=== PATIENT | male | born 1945 | race Caucasian/White ===

== ENCOUNTER → 2016-11-12 | Outpatient (CLI) | payer MEDICARE, OTHER | LOC: OD 15:16 | PROVIDERS: ATTEND Internal Medicine | DX: M54.14 Radiculopathy, thoracic region (principal); M54.9 Dorsalgia, unspecified | CPT/HCPCS: 72070 ==

== ENCOUNTER 2016-11-13 08:17 | Emergency (ER) | payer MEDICARE, OTHER ==
[2016-11-13] MEDS ORDERED: MORPHINE SULFATE 10 MG/ML INJ IV ONE (09:09)
[2016-11-13] MEDS ORDERED: IPRATROPIUM/ALBUTEROL 0.5-2.5 MG/3 ML AMPUL NEB ONE (09:09)
[2016-11-13] MEDS ORDERED: ONDANSETRON HCL INJ/PF 4 MG/2 ML SDV IV ONE (09:09)
--- NOTE | 2016-11-13 09:17 | ER Document Report ---
ED General - General Time seen by provider: 09:00 Mode of Arrival: Wheelchair Information source: Patient, Relative - spouse and family members TRAVEL OUTSIDE OF THE [place] IN LAST 30 DAYS: No - HPI Onset: Other - see HPI note Associated symptoms: Productive cough, Leg swelling, Rhinnorhea, Weakness <FAWAD ESPINOZA - Last Filed: 11/13/16 09:22> <PAU GRAHAM - Last Filed: 11/13/16 11:41> - General Chief Complaint: Weakness Stated Complaint: WEAKNESS Notes: Patient is a 71-year-old male presenting to the emergency department with complaints of weakness. Patient has history of multiple myeloma and has oral and IV chemotherapy 2 times per week; patient has had this care for the past 6 years. Patient has had some episodes of weakness. Saturday morning and today the patient has not been able to get up well and on his own. Patient also has had a productive cough and some congestion over the past 3-4 days; patient has been coughing up yellow/green sputum. Patient fell on and is complaining of some upper back pain. Patient had a T-spinal x-ray yesterday with [facility]; patient states he does not have the result yet from his x-ray. Patient did not receive a flu vaccination this season. Patient denies any fevers but is febrile upon arrival with a temperature of 101.6 F. Patient also has some chronic edema to the lower extremities bilaterally; patient's spouse states the edema is worse than normal. Patient also has a history of osteoarthritis and degenerative disc disease. Patient's PCP is Dr. Garcia. Patient's son expressed concern to triage desk that the patient may be taking too many of his pain medications. (FAWAD ESPINOZA) - Related Data Allergies/Adverse Reactions: lorazepam [From Ativan] Allergy (Mild, Verified 05/31/15 10:52) Hallucinations promethazine HCl [From Phenergan] Allergy (Mild, Verified 05/31/15 10:52) Hallucinations Past Medical History - General Information source: Patient, Relative - spouse and family members - Social History Smoking Status: Former Smoker - quit in '88 Lives with: Spouse/Significant other Family History: None - Past Medical History Cardiac Medical History: Reports: Hx Atrial Fibrillation, Hx Hypertension Endocrine Medical History: Reports: Hx Diabetes Mellitus Type 2 Malignancy Medical History: Reports Other - multiple myeloma Musculoskeltal Medical History: Reports Hx Arthritis - back Past Surgical History: Reports: Hx Vascular Surgery - Port placement, Other - Cataracts bilaterally - Immunizations Immunizations up to date: Yes Hx Diphtheria, Pertussis, Tetanus Vaccination: No Hx Pneumococcal Vaccination: 06/16/14 <FAWAD ESPINOZA - Last Filed: 11/13/16 09:22> Review of Systems - Review of Systems Constitutional: See HPI, Weakness EENT: See HPI, Nose congestion Cardiovascular: No symptoms reported Respiratory: See HPI, Cough Gastrointestinal: No symptoms reported Genitourinary: No symptoms reported Male Genitourinary: No symptoms reported Musculoskeletal: See HPI, Back pain Skin: No symptoms reported Hematologic/Lymphatic: No symptoms reported Neurological/Psychological: See HPI, Weakness -: Yes All other systems reviewed and negative <FAWAD ESPINOZA - Last Filed: 11/13/16 09:22> Physical Exam - Vital signs Interpretation: Febrile - General General appearance: Appears well, Alert In distress: Mild - HEENT Head: Normocephalic, Atraumatic Eyes: Normal Pupils: PERRL Mouth/Lips: Normal Mucous membranes: Moist Pharynx: Normal - Respiratory Respiratory status: No respiratory distress Chest status: Nontender, Other - port in left chest Breath sounds: Rhonchi, Wheezing Chest palpation: Normal - Cardiovascular Rhythm: Regular Heart sounds: Normal auscultation Murmur: No - Abdominal Inspection: Obese Distension: No distension Bowel sounds: Normal Tenderness: Nontender Organomegaly: No organomegaly - Back Back: Normal, Tender - tenderness over the medial scapula region bilaterally - Extremities General upper extremity: Normal inspection, Normal ROM, Normal strength General lower extremity: Edema - chronic edema with some skin thickening, Normal ROM, Normal strength - Neurological Neuro grossly intact: Yes Cognition: Normal Orientation: AAOx4 [place] Coma Scale Eye Opening: Spontaneous [place] Coma Scale Verbal: Oriented [place] Coma Scale Motor: Obeys Commands [place] Coma Scale Total: 15 Speech: Normal - Psychological Associated symptoms: Normal affect, Normal mood - Skin Skin Temperature: Warm Skin Moisture: Dry <FAWAD ESPINOZA - Last Filed: 11/13/16 09:22> <PAU GRAHAM - Last Filed: 11/13/16 11:41> - Vital signs Vitals: Temp Pulse Resp BP Pulse Ox 101.6 F H 80 18 133/59 H 92 11/13/16 08:25 11/13/16 08:25 11/13/16 08:25 11/13/16 08:25 11/13/16 08:25 (FAWAD ESPINOZA) (PAU GRAHAM) Course - Laboratory Result Diagrams: 11/13/16 08:50 11/13/16 08:50 <FAWAD ESPINOZA - Last Filed: 11/13/16 09:22> - Laboratory Result Diagrams: 11/13/16 08:50 11/13/16 08:50 - Diagnostic Test Radiology reviewed: Image reviewed, Reports reviewed - Chest x-ray does not show any acute process - EKG Interpretation by Me EKG shows normal: Sinus rhythm, [place], Intervals, QRS Complexes. abnormal: ST-T Waves - Minimal ST depression anterior leads Rate: Normal - 76 Rhythm: NSR Washta/QRS: IVCD When compared to previous EKG there are: Changes noted - There is new T-wave inversion in leads V1, V2, V3, V4, and V5 <PAU GRAHAM - Last Filed: 11/13/16 11:41> - Vital Signs Vital signs: Temp Pulse Resp BP Pulse Ox 98.3 F 66 18 117/44 L 96 11/13/16 11:16 11/13/16 11:16 11/13/16 08:25 11/13/16 11:16 11/13/16 11:16 (FAWAD ESPINOZA) (PAU GRAHAM) - Laboratory Laboratory results interpreted by fl: 11/13/16 11/13/16 11/13/16 08:50 08:50 08:50 RBC 3.88 L Hgb 11.2 L Hct 34.3 L RDW 21.5 H Plt Count 124 L Lymphocytes % 11.9 L Monocytes % 19.3 H PT 26.2 H Sodium 134.7 L BUN 21 H Creatinine 1.48 H Est GFR ( Amer) 57 L Est GFR (Non-Af Amer) 47 L Glucose 118 H Calcium 8.3 L AST 16 L Total Protein 6.2 L (PAU GRAHAM) Discharge <FAWAD ESPINOZA - Last Filed: 11/13/16 09:22> <PAU GRAHAM - Last Filed: 02/28/17 11:41> - Discharge Clinical Impression: Influenza B, Weakness Fever Qualifiers: Fever type: unspecified Qualified Code(s): R50.9 - Fever, unspecified Condition: Stable Disposition: HOME, SELF-CARE Additional Instructions: Influenza What are conditions that should receive medical attention? The development of difficulty breathing. Lip color changes to blue or purple. Persistent vomiting and unable to keep liquids down with signs of dehydration such as: dizziness when standing, unable to urinate, or if child/ is crying no tears are noticed. Is less responsive than normal or becomes confused. How do I decrease the spread of flu in my home? Taking care of the sick patient at home: Keep the sick person in a room separate from the common areas of the house. Keep the "sickroom" door closed. If the person with the flu needs to leave the home, they should cover their nose/mouth when coughing or sneezing and wear a disposable (surgical) mask if available. These masks may be available at your local pharmacy, medical supply and hardware store. If the sick person is in common areas of the house, have them wear a surgical mask. If possible, have the sick person use a separate bathroom that should be cleaned daily with a household disinfectant. If you are the caregiver: Avoid being face to face with the sick adult person as much as possible. Try to stay at least 6 feet away and wear a disposable surgical mask when possible. When holding small children who are sick, place their chin on your shoulder so that they will not cough in your face. Wash your hands after you touch the sick person or handle their tissues and laundry. Wear a mask if you leave home, as you may be infected from taking care of someone and not know it yet. Watch yourself and others in the home for flu symptoms and contact your doctor if symptoms occur. NOTE: Antiviral medication used to reduce the symptoms of the flu works only if taken within 48 hours, and best within 24 hours of symptom onset. Household Cleaning, laundry and waste disposal: Tissues and other disposable items used by the sick person should be thrown away in the trash. Wash your hands after touching these used items. No special waste disposal is required. Keep surfaces (especially bedside tables, bathroom surfaces, and toys for children) clean by wiping them down with a safe household disinfectant according to the directions on the product label. Per CDC advice, most people will not receive testing to confirm flu. Also based on the person's health history and onset of symptoms, not all patients will receive prescriptions for antiviral medications. If you have questions related to this, please ask your healthcare provider. For more information, you can call the Centers for Disease Control and Prevention (CDC) Hotline at 6-531-QRT-INFO This line is available in Occitan and Ukrainian, 24 hours a day, 7 days a week. Or www.[employer] or www.cdc.gov Flu-Like Illness Home Instructions: The influenza virus infection can cause a wide rage of symptoms, including: Fever, cough, sore throat, body aches, headaches, chills, fatigue, with some patients reporting diarrhea and vomiting Like seasonal influenza A, H1N1 ("swine flu")in humans can vary in severity from mild to severe Severe illness with pneumonia, respiratory failure and even is possible Certain groups might be more likely to develop a severe illness from H1N1 infection. Sometimes bacterial infections may occur at the same time as or after infection with influenza viruses and lead to pneumonias, ear infections, or sinus infections. How Flu Spreads The main way that influenza viruses spread is through respiratory droplets of coughs and sneezes. This can happen when someone with the infection coughs or sneezes and the particles fly through the air and land on other people and surfaces. If the person covers their mouth and nose with their hand but does not wash their hands immediately, then these germs are passed onto the next object that they touch. People with Influenza A or suspected H1N1 (swine flu) who are cared for at home should: Check with their doctor about any special care that they might need if they are or have a health condition such as diabetes, heart disease, asthma or emphysema. Also, limit caregiver to one (if possible). women or those with chronic health conditions should not take care of the flu patient unless necessary. Check with their doctor about whether or not medications are needed that may lessen the symptoms of the flu. Stay at home until 24 hours fever free without the use of fever reducing medication. Get plenty of rest and avoid other healthy people in your home. Drink plenty of clear liquids to keep from getting dehydrated. Take medications like Tylenol (Acetaminophen), Advil/Motrin/Nuprin ( Ibuprofen) or Aleve (Naproxen) for fevers and aches. All children under the age of 18 years of age should not take aspirin or products containing aspirin (e.g. Pepto Bismol), as this can cause a rare serious illness called Will Syndrome. Over the counter medications for flu and colds may help, but it is very important to follow the package directions. Remember that the medicine may help the symptoms, but it will not help prevent others from getting sick if they are around you. Cover coughs and sneezes using your bent arm. Clean hands with soap and water or an alcohol-based hand rub often, especially after using tissues to cough or sneeze. Encourage hand washing frequently for all people living in the home! The sick person should not have visitors other than caregivers. Encourage concerned loved ones to call instead of visit. Avoid close contact with others-do not go to work or school while sick. //////////////////////////////////////////////////////////////////////////////// //////////////////////////////////////////////////////////////////////////////// ////////////////////////////////////////////////////// Take Tylenol every 4 hours for fever. Drink plenty of fluids. Get plenty of rest. Follow-up with your doctor if not improving. RETURN TO THE EMERGENCY ROOM IF ANY NEW OR WORSENING SYMPTOMS. Scribe Attestation: 11/13/16 11:41 I personally performed the services described in the documentation, reviewed and edited the documentation which was dictated to the scribe in my presence, and it accurately records my words and actions. (PAU GRAHAM) Scribe Documentation - Scribe Written by Scribe:: Fawad Espinoza 11/13/16 9:38 acting as scribe for :: Ronald <FAWAD ESPINOZA - Last Filed: 11/13/16 09:22>
[2016-11-13 09:25] LABS: ALANINE AMINOTRANSFERASE 26 U/L (21-72); ALBUMIN 3.7 g/dL (3.5-5.0); ALKALINE PHOSPHATASE 52 U/L (38-126); ANION GAP 12 (5-19); ASPARTATE AMINO TRANSFERASE 16 U/L (17-59); BILIRUBIN,TOTAL 1.3 mg/dL (0.2-1.3); BLOOD UREA NITROGEN 21 mg/dL (7-20); CALCIUM 8.3 mg/dL (8.4-10.2); CARBON DIOXIDE 23 mmol/L (22-30); CHLORIDE 100 mmol/L (98-107); CREATINE KINASE 57 U/L (55-170); CREATININE RESULT 1.48 mg/dL (0.52-1.25); GLUCOSE 118 mg/dL (75-110); POTASSIUM 4.2 mmol/L (3.6-5.0); SODIUM 134.7 mmol/L (137-145); TOTAL PROTEIN 6.2 g/dL (6.3-8.2)
[2016-11-13 09:28] LABS: ABSOLUTE LYMPHOCYTES (AUTO) 0.6 10^3/uL (0.5-4.7); ABSOLUTE NEUT (AUTO) 3.4 10^3/uL (1.7-8.2); BASOPHILS % (AUTO) 0.5 % (0-2); EOSINOPHILS % (AUTO) 0.6 % (0-6); HEMATOCRIT 34.3 % (37.9-51.0); HEMOGLOBIN 11.2 g/dL (13.5-17.0); HGB HCT DIFFERENCE -0.7; LYMPHOCYTES % (AUTO) 11.9 % (13-45); MEAN CORPUSCULAR HEMOGLOBIN 28.8 pg (27.0-33.4); MEAN CORPUSCULAR HGB CONC 32.6 g/dL (32.0-36.0); MEAN CORPUSCULAR VOLUME 89 fl (80-97); MONOCYTES % (AUTO) 19.3 % (3-13); RED BLOOD COUNT 3.88 10^6/uL (4.35-5.55); RED CELL DISTRIBUTION WIDTH 21.5 % (11.5-14.0); SEGMENTED NEUTROPHILS % (AUTO) 67.7 % (42-78)
[2016-11-13 09:37] LABS: CREATINE KINASE MB 0.73 ng/mL (<4.55); PROTHROMBIN TIME 26.2 SEC (11.4-15.4); TROPONIN I 0.012 ng/mL
[2016-11-13] MEDS ORDERED: ACETAMINOPHEN 325 MG TABLET PO ONE (09:51)
[2016-11-13 11:26] VITALS: BP 117/44
--- NOTE | 2016-11-13 18:13 | EKG REPORT ---
SEVERITY:- ABNORMAL ECG - SINUS RHYTHM NONSPECIFIC INTRAVENTRICULAR CONDUCTION DELAY MINIMAL ST DEPRESSION, ANTERIOR LEADS : Confirmed by: Bartolome Matamoros MD 13-Nov-2016 18:13:25
== END 2016-11-13 19:03 | disposition home or self-care (01) ==
LOC: ER 08:17
DX: J11.1 Influenza due to unidentified influenza virus with other respiratory manifestations (principal); R53.1 Weakness; C90.00 Multiple myeloma not having achieved remission; R50.9 Fever, unspecified; I48.91 Unspecified atrial fibrillation; I10 Essential (primary) hypertension; E11.9 Type 2 diabetes mellitus without complications; Z87.891 Personal history of nicotine dependence
CPT/HCPCS: 93005; 94640; 99285; 96374; 96375; 36415; 87040; 87070; 87205; 82553; 82550; 85025; 85610; 87077; 80053; 84484; 87186; 83605; 87804; 71020; 93010; A9270 ×2; J2270; J2405; J7620

== ENCOUNTER 2017-02-04 18:22 | Emergency (ER) | payer MEDICARE, OTHER ==
[2017-02-04] MEDS ORDERED: GLUCAGON,HUMAN RECOMB 1 MG INJ SUBCUT PRN (19:07)
[2017-02-04] MEDS ORDERED: NITROGLYCERIN 0.4 MG/TAB 25 TAB/BOTTLE SL ONE (19:07)
--- NOTE | 2017-02-04 19:48 | ER Document Report ---
ED Foreign Body - General Chief Complaint: Meat stuck in throat Stated Complaint: STEAK STUCK IN THROAT Time Seen by Provider: 02/04/17 19:06 Mode of Arrival: Ambulatory Information source: Patient TRAVEL OUTSIDE OF THE [place] IN LAST 30 DAYS: No - HPI Patient complains to provider of: Piece of steak stuck in throat Location of foreign body: Throat Onset: This afternoon Onset/Duration: Sudden Quality of pain: Achy Severity: Mild Pain Level: 1 Associated symptoms: Other - Unable to swallow Similar symptoms previously: Yes Recently seen / treated by doctor: No Notes: Patient is a 72-year-old male who presents to the emergency room complaining of a piece of [employer] steak stuck in his throat since lunchtime today, he is unable to swallow his secretions, he denies any difficulty breathing, he complains of mild pain at the site where he feels the steak is stuck, he reports a history of similar symptoms in the past, however he is usually able to swallow the meat with some persistence at home, today he was unable to - Related Data Allergies/Adverse Reactions: lorazepam [From Ativan] Allergy (Mild, Verified 05/31/15 10:52) Hallucinations promethazine HCl [From Phenergan] Allergy (Mild, Verified 05/31/15 10:52) Hallucinations Past Medical History - General Information source: Patient - Social History Smoking Status: Unknown if Ever Smoked Family History: None - Past Medical History Cardiac Medical History: Reports: Hx Atrial Fibrillation, Hx Hypertension Denies: Hx Coronary Artery Disease, Hx Heart Attack Pulmonary Medical History: Denies: Hx Asthma, Hx Bronchitis, Hx COPD, Hx Pneumonia, Hx Tuberculosis Neurological Medical History: Denies: Hx Cerebrovascular Accident, Hx Seizures Endocrine Medical History: Reports: Hx Diabetes Mellitus Type 2 Renal/ Medical History: Denies: Hx Peritoneal Dialysis Musculoskeltal Medical History: Reports Hx Arthritis - back Psychiatric Medical History: Denies: Hx Depression Past Surgical History: Reports: Hx Vascular Surgery - Port placement, Other - Cataracts bilaterally - Immunizations Immunizations up to date: Yes Hx Diphtheria, Pertussis, Tetanus Vaccination: No Hx Pneumococcal Vaccination: 06/16/14 Review of Systems - Review of Systems Constitutional: No symptoms reported EENT: See HPI Cardiovascular: No symptoms reported Respiratory: No symptoms reported Gastrointestinal: No symptoms reported Genitourinary: No symptoms reported Male Genitourinary: No symptoms reported Musculoskeletal: No symptoms reported Skin: No symptoms reported Hematologic/Lymphatic: No symptoms reported Neurological/Psychological: No symptoms reported -: Yes All other systems reviewed and negative Physical Exam - Vital signs Vitals: Temp Pulse Resp BP Pulse Ox 98.5 F 56 L 18 147/40 H 92 02/04/17 18:57 02/04/17 18:57 02/04/17 18:57 02/04/17 18:57 02/04/17 18:57 Interpretation: Normal - General General appearance: Appears well, Alert - HEENT Head: Normocephalic, Atraumatic Eyes: Normal Pupils: PERRL - Respiratory Respiratory status: No respiratory distress Chest status: Nontender Breath sounds: Normal Chest palpation: Normal - Cardiovascular Rhythm: Regular Heart sounds: Normal auscultation Murmur: No - Abdominal Inspection: Normal Distension: No distension Bowel sounds: Normal Tenderness: Nontender Organomegaly: No organomegaly - Back Back: Normal, Nontender - Extremities General upper extremity: Normal inspection, Nontender, Normal color, Normal ROM , Normal temperature General lower extremity: Normal inspection, Nontender, Normal color, Normal ROM , Normal temperature, Normal weight bearing. No: Gaviota's sign - Neurological Neuro grossly intact: Yes Cognition: Normal Orientation: AAOx4 [place] Coma Scale Eye Opening: Spontaneous Rhonda Coma Scale Verbal: Oriented [place] Coma Scale Motor: Obeys Commands [place] Coma Scale Total: 15 Speech: Normal Motor strength normal: LUE, RUE, LLE, RLE Sensory: Normal - Psychological Associated symptoms: Normal affect, Normal mood - Skin Skin Temperature: Warm Skin Moisture: Dry Skin Color: Normal Course - Re-evaluation Re-evalutation: 02/04/17 19:48 Tempted to assist in dislodging the state from patient's throat by providing him with sublingual nitro, subcutaneous glucagon and warm soda, however he was still unable to swallow in the warm soda came right back up, therefore the surgeon was contacted who will see and evaluate patient for likely endoscopy to remove the piece of some patient's esophagus 02/04/17 23:23 A call was placed to [facility], spoke with transfer center and requested callback from gastroenterology 02/04/17 23:44 Patient was discussed with gastroenterology at [facility], Dr. Kramer accepted patient for transfer on ED to ED basis Discussed with Dr. Albright, the physician who was made aware of patient transfer and also in agreement with this plan 02/05/17 01:09 Patient has been sleeping comfortably, he remains mildly sedated from Versed that was given while surgeon was attempting to remove his knee impaction, he is arousable, has no complaints of the present time, vital signs are stable, he is stable for transport to tertiary care center for higher level of care - Vital Signs Vital signs: Temp Pulse Resp BP Pulse Ox 98.5 F 58 L 15 130/54 H 99 02/04/17 18:57 02/04/17 22:25 02/04/17 23:45 02/04/17 23:45 02/04/17 23:45 - Consults Dr Mathis Time consulted: 19:45 Reason for consultation: 02/04/17 20:01 esophageal meat impaction Consulted provider: will come to ER Discharge - Discharge Clinical Impression: Esophageal obstruction due to food impaction Condition: Stable Disposition: [facility]
[2017-02-04] MEDS ORDERED: ONDANSETRON HCL INJ/PF 4 MG/2 ML SDV ONE (20:40)
[2017-02-04] MEDS ORDERED: NALOXONE HCL INJ/PF 0.4 MG/1 ML SDV ONE (20:40)
[2017-02-04] MEDS ORDERED: FLUMAZENIL INJ 0.5 MG/5 ML VIAL IV ONE (20:41)
[2017-02-04] MEDS ORDERED: EPINEPHRINE INJ 1 MG/10 ML DISP.SYRIN ONE (20:41)
[2017-02-04] MEDS ORDERED: GLUCAGON,HUMAN RECOMB 1 MG INJ ONE (20:41)
[2017-02-04] MEDS ORDERED: FENTANYL CITRATE INJ/PF 100 MCG/2 ML AMPUL ONE (20:41)
[2017-02-04] MEDS ORDERED: MIDAZOLAM 2 MG/2 ML INJ ONE (20:41)
[2017-02-04] MEDS: MIDAZOLAM 2 MG/2 ML INJ ONE ×4 (20:57→21:34)
--- NOTE | 2017-02-05 01:33 | OPERATIVE REPORT E ---
Operative Report NAME: NINI ZHENG : 1945 AGE: 72Y DATE OF SURGERY: 02/04/2017 ROOM: PREOPERATIVE DIAGNOSIS: 1. Esophageal meat impaction. 2. Coumadin anticoagulation. 3. Multiple myeloma. POSTOPERATIVE DIAGNOSIS: 1. Esophageal meat impaction. 2. Coumadin anticoagulation. 3. Multiple myeloma. 4. Probable distal esophageal stricture. PROCEDURE PERFORMED: 1. Multiple flexible upper endoscopy with incomplete clearance of meat impaction of the esophagus. SURGEON: RICHY CAAL M.D. ANESTHESIA: Conscious sedation. COMPLICATIONS: None. ESTIMATED BLOOD LOSS: None. DRAINS: None. TISSUE REMOVED OR ALTERED: Fragments of meat bolus. PROCEDURE IN DETAIL: After obtaining informed consent from the patient and the patient's , monitoring devices were attached to the patient in preparation for upper endoscopy. Surgical plan and surgical timeout were conducted. A mouthpiece was inserted. Hypopharynx anesthetized and appropriate level of sedation achieved. We then performed upper endoscopy with multiple extractions and reinsertions of the esophagoscope. The findings were significant for a large elongated portion of meat, starting at the upper esophageal sphincter and extending down to the mid-esophagus. Using a combination of irrigation suction and aung retraction, meat fragments were picked apart, flushed out, aspirated, and removed form the upper and mid-esophagus. We proceeded for approximately 1 hour in this fashion. Patient received approximately 7 mg of Versed and 100 mcg of Fentanyl. Unfortunately, the patient did not tolerate the endoscopy well in that he coughed and gatored throughout a lot of the procedure. Unfortunately, the patient developed a distal esophageal imp;action which could not be cleared through the above means. 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 PLAN: We are going to let the patient recover in the emergency room, and reassess after some period of time. The role of enzymatic debridement was discussed with the emergency department but was felt not to be a viable option. Patient may clear the remaining bolus spontaneously or may require repeat endoscopy. We will communicate the status of the current situation to the patient's . DICTATING PHYSICIAN: RICHY CAAL M.D. [id number] PHY#: [id number] ID: [id number] JOB#: [id number] ACCT: [id number] cc:RICHY CAAL M.D. >
[2017-02-05 01:38] VITALS: BP 117/60
== END 2017-02-05 01:15 | disposition short-term general hospital (02) ==
LOC: ER 18:22
DX: T18.128A Food in esophagus causing other injury, initial encounter (principal); X58.XXXA Exposure to other specified factors, initial encounter; I10 Essential (primary) hypertension; E11.9 Type 2 diabetes mellitus without complications; Z88.8 Allergy status to other drugs, medicaments and biological substances
CPT/HCPCS: 99284; 96372; 43215; J2250; J3010; J1610; 43247; J0171; J2310; J2405; J3490

== ENCOUNTER → 2017-04-29 | Outpatient (CLI) | payer MEDICARE, OTHER ==
[2017-04-29 09:58] LABS: ABSOLUTE BASOPHILS # (AUTO) 0.1 10^3/uL (0.0-0.2); ABSOLUTE EOSINOPHILS # (AUTO) 0.2 10^3/uL (0.0-0.6); ABSOLUTE LYMPHOCYTES (AUTO) 0.6 10^3/uL (0.5-4.7); ABSOLUTE MONOCYTES (AUTO) 0.4 10^3/uL (0.1-1.4); ABSOLUTE NEUT (AUTO) 2.4 10^3/uL (1.7-8.2); BASOPHILS % (AUTO) 1.6 % (0-2); EOSINOPHILS % (AUTO) 5.5 % (0-6); HEMATOCRIT 33.3 % (37.9-51.0); HEMOGLOBIN 10.8 g/dL (13.5-17.0); HGB HCT DIFFERENCE -0.9; LYMPHOCYTES % (AUTO) 16.7 % (13-45); MEAN CORPUSCULAR HEMOGLOBIN 29.4 pg (27.0-33.4); MEAN CORPUSCULAR HGB CONC 32.4 g/dL (32.0-36.0); MEAN CORPUSCULAR VOLUME 91 fl (80-97); MONOCYTES % (AUTO) 10.9 % (3-13); RED BLOOD COUNT 3.67 10^6/uL (4.35-5.55); RED CELL DISTRIBUTION WIDTH 23.2 % (11.5-14.0); SEGMENTED NEUTROPHILS % (AUTO) 65.3 % (42-78); WHITE BLOOD COUNT 3.7 10^3/uL (4.0-10.5)
[2017-04-29 10:22] LABS: ALANINE AMINOTRANSFERASE 17 U/L (21-72); ALBUMIN 3.8 g/dL (3.5-5.0); ALKALINE PHOSPHATASE 51 U/L (38-126); ANION GAP 11 (5-19); ASPARTATE AMINO TRANSFERASE 10 U/L (17-59); BILIRUBIN,DIRECT 0.4 mg/dL (0.0-0.4); BILIRUBIN,TOTAL 0.9 mg/dL (0.2-1.3); BLOOD UREA NITROGEN 21 mg/dL (7-20); CALCIUM 8.9 mg/dL (8.4-10.2); CARBON DIOXIDE 26 mmol/L (22-30); CHLORIDE 102 mmol/L (98-107); CHOLESTEROL 159.16 mg/dL (0-200); CREATININE RESULT 1.23 mg/dL (0.52-1.25); Direct HDL 43 mg/dL (>40); GLUCOSE 94 mg/dL (75-110); POTASSIUM 4.4 mmol/L (3.6-5.0); TOTAL PROTEIN 6.9 g/dL (6.3-8.2); TRIGLYCERIDES 150 mg/dL (<150)
[2017-04-29 10:33] LABS: DIRECT LDL 101 mg/dL (<100)
[2017-04-30 10:38] LABS: CREATININE URINE 10.8 mg/dL (Not Estab.)
[2017-04-30 11:23] LABS: MICROALBUMIN URINE <3.0 ug/mL (Not Estab.)
== END ==
LOC: OD 08:14
PROVIDERS: ATTEND Family Medicine Geriatric Medicine
DX: Z79.899 Other long term (current) drug therapy (principal); E11.9 Type 2 diabetes mellitus without complications; I10 Essential (primary) hypertension; I48.91 Unspecified atrial fibrillation
CPT/HCPCS: 36415; 80053; 80061; 82043; 82570; 83036; 84443; 85025

== ENCOUNTER 2017-05-22 07:05 | Outpatient (CLI) | payer MEDICARE, OTHER ==
[~2017-05-22 07:05] MED LIST: ACETAMINOPHEN 325 MG TABLET PO PRN; DARATUMUMAB IV PRN; DEXTROSE 5% IV PRN; DIPHENHYDRAMINE HCL 50 MG in NORMAL SALINE 50 ML IV PRN; METHYLPREDNISOLONE SOD SUCC IV PRN; NORMAL SALINE 250 ML IV PRN; NORMAL SALINE IV PRN; WATER IV PRN
[2017-05-22 07:55] LABS: HEMATOCRIT 30.2 % (37.9-51.0); HEMOGLOBIN 9.7 g/dL (13.5-17.0); HGB HCT DIFFERENCE -1.1; MEAN CORPUSCULAR HEMOGLOBIN 29.1 pg (27.0-33.4); MEAN CORPUSCULAR HGB CONC 32.1 g/dL (32.0-36.0); MEAN CORPUSCULAR VOLUME 91 fl (80-97); RED BLOOD COUNT 3.34 10^6/uL (4.35-5.55); RED CELL DISTRIBUTION WIDTH 22.4 % (11.5-14.0); WHITE BLOOD COUNT 8.7 10^3/uL (4.0-10.5)
[2017-05-22 08:15] LABS: ANISOCYTOSIS 3+; BAND NEUTROPHILS % (MANUAL) 4 % (3-5); BASOPHILS % (MANUAL) 0 % (0-2); EOSINOPHILS % (MANUAL) 0 % (0-6); LYMPHOCYTES % (MANUAL) 4 % (13-45); PLATELET CLUMPS PRESENT; TOTAL CELLS COUNTED 100; TOXIC GRANULATION 1+
[2017-05-22 08:18] LABS: OVALOCYTES SLIGHT; POIKILOCYTOSIS SLIGHT; POLYCHROMASIA SLIGHT; TEAR DROP CELLS SLIGHT
[2017-05-22] MEDS ORDERED: DEXAMETHASONE SOD PHOS INJ 10 MG/1 ML VIAL IV PRN (09:02)
[2017-05-22] MEDS ORDERED: DIPHENHYDRAMINE HCL 50 MG/ML VIAL IV PRN (09:03)
[2017-05-22 17:08] VITALS: BP 127/61
== END 2017-05-22 17:33 | disposition home or self-care (01) ==
LOC: II 07:05 → ICU 07:18 → II 17:33
PROVIDERS: ATTEND Internal Medicine
PROC: 3E0430M Introduction of Antineoplastic, Monoclonal Antibody, into Central Vein, Percutaneous Approach (ICD-10-PCS; principal; 2017-05-22)
PROC: 3E0433Z Introduction of Anti-inflammatory into Central Vein, Percutaneous Approach (ICD-10-PCS; 2017-05-22)
PROC: 3E043GC Introduction of Other Therapeutic Substance into Central Vein, Percutaneous Approach (ICD-10-PCS; 2017-05-22)
DX: Z51.11 Encounter for antineoplastic chemotherapy (principal); C90.02 Multiple myeloma in relapse
CPT/HCPCS: 96413; 96415; 96367; 86900; 86901; 36415; 86850; 85025; A9270; J1200; J2930; J7030; J7050; J9145; 96375

== ENCOUNTER → 2017-06-03 | Outpatient (CLI) | payer MEDICARE, OTHER | LOC: OD 11:07 | PROVIDERS: ATTEND Family Medicine Geriatric Medicine | DX: Z79.899 Other long term (current) drug therapy (principal); R89.9 Unspecified abnormal finding in specimens from other organs, systems and tissues | CPT/HCPCS: 36415; 84443 ==

== ENCOUNTER 2017-07-25 10:26 | Outpatient (CLI) | payer MEDICARE, OTHER ==
[2017-07-25] MEDS ORDERED: NORMAL SALINE 500 ML IV PRN (10:45)
[2017-07-25 11:37] VITALS: BP 109/65
== END 2017-07-25 12:30 | disposition home or self-care (01) ==
LOC: II 10:26 → 5TH 10:32 → II 12:30
PROVIDERS: ATTEND Internal Medicine
PROC: 3E0437Z Introduction of Electrolytic and Water Balance Substance into Central Vein, Percutaneous Approach (ICD-10-PCS; principal; 2017-07-25)
DX: E86.0 Dehydration (principal); C90.02 Multiple myeloma in relapse
CPT/HCPCS: 96360; 96375

== ENCOUNTER → 2017-08-06 | Outpatient (CLI) | payer MEDICARE, OTHER | LOC: OD 11:08 | PROVIDERS: ATTEND Family Medicine Geriatric Medicine | DX: E05.90 Thyrotoxicosis, unspecified without thyrotoxic crisis or storm (principal) | CPT/HCPCS: 36415; 84443 ==

== ENCOUNTER → 2017-08-12 | Outpatient (CLI) | payer MEDICARE, OTHER ==
--- NOTE | 2017-08-12 13:27 | RADIOLOGY REPORT (SQ) ---
EXAM DESCRIPTION: SHOULDER LEFT 2 OR MORE VIEWS COMPLETED DATE/TIME: 08/12/2017 12:55 pm REASON FOR STUDY: PAIN IN LEFT SHOULDER M25.512 PAIN IN LEFT SHOULDER COMPARISON: None. NUMBER OF VIEWS: Three views. TECHNIQUE: Internal rotation, external rotation, and Y view images acquired of the left shoulder. LIMITATIONS: None. FINDINGS: MINERALIZATION: Normal. BONES: No fracture dislocation. There is what appears to be a type 3 acromion with an anterior down turn seen on the Y view. JOINTS: No dislocation. VISUALIZED LUNGS AND RIBS: No pneumothorax. No rib fracture. SOFT TISSUES: No radiopaque foreign body. OTHER: No other significant finding. IMPRESSION: Type 3 acromion. No acute abnormality shoulder. TECHNICAL DOCUMENTATION: JOB ID: [id number] [employer]- All Rights Reserved
== END ==
LOC: OD 12:07
PROVIDERS: ATTEND Family Medicine Geriatric Medicine
DX: M25.512 Pain in left shoulder (principal)

== ENCOUNTER → 2017-08-20 | Outpatient (CLI) | payer MEDICARE, OTHER ==
[2017-08-20 09:18] LABS: ABSOLUTE BASOPHILS # (AUTO) 0.1 10^3/uL (0.0-0.2); ABSOLUTE EOSINOPHILS # (AUTO) 0.3 10^3/uL (0.0-0.6); ABSOLUTE LYMPHOCYTES (AUTO) 1.4 10^3/uL (0.5-4.7); ABSOLUTE MONOCYTES (AUTO) 0.6 10^3/uL (0.1-1.4); EOSINOPHILS % (AUTO) 4.6 % (0-6); HEMATOCRIT 36.1 % (37.9-51.0); HEMOGLOBIN 11.8 g/dL (13.5-17.0); HGB HCT DIFFERENCE -0.7; LYMPHOCYTES % (AUTO) 18.6 % (13-45); MEAN CORPUSCULAR HEMOGLOBIN 27.8 pg (27.0-33.4); MEAN CORPUSCULAR HGB CONC 32.5 g/dL (32.0-36.0); MEAN CORPUSCULAR VOLUME 86 fl (80-97); MONOCYTES % (AUTO) 8.1 % (3-13); RED BLOOD COUNT 4.22 10^6/uL (4.35-5.55); SEGMENTED NEUTROPHILS % (AUTO) 67.7 % (42-78); WHITE BLOOD COUNT 7.4 10^3/uL (4.0-10.5)
[2017-08-20 09:33] LABS: ALANINE AMINOTRANSFERASE 28 U/L (21-72); ALBUMIN 4.2 g/dL (3.5-5.0); ALKALINE PHOSPHATASE 52 U/L (38-126); ANION GAP 8 (5-19); ASPARTATE AMINO TRANSFERASE 15 U/L (17-59); BILIRUBIN,DIRECT 0.4 mg/dL (0.0-0.4); BILIRUBIN,TOTAL 0.7 mg/dL (0.2-1.3); BLOOD UREA NITROGEN 21 mg/dL (7-20); CALCIUM 9.2 mg/dL (8.4-10.2); CARBON DIOXIDE 32 mmol/L (22-30); CHLORIDE 98 mmol/L (98-107); CHOLESTEROL 176.63 mg/dL (0-200); Direct HDL 40 mg/dL (>40); GLUCOSE 90 mg/dL (75-110); POTASSIUM 4.7 mmol/L (3.6-5.0); TOTAL PROTEIN 7.3 g/dL (6.3-8.2); TRIGLYCERIDES 186 mg/dL (<150)
[2017-08-20 09:44] LABS: DIRECT LDL 109 mg/dL (<100)
[2017-08-20 09:47] LABS: VLDL CHOLESTEROL 37.2 mg/dL (10-31)
[2017-08-21 09:40] LABS: CREATININE URINE 57.4 mg/dL (Not Estab.); MICROALBUMIN URINE <3.0 ug/mL (Not Estab.)
== END ==
LOC: OD 08:14
PROVIDERS: ATTEND Family Medicine Geriatric Medicine
DX: E11.40 Type 2 diabetes mellitus with diabetic neuropathy, unspecified (principal); I10 Essential (primary) hypertension; E78.5 Hyperlipidemia, unspecified; Z79.899 Other long term (current) drug therapy
CPT/HCPCS: 36415; 80053; 80061; 82043; 82570; 83036; 85025

== ENCOUNTER → 2017-09-24 | Outpatient (CLI) | payer MEDICARE, OTHER ==
[2017-09-24 14:13] LABS: INTERNATIONAL RATION (INR) 2.61; PROTHROMBIN TIME 29.2 SEC (11.4-15.4)
== END ==
LOC: OD 13:00
PROVIDERS: ATTEND Family Medicine Geriatric Medicine
DX: I48.91 Unspecified atrial fibrillation (principal); I26.99 Other pulmonary embolism without acute cor pulmonale
CPT/HCPCS: 36415; 85610

== ENCOUNTER → 2017-10-01 | Outpatient (CLI) | payer MEDICARE, OTHER ==
[2017-10-01 10:50] LABS: ALANINE AMINOTRANSFERASE 20 U/L (21-72); ASPARTATE AMINO TRANSFERASE 13 U/L (17-59); CHOLESTEROL 118.61 mg/dL (0-200); TRIGLYCERIDES 131 mg/dL (<150)
[2017-10-01 11:03] LABS: DIRECT LDL 60 mg/dL (<100)
== END ==
LOC: OD 09:35
PROVIDERS: ATTEND Family Medicine Geriatric Medicine
DX: N18.3 Chronic kidney disease, stage 3 (moderate) (principal); Z79.899 Other long term (current) drug therapy
CPT/HCPCS: 36415; 80061; 82306; 84450; 84460

== ENCOUNTER → 2017-10-07 | Outpatient (CLI) | payer MEDICARE ==
--- NOTE | 2017-10-07 22:21 | RADIOLOGY REPORT (SQ) ---
EXAM DESCRIPTION: MRI LT UPPER JOINT WITHOUT COMPLETED DATE/TIME: 10/07/2017 11:36 am REASON FOR STUDY: COMPLETE ROTATOR CUFF TEAR OR RUPTURE OF LEFT SHOULDER M25.512 PAIN IN LEFT SHOU[place] COMPARISON: 08/12/2017 radiographs. TECHNIQUE: Left shoulder images acquired and stored on PACS. Multiplanar imaging to include fat sens itive sequences such as T1, water sensitive sequences such as FST2/STIR, cartilage sensitive sequence s such as FSPD/gradient-echo sequences. LIMITATIONS: None. FINDINGS: BONE MARROW AND CORTEX: Destructive lesion with abnormal soft tissue in the distal clavicl e abutting the AC joint. Grossly 3 x 4 x 3 cm AP by transverse by craniocaudal. Mild signal in the infra glenoid scapula and along the proximal humeral shaft may represent additional lesions. JOINT OR BURSAL EFFUSION: No significant joint or bursal fluid. No suggestion of loose bodies. GLENO-HUMERAL ARTICULATION: Normal articulation. No subluxation. No cystic change. No osteophytes or cartilage loss. ACROMION AND AC JOINT: Acromion intact. No AC joint widening ROTATOR CUFF AND INTERVAL: Tear along anterior supraspinatus insertion relatively focally. This invo lves the bursal surface and a portion of the cuff, without clear full-thickness gap or retraction. LABRUM AND BICEPS LABRAL COMPLEX: Fraying in the biceps anchor. Biceps tendon looks relatively nor mal. REMAINDER OF LABRUM AND IGHL : Limited assessment, grossly intact. PERIARTICULAR AND ADJACENT SOFT TISSUES: As above. No axillary adenopathy. No other regional soft t issue mass. OTHER: No other significant finding. IMPRESSION: 1. Destructive mass with expansile soft tissue in the distal clavicle. Patient reported ly has known "Bone cancer" . 2. No full thickness cuff tear. Mild partial tear along anterior supr aspinatus insertion. TECHNICAL DOCUMENTATION: JOB ID: [id number] [email or web address] All Rights Reserved
== END ==
LOC: RAD 10:34
PROVIDERS: ATTEND Orthopaedic Surgery
DX: M75.122 Complete rotator cuff tear or rupture of left shoulder, not specified as traumatic (principal)

== ENCOUNTER → 2017-10-08 | Outpatient (CLI) | payer MEDICARE | LOC: OD 09:59 | PROVIDERS: ATTEND Family Medicine Geriatric Medicine | DX: R94.6 Abnormal results of thyroid function studies (principal); Z79.899 Other long term (current) drug therapy | CPT/HCPCS: 36415; 84443 ==

== ENCOUNTER → 2017-11-12 | Outpatient (CLI) | payer MEDICARE, OTHER | LOC: OD 10:00 | PROVIDERS: ATTEND Family Medicine Geriatric Medicine | DX: E03.9 Hypothyroidism, unspecified (principal); Z79.899 Other long term (current) drug therapy | CPT/HCPCS: 36415; 84443 ==

== ENCOUNTER → 2017-12-09 | Outpatient (CLI) | payer MEDICARE, OTHER ==
[2017-12-09 09:52] LABS: PROTHROMBIN TIME 29.1 SEC (11.4-15.4)
== END ==
LOC: OD 09:03
PROVIDERS: ATTEND Family Medicine Geriatric Medicine
DX: Z79.01 Long term (current) use of anticoagulants (principal); I26.99 Other pulmonary embolism without acute cor pulmonale
CPT/HCPCS: 36415; 85610

== ENCOUNTER → 2017-12-26 | Outpatient (CLI) | payer MEDICARE, OTHER ==
[2017-12-26 10:22] LABS: INTERNATIONAL RATION (INR) 1.86; PROTHROMBIN TIME 22.3 SEC (11.4-15.4)
== END ==
LOC: OD 09:36
PROVIDERS: ATTEND Family Medicine Geriatric Medicine
DX: I48.91 Unspecified atrial fibrillation (principal); I26.99 Other pulmonary embolism without acute cor pulmonale; E03.9 Hypothyroidism, unspecified
CPT/HCPCS: 36415; 84443; 85610

== ENCOUNTER → 2018-01-02 | Outpatient (CLI) | payer MEDICARE, OTHER ==
[2018-01-02 11:39] LABS: INTERNATIONAL RATION (INR) 1.88; PROTHROMBIN TIME 22.5 SEC (11.4-15.4)
== END ==
LOC: OD 10:48
PROVIDERS: ATTEND Family Medicine Geriatric Medicine
DX: I48.91 Unspecified atrial fibrillation (principal); I26.99 Other pulmonary embolism without acute cor pulmonale; Z79.01 Long term (current) use of anticoagulants
CPT/HCPCS: 36415; 85610

== ENCOUNTER 2018-04-30 12:43 | Emergency (ER) | payer MEDICARE, OTHER ==
--- NOTE | 2018-04-30 13:11 | EKG REPORT ---
SEVERITY:- ABNORMAL ECG - SINUS RHYTHM MULTIPLE ATRIAL PREMATURE COMPLEXES NONSPECIFIC INTRAVENTRICULAR CONDUCTION DELAY CONSIDER OLD TRUE POST [place]. : Confirmed by: Bartolome Matamoros MD 30-Apr-2018 13:11:20
--- NOTE | 2018-04-30 13:28 | RADIOLOGY REPORT (SQ) ---
EXAM DESCRIPTION: CHEST SINGLE VIEW COMPLETED DATE/TIME: 04/30/2018 1:10 pm REASON FOR STUDY: bed 20 sepsis protocol COMPARISON: 11/13/2016 EXAM PARAMETERS: NUMBER OF VIEWS: One view. TECHNIQUE: Single frontal radiographic view of the chest acquired. RADIATION DOSE: NA LIMITATIONS: None. FINDINGS: LUNGS AND PLEURA: No opacities, masses or pneumothorax. No pleural effusion. MEDIASTINUM AND HILAR STRUCTURES: No masses. Contour normal. HEART AND VASCULAR STRUCTURES: Heart normal in size. Normal vasculature. BONES: No acute findings. HARDWARE: [id number] remains unchanged in position. OTHER: No other significant finding. IMPRESSION: NO ACUTE RADIOGRAPHIC FINDING IN THE CHEST. TECHNICAL DOCUMENTATION: JOB ID: [id number] [employer]- All Rights Reserved Reading location - IP/workstation name: [email or web address]
[2018-04-30 14:18] LABS: VENOUS BLOOD BASE EXCESS 1.9 mmol/L; VENOUS BLOOD HCO3 27.2 mmol/L (20-32); VENOUS BLOOD PH 7.39 (7.30-7.42)
[2018-04-30 14:23] LABS: ABSOLUTE EOSINOPHILS # (AUTO) 0.1 10^3/uL (0.0-0.6); ABSOLUTE LYMPHOCYTES (AUTO) 0.5 10^3/uL (0.5-4.7); ABSOLUTE MONOCYTES (AUTO) 0.6 10^3/uL (0.1-1.4); ABSOLUTE NEUT (AUTO) 4.5 10^3/uL (1.7-8.2); BASOPHILS % (AUTO) 0.2 % (0-2); EOSINOPHILS % (AUTO) 1.9 % (0-6); HEMATOCRIT 27.4 % (37.9-51.0); HEMOGLOBIN 8.9 g/dL (13.5-17.0); LYMPHOCYTES % (AUTO) 9.2 % (13-45); MEAN CORPUSCULAR HEMOGLOBIN 27.9 pg (27.0-33.4); MEAN CORPUSCULAR HGB CONC 32.5 g/dL (32.0-36.0); MEAN CORPUSCULAR VOLUME 86 fl (80-97); MONOCYTES % (AUTO) 10.2 % (3-13); PLATELET COUNT 152 10^3/uL (150-450); RED BLOOD COUNT 3.19 10^6/uL (4.35-5.55); RED CELL DISTRIBUTION WIDTH 25.7 % (11.5-14.0); SEGMENTED NEUTROPHILS % (AUTO) 78.5 % (42-78); TOTAL CELLS COUNTED % (AUTO) 100 %; WHITE BLOOD COUNT 5.7 10^3/uL (4.0-10.5)
[2018-04-30 14:24] LABS: INTERNATIONAL RATION (INR) 2.46; PROTHROMBIN TIME 27.8 SEC (11.4-15.4)
[2018-04-30 14:34] LABS: ALANINE AMINOTRANSFERASE 20 U/L (21-72); ALBUMIN 3.3 g/dL (3.5-5.0); ALKALINE PHOSPHATASE 51 U/L (38-126); ANION GAP 10 (5-19); ASPARTATE AMINO TRANSFERASE 12 U/L (17-59); BILIRUBIN,DIRECT 0.3 mg/dL (0.0-0.4); BILIRUBIN,TOTAL 0.7 mg/dL (0.2-1.3); BLOOD UREA NITROGEN 25 mg/dL (7-20); CALCIUM 8.2 mg/dL (8.4-10.2); CARBON DIOXIDE 27 mmol/L (22-30); CHLORIDE 100 mmol/L (98-107); GLUCOSE 125 mg/dL (75-110); POTASSIUM 4.1 mmol/L (3.6-5.0); TOTAL PROTEIN 6.6 g/dL (6.3-8.2)
[2018-04-30 14:47] LABS: ANISOCYTOSIS 3+; HYPOCHROMASIA 1+; POLYCHROMASIA 1+
[2018-04-30 14:48] LABS: OVALOCYTES 2+; PLATELET COMMENT ADEQUATE; POIKILOCYTOSIS 2+
[2018-04-30] MEDS ORDERED: NORMAL SALINE 1000 ML 1,000 ML IV ONE (15:02)
[2018-04-30 15:33] LABS: APPEARANCE,URINE CLEAR; BILIRUBIN,URINE NEGATIVE (NEGATIVE); COLOR,URINE YELLOW; GLUCOSE, URINE NEGATIVE (NEGATIVE); KETONES,URINE NEGATIVE (NEGATIVE); LEUKOCYTE ESTERASE,URINE NEGATIVE (NEGATIVE); NITRITE,URINE NEGATIVE (NEGATIVE); PROTEIN,URINE NEGATIVE (NEGATIVE); URINE SPECIFIC GRAVITY 1.014
--- NOTE | 2018-04-30 15:52 | RADIOLOGY REPORT (SQ) ---
EXAM DESCRIPTION: CT HEAD WITHOUT COMPLETED DATE/TIME: 04/30/2018 3:43 pm REASON FOR STUDY: Episode of confusion, weakness, Hx mult myeloma COMPARISON: CT brain 02/02/2011, 05/18/2015, 11/26/2015 TECHNIQUE: Axial images acquired through the brain without intravenous contrast. Images reviewed wi th bone, brain and subdural windows. Additional sagittal and coronal reconstructions were generated. Images stored on PACS. All CT scanners at this facility use dose modulation, iterative reconstruction, and/or weight based d osing when appropriate to reduce radiation dose to as low as reasonably achievable (ALARA). [facility]: Dose Right [facility]: CareDose [facility]: Dose Right [facility]: Teradose 4D [facility]: Testif RADIATION DOSE: CT Rad equipment meets quality standard of care and radiation dose reduction techniq ues were employed. CTDIvol: 53.2 mGy. DLP: 1097 mGy-cm. mGy. LIMITATIONS: None. FINDINGS: VENTRICLES: Normal size and contour. CEREBRUM: No masses. No hemorrhage. No midline shift. No evidence for acute infarction. Few scatte red areas of low density in the white matter most likely chronic small vessel ischemic changes. CEREBELLUM: No masses. No hemorrhage. No alteration of density. No evidence for acute infarction. EXTRAAXIAL SPACES: No fluid collections. No masses. ORBITS AND GLOBE: No intra- or extraconal masses. Normal contour of globe without masses. CALVARIUM: No fracture. PARANASAL SINUSES: No fluid or mucosal thickening. SOFT TISSUES: No mass or hematoma. OTHER: No other significant finding. IMPRESSION: NORMAL BRAIN CT WITHOUT CONTRAST. EVIDENCE OF ACUTE STROKE: NO. COMMENT: Quality ID # 436: Final reports with documentation of one or more dose reduction techniques (e.g., Automated exposure control, adjustment of the mA and/or kV according to patient size, use of iterative reconstruction technique) TECHNICAL DOCUMENTATION: JOB ID: [id number] [employer]- All Rights Reserved Reading location - IP/workstation name: [email or web address]
--- NOTE | 2018-04-30 17:20 | ER Document Report ---
ED General - General Chief Complaint: General Weakness Stated Complaint: NAUSEA Time Seen by Provider: 04/30/18 13:04 Notes: Patient with a history of multiple myeloma undergoing chemotherapy every at local oncologist office. Also gets dexamethasone IV weekl. Fever since Saturday. Also feeling very weak and tired and no energy.. 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 As he was walking back towards the house, he became very slow and then stopped and says that he did not respond, acted disoriented, and and just stood there kind of in a days. He was not able to continue walking into the house. She tried pushing him in a wheelchair but was unsuccessful and EMS was called who brought him here. Patient complains particularly of his left knee and left hip hurting. Has had a "nasty" cough for the past 3-4 days. Coughing up brown material. Has been running a low-grade fever. Does sound like he is having a productive cough. Has not seen any blood in the sputum. PMH: A. fib on warfarin. CHF, hypercholesterolemia. TRAVEL OUTSIDE OF THE [place] IN LAST 30 DAYS: No - Related Data Allergies/Adverse Reactions: lorazepam [From Ativan] Allergy (Mild, Verified 05/31/15 10:52) Hallucinations promethazine HCl [From Phenergan] Allergy (Mild, Verified 05/31/15 10:52) Hallucinations Past Medical History - Social History Smoking Status: Former Smoker Family History: None Patient has suicidal ideation: No Patient has homicidal ideation: No - Past Medical History Cardiac Medical History: Reports: Hx Atrial Fibrillation, Hx Congestive Heart Failure, Hx Hypertension Denies: Hx Coronary Artery Disease, Hx Heart Attack Pulmonary Medical History: Denies: Hx Asthma, Hx Bronchitis, Hx COPD, Hx Pneumonia, Hx Tuberculosis Neurological Medical History: Denies: Hx Cerebrovascular Accident, Hx Seizures Endocrine Medical History: Reports: Hx Diabetes Mellitus Type 2 Renal/ Medical History: Denies: Hx Peritoneal Dialysis Musculoskeletal Medical History: Reports Hx Arthritis - back Psychiatric Medical History: Denies: Hx Depression Past Surgical History: Reports: Hx Vascular Surgery - Port placement, Other - Cataracts bilaterally - Immunizations Immunizations up to date: Yes Hx Diphtheria, Pertussis, Tetanus Vaccination: No Hx Pneumococcal Vaccination: 06/16/14 Review of Systems - Review of Systems Notes: REVIEW OF SYSTEMS: CONSTITUTIONAL : Fever last night. EENT: Denies eye, ear, nose or mouth or throat pain or other symptoms. CARDIOVASCULAR: Denies chest pain. RESPIRATORY: See HPI h. GASTROINTESTINAL: Denies abdominal pain or nausea, vomiting, or diarrhea. GENITOURINARY: Denies difficulty or painful urinating, urinary frequency, blood in urine. MUSCULOSKELETAL: Denies back or neck pain. Denies joint pain or swelling. SKIN: Denies rash or skin lesions. NEUROLOGICAL: See HPI. Denies LOC, but episode of altered mental status. Denies headache. Denies sensory loss or motor deficits. ALL OTHER SYSTEMS REVIEWED AND NEGATIVE. Physical Exam - Vital signs Vitals: BP Pulse Ox 141/60 H 97 04/30/18 12:56 04/30/18 12:56 Interpretation: Normal - Notes Notes: PHYSICAL EXAMINATION: GENERAL: Well-appearing, in no acute distress. HEAD: Atraumatic, normocephalic. EYES: Pupils equal round and reactive to light, extraocular movements intact. ENT: oropharynx clear without exudates. Moist mucous membranes. NECK: Normal range of motion, supple. LUNGS: Breath sounds clear and equal bilaterally. HEART: Regular rate and rhythm without murmurs. Occasional ectopic beats present. ABDOMEN: Soft, nontender. No guarding or rebound. No masses. BACK: No tenderness throughout entire back. EXTREMITIES: Normal, somewhat limited range of motion without pain. NEUROLOGICAL: Normal speech, normal gait around inside his examining room here in the ED. Normal sensory, motor, and reflex exams. Awake, alert, and oriented x3. PSYCH: Normal mood, normal affect. SKIN: Warm, dry, no rashes. Course - Re-evaluation Re-evalutation: 04/30/18 18:55 Discussed the case with patient's oncologist, Dr. Banda, on 2 different occasions while the patient was here in the emergency department. We feel he can be discharged home now seems to be back to his normal state. We have cultured blood and urine. Labs look acceptable. Patient has had 500 mL of saline IV. Able to ambulate around in his exam room here. We will send him home with a Z-Micah for upper respiratory infection. - Vital Signs Vital signs: Temp Pulse Resp BP Pulse Ox 98.6 F 15 119/50 L 96 04/30/18 13:12 04/30/18 17:00 04/30/18 14:01 04/30/18 17:00 - Laboratory Result Diagrams: 04/30/18 13:40 04/30/18 13:40 Laboratory results interpreted by me: 04/30/18 04/30/18 04/30/18 13:24 13:40 13:40 RBC 3.19 L Hgb 8.9 L Hct 27.4 L RDW 25.7 H Seg Neutrophils % 78.5 H Lymphocytes % 9.2 L PT 27.8 H BUN Creatinine Est GFR (Non-Af Amer) Glucose POC Glucose 143 H Lactic Acid Calcium AST ALT Albumin Urine Blood Urine Urobilinogen 04/30/18 04/30/18 04/30/18 13:40 13:40 15:10 RBC Hgb Hct RDW Seg Neutrophils % Lymphocytes % PT BUN 25 H Creatinine 1.37 H Est GFR (Non-Af Amer) 51 L Glucose 125 H POC Glucose Lactic Acid 0.6 L Calcium 8.2 L AST 12 L ALT 20 L Albumin 3.3 L Urine Blood SMALL H Urine Urobilinogen 2.0 H - Diagnostic Test Radiology results interpreted by me: 04/30/18 18:56 Chest x-ray is normal. - EKG Interpretation by Nv EKG shows normal: Sinus rhythm Rate: Normal Rhythm: APC's Reform/QRS: LAHB/LAFB Discharge - Discharge Clinical Impression: Weakness, Multiple myeloma, Bronchitis, Fever Condition: Stable Disposition: HOME, SELF-CARE Additional Instructions: Weakness We did not find a definite cause for your weakness. This may require further medical tests. Weakness can be caused by infection, physical exhaustion , rapid weight loss, dehydration, or medicine side effects. Diseases of the muscles, heart, nerves, and blood vessels can make you weak. Sometimes the problem is simply depression or lack of exercise. You should get plenty of rest. Unless the doctor tells you otherwise, it's usually best to add short periods of regular mild exercise. Eat a nutritious diet with multiple small, low-sugar meals. If symptoms continue, additional medical evaluation will be necessary. Be sure to follow up as instructed. If you become very dizzy, nauseated, or feel like you're going to faint, lie down right away. Wait until the symptoms have passed before you get up again. Stand up slowly. Call the doctor or return if you develop chest pain, abdominal pain, severe headache, irregular heartbeat or very fast pulse, confusion, vision problems, fever, muscular pain, or any other new symptom. Fever Fever is the body's reaction to infection. Fever can also occur with illnesses that create fever-producing substances in the body. By itself, fever is not harmful. It helps the body fight invading germs. We are more concerned with: (1) What's causing the fever? (2) How can we keep you more comfortable until the fever goes away? Early in an illness, symptoms are often so vague that a diagnosis can't be made. If the doctor hasn't identified a clear cause for your fever, you will probably develop new symptoms within the next two days. Contact the doctor if you develop severe worsening headache, rash, chest pain, cough with yellow or green sputum, difficulty breathing, abdominal pain, or other new symptoms. There is no reason to treat a fever if you're comfortable. If the fever is causing aches, headache, and fatigue, you can treat it with ibuprofen (Advil , Nuprin, etc) or acetaminophen (Tylenol). Follow the directions on the bottle. Get plenty of liquids (three quarts per day). Rest. Physical work or sports will raise the temperature higher and make you feel much worse. Dress lightly. If you're chilling, this means the temperature is trying to go higher. Take ibuprofen or acetaminophen. When you feel sweaty and "feverish" the temperature is coming down. If the fever doesn't go away within two days or if you become more ill, call the doctor or return at once for re-examination. Bronchitis You have acute bronchitis. This disease is an infection or inflammation of the air passageways in your lungs. Symptoms usually include cough, low grade fever, shortness of breath, and wheezing. The cough usually persists for a couple of weeks. Most cases of bronchitis get better without antibiotics. We prescribe antibiotics when we believe bacteria are damaging your airways, or if there's high risk the bronchitis will worsen into pneumonia. Increase your fluid intake. A cool mist humidifier may make your lungs more comfortable. An expectorant (cough medicine that loosens phlegm) can help. If you smoke, STOP!!! Recovery from bronchitis can be somewhat slow, but you should see improvement within a day or two. Repeated episodes of bronchitis may result in lung damage -- for example, chronic bronchitis, recurrent pneumonias, or emphysema. Call the doctor if you develop increasing fever, shortness of breath, chest pain, bloody sputum, or otherwise worsen. If you have not improved at all after several days, contact the physician. Azithromycin Azithromycin (Zithromax) is a broad spectrum antibiotic in the same class as erythromycin. It can treat a variety of bacterial infections, but is most frequently used for respiratory infections. Azithromycin is extremely long-lasting. It accumulates in body tissues and continues to kill bacteria for many days. In order to improve absorption, Azithromycin should be taken at least one hour before or two hours after a meal. It does not have the same strong tendency to upset the stomach as erythromycin and is usually very well tolerated. Patients who have had a rash or other true allergic reactions to erythromycin should not take this medication. Call if you develop gastrointestinal distress, severe diarrhea, rash, hives, itching, or shortness of breath. FOLLOW-UP CARE: If you have been referred to a physician for follow-up care, call the physician s office for an appointment as you were instructed or within the next two days. If you experience worsening or a significant change in your symptoms, notify the physician immediately or return to the Emergency Department at any time for re-evaluation. Follow-up with Dr. Banda. Return if you have new or worsening symptoms. Prescriptions: Azithromycin [Zithromax 250 mg Tablet] 250 mg PO ASDIR PRN #6 tablet PRN Reason: Referrals: FANNIE GAN MD [Primary Care Provider] - Follow up as needed
[2018-04-30 17:27] VITALS: BP 119/50
== END 2018-04-30 17:50 | disposition home or self-care (01) ==
LOC: ER 12:43
DX: C90.00 Multiple myeloma not having achieved remission (principal); J40 Bronchitis, not specified as acute or chronic; R53.1 Weakness; R50.9 Fever, unspecified; M25.562 Pain in left knee; M25.552 Pain in left hip; R05 Cough; Z79.899 Other long term (current) drug therapy; I48.91 Unspecified atrial fibrillation; Z79.01 Long term (current) use of anticoagulants; I50.9 Heart failure, unspecified; E78.00 Pure hypercholesterolemia, unspecified; Z87.891 Personal history of nicotine dependence; I10 Essential (primary) hypertension; E11.9 Type 2 diabetes mellitus without complications
CPT/HCPCS: 93005; 36591; 99285; 96360; 96361; 36415; 87040; 87086; 82962; 85025; 85610; 87077; 80053; 81001; 87186; 82803; 83605; 71045; 70450; 93010; J7030

== ENCOUNTER 2018-05-01 00:06 | Inpatient (IN) | payer MEDICARE, OTHER ==
[2018-05-01] MEDS ORDERED: FENTANYL CITRATE INJ/PF 100 MCG/2 ML AMPUL IV ONE ×3 (00:24→01:56)
[2018-05-01 00:53] LABS: ABSOLUTE EOSINOPHILS # (AUTO) 0.1 10^3/uL (0.0-0.6); ABSOLUTE LYMPHOCYTES (AUTO) 0.4 10^3/uL (0.5-4.7); ABSOLUTE MONOCYTES (AUTO) 0.6 10^3/uL (0.1-1.4); ABSOLUTE NEUT (AUTO) 4.9 10^3/uL (1.7-8.2); BASOPHILS % (AUTO) 0.2 % (0-2); EOSINOPHILS % (AUTO) 0.9 % (0-6); HEMATOCRIT 29.5 % (37.9-51.0); HEMOGLOBIN 9.6 g/dL (13.5-17.0); LYMPHOCYTES % (AUTO) 7.5 % (13-45); MEAN CORPUSCULAR HGB CONC 32.5 g/dL (32.0-36.0); MEAN CORPUSCULAR VOLUME 86 fl (80-97); PLATELET COUNT 163 10^3/uL (150-450); RED BLOOD COUNT 3.42 10^6/uL (4.35-5.55); RED CELL DISTRIBUTION WIDTH 25.8 % (11.5-14.0); SEGMENTED NEUTROPHILS % (AUTO) 81.4 % (42-78); TOTAL CELLS COUNTED % (AUTO) 100 %
[2018-05-01 01:03] LABS: ANION GAP 11 (5-19); BLOOD UREA NITROGEN 22 mg/dL (7-20); CALCIUM 8.1 mg/dL (8.4-10.2); CARBON DIOXIDE 25 mmol/L (22-30); CHLORIDE 101 mmol/L (98-107); GLUCOSE 121 mg/dL (75-110); POTASSIUM 4.2 mmol/L (3.6-5.0); SODIUM 137.3 mmol/L (137-145)
[2018-05-01 01:11] LABS: POLYCHROMASIA 1+
[2018-05-01 01:12] LABS: ANISOCYTOSIS 4+; HYPOCHROMASIA 1+; OVALOCYTES 2+; PLATELET COMMENT ADEQUATE; POIKILOCYTOSIS 3+; SCHISTOCYTES SLIGHT; TEAR DROP CELLS 1+
--- NOTE | 2018-05-01 01:26 | RADIOLOGY REPORT (SQ) ---
EXAM DESCRIPTION: CT HEAD WITHOUT IV CONTRAST COMPLETED DATE/TME: 05/01/2018 00:24 CLINICAL HISTORY: 73 years, Male, trauma COMPARISON: 04/30/2018 TECHNIQUE: Axial CT images of the brain were obtained without contrast. [facility] 2236 Images stored on PACS. All CT scanners at this facility use dose modulation, iterative reconstruction, and/or weight based dosing when appropriate to reduce radiation dose to as low as reasonably achievable (ALARA). [facility]: Dose Right [facility]: CareDose [facility]: Dose Right [facility]: Teradose 4D [facility]: [employer] LIMITATIONS: None. FINDINGS: There is no acute infarct, hemorrhage, mass, edema, hydrocephalus, or extra-axial fluid collection. The paranasal sinuses and mastoid air cells are clear. There is no acute fracture. IMPRESSION: No acute intracranial abnormality TECHNICAL DOCUMENTATION: Quality ID # 436: Final reports with documentation of one or more dose reduction techniques (e.g., Automated exposure control, adjustment of the mA and/or kV according to patient size, use of iterative reconstruction technique) 2010 [employer]- All Rights Reserved
--- NOTE | 2018-05-01 01:27 | ER Document Report ---
ED General - General Chief Complaint: Fall Injury Stated Complaint: LEFT SIDE PAIN Time Seen by Provider: 05/01/18 00:23 Notes: Patient is a 73-year-old male who presents with complaints of left hip pain and some left knee pain. He fell onto his left hip. He does not fully remember the fall. He is on Coumadin. He is actually seen here within the last 12 hours and was worked up because he was more fatigued than usual. Workup at that time was negative. INR was 2.4 at that time. Patient denies a headache. No neck pain. No back pain. He says only place he has pain in his left hip. He denies thinking of knee dislocation. Family said when he walked and he was laying on his left side and his knee did not appear dislocated. He denies any weakness or numbness to his foot. TRAVEL OUTSIDE OF THE [place] IN LAST 30 DAYS: No - Related Data Allergies/Adverse Reactions: lorazepam [From Ativan] Allergy (Mild, Verified 05/31/15 10:52) Hallucinations promethazine HCl [From Phenergan] Allergy (Mild, Verified 05/31/15 10:52) Hallucinations Past Medical History - Social History Smoking Status: Never Smoker Frequency of alcohol use: None Drug Abuse: None Family History: None Patient has suicidal ideation: No Patient has homicidal ideation: No - Past Medical History Cardiac Medical History: Reports: Hx Atrial Fibrillation, Hx Congestive Heart Failure, Hx Hypertension Denies: Hx Coronary Artery Disease, Hx Heart Attack Pulmonary Medical History: Denies: Hx Asthma, Hx Bronchitis, Hx COPD, Hx Pneumonia, Hx Tuberculosis Neurological Medical History: Denies: Hx Cerebrovascular Accident, Hx Seizures Endocrine Medical History: Reports: Hx Diabetes Mellitus Type 2 Renal/ Medical History: Denies: Hx Peritoneal Dialysis Musculoskeletal Medical History: Reports Hx Arthritis - back Psychiatric Medical History: Denies: Hx Depression Past Surgical History: Reports: Hx Vascular Surgery - Port placement, Other - Cataracts bilaterally - Immunizations Immunizations up to date: Yes Hx Diphtheria, Pertussis, Tetanus Vaccination: No Hx Pneumococcal Vaccination: 06/16/14 Review of Systems - Review of Systems Notes: My Normal Review Basic REVIEW OF SYSTEMS: CONSTITUTIONAL : Denies fever, chills, or sweats. Denies recent illness. EENT: Denies eye, ear, throat, or mouth pain or symptoms. Denies nasal or sinus congestion. CARDIOVASCULAR: Denies chest pain. RESPIRATORY: Denies cough, cold, or chest congestion. Denies shortness of breath, difficulty breathing, or wheezing. GASTROINTESTINAL: Denies abdominal pain. Denies nausea, vomiting, or diarrhea. Denies constipation. Last BM: GENITOURINARY: Denies difficulty urinating, painful urination, burning, frequency, or blood in urine. MUSCULOSKELETAL: Hip and knee pain. SKIN: Denies rash or skin lesions. HEMATOLOGIC : On Coumadin NEUROLOGICAL: Denies sensory or motor loss. ALL OTHER SYSTEMS REVIEWED AND NEGATIVE. Physical Exam - Notes Notes: General Appearance: Well nourished, alert, cooperative, no acute distress, moderate obvious discomfort. Vitals: reviewed, See vital signs table. Head: no swelling or tenderness to the head Eyes: PERRL, EOMI, Conjuctiva clear Mouth: No decreasd moisture Neck: Supple, no neck tenderness, No step-offs or deformities. Back: No step-offs or deformities. No tenderness to palpation of thoracic or lumbar spine. No bruising or swelling to back. Lungs: No wheezing, No rales, No rhonci, No accessory muscle use, good air exchange bilaterally. Heart: Normal rate, Regular rythm, No murmur, no rub Abdomen: Normal BS, soft, No rigidity, No abdominal tenderness, No guarding, no rebound, no abdominal masses, no organomegaly Extremities: strength 5/5 in all extremities, good pulses in all extremities, some mild pain to palpation of the left knee. No ligamentous laxity to the knee. Distal pulses are intact and left foot. Good capillary refill. Patient does have pain with any palpation or movement of the left hip., no edema. Other 3 extremities are completely nontender. 3+ bilateral lower extremity edema which family says is chronic. Skin: warm, dry, appropriate color, no rash Neuro: speech clear, oriented x 3, normal affect, responds appropriately to questions. Cranial nerves II through XII are intact. Good strength in all extremities. No focal neurologic deficits on exam. Course - Re-evaluation Re-evalutation: 05/01/18 02:07 Patient for she does have a left broken hip. I did speak with the family and they are aware. He still having some pain and therefore given more fentanyl. He did request I speak with Dr. Mercado, patient's oncologist to make him aware. I did speak with Dr. Mercado and he is now aware that he will see the patient in the morning in the hospital. I am waiting to hear back from the hospitalistist about admission. 05/01/18 02:14 Spoke with the hospitalist, Dr. Vines, who agrees to evaluate the patient for admission. Discussing this with the family the mentions that he has been having a lot of knee pain for a long time. This appears to be chronic. He does not have any ligamentous laxity or significant swelling. I do not suspect any dislocation. He has good distal pulses in his foot. - Laboratory Result Diagrams: 05/01/18 00:38 05/01/18 00:38 Laboratory results interpreted by me: 05/01/18 05/01/18 00:38 00:38 RBC 3.42 L Hgb 9.6 L Hct 29.5 L RDW 25.8 H Seg Neutrophils % 81.4 H Lymphocytes % 7.5 L Absolute Lymphocytes 0.4 L BUN 22 H Est GFR (Non-Af Amer) 58 L Glucose 121 H Calcium 8.1 L - EKG Interpretation by Me Additional EKG results interpreted by me: 05/01/18 01:57 EKG is reviewed and interpreted by me. EKG shows sinus rhythm with rate of [address] segment elevation or depression. No ischemic T-wave inversions. [place] interval is within normal range. QRS duration is prolonged. QT interval is borderline. Old EKG for comparison is from April 30, 2018. Discharge - Discharge Clinical Impression: Hip fracture Qualifiers: Encounter type: initial encounter Fracture type: closed Laterality: left Qualified Code(s): S72.002A - Fracture of unspecified part of neck of left femur , initial encounter for closed fracture Condition: Stable Disposition: ADMITTED INPATIENT Admitting Provider: Hospitalist Unit Admitted: IMCU Referrals: FANNIE GAN MD [Primary Care Provider] - Follow up as needed
--- NOTE | 2018-05-01 01:57 | RADIOLOGY REPORT (SQ) ---
EXAM DESCRIPTION: XR HIP 2 OR MORE VIEWS COMPLETED DATE/TME: 05/01/2018 00:24 CLINICAL HISTORY: 73 years, Male, trauma COMPARISON: None. NUMBER OF VIEWS: 3 LIMITATIONS: None. FINDINGS: Comminuted intertrochanteric fracture of the left proximal femur with 0.9 cm medial displacement/impaction. IMPRESSION: Fracture of the left proximal femur.
--- NOTE | 2018-05-01 01:58 | RADIOLOGY REPORT (SQ) ---
EXAM DESCRIPTION: XR CHEST 1 VIEW COMPLETED DATE/TME: 05/01/2018 00:00 CLINICAL HISTORY: 73 years Male, FALL COMPARISON: One day prior. NUMBER OF VIEWS/TECHNIQUE: 1/AP FINDINGS: Moderate interstitial markings with upper predominance, mildly enlarged cardiac silhouette, left jugular double lumen catheter tips at the SVC. No pneumothorax. Stable bony thorax. IMPRESSION: Worsening includes moderate interstitial markings/edema.
--- NOTE | 2018-05-01 02:10 | RADIOLOGY REPORT (SQ) ---
EXAM DESCRIPTION: XR KNEE 3 VIEWS COMPLETED DATE/TME: 05/01/2018 00:24 CLINICAL HISTORY: 73 years, Male, trauma COMPARISON: None. NUMBER OF VIEWS: 3 TECHNIQUE/limitation: Frontal and two partial oblique views. No lateral view. FINDINGS: Limited views without demonstrated acute bone defect. Small joint effusion. IMPRESSION: Incomplete exam.
[2018-05-01] MEDS ORDERED: ENALAPRILAT DIHYDRATE INJ/PF 1.25 MG/1 ML SDV IV PRN (02:17)
[2018-05-01] MEDS ORDERED: MAG HYDROX/AL HYDROX/SIMETH SUSP 30 ML UDCUP PO PRN (02:17)
[2018-05-01] MEDS ORDERED: METOPROLOL TARTRATE PF/INJ 5 MG/5 ML SDV IV PRN (02:17)
[2018-05-01 02:54] LABS: CREATINE KINASE MB 0.27 ng/mL (<4.55); NT PRO BNP 226 pg/mL (5-900)
[2018-05-01 02:56] LABS: TROPONIN I < 0.012 ng/mL
[2018-05-01] MEDS: HEPARIN SOD (PORCINE) 5,000 UNIT/ML 1 ML SYRINGE SUBCUT SCH ×2 (06:01→14:06)
[2018-05-01] MEDS: KETOROLAC TROMETHAMINE INJ/PF 30 MG/1 ML SDV IV PRN ×2 (06:05→15:27)
--- NOTE | 2018-05-01 06:51 | PDOC H&P ---
History of Present Illness Admission Date/PCP: 05/01/18 02:21 FANNIE GAN MD Patient complains of: Left hip pain History of Present Illness: NINI ZHENG is a 73 year old male with a comp gated past medical history of multiple myeloma on chemotherapy 3 times a week, morbid obesity, obstructive sleep apnea with noncompliance, opiate dependent chronic pain, pulmonary embolism on Coumadin, atrial fibrillation and congestive heart failure. Patient presents with left hip pain after a fall. Complicated by recurrent falls and opiate dependence. Seen in the emergency room for excessive fatigue 12 hours prior but discharged home without significant findings. Patient's heard a thud finding her on the floor with pain to the left side. In the emergency room is found to have a left-sided hip fracture, chronic anemia , uncontrolled pain and referred to the hospitalist for admission. Past Medical History Cardiac Medical History: Reports: Atrial Fibrillation, Congestive Heart Failure , Hypertension Denies: Coronary Artery Disease, Myocardial Infarction Pulmonary Medical History: Reports: Sleep Apnea Denies: Asthma, Bronchitis, Chronic Obstructive Pulmonary Disease (COPD), Pneumonia, Tuberculosis Neurological Medical History: Denies: Seizures Endocrine Medical History: Reports: Diabetes Mellitus Type 2 Malignancy Medical History: Reports: Bone Cancer Musculoskeltal Medical History: Reports: Arthritis - back Psychiatric Medical History: Denies: Depression Hematology: Reports: Anemia Past Surgical History Past Surgical History: Reports: Vascular Surgery - Port placement, Other - Cataracts bilaterally Social History Information Source: Patient, Relative Lives with: Spouse/Significant other Smoking Status: Never Smoker Frequency of Alcohol Use: None Hx Recreational Drug Use: No Drugs: None Hx Prescription Drug Abuse: No - Advance Directive Resuscitation Status: Full Code Family History Family History: Hypertension Parental Family History Reviewed: Yes Children Family History Reviewed: Yes Sibling(s) Family History Reviewed.: Yes Medication/Allergy Home Medications: Dexamethasone 40 mg PO Q7D 05/18/15 Insulin Aspart [Novolog Flexpen] 0 unit SUBCUT .SLD SCALE 05/18/15 Insulin Glargine,Hum.rec.anlog [Lantus Solostar] 70 unit SQ QHS 05/18/15 Oxycodone HCl 15 mg PO Q4H PRN 05/18/15 Warfarin Sodium [Coumadin] 10 mg PO DAILY 05/18/15 Acetaminophen [Tylenol Extra Strength] 1,000 mg PO Q4 PRN 11/26/15 Bismuth Subsalicylate [Pepto-Bismol] 15 ml PO BID PRN 11/26/15 Diltiazem HCl [Cartia Xt] 180 mg PO QAM 11/26/15 Oxycodone HCl [Oxycontin Sr 40 mg Tablet] 40 mg PO Q12 11/26/15 Acetaminophen [Tylenol 325 mg Tablet] 650 mg PO Q4HP PRN #0 tablet 11/28/15 Citalopram Hydrobromide [Celexa 20 mg Tablet] 10 mg PO DAILY #0 tablet 11/28/15 Insulin Glargine,Hum.rec.anlog [Lantus Insulin 100 Unit/mL] 70 unit SUBCUT QHS # 0 insuln.pen 11/28/15 Ondansetron [Zofran Odt 4 mg Tablet] 4 mg PO Q6HP PRN #0 tab.rapdis 11/28/15 Warfarin Sodium [Coumadin 5 mg Tablet] 10 mg PO QHS #0 tablet 11/28/15 Albuterol Sulfate [Proair Respiclick] 2 puff IN Q4HP PRN 05/22/17 Calcium Carbonate [Calcium] 600 mg PO DAILY 05/22/17 Furosemide 20 mg PO NOON 05/22/17 Furosemide [Lasix] 40 mg PO QAM 05/22/17 Glycopyrrolate/Formoterol Fum [Bevespi Aerosphere Inhaler] 2 puff IN BID L. Acidophilus/Bifid. Animalis [Probiotic 5 Billion Cell Cap] 1 each PO DAILY Montelukast Sodium [Singulair 10 mg Tablet] 10 mg PO DAILY 05/22/17 Pomalidomide [Pomalyst] 2 mg PO QAM 05/22/17 Sildenafil Citrate [Sildenafil] 20 mg PO TID 05/22/17 Azithromycin [Zithromax 250 mg Tablet] 250 mg PO ASDIR PRN #6 tablet 04/30/18 Allergies/Adverse Reactions: lorazepam [From Ativan] Allergy (Mild, Verified 05/31/15 10:52) Hallucinations promethazine HCl [From Phenergan] Allergy (Mild, Verified 05/31/15 10:52) Hallucinations Review of Systems ROS unobtainable: Due to mental status - Sedated secondary to pain Physical Exam Vital Signs: Temp Pulse Resp BP Pulse Ox 99.8 F 91 13 127/56 H 97 05/01/18 00:27 05/01/18 00:27 05/01/18 06:02 05/01/18 06:02 05/01/18 06:02 Intake & Output 04/29/18 04/30/18 05/01/18 11:59 11:59 11:59 Output Total 550 Balance -550 Weight 123.6 kg General appearance: PRESENT: no acute distress - Sedated secondary to pain. ABSENT: cooperative, disheveled, hard of hearing Head exam: PRESENT: atraumatic, normocephalic Eye exam: PRESENT: conjunctiva pink, EOMI, PERRLA. ABSENT: scleral icterus Ear exam: PRESENT: normal external ear exam Mouth exam: PRESENT: moist, tongue midline Neck exam: ABSENT: carotid bruit, JVD, lymphadenopathy, thyromegaly Respiratory exam: PRESENT: clear to auscultation romelia. ABSENT: rales, rhonchi, wheezes Cardiovascular exam: PRESENT: RRR. ABSENT: diastolic murmur, rubs, systolic murmur Pulses: PRESENT: normal dorsalis pedis pul Vascular exam: PRESENT: normal capillary refill GI/Abdominal exam: PRESENT: normal bowel sounds, soft. ABSENT: distended, guarding, mass, organolmegaly, rebound, tenderness Rectal exam: PRESENT: deferred Extremities exam: PRESENT: other - Left hip pain to flexion Neurological exam: PRESENT: alert, altered - Sedated secondary to pain, CN II- XII grossly intact Psychiatric exam: PRESENT: appropriate affect, normal mood. ABSENT: homicidal ideation, suicidal ideation Skin exam: PRESENT: dry, intact, warm. ABSENT: cyanosis, rash Results Impressions: Chest X-Ray 05/01/18 00:00 IMPRESSION: Worsening includes moderate interstitial markings/edema. Head CT 05/01/18 00:24 IMPRESSION: No acute intracranial abnormality TECHNICAL DOCUMENTATION: Quality ID # 436: Final reports with documentation of one or more dose reduction techniques (e.g., Automated exposure control, adjustment of the mA and/or kV according to patient size, use of iterative reconstruction technique) 2010 [employer]- All Rights Reserved Hip X-Ray 05/01/18 00:24 IMPRESSION: Fracture of the left proximal femur. Knee X-Ray 05/01/18 00:24 IMPRESSION: Incomplete exam. Assessment & Plan - Diagnosis (1) Hip fracture Qualifiers: Encounter type: initial encounter Fracture type: closed Laterality: left Qualified Code(s): S72.002A - Fracture of unspecified part of neck of left femur, initial encounter for closed fracture Is this a current diagnosis for this admission?: Yes Plan: Complicated by multiple comorbidities and multiple myeloma raising the possibility of pathologic fracture. Patient is very high risk for acute cardiopulmonary complication with general anesthesia. Cardiology and orthopedic consult ordered (2) Sleep apnea Is this a current diagnosis for this admission?: Yes Plan: Complicated by opiate dependence, acute pain ABG and BiPAP (3) Atrial fibrillation Is this a current diagnosis for this admission?: Yes Plan: Discontinue Coumadin, heparin and Lopressor (4) Chronic anticoagulation Is this a current diagnosis for this admission?: Yes Plan: Secondary to A. fib and remote PE with hypercoagulable state and multiple myeloma. Coumadin held heparin initiated (5) Altered mental status Qualifiers: Altered mental status type: unspecified Qualified Code(s): R41.82 - Altered mental status, unspecified (6) Multiple myeloma Is this a current diagnosis for this admission?: Yes Plan: Oncology consult.
[2018-05-01 07:19] LABS: ARTERIAL BLOOD BASE EXCESS 1.2 mmol/L; ARTERIAL BLOOD H2CO3 1.17 mmol/L (1.05-1.35); ARTERIAL BLOOD HCO3 25.4 mmol/L (20-26); ARTERIAL BLOOD O2 SATURATION 97.6 % (94-98); ARTERIAL BLOOD PCO2 38.8 mmHg (35-45); ARTERIAL BLOOD PH 7.43 (7.35-7.45); ARTERIAL BLOOD PO2 97.9 mmHg (80-100); ARTERIAL BLOOD TOTAL CO2 26.6 mmol/L (23-27)
[2018-05-01 07:20] LABS: ARTERIAL BLOOD FIO2 28%
--- NOTE | 2018-05-01 07:22 | EKG REPORT ---
SEVERITY:- ABNORMAL ECG - SINUS RHYTHM ATRIAL PREMATURE COMPLEX PROBABLE LEFT ATRIAL ABNORMALITY IVCD, CONSIDER ATYPICAL RBBB : Confirmed by: Bartolome Matamoros MD 01-May-2018 07:21:54
[2018-05-01] MEDS: DILTIAZEM HCL 180 MG CAPSULE.CR PO SCH (07:43)
--- NOTE | 2018-05-01 09:05 | PDOC CONSULTATION ---
Consultation Consult Date: 05/01/18 Attending physician:: VARSHA VÁSQUEZ Consult reason:: Hip fracture in the setting of multiple myeloma History of Present Illness Admission Date/PCP: 05/01/18 02:21 FANNIE GAN MD Patient complains of: Status post fall and hip fracture History of Present Illness: NINI ZHENG is a 73 year old male with known history of multiple myeloma, nearly an 8 year history now, was diagnosed and treated with induction treatment with RVD, there after had autologous transplant. Unfortunately a few months after transplant he began progressing and has been on several further lines of therapy most recently on Velcade/Cytoxan/dexamethasone. He received his last cycle of that last week and was doing generally well, his myeloma levels were improving and he had obtained a good partial response. Unfortunately, however his left knee and left hip was starting to increase in pain. We were going to refer him to orthopedics as an outpatient for consideration of steroid injections. Yesterday morning his called and noted that he was disoriented and weak, ultimately he was found to be dehydrated and was hydrated in the ED yesterday, and then discharged home in good condition. There were both sleeping and he had gotten up to go to the restroom, slipped, fell to the left side and unfortunately sustained a left femoral neck fracture. He is now admitted for this reason. Past Medical History Cardiac Medical History: Reports: Atrial Fibrillation, Congestive Heart Failure , Hypertension Denies: Coronary Artery Disease, Myocardial Infarction Pulmonary Medical History: Reports: Sleep Apnea Denies: Asthma, Bronchitis, Chronic Obstructive Pulmonary Disease (COPD), Pneumonia, Tuberculosis Neurological Medical History: Denies: Seizures Endocrine Medical History: Reports: Diabetes Mellitus Type 2 Malignancy Medical History: Reports: Bone Cancer - Multiple myeloma Musculoskeltal Medical History: Reports: Arthritis - back Psychiatric Medical History: Denies: Depression Hematology: Reports: Anemia Past Surgical History Past Surgical History: Reports: Vascular Surgery - Port placement, Other - Cataracts bilaterally Social History Information Source: Patient Lives with: Spouse/Significant other Smoking Status: Never Smoker Frequency of Alcohol Use: None Hx Recreational Drug Use: No Drugs: None Hx Prescription Drug Abuse: No - Advance Directive Resuscitation Status: Full Code Family History Family History: Hypertension Parental Family History Reviewed: Yes Children Family History Reviewed: Yes Sibling(s) Family History Reviewed.: Yes Medication/Allergy Allergies/Adverse Reactions: lorazepam [From Ativan] Allergy (Mild, Verified 05/31/15 10:52) Hallucinations promethazine HCl [From Phenergan] Allergy (Mild, Verified 05/31/15 10:52) Hallucinations Review of Systems Constitutional: ABSENT: chills, fever(s), headache(s), weight gain, weight loss Eyes: ABSENT: visual disturbances Ears: ABSENT: hearing changes Cardiovascular: ABSENT: chest pain, dyspnea on exertion, edema, orthropnea, palpitations Respiratory: ABSENT: cough, hemoptysis Gastrointestinal: ABSENT: abdominal pain, constipation, diarrhea, hematemesis, hematochezia, nausea, vomiting Genitourinary: ABSENT: dysuria, hematuria Musculoskeletal: PRESENT: joint swelling, other - Severe left hip and left knee pain Integumentary: ABSENT: rash, wounds Neurological: PRESENT: frequent falls, lack of coordination Psychiatric: ABSENT: anxiety, depression, homidical ideation, suicidal ideation Endocrine: ABSENT: cold intolerance, heat intolerance, polydipsia, polyuria Hematologic/Lymphatic: ABSENT: easy bleeding, easy bruising Physical Exam Vital Signs: Temp Pulse Resp BP Pulse Ox 97.6 F 77 13 118/57 L 98 05/01/18 07:36 05/01/18 07:36 05/01/18 07:36 05/01/18 07:36 05/01/18 08:44 Intake & Output 04/30/18 05/01/18 05/02/18 06:59 06:59 06:59 Output Total 550 575 Balance -550 -575 Weight 123.6 kg General appearance: PRESENT: no acute distress, well-developed, well-nourished Head exam: PRESENT: atraumatic, normocephalic Eye exam: PRESENT: conjunctiva pink, EOMI, PERRLA. ABSENT: scleral icterus Ear exam: PRESENT: normal external ear exam Mouth exam: PRESENT: moist, tongue midline Neck exam: ABSENT: carotid bruit, JVD, lymphadenopathy, thyromegaly Respiratory exam: PRESENT: clear to auscultation romelia. ABSENT: rales, rhonchi, wheezes Cardiovascular exam: PRESENT: RRR. ABSENT: diastolic murmur, rubs, systolic murmur Pulses: PRESENT: normal dorsalis pedis pul Vascular exam: PRESENT: normal capillary refill GI/Abdominal exam: PRESENT: normal bowel sounds, soft. ABSENT: distended, guarding, mass, organolmegaly, rebound, tenderness Rectal exam: PRESENT: deferred Extremities exam: PRESENT: other - Left hip immobilized Neurological exam: PRESENT: alert, awake, oriented to person, oriented to place , oriented to time, oriented to situation, CN II-XII grossly intact. ABSENT: motor sensory deficit Psychiatric exam: PRESENT: appropriate affect, normal mood. ABSENT: homicidal ideation, suicidal ideation Skin exam: PRESENT: dry, intact, warm. ABSENT: cyanosis, rash Results Laboratory Results: 05/01/18 07:00 Carbonic Acid 1.17 HCO3/H2CO3 Ratio 21:1 ABG pH 7.43 ABG pCO2 38.8 ABG pO2 97.9 ABG HCO3 25.4 ABG O2 Saturation 97.6 ABG Base Excess 1.2 FiO2 28% Impressions: Chest X-Ray 05/01/18 00:00 IMPRESSION: Worsening includes moderate interstitial markings/edema. Head CT 05/01/18 00:24 IMPRESSION: No acute intracranial abnormality TECHNICAL DOCUMENTATION: Quality ID # 436: Final reports with documentation of one or more dose reduction techniques (e.g., Automated exposure control, adjustment of the mA and/or kV according to patient size, use of iterative reconstruction technique) 2010 [employer]- All Rights Reserved Hip X-Ray 05/01/18 00:24 IMPRESSION: Fracture of the left proximal femur. Knee X-Ray 05/01/18 00:24 IMPRESSION: Incomplete exam. Status: Image reviewed by me Assessment & Plan - Diagnosis (1) Hip fracture Qualifiers: Encounter type: initial encounter Fracture type: closed Laterality: left Qualified Code(s): S72.002A - Fracture of unspecified part of neck of left femur, initial encounter for closed fracture Is this a current diagnosis for this admission?: Yes Plan: Left hip fracture, I believe he would be a good candidate for total hip replacement as needed. I will discuss his case with Dr. 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 - Time Time Spent: Greater than 70 Minutes - Inpatient Certification Based on my medical assessment, after consideration of the patient's comorbidities, presenting symptoms, or acuity I expect that the services needed warrant INPATIENT care.: Yes I certify that my determination is in accordance with my understanding of Medicare's requirements for reasonable and necessary INPATIENT services [42 CFR 412.3e].: Yes Medical Necessity: Need for Pain Control, Need for Surgery
[2018-05-01] MEDS: OXYCODONE HCL SR 40 MG TABLET PO SCH ×2 (09:12→22:52)
[2018-05-01] MEDS: DOCUSATE SODIUM 100 MG CAPSULE PO SCH (09:14)
[2018-05-01] MEDS: POTASSIUM CHLORIDE 10 MEQ CAPSULE.ER PO SCH ×2 (09:14→22:53)
[2018-05-01 09:15] LABS: ABSOLUTE LYMPHOCYTES (AUTO) 0.5 10^3/uL (0.5-4.7); ABSOLUTE MONOCYTES (AUTO) 0.6 10^3/uL (0.1-1.4); ABSOLUTE NEUT (AUTO) 3.2 10^3/uL (1.7-8.2); BASOPHILS % (AUTO) 0.3 % (0-2); HEMATOCRIT 26.4 % (37.9-51.0); HEMOGLOBIN 8.6 g/dL (13.5-17.0); LYMPHOCYTES % (AUTO) 11.5 % (13-45); MEAN CORPUSCULAR HEMOGLOBIN 27.8 pg (27.0-33.4); MEAN CORPUSCULAR HGB CONC 32.6 g/dL (32.0-36.0); MEAN CORPUSCULAR VOLUME 85 fl (80-97); MONOCYTES % (AUTO) 14.1 % (3-13); PLATELET COUNT 134 10^3/uL (150-450); RED CELL DISTRIBUTION WIDTH 25.4 % (11.5-14.0); SEGMENTED NEUTROPHILS % (AUTO) 73.1 % (42-78); TOTAL CELLS COUNTED % (AUTO) 100 %; WHITE BLOOD COUNT 4.3 10^3/uL (4.0-10.5)
[2018-05-01] MEDS: FUROSEMIDE INJ/PF 40 MG/4 ML SDV IV SCH (09:15)
[2018-05-01 09:19] LABS: INTERNATIONAL RATION (INR) 2.25; PROTHROMBIN TIME 25.9 SEC (11.4-15.4)
[2018-05-01] MEDS: HEPARIN SODIUM,PORCINE/D5W 25,000 UNIT/250 ML RTUINJ IV PRN (09:19)
[2018-05-01 09:20] LABS: PARTIAL THROMBOPLASTIN TIME 51.7 SEC (23.5-35.8)
[2018-05-01 09:45] LABS: CREATINE KINASE MB 1.5 ng/mL (<4.55); TROPONIN I 0.017 ng/mL
[2018-05-01 09:59] LABS: TOXIC GRANULATION SLIGHT
[2018-05-01 10:00] LABS: ANISOCYTOSIS 3+; HYPOCHROMASIA SLIGHT; OVALOCYTES 1+; POIKILOCYTOSIS 1+; POLYCHROMASIA SLIGHT; TEAR DROP CELLS SLIGHT
[2018-05-01 10:01] LABS: PLATELET COMMENT DECREASED
[2018-05-01] MEDS: FENTANYL CITRATE INJ/PF 100 MCG/2 ML AMPUL IV PRN ×3 (10:55→18:35)
[2018-05-01] MEDS ORDERED: VANCOMYCIN HCL 0 MG in DEXTROSE 5%-WATER 250 ML IV NR (12:45)
[2018-05-01] MEDS: VANCOMYCIN HCL 1,500 MG in DEXTROSE 5%-WATER 250 ML IV SCH (14:51)
[2018-05-01 16:46] LABS: CREATINE KINASE MB 1.57 ng/mL (<4.55)
[2018-05-01 16:47] LABS: TROPONIN I < 0.012 ng/mL
[2018-05-01 19:00] LABS: INTERNATIONAL RATION (INR) 2.36
[2018-05-01 19:22] LABS: PARTIAL THROMBOPLASTIN TIME 175.5 SEC (23.5-35.8)
[2018-05-01] MEDS ORDERED: GLUCAGON,HUMAN RECOMB 1 MG INJ IM PRN (20:10)
[2018-05-01] MEDS ORDERED: DEXTROSE 40% GEL 15 GM TUBE PO PRN (20:10)
[2018-05-01] MEDS ORDERED: DEXTROSE 40% GEL 15 GM TUBE X 2 PO PRN (20:10)
[2018-05-01] MEDS ORDERED: DEXTROSE 50%-WATER SYRINGE 12.5 GM/25 ML DOSE IV PRN (20:10)
[2018-05-01] MEDS ORDERED: DEXTROSE 50%-WATER SYRINGE 25 GM/50 ML DOSE IV PRN (20:10)
[2018-05-01] MEDS ORDERED: INSULIN GLARGINE,HUM.REC.ANLOG 300 UNIT/3 ML INSULN.PEN SUBCUT SCH ×2 (22:00)
[2018-05-01] MEDS: INSULIN GLARGINE,HUM.REC.ANLOG 1,000 UNIT/10 ML UNIT SUBCUT SCH (22:53)
[2018-05-02] MEDS: ACETAMINOPHEN 325 MG TABLET PO PRN (01:02)
[2018-05-02] MEDS ORDERED: FUROSEMIDE INJ/PF 20 MG/2 ML SDV IV ONE (03:45)
[2018-05-02] MEDS: VANCOMYCIN HCL 1,500 MG in DEXTROSE 5%-WATER 250 ML IV SCH ×2 (03:48→15:16)
[2018-05-02 08:34] LABS: INTERNATIONAL RATION (INR) 2.21; PROTHROMBIN TIME 25.6 SEC (11.4-15.4)
[2018-05-02 08:41] LABS: PARTIAL THROMBOPLASTIN TIME 43.3 SEC (23.5-35.8)
[2018-05-02] MEDS: POTASSIUM CHLORIDE 10 MEQ CAPSULE.ER PO SCH ×2 (09:24→22:33)
[2018-05-02] MEDS: FUROSEMIDE INJ/PF 40 MG/4 ML SDV IV SCH (09:24)
[2018-05-02] MEDS: DOCUSATE SODIUM 100 MG CAPSULE PO SCH ×2 (09:24→09:43)
[2018-05-02] MEDS: DILTIAZEM HCL 180 MG CAPSULE.CR PO SCH (09:24)
[2018-05-02] MEDS: OXYCODONE HCL SR 40 MG TABLET PO SCH ×2 (09:24→22:34)
[2018-05-02] MEDS ORDERED: PHYTONADIONE 5 MG TABLET PO ONE (10:00)
[2018-05-02 10:33] LABS: ABSOLUTE EOSINOPHILS # (AUTO) 0.2 10^3/uL (0.0-0.6); ABSOLUTE LYMPHOCYTES (AUTO) 0.5 10^3/uL (0.5-4.7); ABSOLUTE MONOCYTES (AUTO) 0.6 10^3/uL (0.1-1.4); ABSOLUTE NEUT (AUTO) 3.2 10^3/uL (1.7-8.2); BASOPHILS % (AUTO) 0.2 % (0-2); EOSINOPHILS % (AUTO) 3.4 % (0-6); HEMATOCRIT 30.3 % (37.9-51.0); HEMOGLOBIN 10.1 g/dL (13.5-17.0); LYMPHOCYTES % (AUTO) 11.5 % (13-45); MEAN CORPUSCULAR HEMOGLOBIN 28.4 pg (27.0-33.4); MEAN CORPUSCULAR HGB CONC 33.4 g/dL (32.0-36.0); MEAN CORPUSCULAR VOLUME 85 fl (80-97); MONOCYTES % (AUTO) 13.3 % (3-13); PLATELET COUNT 146 10^3/uL (150-450); RED BLOOD COUNT 3.56 10^6/uL (4.35-5.55); RED CELL DISTRIBUTION WIDTH 22.5 % (11.5-14.0); SEGMENTED NEUTROPHILS % (AUTO) 71.6 % (42-78); TOTAL CELLS COUNTED % (AUTO) 100 %; WHITE BLOOD COUNT 4.5 10^3/uL (4.0-10.5)
[2018-05-02] MEDS: FENTANYL CITRATE INJ/PF 100 MCG/2 ML AMPUL IV PRN ×2 (10:35→16:29)
[2018-05-02 10:47] LABS: ANION GAP 9 (5-19); BLOOD UREA NITROGEN 18 mg/dL (7-20); CALCIUM 7.4 mg/dL (8.4-10.2); CARBON DIOXIDE 27 mmol/L (22-30); CHLORIDE 102 mmol/L (98-107); GLUCOSE 103 mg/dL (75-110); POTASSIUM 3.9 mmol/L (3.6-5.0); SODIUM 137.8 mmol/L (137-145)
[2018-05-02 11:25] LABS: APPEARANCE,URINE CLEAR; BILIRUBIN,URINE NEGATIVE (NEGATIVE); COLOR,URINE YELLOW; GLUCOSE, URINE NEGATIVE (NEGATIVE); KETONES,URINE NEGATIVE (NEGATIVE); LEUKOCYTE ESTERASE,URINE NEGATIVE (NEGATIVE); NITRITE,URINE NEGATIVE (NEGATIVE); PROTEIN,URINE NEGATIVE (NEGATIVE); URINE SPECIFIC GRAVITY 1.018
[2018-05-02] MEDS ORDERED: MORPHINE SULFATE 10 MG/ML INJ IV ONE (12:11)
[2018-05-02] MEDS ORDERED: HYDROMORPHONE HCL INJ/PF 2 MG/ML AMPULE IV ONE (15:00)
--- NOTE | 2018-05-02 15:11 | PDOC PROGRESS REPORT ---
Subjective Progress Note for:: 05/02/18 Subjective:: Patient's hip pain has been well controlled last night but he has been complaining of more pain this morning. He has been getting fentanyl, oxycodone and a one time dose morphine for pain with only partial relief. Reason For Visit: FRACTURE OF HIP/HEART FAILURE EXACERBATION Physical Exam Vital Signs: Temp Pulse Resp BP Pulse Ox 98.9 F 81 14 126/46 H 97 05/02/18 11:48 05/02/18 14:00 05/02/18 11:48 05/02/18 11:48 05/02/18 11:48 Intake & Output 05/01/18 05/02/18 05/03/18 06:59 06:59 06:59 Intake Total 1237 473 Output Total 550 1575 Balance -550 -338 473 Weight 272 lb 7.861 oz 274 lb 14.663 oz General appearance: PRESENT: mild distress Head exam: PRESENT: atraumatic, normocephalic Eye exam: PRESENT: conjunctiva pink, EOMI, PERRLA. ABSENT: scleral icterus Ear exam: PRESENT: normal external ear exam Mouth exam: PRESENT: moist, tongue midline Neck exam: ABSENT: carotid bruit, JVD, lymphadenopathy, thyromegaly Respiratory exam: PRESENT: clear to auscultation romelia. ABSENT: rales, rhonchi, wheezes Cardiovascular exam: PRESENT: irregular rhythm. ABSENT: rubs Pulses: PRESENT: normal dorsalis pedis pul GI/Abdominal exam: PRESENT: normal bowel sounds, soft. ABSENT: distended, guarding, mass, organolmegaly, rebound, tenderness Extremities exam: PRESENT: tenderness - Tenderness on the left hip area, slight swelling of the left hip and left thigh area Neurological exam: PRESENT: alert, awake, oriented to person, oriented to place , oriented to time, oriented to situation, CN II-XII grossly intact. ABSENT: motor sensory deficit Results Laboratory Results: 05/02/18 09:51 05/02/18 09:51 05/01/18 05/02/18 05/02/18 22:06 09:51 09:51 WBC 4.5 RBC 3.56 L Hgb 10.1 L Hct 30.3 L MCV 85 MCH 28.4 MCHC 33.4 RDW 22.5 H Plt Count 146 L Seg Neutrophils % 71.6 Lymphocytes % 11.5 L Monocytes % 13.3 H Eosinophils % 3.4 Basophils % 0.2 Absolute Neutrophils 3.2 Absolute Lymphocytes 0.5 Absolute Monocytes 0.6 Absolute Eosinophils 0.2 Absolute Basophils 0.0 Sodium 137.8 Potassium 3.9 Chloride 102 Carbon Dioxide 27 Anion Gap 9 BUN 18 Creatinine 1.01 Est GFR ( Amer) > 60 Est GFR (Non-Af Amer) > 60 Glucose 103 Calcium 7.4 L Urine Color Urine Appearance Urine pH Ur Specific Weston Urine Protein Urine Glucose (UA) Urine Ketones Urine Blood Urine Nitrite Ur Leukocyte Esterase Urine WBC (Auto) Urine RBC (Auto) Blood Type O POSITIVE Antibody Screen NEGATIVE 05/02/18 09:51 WBC RBC Hgb Hct MCV MCH MCHC RDW Plt Count Seg Neutrophils % Lymphocytes % Monocytes % Eosinophils % Basophils % Absolute Neutrophils Absolute Lymphocytes Absolute Monocytes Absolute Eosinophils Absolute Basophils Sodium Potassium Chloride Carbon Dioxide Anion Gap BUN Creatinine Est GFR ( Amer) Est GFR (Non-Af Amer) Glucose Calcium Urine Color YELLOW Urine Appearance CLEAR Urine pH 6.0 Ur Specific Weston 1.018 Urine Protein NEGATIVE Urine Glucose (UA) NEGATIVE Urine Ketones NEGATIVE Urine Blood SMALL H Urine Nitrite NEGATIVE Ur Leukocyte Esterase NEGATIVE Urine WBC (Auto) 1 Urine RBC (Auto) 4 Blood Type Antibody Screen 05/01/18 05/01/18 05/01/18 08:55 08:55 16:10 Creatine Kinase 285 H 237 H CK-MB (CK-2) 1.50 Troponin I 0.017 05/01/18 16:10 Creatine Kinase CK-MB (CK-2) 1.57 Troponin I < 0.012 Impressions: Chest X-Ray 05/01/18 00:00 IMPRESSION: Worsening includes moderate interstitial markings/edema. Head CT 05/01/18 00:24 IMPRESSION: No acute intracranial abnormality TECHNICAL DOCUMENTATION: Quality ID # 436: Final reports with documentation of one or more dose reduction techniques (e.g., Automated exposure control, adjustment of the mA and/or kV according to patient size, use of iterative reconstruction technique) 2010 [employer]- All Rights Reserved Hip X-Ray 05/01/18 00:24 IMPRESSION: Fracture of the left proximal femur. Knee X-Ray 05/01/18 00:24 IMPRESSION: Incomplete exam. Assessment & Plan - Diagnosis (1) Hip fracture Qualifiers: Encounter type: initial encounter Fracture type: closed Laterality: left Qualified Code(s): S72.002A - Fracture of unspecified part of neck of left femur, initial encounter for closed fracture Is this a current diagnosis for this admission?: Yes Plan: Orthopedics is following. Patient was given vitamin K this morning. Waiting for acceptable INR prior to surgery. Patient has been having persistent left thigh pain despite being on fentanyl and oxycodone. He did have a slight drop in hemoglobin last night. Heparin drip has been held. Will proceed with a CT of the left lower extremity to rule out an enlarging hematoma. (2) Atrial fibrillation Qualifiers: Atrial fibrillation type: paroxysmal Qualified Code(s): I48.0 - Paroxysmal atrial fibrillation Is this a current diagnosis for this admission?: Yes Plan: Rate controlled. Continue oral Cardizem. Coumadin not being resumed on this admission. Heparin drip was held because of a slight decrease in hemoglobin. Patient did receive 3 units of packed RBC last night also for anticipation of surgery. This caused the risks and benefits of continuing or holding anticoagulation in the patient's context of having A. fib, history of PE, fracture and anticipated surgery. Patient and family is agreeable with holding any form of anticoagulation at the moment. (3) Multiple myeloma Qualifiers: Multiple myeloma remission status: not in remission Qualified Code(s): C90.00 - Multiple myeloma not having achieved remission Is this a current diagnosis for this admission?: Yes Plan: Oncology following. Noted recommendations. (4) Gram-positive bacteremia Is this a current diagnosis for this admission?: Yes Plan: Blood cultures grew gram-positive cocci 1/2 bottles. Unsure if this is a true bacteremia or contamination. Continue vancomycin for now until final culture results are out. (5) Chronic diastolic (congestive) heart failure Is this a current diagnosis for this admission?: Yes Plan: Stable. On lasix. (6) History of pulmonary embolism Is this a current diagnosis for this admission?: Yes Plan: Anti-coagulation on hold due to reasons mentioned above. - Time Time Spent with patient: 25-34 minutes
--- NOTE | 2018-05-02 15:26 | RADIOLOGY REPORT (SQ) ---
EXAM DESCRIPTION: CT LT LOWER EXTREMITY WITHOUT COMPLETED DATE/TIME: 05/02/2018 2:55 pm REASON FOR STUDY: hip fx w/ persistent increasing pain, r/o hematoma COMPARISON: Left hip films 05/01/2018 TECHNIQUE: CT scan of the left hip performed without intravenous or oral contrast. Images reviewed with soft tissue and bone windows. Reconstructed coronal and sagittal MPR images reviewed. All imag es stored on PACS. All CT scanners at this facility use dose modulation, iterative reconstruction, and/or weight based d osing when appropriate to reduce radiation dose to as low as reasonably achievable (ALARA). [facility]: Dose Right [facility]: CareDose [facility]: Dose Right [facility]: Teradose 4D [facility]: Eniram RADIATION DOSE: CT Rad equipment meets quality standard of care and radiation dose reduction techniq ues were employed. CTDIvol: 28.3 mGy. DLP: 1022 mGy-cm. mGy. LIMITATIONS: None. FINDINGS: Bones are osteopenic. A comminuted intertrochanteric left proximal femoral fracture is present with varus angulation. Ther e are multiple lytic lesions in the left proximal femur worrisome for underlying myeloma or metastati c disease, best shown on coronal reconstruction series 301, images 36-47. Remainder of the visualized left hemipelvis demonstrates several other less than 1 cm diameter permea tive lytic lesions worrisome for myeloma or lytic metastatic disease. No significant obturator or deep pelvic hematoma. There is a small hematoma over the lateral left buttock, 4 x 2 cm in size IMPRESSION: Pathologic left proximal femoral intertrochanteric fracture with varus angulation Multiple subcentimeter lytic lesions visualized in the left hemipelvis TECHNICAL DOCUMENTATION: JOB ID: [id number] Quality ID # 436: Final reports with documentation of one or more dose reduction techniques (e.g., Au tomated exposure control, adjustment of the mA and/or kV according to patient size, use of iterative reconstruction technique) 2010 [employer]- All Rights Reserved Reading location - IP/workstation name: [email or web address]
--- NOTE | 2018-05-02 16:17 | PDOC PROGRESS REPORT ---
Subjective Progress Note for:: 05/02/18 Subjective:: Having some cont pain on movement. Orthopedic surgery has seen pt but INR was inc to 2.1 so I gave pt VIT K this am, they would like INR<1.5 to proceed w/ surgery. Reason For Visit: FRACTURE OF HIP/HEART FAILURE EXACERBATION Physical Exam Vital Signs: Temp Pulse Resp BP Pulse Ox 98.9 F 81 14 126/46 H 97 05/02/18 11:48 05/02/18 14:00 05/02/18 11:48 05/02/18 11:48 05/02/18 11:48 Intake & Output 05/01/18 05/02/18 05/03/18 06:59 06:59 06:59 Intake Total 1237 473 Output Total 550 1575 Balance -550 -338 473 Weight 123.6 kg 124.7 kg General appearance: PRESENT: no acute distress, well-developed, well-nourished Head exam: PRESENT: atraumatic, normocephalic Eye exam: PRESENT: conjunctiva pink, EOMI, PERRLA. ABSENT: scleral icterus Ear exam: PRESENT: normal external ear exam Mouth exam: PRESENT: moist, tongue midline Neck exam: ABSENT: carotid bruit, JVD, lymphadenopathy, thyromegaly Respiratory exam: PRESENT: clear to auscultation romelia. ABSENT: rales, rhonchi, wheezes Cardiovascular exam: PRESENT: RRR. ABSENT: diastolic murmur, rubs, systolic murmur Pulses: PRESENT: normal dorsalis pedis pul Vascular exam: PRESENT: normal capillary refill GI/Abdominal exam: PRESENT: normal bowel sounds, soft. ABSENT: distended, guarding, mass, organolmegaly, rebound, tenderness Rectal exam: PRESENT: deferred Extremities exam: PRESENT: full ROM. ABSENT: calf tenderness, clubbing, pedal edema Neurological exam: PRESENT: alert, awake, oriented to person, oriented to place , oriented to time, oriented to situation, CN II-XII grossly intact. ABSENT: motor sensory deficit Psychiatric exam: PRESENT: appropriate affect, normal mood. ABSENT: homicidal ideation, suicidal ideation Skin exam: PRESENT: dry, intact, warm. ABSENT: cyanosis, rash Results Laboratory Results: 05/02/18 09:51 05/02/18 09:51 05/01/18 05/02/18 05/02/18 22:06 09:51 09:51 WBC 4.5 RBC 3.56 L Hgb 10.1 L Hct 30.3 L MCV 85 MCH 28.4 MCHC 33.4 RDW 22.5 H Plt Count 146 L Seg Neutrophils % 71.6 Lymphocytes % 11.5 L Monocytes % 13.3 H Eosinophils % 3.4 Basophils % 0.2 Absolute Neutrophils 3.2 Absolute Lymphocytes 0.5 Absolute Monocytes 0.6 Absolute Eosinophils 0.2 Absolute Basophils 0.0 Sodium 137.8 Potassium 3.9 Chloride 102 Carbon Dioxide 27 Anion Gap 9 BUN 18 Creatinine 1.01 Est GFR ( Amer) > 60 Est GFR (Non-Af Amer) > 60 Glucose 103 Calcium 7.4 L Urine Color Urine Appearance Urine pH Ur Specific [place] Urine Protein Urine Glucose (UA) Urine Ketones Urine Blood Urine Nitrite Ur Leukocyte Esterase Urine WBC (Auto) Urine RBC (Auto) Blood Type O POSITIVE Antibody Screen NEGATIVE 05/02/18 09:51 WBC RBC Hgb Hct MCV MCH MCHC RDW Plt Count Seg Neutrophils % Lymphocytes % Monocytes % Eosinophils % Basophils % Absolute Neutrophils Absolute Lymphocytes Absolute Monocytes Absolute Eosinophils Absolute Basophils Sodium Potassium Chloride Carbon Dioxide Anion Gap BUN Creatinine Est GFR ( Amer) Est GFR (Non-Af Amer) Glucose Calcium Urine Color YELLOW Urine Appearance CLEAR Urine pH 6.0 Ur Specific [place] 1.018 Urine Protein NEGATIVE Urine Glucose (UA) NEGATIVE Urine Ketones NEGATIVE Urine Blood SMALL H Urine Nitrite NEGATIVE Ur Leukocyte Esterase NEGATIVE Urine WBC (Auto) 1 Urine RBC (Auto) 4 Blood Type Antibody Screen 05/01/18 05/01/18 05/01/18 08:55 08:55 16:10 Creatine Kinase 285 H 237 H CK-MB (CK-2) 1.50 Troponin I 0.017 05/01/18 16:10 Creatine Kinase CK-MB (CK-2) 1.57 Troponin I < 0.012 Impressions: Chest X-Ray 05/01/18 00:00 IMPRESSION: Worsening includes moderate interstitial markings/edema. Head CT 05/01/18 00:24 IMPRESSION: No acute intracranial abnormality TECHNICAL DOCUMENTATION: Quality ID # 436: Final reports with documentation of one or more dose reduction techniques (e.g., Automated exposure control, adjustment of the mA and/or kV according to patient size, use of iterative reconstruction technique) 2010 [employer]- All Rights Reserved Hip X-Ray 05/01/18 00:24 IMPRESSION: Fracture of the left proximal femur. Knee X-Ray 05/01/18 00:24 IMPRESSION: Incomplete exam. Lower Extremity CT 05/02/18 00:00 IMPRESSION: Pathologic left proximal femoral intertrochanteric fracture with varus angulation Multiple subcentimeter lytic lesions visualized in the left hemipelvis Assessment & Plan - Diagnosis (1) Hip fracture Qualifiers: Encounter type: subsequent encounter Fracture type: closed Laterality: left Qualified Code(s): S72.002A - Fracture of unspecified part of neck of left femur, initial encounter for closed fracture Is this a current diagnosis for this admission?: Yes Plan: Hopeful surgery soon once INR corrects. (2) Multiple myeloma Qualifiers: Multiple myeloma remission status: not in remission Qualified Code(s): C90.00 - Multiple myeloma not having achieved remission Is this a current diagnosis for this admission?: Yes Plan: Plan for continued therapy as outpt, will follow - Time Time Spent with patient: 35 or more minutes - Inpatient Certification Based on my medical assessment, after consideration of the patient's comorbidities, presenting symptoms, or acuity I expect that the services needed warrant INPATIENT care.: Yes I certify that my determination is in accordance with my understanding of Medicare's requirements for reasonable and necessary INPATIENT services [42 CFR 412.3e].: Yes Medical Necessity: Need for Pain Control, Need for Surgery
[2018-05-02] MEDS ORDERED: DEXTROSE 40% GEL 15 GM TUBE PO PRN (16:46)
[2018-05-02] MEDS ORDERED: GLUCAGON,HUMAN RECOMB 1 MG INJ SUBCUT PRN (16:46)
[2018-05-02] MEDS ORDERED: DEXTROSE 50%-WATER 25 GM/50 ML DISP.SYRIN IV PRN ×2 (16:46)
--- NOTE | 2018-05-02 17:06 | PDOC CONSULTATION ---
Consultation Consult Date: 05/01/18 Consult reason:: Pathological left intertrochanteric hip fracture History of Present Illness Admission Date/PCP: 05/01/18 02:21 FANNIE GAN MD History of Present Illness: NINI ZHENG is a 73 year old male with history of multiple myeloma, patient of . Patient also has A. fib and hypertension and sleep apnea and congestive heart failure. Patient currently on Coumadin for history of DVT. Patient suffered a mechanical fall and fell onto his left hip. When he was brought to the ER and x-rayed and evaluated the patient was noted to have a displaced left intertrochanteric hip fracture with some lesions consistent with his multiple myeloma. Patient has significant groin pain 5 out of 5 with attempted range of motion. Patient also has tenderness palpation over the hip and short and externally rotated left lower extremity. Denies any previous fracture. Denies any previous surgery on the left hip. Denies any numbness or tingling or paresthesias. Past Medical History Cardiac Medical History: Reports: Atrial Fibrillation, Congestive Heart Failure , Hypertension Denies: Coronary Artery Disease, Myocardial Infarction Pulmonary Medical History: Reports: Sleep Apnea Denies: Asthma, Bronchitis, Chronic Obstructive Pulmonary Disease (COPD), Pneumonia, Tuberculosis Neurological Medical History: Denies: Seizures Endocrine Medical History: Reports: Diabetes Mellitus Type 2 Malignancy Medical History: Reports: Bone Cancer - Multiple myeloma Musculoskeltal Medical History: Reports: Arthritis - back Psychiatric Medical History: Denies: Depression Hematology: Reports: Anemia Past Surgical History Past Surgical History: Reports: Vascular Surgery - Port placement, Other - Cataracts bilaterally Social History Lives with: Spouse/Significant other Smoking Status: Never Smoker Frequency of Alcohol Use: None Hx Recreational Drug Use: No Drugs: None Hx Prescription Drug Abuse: No - Advance Directive Resuscitation Status: Full Code Family History Family History: Hypertension Parental Family History Reviewed: No Children Family History Reviewed: No Sibling(s) Family History Reviewed.: No Medication/Allergy Home Medications: Albuterol Sulfate [Proair Respiclick] 2 puff IH Q6HP PRN 05/01/18 Calcium Carbonate [Calcium] 600 mg PO DAILY 05/01/18 Citalopram Hydrobromide [Celexa 10 mg Tablet] 10 mg PO DAILY 05/01/18 Diltiazem HCl [Cardizem Cd 180 mg Capsule] 180 mg PO QAM 05/01/18 Fluticasone Propionate [Flonase Nasal [place] 50 Mcg/[place] 16 gm] 1 spray NASL DAILYP PRN 05/01/18 Furosemide [Lasix 40 mg Tablet] 40 mg PO BID@0800,1200 05/01/18 Insulin Glargine,Hum.rec.anlog [Lantus Solostar] 40 units SQ QPM 05/01/18 L.acidoph,Paracasei, B.lactis [Probiotic] 1 cap PO DAILY 05/01/18 Levothyroxine Sodium [Synthroid] 25 mcg PO Q6AM 05/01/18 Meclizine HCl [Antivert 25 mg Tablet] 25 mg PO DAILYP PRN 05/01/18 Omeprazole 20 mg PO DAILY 05/01/18 Ondansetron HCl [Zofran 8 mg Tablet] 8 mg PO Q4HP PRN 05/01/18 Oxycodone HCl 15 mg PO Q4HP PRN 05/01/18 Oxycodone HCl [Oxycontin] 40 mg PO Q12 05/01/18 Rosuvastatin Calcium [Crestor 10 mg Tablet] 10 mg PO QPM 05/01/18 Sildenafil Citrate [Sildenafil] 20 mg PO TID 05/01/18 Valacyclovir HCl [Valtrex 500 mg Tablet] 500 mg PO DAILY 05/01/18 Warfarin Sodium [Coumadin] 5 mg PO TUTH 05/01/18 Warfarin Sodium [Coumadin] 10 mg PO SUMOWEFRSA 05/01/18 Allergies/Adverse Reactions: lorazepam [From Ativan] Allergy (Mild, Verified 05/31/15 10:52) Hallucinations promethazine HCl [From Phenergan] Allergy (Mild, Verified 05/31/15 10:52) Hallucinations Review of Systems Constitutional: ABSENT: fever(s), headache(s), weight loss Eyes: ABSENT: visual disturbances Ears: ABSENT: hearing changes Nose, Mouth, and Throat: ABSENT: sore throat Cardiovascular: PRESENT: as per HPI Respiratory: ABSENT: cough, hemoptysis Gastrointestinal: ABSENT: nausea, vomiting Genitourinary: ABSENT: difficulty urinating, hematuria Musculoskeletal: PRESENT: as per HPI Integumentary: ABSENT: erythema, lesions, rash Neurological: PRESENT: as per HPI Psychiatric: ABSENT: hallucinations, homidical ideation, suicidal ideation Endocrine: ABSENT: cold intolerance, heat intolerance Hematologic/Lymphatic: ABSENT: lymphadenopathy Allergic/Immunologic: ABSENT: seasonal rhinorrhea Physical Exam Vital Signs: Temp Pulse Resp BP Pulse Ox 36.6 C 80 22 H 138/54 H 99 05/01/18 18:27 05/01/18 18:27 05/01/18 18:27 05/01/18 18:27 05/01/18 18:27 Intake & Output 04/30/18 05/01/18 05/02/18 06:59 06:59 06:59 Intake Total 250 Output Total 550 1275 Balance -550 -1025 Weight 123.6 kg General appearance: PRESENT: no acute distress Eye exam: PRESENT: EOMI, other - Symmetric round pupils Ear exam: PRESENT: normal external ear exam. ABSENT: bleeding Mouth exam: PRESENT: neck supple Neck exam: ABSENT: tenderness, thyromegaly Respiratory exam: PRESENT: symmetrical, unlabored Pulses: PRESENT: normal dorsalis pedis pul Vascular exam: PRESENT: normal capillary refill Neurological exam: PRESENT: alert, awake, oriented to person, oriented to place , oriented to time, oriented to situation Psychiatric exam: PRESENT: appropriate affect, normal mood Skin exam: PRESENT: intact. ABSENT: abrasion, erythema, rash Adult Front & Back Image: 1 - Short and externally rotated left lower extremity with a good sensation to light touch. Mild pitting edema distal extremity. Good capillary refill with intact EHL/FHL and tibialis anterior. Pain with any attempted range of motion of the left lower extremity Results Laboratory Results: 05/01/18 08:55 05/01/18 05/01/18 07:00 08:55 WBC 4.3 RBC 3.10 L Hgb 8.6 L Hct 26.4 L MCV 85 MCH 27.8 MCHC 32.6 RDW 25.4 H Plt Count 134 L Seg Neutrophils % 73.1 Lymphocytes % 11.5 L Monocytes % 14.1 H Eosinophils % 1.0 Basophils % 0.3 Absolute Neutrophils 3.2 Absolute Lymphocytes 0.5 Absolute Monocytes 0.6 Absolute Eosinophils 0.0 Absolute Basophils 0.0 Carbonic Acid 1.17 HCO3/H2CO3 Ratio 21:1 ABG pH 7.43 ABG pCO2 38.8 ABG pO2 97.9 ABG HCO3 25.4 ABG O2 Saturation 97.6 ABG Base Excess 1.2 FiO2 28% 05/01/18 05/01/18 05/01/18 08:55 08:55 16:10 Creatine Kinase 285 H 237 H CK-MB (CK-2) 1.50 Troponin I 0.017 05/01/18 16:10 Creatine Kinase CK-MB (CK-2) 1.57 Troponin I < 0.012 Impressions: Chest X-Ray 05/01/18 00:00 IMPRESSION: Worsening includes moderate interstitial markings/edema. Head CT 05/01/18 00:24 IMPRESSION: No acute intracranial abnormality TECHNICAL DOCUMENTATION: Quality ID # [id number]: Final reports with documentation of one or more dose reduction techniques (e.g., Automated exposure control, adjustment of the mA and/or kV according to patient size, use of iterative reconstruction technique) 2010 [employer]- All Rights Reserved Hip X-Ray 05/01/18 00:24 IMPRESSION: Fracture of the left proximal femur. Knee X-Ray 05/01/18 00:24 IMPRESSION: Incomplete exam. Status: Image reviewed by me Assessment & Plan - Diagnosis (1) Hip fracture Qualifiers: Encounter type: subsequent encounter Fracture type: closed Laterality: left Qualified Code(s): S72.002A - Fracture of unspecified part of neck of left femur, initial encounter for closed fracture Is this a current diagnosis for this admission?: Yes Plan: 73-year-old gentleman with 8 year history of multiple myeloma with left basicervical/intertrochanteric hip fracture presumed pathologic in nature. Patient currently is on Coumadin with an INR of 2.2 for previous history of DVT and A. fib. This must be at least 1.5 before proceeding with any surgery. I discussed the nature of his fracture and the requirement of proceeding with ORIF of his left hip fracture. Family was present and they all seemed to understand. Patient has significant comorbidities and therefore will require optimization prior to surgery as well. Patient has been cleared by 's point of view. We will monitor his INR make sure is trending down cephalo-medullary nailing of his left femur. Pain control per his primary team. Continue bedrest for now.
--- NOTE | 2018-05-02 17:08 | PDOC PROGRESS REPORT ---
Subjective Progress Note for:: 05/02/18 Subjective:: Patient had significant pain today. They have adjusted his pain medication pain is better controlled this evening. His INR was 2.2 today and the left genogram proceeded to give 10 mg of vitamin K. Reason For Visit: FRACTURE OF HIP/HEART FAILURE EXACERBATION Physical Exam Vital Signs: Temp Pulse Resp BP Pulse Ox 37.4 C 92 16 119/56 L 91 L 05/02/18 15:56 05/02/18 15:56 05/02/18 15:56 05/02/18 15:56 05/02/18 15:56 Intake & Output 05/01/18 05/02/18 05/03/18 06:59 06:59 06:59 Intake Total 1237 473 Output Total 550 1575 Balance -550 -338 473 Weight 123.6 kg 124.7 kg Adult Front & Back Image: 1 - Left lower extremity short and externally rotated with tenderness to palpation. He is neurovascular intact distally. Results Laboratory Results: 05/02/18 09:51 05/02/18 09:51 05/01/18 05/02/18 05/02/18 22:06 09:51 09:51 WBC 4.5 RBC 3.56 L Hgb 10.1 L Hct 30.3 L MCV 85 MCH 28.4 MCHC 33.4 RDW 22.5 H Plt Count 146 L Seg Neutrophils % 71.6 Lymphocytes % 11.5 L Monocytes % 13.3 H Eosinophils % 3.4 Basophils % 0.2 Absolute Neutrophils 3.2 Absolute Lymphocytes 0.5 Absolute Monocytes 0.6 Absolute Eosinophils 0.2 Absolute Basophils 0.0 Sodium 137.8 Potassium 3.9 Chloride 102 Carbon Dioxide 27 Anion Gap 9 BUN 18 Creatinine 1.01 Est GFR ( Amer) > 60 Est GFR (Non-Af Amer) > 60 Glucose 103 Calcium 7.4 L Urine Color Urine Appearance Urine pH Ur Specific [place] Urine Protein Urine Glucose (UA) Urine Ketones Urine Blood Urine Nitrite Ur Leukocyte Esterase Urine WBC (Auto) Urine RBC (Auto) Blood Type O POSITIVE Antibody Screen NEGATIVE 05/02/18 09:51 WBC RBC Hgb Hct MCV MCH MCHC RDW Plt Count Seg Neutrophils % Lymphocytes % Monocytes % Eosinophils % Basophils % Absolute Neutrophils Absolute Lymphocytes Absolute Monocytes Absolute Eosinophils Absolute Basophils Sodium Potassium Chloride Carbon Dioxide Anion Gap BUN Creatinine Est GFR ( Amer) Est GFR (Non-Af Amer) Glucose Calcium Urine Color YELLOW Urine Appearance CLEAR Urine pH 6.0 Ur Specific [place] 1.018 Urine Protein NEGATIVE Urine Glucose (UA) NEGATIVE Urine Ketones NEGATIVE Urine Blood SMALL H Urine Nitrite NEGATIVE Ur Leukocyte Esterase NEGATIVE Urine WBC (Auto) 1 Urine RBC (Auto) 4 Blood Type Antibody Screen 05/01/18 05/01/18 05/01/18 08:55 08:55 16:10 Creatine Kinase 285 H 237 H CK-MB (CK-2) 1.50 Troponin I 0.017 05/01/18 16:10 Creatine Kinase CK-MB (CK-2) 1.57 Troponin I < 0.012 Impressions: Chest X-Ray 05/01/18 00:00 IMPRESSION: Worsening includes moderate interstitial markings/edema. Head CT 05/01/18 00:24 IMPRESSION: No acute intracranial abnormality TECHNICAL DOCUMENTATION: Quality ID # 436: Final reports with documentation of one or more dose reduction techniques (e.g., Automated exposure control, adjustment of the mA and/or kV according to patient size, use of iterative reconstruction technique) 2010 [employer]- All Rights Reserved Hip X-Ray 05/01/18 00:24 IMPRESSION: Fracture of the left proximal femur. Knee X-Ray 05/01/18 00:24 IMPRESSION: Incomplete exam. Lower Extremity CT 05/02/18 00:00 IMPRESSION: Pathologic left proximal femoral intertrochanteric fracture with varus angulation Multiple subcentimeter lytic lesions visualized in the left hemipelvis Status: Image reviewed by me Assessment & Plan - Diagnosis (1) Hip fracture Qualifiers: Encounter type: subsequent encounter Fracture type: closed Laterality: left Qualified Code(s): S72.002A - Fracture of unspecified part of neck of left femur, initial encounter for closed fracture Is this a current diagnosis for this admission?: Yes Plan: 73-year-old gentleman with left basicervical/intertrochanteric hip fracture. History of multiple myeloma. Patient has agreed to proceed with cephalo- medullary nailing of his left hip fracture. We will continue to monitor the INR is scheduled for 5 PM and 5 AM. We will see if the vitamin K has taken effect that quickly and hopefully we can proceed with surgery. The meantime continue pain control and bedrest.
[2018-05-02] MEDS ORDERED: OXYCODONE HCL IR 5 MG TABLET PO PRN (17:38)
[2018-05-02] MEDS ORDERED: HYDROMORPHONE HCL INJ/PF 2 MG/ML AMPULE IV PRN (17:47)
[2018-05-02 17:53] LABS: INTERNATIONAL RATION (INR) 1.72
[2018-05-02] MEDS ORDERED: POLYETHYLENE GLYCOL 3350 POWDER 17 GM/1 PACKET PO PRN (18:53)
[2018-05-02] MEDS: GABAPENTIN 300 MG CAPSULE PO SCH (22:34)
[2018-05-03] MEDS: INSULIN GLARGINE,HUM.REC.ANLOG 1,000 UNIT/10 ML UNIT SUBCUT SCH (00:01)
[2018-05-03] MEDS: VANCOMYCIN HCL 1,500 MG in DEXTROSE 5%-WATER 250 ML IV SCH ×2 (03:15→15:59)
[2018-05-03 06:09] LABS: ABSOLUTE EOSINOPHILS # (AUTO) 0.1 10^3/uL (0.0-0.6); ABSOLUTE LYMPHOCYTES (AUTO) 0.7 10^3/uL (0.5-4.7); ABSOLUTE MONOCYTES (AUTO) 0.7 10^3/uL (0.1-1.4); ABSOLUTE NEUT (AUTO) 3.1 10^3/uL (1.7-8.2); BASOPHILS % (AUTO) 0.4 % (0-2); EOSINOPHILS % (AUTO) 2.7 % (0-6); HEMATOCRIT 28.7 % (37.9-51.0); HEMOGLOBIN 9.6 g/dL (13.5-17.0); LYMPHOCYTES % (AUTO) 14.5 % (13-45); MEAN CORPUSCULAR HEMOGLOBIN 28.5 pg (27.0-33.4); MEAN CORPUSCULAR HGB CONC 33.5 g/dL (32.0-36.0); MEAN CORPUSCULAR VOLUME 85 fl (80-97); MONOCYTES % (AUTO) 15.6 % (3-13); PLATELET COUNT 153 10^3/uL (150-450); RED BLOOD COUNT 3.37 10^6/uL (4.35-5.55); RED CELL DISTRIBUTION WIDTH 22.3 % (11.5-14.0); SEGMENTED NEUTROPHILS % (AUTO) 66.8 % (42-78); TOTAL CELLS COUNTED % (AUTO) 100 %; WHITE BLOOD COUNT 4.6 10^3/uL (4.0-10.5)
[2018-05-03 06:16] LABS: INTERNATIONAL RATION (INR) 1.34; PROTHROMBIN TIME 17.3 SEC (11.4-15.4)
[2018-05-03 06:17] LABS: PARTIAL THROMBOPLASTIN TIME 45.4 SEC (23.5-35.8)
[2018-05-03 06:31] LABS: ANION GAP 10 (5-19); BLOOD UREA NITROGEN 15 mg/dL (7-20); CALCIUM 7.7 mg/dL (8.4-10.2); CARBON DIOXIDE 25 mmol/L (22-30); CHLORIDE 101 mmol/L (98-107); GLUCOSE 99 mg/dL (75-110); POTASSIUM 4.1 mmol/L (3.6-5.0); SODIUM 135.8 mmol/L (137-145)
[2018-05-03] MEDS: OXYCODONE HCL SR 40 MG TABLET PO SCH ×3 (06:41→22:11)
--- NOTE | 2018-05-03 08:28 | RADIOLOGY REPORT (SQ) ---
EXAM DESCRIPTION: CHEST SINGLE VIEW COMPLETED DATE/TIME: 05/03/2018 7:57 am REASON FOR STUDY: preop r/o chf COMPARISON: Multiples, 05/01/2018 EXAM PARAMETERS: NUMBER OF VIEWS: One view. TECHNIQUE: Single frontal radiographic view of the chest acquired. RADIATION DOSE: NA LIMITATIONS: None. FINDINGS: LUNGS AND PLEURA: Resolution of the prominent interstitial markings. No opacities, masses or pneumothorax. No pleural effusion. MEDIASTINUM AND HILAR STRUCTURES: No masses. Contour normal. HEART AND VASCULAR STRUCTURES: Heart normal in mildly enlarged but stable in size. Normal vasculatur e. BONES: No acute findings. HARDWARE: Unchanged positioning of the left-sided central venous catheter. OTHER: No other significant finding. IMPRESSION: Resolution of the pulmonary vascular congestion. TECHNICAL DOCUMENTATION: JOB ID: [id number]- All Rights Reserved Reading location - IP/workstation name: [email or web address]
--- NOTE | 2018-05-03 08:37 | PDOC PROGRESS REPORT ---
Subjective Progress Note for:: 05/03/18 Subjective:: No acute events overnight, planned for surgery today, INR appropriate Reason For Visit: FRACTURE OF HIP/HEART FAILURE EXACERBATION Physical Exam Vital Signs: Temp Pulse Resp BP Pulse Ox 99.2 F 81 14 121/49 L 95 05/03/18 07:31 05/03/18 07:31 05/03/18 07:31 05/03/18 07:31 05/03/18 07:31 Intake & Output 05/02/18 05/03/18 05/04/18 06:59 06:59 06:59 Intake Total 1237 1565 Output Total 1575 Balance -338 1565 Weight 124.7 kg 122.9 kg General appearance: PRESENT: no acute distress, well-developed, well-nourished Head exam: PRESENT: atraumatic, normocephalic Eye exam: PRESENT: conjunctiva pink, EOMI, PERRLA. ABSENT: scleral icterus Ear exam: PRESENT: normal external ear exam Mouth exam: PRESENT: moist, tongue midline Neck exam: ABSENT: carotid bruit, JVD, lymphadenopathy, thyromegaly Respiratory exam: PRESENT: clear to auscultation romelia. ABSENT: rales, rhonchi, wheezes Cardiovascular exam: PRESENT: RRR. ABSENT: diastolic murmur, rubs, systolic murmur Pulses: PRESENT: normal dorsalis pedis pul Vascular exam: PRESENT: normal capillary refill GI/Abdominal exam: PRESENT: normal bowel sounds, soft. ABSENT: distended, guarding, mass, organolmegaly, rebound, tenderness Rectal exam: PRESENT: deferred Extremities exam: PRESENT: full ROM. ABSENT: calf tenderness, clubbing, pedal edema Neurological exam: PRESENT: alert, awake, oriented to person, oriented to place , oriented to time, oriented to situation, CN II-XII grossly intact. ABSENT: motor sensory deficit Psychiatric exam: PRESENT: appropriate affect, normal mood. ABSENT: homicidal ideation, suicidal ideation Skin exam: PRESENT: dry, intact, warm. ABSENT: cyanosis, rash Results Laboratory Results: 05/03/18 05:30 05/03/18 05:30 05/02/18 05/02/18 05/02/18 09:51 09:51 09:51 WBC 4.5 RBC 3.56 L Hgb 10.1 L Hct 30.3 L MCV 85 MCH 28.4 MCHC 33.4 RDW 22.5 H Plt Count 146 L Seg Neutrophils % 71.6 Lymphocytes % 11.5 L Monocytes % 13.3 H Eosinophils % 3.4 Basophils % 0.2 Absolute Neutrophils 3.2 Absolute Lymphocytes 0.5 Absolute Monocytes 0.6 Absolute Eosinophils 0.2 Absolute Basophils 0.0 Sodium 137.8 Potassium 3.9 Chloride 102 Carbon Dioxide 27 Anion Gap 9 BUN 18 Creatinine 1.01 Est GFR ( Amer) > 60 Est GFR (Non-Af Amer) > 60 Glucose 103 Calcium 7.4 L Urine Color YELLOW Urine Appearance CLEAR Urine pH 6.0 Ur Specific [place] 1.018 Urine Protein NEGATIVE Urine Glucose (UA) NEGATIVE Urine Ketones NEGATIVE Urine Blood SMALL H Urine Nitrite NEGATIVE Ur Leukocyte Esterase NEGATIVE Urine WBC (Auto) 1 Urine RBC (Auto) 4 05/03/18 05/03/18 05:30 05:30 WBC 4.6 RBC 3.37 L Hgb 9.6 L Hct 28.7 L MCV 85 MCH 28.5 MCHC 33.5 RDW 22.3 H Plt Count 153 Seg Neutrophils % 66.8 Lymphocytes % 14.5 Monocytes % 15.6 H Eosinophils % 2.7 Basophils % 0.4 Absolute Neutrophils 3.1 Absolute Lymphocytes 0.7 Absolute Monocytes 0.7 Absolute Eosinophils 0.1 Absolute Basophils 0.0 Sodium 135.8 L Potassium 4.1 Chloride 101 Carbon Dioxide 25 Anion Gap 10 BUN 15 Creatinine 0.94 Est GFR ( Amer) > 60 Est GFR (Non-Af Amer) > 60 Glucose 99 Calcium 7.7 L Urine Color Urine Appearance Urine pH Ur Specific [place] Urine Protein Urine Glucose (UA) Urine Ketones Urine Blood Urine Nitrite Ur Leukocyte Esterase Urine WBC (Auto) Urine RBC (Auto) 05/01/18 05/01/18 05/01/18 08:55 08:55 16:10 Creatine Kinase 285 H 237 H CK-MB (CK-2) 1.50 Troponin I 0.017 05/01/18 16:10 Creatine Kinase CK-MB (CK-2) 1.57 Troponin I < 0.012 Impressions: Head CT 05/01/18 00:24 IMPRESSION: No acute intracranial abnormality TECHNICAL DOCUMENTATION: Quality ID # 436: Final reports with documentation of one or more dose reduction techniques (e.g., Automated exposure control, adjustment of the mA and/or kV according to patient size, use of iterative reconstruction technique) 2010 [employer]- All Rights Reserved Hip X-Ray 05/01/18 00:24 IMPRESSION: Fracture of the left proximal femur. Knee X-Ray 05/01/18 00:24 IMPRESSION: Incomplete exam. Lower Extremity CT 05/02/18 00:00 IMPRESSION: Pathologic left proximal femoral intertrochanteric fracture with varus angulation Multiple subcentimeter lytic lesions visualized in the left hemipelvis Chest X-Ray 05/03/18 06:00 IMPRESSION: Resolution of the pulmonary vascular congestion. Assessment & Plan - Diagnosis (1) Hip fracture Qualifiers: Encounter type: subsequent encounter Fracture type: closed Laterality: left Qualified Code(s): S72.002A - Fracture of unspecified part of neck of left femur, initial encounter for closed fracture Is this a current diagnosis for this admission?: Yes Plan: Planned for surgery today (2) Multiple myeloma Qualifiers: Multiple myeloma remission status: not in remission Qualified Code(s): C90.00 - Multiple myeloma not having achieved remission Is this a current diagnosis for this admission?: Yes Plan: good partial response thus far, planned for further rx once healed from surgery - Time Time Spent with patient: 15-24 minutes - Inpatient Certification Based on my medical assessment, after consideration of the patient's comorbidities, presenting symptoms, or acuity I expect that the services needed warrant INPATIENT care.: Yes I certify that my determination is in accordance with my understanding of Medicare's requirements for reasonable and necessary INPATIENT services [42 CFR 412.3e].: Yes Medical Necessity: Need for Pain Control, Need for Surgery
[2018-05-03] MEDS: HYDROMORPHONE HCL INJ/PF 2 MG/ML AMPULE IV PRN ×2 (09:54→13:00)
[2018-05-03] MEDS: DILTIAZEM HCL 180 MG CAPSULE.CR PO SCH (11:03)
[2018-05-03] MEDS: POTASSIUM CHLORIDE 10 MEQ CAPSULE.ER PO SCH ×2 (11:03→22:10)
[2018-05-03] MEDS: FUROSEMIDE INJ/PF 40 MG/4 ML SDV IV SCH (11:03)
[2018-05-03] MEDS: GABAPENTIN 300 MG CAPSULE PO SCH ×2 (11:03→22:11)
[2018-05-03] MEDS: DOCUSATE SODIUM 100 MG CAPSULE PO SCH (11:04)
--- NOTE | 2018-05-03 12:56 | XCELERA REPORT ---
[address] [address] Transthoracic Echocardiogram Report Name: NINI ZHENG Age: 73 yrs Gender: Male : 1945 Patient Status: Inpatient Patient Location: [address] [place] [address] Study Date: 05/03/2018 10:35 AM Procedure: A two-dimensional transthoracic echocardiogram with color flow Doppler was performed. Study Quality: Technically suboptimal. The study was technically difficult with many images being suboptimal in quality. Images were not obtained from all of the standard acoustic windows due to the limited scope of the study. Poor doppler interogation. Reason For Study: need clearance for surgery, hx CHF History: Pulmonary Hypertension / Preoperative Cardiac Risk Assessmen. Ordering Physician: RAMOS ROUSSEAU Performed By: Aracelis Fletcher Interpretation Summary Poor doppler interogation. The left ventricle is grossly normal size. There is normal left ventricular wall thickness. No True apical 2 chamber views obtained.Hence cannot comment on the apical anterior , the basal anterior, the basal inferior and apical inferior viramontes.The mid anterior , the mid inferior and the rest of the LV viramontes contract normally. .Normal LVEF at 65% in the limited views. Doppler measurements suggest impaired left ventricular relaxation, which is associated with grade I/IV or mild diastolic dysfunction The left ventricular wall motion is normal. Flattened septum is consistent with RV pressure overload The right ventricle is not well visualized secondary to technical limitations Right atrium not well visualized secondary to technical limitations The left atrial size is normal. There is no evidence of mitral valve prolapse. There is no mitral valve stenosis. There is mild aortic stenosis There is a peak gradient of 16.3 mm of Hg. No hemodynamically significant valvular aortic stenosis. No aortic regurgitation is present. There is no tricuspid stenosis. Perhaps mild TR .? More than Mild.Not well inerogated by color doppler.RVSP is 67 mm of Hg , with RA mean of 10. There is servere pulmonary hypertension by echo The pulmonic valve is not well visualized. The aortic root is not well visualized but is probably normal size. There is no pericardial effusion. MMode/2D Measurements & Calculations RVDd: 4.0 cm LVIDd: 6.6 cm FS: 35.6 % Ao root diam: 3.5 cm IVSd: 0.97 cm LVIDs: 4.3 cm EDV(Teich): 225.4 ml Ao root area: 9.6 cm2 LVPWd: 1.0 cm ESV(Teich): 81.4 ml EF(Teich): 63.9 % Doppler Measurements & Calculations MV E max juan antonio: MV dec slope: Ao V2 max: LV V1 max P.3 cm/sec 202.1 cm/sec 4.3 mmHg MV A max juan antonio: 386.1 cm/sec2 Ao max PG: LV V1 max: 108.4 cm/sec MV dec time: 0.26 sec16.3 mmHg 104.1 cm/sec MV E/A: 0.92 PA V2 max: TR max juan antonio: 120.3 cm/sec 378.7 cm/sec PA max P.8 mmHg TR max P.4 mmHg Left Ventricle The left ventricle is grossly normal size. There is normal left ventricular wall thickness. No True apical 2 chamber views obtained.Hence cannot comment on the apical anterior , the basal anterior, the basal inferior and apical inferior viramontes.The mid anterior , the mid inferior and the rest of the LV viramontes contract normally. .Normal LVEF at 65% in the limited views. Doppler measurements suggest impaired left ventricular relaxation, which is associated with grade I/IV or mild diastolic dysfunction. The left ventricular wall motion is normal. Flattened septum is consistent with RV pressure overload. There is no thrombus. Right Ventricle The right ventricle is not well visualized secondary to technical limitations. Atria Right atrium not well visualized secondary to technical limitations. The left atrial size is normal. Mitral Valve There is no evidence of mitral valve prolapse. There is no vegetation seen on the mitral valve. There is no mitral valve stenosis. There is no mitral regurgitation noted. Aortic Valve There is no aortic valvular vegetation. There is mild aortic stenosis. There is a peak gradient of 16.3 mm of Hg. No hemodynamically significant valvular aortic stenosis. No aortic regurgitation is present. Tricuspid Valve There is no tricuspid stenosis. Perhaps mild TR .? More than Mild.Not well inerogated by color doppler.RVSP is 67 mm of Hg , with RA mean of 10. There is servere pulmonary hypertension by echo. Pulmonic Valve The pulmonic valve is not well visualized. Great Vessels The aortic root is not well visualized but is probably normal size. Effusions There is no pericardial effusion. : RAMOS ROUSSEAU > Rhiannon Enciso
--- NOTE | 2018-05-03 13:19 | PDOC PROGRESS REPORT ---
Subjective Progress Note for:: 05/03/18 Subjective:: No acute event overnight. Pain is fairly controlled after readjustment of pain regimen. Awaiting for cardio eval prior to surgery. Reason For Visit: FRACTURE OF HIP/HEART FAILURE EXACERBATION Physical Exam Vital Signs: Temp Pulse Resp BP Pulse Ox 98.2 F 91 12 134/69 H 95 05/03/18 11:46 05/03/18 11:46 05/03/18 11:46 05/03/18 11:46 05/03/18 11:46 Intake & Output 05/02/18 05/03/18 05/04/18 06:59 06:59 06:59 Intake Total 1237 1565 Output Total 1575 Balance -338 1565 Weight 274 lb 14.663 oz 270 lb 15.17 oz General appearance: PRESENT: no acute distress, well-developed, well-nourished Eye exam: PRESENT: conjunctiva pink, EOMI, PERRLA. ABSENT: scleral icterus Mouth exam: PRESENT: moist, tongue midline Neck exam: ABSENT: carotid bruit, JVD, lymphadenopathy, thyromegaly Respiratory exam: PRESENT: clear to auscultation romelia. ABSENT: rales, rhonchi, wheezes Cardiovascular exam: PRESENT: RRR. ABSENT: diastolic murmur, rubs, systolic murmur GI/Abdominal exam: PRESENT: normal bowel sounds, soft. ABSENT: distended, guarding, mass, organolmegaly, rebound, tenderness Rectal exam: PRESENT: deferred Extremities exam: PRESENT: other - minimal tenderness on the left hip area, minimal swelling of the left hip and left thigh area Neurological exam: PRESENT: alert, awake, oriented to person, oriented to place , oriented to time, oriented to situation, CN II-XII grossly intact. ABSENT: motor sensory deficit Results Laboratory Results: 05/03/18 05:30 05/03/18 05:30 05/03/18 05/03/18 05:30 05:30 WBC 4.6 RBC 3.37 L Hgb 9.6 L Hct 28.7 L MCV 85 MCH 28.5 MCHC 33.5 RDW 22.3 H Plt Count 153 Seg Neutrophils % 66.8 Lymphocytes % 14.5 Monocytes % 15.6 H Eosinophils % 2.7 Basophils % 0.4 Absolute Neutrophils 3.1 Absolute Lymphocytes 0.7 Absolute Monocytes 0.7 Absolute Eosinophils 0.1 Absolute Basophils 0.0 Sodium 135.8 L Potassium 4.1 Chloride 101 Carbon Dioxide 25 Anion Gap 10 BUN 15 Creatinine 0.94 Est GFR ( Amer) > 60 Est GFR (Non-Af Amer) > 60 Glucose 99 Calcium 7.7 L 05/01/18 05/01/18 05/01/18 08:55 08:55 16:10 Creatine Kinase 285 H 237 H CK-MB (CK-2) 1.50 Troponin I 0.017 05/01/18 16:10 Creatine Kinase CK-MB (CK-2) 1.57 Troponin I < 0.012 Impressions: Head CT 05/01/18 00:24 IMPRESSION: No acute intracranial abnormality TECHNICAL DOCUMENTATION: Quality ID # 436: Final reports with documentation of one or more dose reduction techniques (e.g., Automated exposure control, adjustment of the mA and/or kV according to patient size, use of iterative reconstruction technique) 2010 [employer]- All Rights Reserved Hip X-Ray 05/01/18 00:24 IMPRESSION: Fracture of the left proximal femur. Knee X-Ray 05/01/18 00:24 IMPRESSION: Incomplete exam. Lower Extremity CT 05/02/18 00:00 IMPRESSION: Pathologic left proximal femoral intertrochanteric fracture with varus angulation Multiple subcentimeter lytic lesions visualized in the left hemipelvis Chest X-Ray 05/03/18 06:00 IMPRESSION: Resolution of the pulmonary vascular congestion. Assessment & Plan - Diagnosis (1) Hip fracture Qualifiers: Encounter type: subsequent encounter Fracture type: closed Laterality: left Is this a current diagnosis for this admission?: Yes Plan: Orthopedics following. Scheduled for surgery pending completion of cardio eval. Samara is now fairly controlled with readjustment of his pain meds. Pain management team following. (2) Atrial fibrillation Qualifiers: Atrial fibrillation type: paroxysmal Qualified Code(s): I48.0 - Paroxysmal atrial fibrillation Is this a current diagnosis for this admission?: Yes Plan: Rate controlled. Continue oral Cardizem. Coumadin not being resumed on this admission. Heparin drip was held because of a slight decrease in hemoglobin. Patient did receive 3 units of packed RBC also for anticipation of surgery. Discussed the risks and benefits of continuing or holding anticoagulation in the patient's context of having A. fib, history of PE, fracture and anticipated surgery. Patient and family is agreeable with holding any form of anticoagulation at the moment. (3) Multiple myeloma Qualifiers: Multiple myeloma remission status: not in remission Qualified Code(s): C90.00 - Multiple myeloma not having achieved remission Is this a current diagnosis for this admission?: Yes Plan: Oncology following. Noted recommendations. Further plan will be pursued as outpatient. (4) Gram-positive bacteremia Is this a current diagnosis for this admission?: Yes Plan: Blood cultures grew gram-positive cocci 2/2 bottles. Continue vancomycin for now until final culture results are out. Repeat blood cultures today. Note that patient does have a mediport. (5) Chronic diastolic (congestive) heart failure Is this a current diagnosis for this admission?: Yes Plan: Stable. Chest x-ray shows significant improvement of pulmonary congestion. Creatinine stable. Continue lasix. (6) History of pulmonary embolism Is this a current diagnosis for this admission?: Yes Plan: Coumadin on hold. - Time Time Spent with patient: 25-34 minutes
--- NOTE | 2018-05-03 13:29 | Progress Note ---
Provider Note Provider Note: INTERIM CARDIOLOGY NOTE for Mr. Randall Earl. Date of note: 05/03/2018, by Dr. Rhiannon Enciso. Patient interviewed and examined. Formal consult to follow. Impression 1 Accidental fall and fractured left hip for surgery. 2. Severe pulmonary hypertension. 3 Paroxysmal atrial fibrillation. 4. Diabetes mellitus 5. hypertension. 6.. Multiple myeloma 7. History of DVT. 8. History of pulmonary embolism. 9. History of sleep apnea 10. Preoperative cardiac risk assessment. Echo shows hemodynamically nonsignificant aortic stenosis. In the limited views LV wall motion ejection fraction are normal. There is severe pulmonary hypertension with a right ventricle systolic pressure of 67 mmHg. This has been discussed with the patient and with the anesthesiologist. THE patient will be at moderate cardiac risk [not prohibitively high cardiac risk], for this orthopedic surgery would recommend starting anticoagulation as soon as possible postoperatively. Would continue monitoring monitoring the patient on telemetry, and postoperatively get serial EKGs and cardiac enzymes. Watch patient for decompensation of right heart failure due to pulmonary hypertension, and recurrence of atrial fibrillation. Will follow with you. Discussed with the patient and the family. Discussed with the hospitalist, and with the anesthesiologist.
[2018-05-03] MEDS ORDERED: DEXTROSE 5%-NORMAL SALINE 1,000 ML IV PRN (13:52)
[2018-05-03 16:09] LABS: INTERNATIONAL RATION (INR) 1.22; PROTHROMBIN TIME 16.1 SEC (11.4-15.4)
[2018-05-03 16:10] LABS: PARTIAL THROMBOPLASTIN TIME 39.9 SEC (23.5-35.8)
[2018-05-03 16:24] LABS: VANCOMYCIN,TROUGH 14.5 ug/mL (5.0-20.0)
--- NOTE | 2018-05-03 17:36 | PDOC PROGRESS REPORT ---
Subjective Progress Note for:: 05/03/18 Subjective:: Patient resting in bed complaining of left hip pain. Reason For Visit: FRACTURE OF HIP/HEART FAILURE EXACERBATION Physical Exam Vital Signs: Temp Pulse Resp BP Pulse Ox 37.2 C 90 16 106/49 L 90 L 05/03/18 15:22 05/03/18 15:22 05/03/18 15:22 05/03/18 15:22 05/03/18 15:22 Intake & Output 05/02/18 05/03/18 05/04/18 06:59 06:59 06:59 Intake Total 1237 1565 0 Output Total 1575 Balance -338 1565 0 Weight 124.7 kg 122.9 kg Adult Front & Back Image: 1 - Left tender palpation. Short and externally rotated. Neurovascular intact distally. Results Laboratory Results: 05/03/18 05:30 05/03/18 05:30 05/03/18 05/03/18 05:30 05:30 WBC 4.6 RBC 3.37 L Hgb 9.6 L Hct 28.7 L MCV 85 MCH 28.5 MCHC 33.5 RDW 22.3 H Plt Count 153 Seg Neutrophils % 66.8 Lymphocytes % 14.5 Monocytes % 15.6 H Eosinophils % 2.7 Basophils % 0.4 Absolute Neutrophils 3.1 Absolute Lymphocytes 0.7 Absolute Monocytes 0.7 Absolute Eosinophils 0.1 Absolute Basophils 0.0 Sodium 135.8 L Potassium 4.1 Chloride 101 Carbon Dioxide 25 Anion Gap 10 BUN 15 Creatinine 0.94 Est GFR ( Amer) > 60 Est GFR (Non-Af Amer) > 60 Glucose 99 Calcium 7.7 L 05/01/18 05/01/18 05/01/18 08:55 08:55 16:10 Creatine Kinase 285 H 237 H CK-MB (CK-2) 1.50 Troponin I 0.017 05/01/18 16:10 Creatine Kinase CK-MB (CK-2) 1.57 Troponin I < 0.012 Impressions: Head CT 05/01/18 00:24 IMPRESSION: No acute intracranial abnormality TECHNICAL DOCUMENTATION: Quality ID # 436: Final reports with documentation of one or more dose reduction techniques (e.g., Automated exposure control, adjustment of the mA and/or kV according to patient size, use of iterative reconstruction technique) 2010 [employer]- All Rights Reserved Hip X-Ray 05/01/18 00:24 IMPRESSION: Fracture of the left proximal femur. Knee X-Ray 05/01/18 00:24 IMPRESSION: Incomplete exam. Lower Extremity CT 05/02/18 00:00 IMPRESSION: Pathologic left proximal femoral intertrochanteric fracture with varus angulation Multiple subcentimeter lytic lesions visualized in the left hemipelvis Chest X-Ray 05/03/18 06:00 IMPRESSION: Resolution of the pulmonary vascular congestion. Status: Image reviewed by me Assessment & Plan - Diagnosis (1) Hip fracture Qualifiers: Encounter type: subsequent encounter Fracture type: closed Laterality: left Is this a current diagnosis for this admission?: Yes - Plan Summary Plan Summary: 78-year-old gentleman with left hip fracture. History of multiple myeloma. INR is 1.3 but his PTT still elevated. Discussed with anesthesia and she would like to proceed with a spinal anesthetic for his procedure to minimize cardiac risk therefore we will proceed with surgery tomorrow pending improved coag times. Meantime continue bed rest and pain control. N.p.o. after midnight.
[2018-05-03] MEDS: ACETAMINOPHEN 325 MG TABLET PO PRN (23:48)
[2018-05-04] MEDS: INSULIN GLARGINE,HUM.REC.ANLOG 1,000 UNIT/10 ML UNIT SUBCUT SCH ×2 (00:47→22:55)
[2018-05-04] MEDS: OXYCODONE HCL IR 5 MG TABLET PO PRN (01:38)
[2018-05-04] MEDS: VANCOMYCIN HCL 1,500 MG in DEXTROSE 5%-WATER 250 ML IV SCH ×2 (03:06→14:54)
[2018-05-04] MEDS: OXYCODONE HCL SR 40 MG TABLET PO SCH ×2 (06:00→22:34)
[2018-05-04 07:28] LABS: PROTHROMBIN TIME 15.8 SEC (11.4-15.4)
[2018-05-04 07:29] LABS: PARTIAL THROMBOPLASTIN TIME 41.9 SEC (23.5-35.8)
[2018-05-04] MEDS ORDERED: FENTANYL CITRATE INJ/PF 100 MCG/2 ML AMPUL ONE (08:14)
[2018-05-04] MEDS ORDERED: HYDROMORPHONE HCL INJ/PF 2 MG/ML AMPULE ONE (08:15)
[2018-05-04] MEDS ORDERED: MIDAZOLAM 2 MG/2 ML INJ ONE (08:15)
[2018-05-04] MEDS ORDERED: PROPOFOL INJ 200 MG/20 ML VIAL IV ONE (08:15)
[2018-05-04] MEDS ORDERED: LIDOCAINE 2% INJ-PF (20 MG/ML) 10 ML AMPUL ONE (08:20)
[2018-05-04] MEDS ORDERED: EPHEDRINE SULFATE INJ 50 MG/1 ML AMPULE ONE (08:24)
[2018-05-04] MEDS ORDERED: ONDANSETRON HCL INJ/PF 4 MG/2 ML SDV IV PRN (08:58)
[2018-05-04] MEDS ORDERED: MAG HYDROX/AL HYDROX/SIMETH SUSP 30 ML UDCUP PO PRN (08:58)
[2018-05-04] MEDS ORDERED: RINGERS SOLUTION,LACTATED 1,000 ML IV PRN (08:58)
[2018-05-04] MEDS ORDERED: MILRINONE LACTATE/D5W 20 MG/100 ML RTUINJ IV PRN (09:02)
[2018-05-04] MEDS ORDERED: (PENDING PHARMACY ID) (Albuterol Sulfate [Proair Respiclick] 2 PUFF) IH PRN (09:03)
[2018-05-04] MEDS ORDERED: (PENDING PHARMACY ID) (Warfarin Sodium [Coumadin] 10 MG) PO SCH (09:15)
[2018-05-04] MEDS ORDERED: SUCCINYLCHOLINE CHLORIDE INJ 200 MG/10 ML VIAL ONE (09:34)
[2018-05-04] MEDS ORDERED: PHENYLEPHRINE HCL INJ/PF 10 MG/1 ML SDV ONE (09:34)
[2018-05-04] MEDS ORDERED: CEFAZOLIN INJ 1 GM VIAL ONE (09:56)
[2018-05-04] MEDS ORDERED: (PENDING PHARMACY ID) (Citalopram Hydrobromide [Celexa 10 Mg Tablet] 10 MG) PO SCH (10:00)
[2018-05-04] MEDS ORDERED: (PENDING PHARMACY ID) (Calcium Carbonate [Calcium] 600 MG) PO SCH (10:00)
[2018-05-04] MEDS ORDERED: (PENDING PHARMACY ID) (L.Acidoph,Paracasei, B.Lactis [Probiotic] 1 CAP) PO SCH (10:00)
[2018-05-04] MEDS ORDERED: FUROSEMIDE INJ/PF 40 MG/4 ML SDV ONE (10:01)
--- NOTE | 2018-05-04 11:37 | Operative Report ---
Operative Report DATE OF SURGERY: 05/04/18 PREOPERATIVE DIAGNOSIS: Left intertrochanteric hip fracture POSTOPERATIVE DIAGNOSIS: Same OPERATION: Cephalo-medullary nailing of left hip fracture SURGEON: RAMOS ROUSSEAU ANESTHESIA: GA TISSUE REMOVED OR ALTERED: None COMPLICATIONS: None ESTIMATED BLOOD LOSS: 150 mL INTRAOPERATIVE FINDINGS: As above PROCEDURE: Patient was seen and evaluated in the preoperative holding area. The left lower extremity was initialized and marked. Patient received 2 g Ancef IV for bacterial prophylaxis. Patient was taken back to the operative room where transferred operative table. Patient was placed under spinal anesthesia. Once adequate anesthetized he was carefully placed onto the hip positioner the nonoperative lower extremity and bilateral upper extremities were carefully padded and the peroneal nerve was padded and on the nonoperative extremity. The operative extremity was placed in a traction along with adduction and internal rotation. A surgical team debriefing was performed ensuring all instrumentation was available, the surgical procedure was discussed with possible concerns reviewed. A timeout was done identifying correct patient, procedure and extremity everyone in attendance agree with this and verbalized no concerns. Reduction maneuver with the use of the hip traction table were done and C-arm fluoroscopy was used to confirm optimal reduction of the intertrochanteric fracture. Once this was confirmed the lower extremity was prepped with chlor prep and draped in a sterile fashion. At this point a small skin incision was made proximal to the greater trochanter. The guidewire was placed onto the tip of the trochanter advanced down to the level of the lesser trochanter. AP and lateral fluoroscopy was used to confirm appropriate placement of the guidewire. The skin incision was then extended and the underlying fascia opened up carefully to the tip of the greater trochanter. The entry reamer was then used and advanced to the level of the lesser trochanter. We proceeded to place a long guidewire all way down to the knee and proceeded to measure. And measured about 440 mm in length so we decided to go with 420mm length 125 gamma nail was opened up and placed onto the aiming arm and advanced down the shaft of the femur. AP and lateral fluoroscopy was then used to confirm appropriate placement of the nail. Then turned my attention to the compression screw fixation in the femoral head. The trochars were advanced to the skin, a skin incision was made, careful dissection down to the fascia to the lateral femoral cortex was then partaken. The guidewire was then used and placed in the center center position with the tip apex distance less than 25 mm. Once this position was obtained the size of the compression screw was measured. AP and lateral fluoroscopy used to confirm appropriate placement of our guide wire. The step reamer was used to drill up through the femoral neck and head. I then carefully advanced the compression screw into position. AP and lateral fluoroscopy was done to confirm appropriate placement of the compression screw this was then locked into position proximally. The compression screw was then disengaged from its mounting device and the guidewire was removed. Lastly proceeded with locking of the nail distally. We then used the C-arm to get perfect circles distally in the lateral position marking the anticipated distal locking screw and a skin incision was made. Careful dissection done with a hemostat to the lateral cortex of the femur. I then drilled the near and far cortices. Measured the appropriate sized distal locking screw and secured it into position. At this point AP/lateral and oblique views of the proximal and distal aspect of the nail were taken confirming appropriate placement of the compression screw, distal locking screw and intramedullary nail. Once this was confirmed I proceeded with copious irrigation of the proximal and distal wounds. The deep tissues were closed with 0 Vicryl suture, and 2-0 Vicryl was used to close subcutaneous tissues. Lm was used to close the skin. A dressing was placed. Sponge counts, instrument counts and needle counts were correct. Patient was then transferred from the operating room table to the operating room stretcher. The was no intraoperative complications patient tolerated procedure well was stable to PACU. Implants used: Sean 11 x 420 mm 125 Short Gamma Nail with a 110 mm compression screw A 5.0 mm x 60 mm length distal locking screw was applied
[2018-05-04] MEDS: HYDROMORPHONE HCL INJ/PF 2 MG/ML AMPULE IV PRN ×2 (12:25→18:12)
[2018-05-04] MEDS: KETOROLAC TROMETHAMINE INJ/PF 30 MG/1 ML SDV IV PRN (13:14)
[2018-05-04 14:10] LABS: ABSOLUTE EOSINOPHILS # (AUTO) 0.1 10^3/uL (0.0-0.6); ABSOLUTE LYMPHOCYTES (AUTO) 0.4 10^3/uL (0.5-4.7); ABSOLUTE MONOCYTES (AUTO) 0.7 10^3/uL (0.1-1.4); ABSOLUTE NEUT (AUTO) 6.9 10^3/uL (1.7-8.2); BASOPHILS % (AUTO) 0.3 % (0-2); EOSINOPHILS % (AUTO) 0.7 % (0-6); HEMATOCRIT 32.1 % (37.9-51.0); HEMOGLOBIN 10.6 g/dL (13.5-17.0); LYMPHOCYTES % (AUTO) 5.3 % (13-45); MEAN CORPUSCULAR HEMOGLOBIN 28.2 pg (27.0-33.4); MEAN CORPUSCULAR HGB CONC 33.1 g/dL (32.0-36.0); MEAN CORPUSCULAR VOLUME 85 fl (80-97); MONOCYTES % (AUTO) 8.4 % (3-13); PLATELET COUNT 169 10^3/uL (150-450); RED BLOOD COUNT 3.76 10^6/uL (4.35-5.55); RED CELL DISTRIBUTION WIDTH 21.5 % (11.5-14.0); SEGMENTED NEUTROPHILS % (AUTO) 85.3 % (42-78); TOTAL CELLS COUNTED % (AUTO) 100 %; WHITE BLOOD COUNT 8.1 10^3/uL (4.0-10.5)
--- NOTE | 2018-05-04 14:16 | PDOC PROGRESS REPORT ---
Subjective Progress Note for:: 05/04/18 Subjective:: No acute event overnight. Pain is fairly controlled. Patient does have opioid dependence. Patient underwent intramedullary nailing for his hip fracture this morning. Patient was successfully extubated after the procedure. Patient was positioned by surgeon from the OR to ICU for closer monitoring. Patient denies any shortness of breath or chest pain. Patient denies any shortness of breath or chest pain. Reason For Visit: STATUS POST MEDULLARY NAILING OF LEFT HIP FRACTURE Physical Exam Vital Signs: Temp Pulse Resp BP Pulse Ox 100.1 F 93 14 132/65 H 87 L 05/04/18 13:20 05/04/18 13:31 05/04/18 13:31 05/04/18 13:31 05/04/18 13:31 Intake & Output 05/03/18 05/04/18 05/05/18 06:59 06:59 06:59 Intake Total 7003 150 4802 Output Total 0 620 Balance 8141 431 8901 Weight 270 lb 15.17 oz 272 lb 11.389 oz General appearance: PRESENT: no acute distress, well-developed, well-nourished Head exam: PRESENT: atraumatic, normocephalic Eye exam: PRESENT: conjunctiva pink, EOMI, PERRLA. ABSENT: scleral icterus Neck exam: ABSENT: carotid bruit, JVD, lymphadenopathy, thyromegaly Respiratory exam: PRESENT: clear to auscultation romelia. ABSENT: rales, rhonchi, wheezes Cardiovascular exam: PRESENT: RRR. ABSENT: diastolic murmur, rubs, systolic murmur Rectal exam: PRESENT: deferred Extremities exam: PRESENT: other - Minimal tenderness on site of surgery Neurological exam: PRESENT: alert, awake, oriented to person, oriented to place , oriented to time, oriented to situation, CN II-XII grossly intact. ABSENT: motor sensory deficit Results Laboratory Results: 05/03/18 05:30 05/01/18 22:06 Blood Type O POSITIVE Antibody Screen NEGATIVE 05/01/18 05/01/18 05/01/18 08:55 08:55 16:10 Creatine Kinase 285 H 237 H CK-MB (CK-2) 1.50 Troponin I 0.017 05/01/18 16:10 Creatine Kinase CK-MB (CK-2) 1.57 Troponin I < 0.012 Impressions: Head CT 05/01/18 00:24 IMPRESSION: No acute intracranial abnormality TECHNICAL DOCUMENTATION: Quality ID # 436: Final reports with documentation of one or more dose reduction techniques (e.g., Automated exposure control, adjustment of the mA and/or kV according to patient size, use of iterative reconstruction technique) 2010 [employer]- All Rights Reserved Hip X-Ray 05/01/18 00:24 IMPRESSION: Fracture of the left proximal femur. Knee X-Ray 05/01/18 00:24 IMPRESSION: Incomplete exam. Lower Extremity CT 05/02/18 00:00 IMPRESSION: Pathologic left proximal femoral intertrochanteric fracture with varus angulation Multiple subcentimeter lytic lesions visualized in the left hemipelvis Chest X-Ray 05/03/18 06:00 IMPRESSION: Resolution of the pulmonary vascular congestion. Assessment & Plan - Diagnosis (1) Hip fracture Qualifiers: Encounter type: subsequent encounter Fracture type: closed Laterality: left Is this a current diagnosis for this admission?: Yes Plan: Status post intramedullary nailing of the left hip. Orthopedics following. Pain is fairly controlled. On questioning, patient does complain of pain although he appears comfortable. Continue current pain regimen. He does have opiate dependence as he has been on chronic opiates. Pain specialist following. (2) Atrial fibrillation Qualifiers: Atrial fibrillation type: paroxysmal Qualified Code(s): I48.0 - Paroxysmal atrial fibrillation Is this a current diagnosis for this admission?: Yes Plan: Rate controlled. Continue oral Cardizem. Orthopedics has resumed Coumadin for tonight. Discussed with Dr. Gomes, heparin drip will be resumed tomorrow morning. (3) Multiple myeloma Qualifiers: Multiple myeloma remission status: not in remission Qualified Code(s): C90.00 - Multiple myeloma not having achieved remission Is this a current diagnosis for this admission?: Yes Plan: Oncology following. Noted recommendations. Further plan will be pursued as outpatient. (4) Gram-positive bacteremia Is this a current diagnosis for this admission?: Yes Plan: Blood cultures grew gram-positive cocci 2/2 bottles. Continue vancomycin for now until final culture results are out. Repeat blood cultures pending. Note that patient does have a mediport. (5) Chronic diastolic (congestive) heart failure Is this a current diagnosis for this admission?: Yes Plan: Stable. Chest x-ray shows significant improvement of pulmonary congestion. Creatinine stable. Continue lasix. (6) History of pulmonary embolism Is this a current diagnosis for this admission?: Yes Plan: Coumadin will be resumed tonight. - Time Time Spent with patient: 25-34 minutes
[2018-05-04] MEDS: FUROSEMIDE INJ/PF 40 MG/4 ML SDV IV SCH (14:52)
[2018-05-04] MEDS: CITALOPRAM HYDROBROMIDE 20 MG TABLET PO SCH (14:55)
[2018-05-04] MEDS: LACTOBACILLUS ACIDOPHILUS 250 MG TAB PO SCH (14:55)
[2018-05-04] MEDS: GABAPENTIN 300 MG CAPSULE PO SCH ×2 (14:55→22:34)
[2018-05-04] MEDS: DILTIAZEM HCL 180 MG CAPSULE.CR PO SCH (14:55)
[2018-05-04] MEDS: POTASSIUM CHLORIDE 10 MEQ CAPSULE.ER PO SCH ×2 (14:57→22:34)
[2018-05-04] MEDS: DOCUSATE SODIUM 100 MG CAPSULE PO SCH (14:58)
[2018-05-04] MEDS ORDERED: LANSOPRAZOLE 15 MG TAB.RAP.DR PO SCH (15:00)
[2018-05-04] MEDS ORDERED: LEVOTHYROXINE SODIUM 0.025 MG TABLET PO SCH (15:00)
[2018-05-04] MEDS ORDERED: FLUTICASONE NASAL SPRAY 50 MCG/SPRY 120 SPRAY/16 GM NASL PRN (15:00)
[2018-05-04] MEDS ORDERED: MECLIZINE HCL 25 MG TABLET PO PRN (15:00)
[2018-05-04] MEDS: CEFAZOLIN 2 GM/D5W RTU 2 GM/50 ML RTUPB IV SCH ×2 (15:02→21:15)
[2018-05-04] MEDS: CALCIUM CARBONATE 500 MG TABLET PO SCH (15:02)
[2018-05-04] MEDS: VALACYCLOVIR HCL 500 MG TABLET PO SCH (15:03)
--- NOTE | 2018-05-04 16:14 | RADIOLOGY REPORT (SQ) ---
EXAM DESCRIPTION: HIP IN OPERATING RM; NO CHG FLUORO COMPLETED DATE/TIME: 05/04/2018 3:11 pm REASON FOR STUDY: HIP IN OR COMPARISON: 05/02/2018 FLUOROSCOPY TIME: 2.4 minutes 6 images saved to PACS. TECHNIQUE: Intra-operative images acquired during surgical procedure to evaluate progress. NUMBER OF IMAGES: 6 LIMITATIONS: None. FINDINGS: Internal fixation of intertrochanteric fracture with IM binh and traversing PN. Distal loc gem screw. IMPRESSION: IMAGE(S) OBTAINED DURING PROCEDURE. COMMENT: Quality ID [id number]: Final reports for procedures using fluoroscopy that document radiation exp osure indices, or exposure time and number of fluorographic images (if radiation exposure indices are not available) Please consult full operative report of the attending physician for description of the procedure. TECHNICAL DOCUMENTATION: JOB ID: [id number] 1982 [employer]- All Rights Reserved Reading location - IP/workstation name: [email or web address]
--- NOTE | 2018-05-04 16:14 | RADIOLOGY REPORT (SQ) ---
EXAM DESCRIPTION: HIP IN OPERATING RM; NO CHG FLUORO COMPLETED DATE/TIME: 05/04/2018 3:11 pm REASON FOR STUDY: HIP IN OR COMPARISON: 05/02/2018 FLUOROSCOPY TIME: 2.4 minutes 6 images saved to PACS. TECHNIQUE: Intra-operative images acquired during surgical procedure to evaluate progress. NUMBER OF IMAGES: 6 LIMITATIONS: None. FINDINGS: Internal fixation of intertrochanteric fracture with IM binh and traversing PN. Distal loc gem screw. IMPRESSION: IMAGE(S) OBTAINED DURING PROCEDURE. COMMENT: Quality ID [id number]: Final reports for procedures using fluoroscopy that document radiation exp osure indices, or exposure time and number of fluorographic images (if radiation exposure indices are not available) Please consult full operative report of the attending physician for description of the procedure. TECHNICAL DOCUMENTATION: JOB ID: [id number] [employer]- All Rights Reserved Reading location - IP/workstation name: [email or web address]
[2018-05-04] MEDS ORDERED: INSULIN GLARGINE,HUM.REC.ANLOG 300 UNIT/3 ML INSULN.PEN SUBCUT SCH (18:00)
[2018-05-04] MEDS: SENNOSIDES/DOCUSATE 8.6-50 MG 1 EACH TABLET PO SCH (18:13)
[2018-05-04 20:43] LABS: HEMATOCRIT 33.6 % (37.9-51.0); MEAN CORPUSCULAR HEMOGLOBIN 27.9 pg (27.0-33.4); MEAN CORPUSCULAR HGB CONC 32.9 g/dL (32.0-36.0); MEAN CORPUSCULAR VOLUME 85 fl (80-97); PLATELET COUNT 156 10^3/uL (150-450); RED BLOOD COUNT 3.96 10^6/uL (4.35-5.55); RED CELL DISTRIBUTION WIDTH 21.1 % (11.5-14.0)
[2018-05-04] MEDS: ACETAMINOPHEN 325 MG TABLET PO PRN (21:15)
[2018-05-04] MEDS ORDERED: WARFARIN SODIUM 5 MG TABLET PO SCH (22:00)
[2018-05-04] MEDS ORDERED: KETOROLAC TROMETHAMINE INJ/PF 30 MG/1 ML SDV IV ONE (22:15)
[2018-05-04] MEDS: INSULIN LISPRO 100 UNIT/ML 3 ML VIAL SUBCUT PRN (22:31)
[2018-05-04] MEDS: SILDENAFIL CITRATE 20 MG TABLET PO SCH (22:34)
[2018-05-04] MEDS: ATORVASTATIN CALCIUM 20 MG TABLET PO SCH (22:34)
[2018-05-05] MEDS: CEFAZOLIN 2 GM/D5W RTU 2 GM/50 ML RTUPB IV SCH ×4 (02:04→22:04)
[2018-05-05] MEDS ORDERED: VANCOMYCIN HCL INJ 1000 MG VIAL IV PRN ×2 (02:09→02:30)
[2018-05-05] MEDS: VANCOMYCIN HCL 1,500 MG in DEXTROSE 5%-WATER 250 ML IV SCH (02:52)
[2018-05-05] MEDS ORDERED: NORMAL SALINE 1000 ML 1,000 ML IV ONE (03:00)
--- NOTE | 2018-05-05 05:41 | PROGRESS NOTE E ---
Progress Note NAME: NINI ZHENG : 1945 AGE: 73Y DATE: 05/04/2018 ROOM: [facility] SUBJECTIVE: The patient had successful surgery of his hip. He has postoperative pain and he just got medication for that. He denies chest pain and discomfort. There is no shortness of breath. There is no PND, orthopnea, or leg edema. There is no recurrence of atrial fibrillation. There is *------* or atrial arrhythmias seen on monitor. There is no leg edema. There are no TIA or CVA symptoms. OBJECTIVE: GENERAL: The patient is moderately obese, in no acute distress. VITAL SIGNS: His temperature is 98.7 degrees Fahrenheit. His pulse is 93 beats per minute. Blood pressure is 132/63. Respirations are 16 per minute. O2 sats are 93% on 2 L nasal cannula. HEAD: Atraumatic, normocephalic. EYES: Pupils are equal, round, regular, reactive to light and accommodation. Extraocular movements are normal. There is no conjunctival pallor. There is no scleral icterus. EARS, NOSE, AND THROAT: Negative. NECK: Supple. There is no JVD. Carotids are equal. There is no bruit. There is no lymphadenopathy. There is no goiter. Trachea is central. There is no JVD. LUNGS: Clear to auscultation and percussion, without any rales, rhonchi, or wheezing. There is no chest wall tenderness. HEART: S1, S2 are heard. There is no S3 gallop. There is no S4 gallop. There is a systolic murmur in the left sternal border in the apex. There is no rub. ABDOMEN: Soft, nontender, obese. There is no hepatosplenomegaly. Bowel sounds are well heard. EXTREMITIES: Femorals are diminished. Leg pulses are diminished. There is no pedal edema. There is no DVT or cellulitis. There is no cyanosis or clubbing. CENTRAL NERVOUS SYSTEM: The patient is conscious, awake, alert, oriented x3, with no focal deficits. LABORATORY DATA: The patient's white count is 9000. Hemoglobin is 11. Hematocrit is 33.6. Platelet count is 156,000. The patient's glucose is 182. IMPRESSION: 1. ACCIDENTAL FALL AND FRACTURE OF THE LEFT HIP STATUS POST SURGERY. Stable. 2. SEVERE PULMONARY HYPERTENSION, ASYMPTOMATIC. 3. PAROXYSMAL ATRIAL FIBRILLATION. No recurrence. 4. HYPERTENSION. Blood pressure well controlled. 5. DIABETES MELLITUS TYPE 2, INSULIN REQUIRING. Blood sugars are slightly elevated. 6. MULTIPLE MYELOMA. Oncologist following the patient this admission. 7. HISTORY OF DVT. No recurrence. 8. HISTORY OF PULMONARY EMBOLISM. No recurrence. 9. HISTORY OF SLEEP APNEA. The patient on CPAP. Will continue this. RECOMMENDATIONS: Recommend restart the patient's heparin and Coumadin as soon as possible and safe from surgical point of view. Continue his other medications, including Revatio. NOTE: His medications have been reviewed. Discussed with the patient and the patient's family. NOTE: Forty minutes spent with the patient, more than 50% of the time spent in direct patient care. Medical decision making is of moderate complexity in view of the multiple medical problems that the patient has had. Will follow with you. The patient has no history of coronary artery disease. *------* the patient's chest pain or anginal symptoms typical or atypical or any kind of chest pain, then would recommend getting serial EKGs and enzymes, or if the patient goes into atrial fibrillation or if the patient has any shortness of breath which is new and increased compared to his baseline. Discussed with the other caregiving providers on the case. Thanking you. DICTATING PHYSICIAN: MARYLOU JOHNSON M.D. [id number] EUGENIO#: [id number] ID: [id number] JOB#: [id number] ACCT: [id number] cc: >
[2018-05-05] MEDS: SILDENAFIL CITRATE 20 MG TABLET PO SCH ×3 (05:49→22:04)
[2018-05-05] MEDS: LEVOTHYROXINE SODIUM 0.025 MG TABLET PO SCH (05:49)
[2018-05-05] MEDS: LANSOPRAZOLE 15 MG TAB.RAP.DR PO SCH (05:49)
[2018-05-05] MEDS: OXYCODONE HCL IR 5 MG TABLET PO PRN ×3 (05:53→17:32)
[2018-05-05 06:08] LABS: HEMATOCRIT 29.1 % (37.9-51.0); HEMOGLOBIN 9.6 g/dL (13.5-17.0); MEAN CORPUSCULAR HEMOGLOBIN 28.3 pg (27.0-33.4); MEAN CORPUSCULAR HGB CONC 33.1 g/dL (32.0-36.0); MEAN CORPUSCULAR VOLUME 86 fl (80-97); PLATELET COUNT 139 10^3/uL (150-450); RED CELL DISTRIBUTION WIDTH 21.1 % (11.5-14.0); WHITE BLOOD COUNT 6.1 10^3/uL (4.0-10.5)
[2018-05-05 06:14] LABS: INTERNATIONAL RATION (INR) 1.36; PROTHROMBIN TIME 17.5 SEC (11.4-15.4)
[2018-05-05 06:15] LABS: PARTIAL THROMBOPLASTIN TIME 35.6 SEC (23.5-35.8)
[2018-05-05 06:30] LABS: APPEARANCE,URINE CLOUDY; BILIRUBIN,URINE NEGATIVE (NEGATIVE); COLOR,URINE DARK YELLOW; GLUCOSE, URINE NEGATIVE (NEGATIVE); KETONES,URINE NEGATIVE (NEGATIVE); LEUKOCYTE ESTERASE,URINE NEGATIVE (NEGATIVE); NITRITE,URINE NEGATIVE (NEGATIVE); PROTEIN,URINE 30 mg/dL (NEGATIVE)
[2018-05-05 06:33] LABS: ANION GAP 11 (5-19); BLOOD UREA NITROGEN 25 mg/dL (7-20); CARBON DIOXIDE 25 mmol/L (22-30); CHLORIDE 102 mmol/L (98-107); GLUCOSE 131 mg/dL (75-110); POTASSIUM 4.5 mmol/L (3.6-5.0); SODIUM 138.3 mmol/L (137-145)
[2018-05-05 06:48] LABS: CALCIUM 7.2 mg/dL (8.4-10.2)
[2018-05-05] MEDS ORDERED: DILTIAZEM HCL 180 MG CAPSULE.CR PO SCH (08:00)
--- NOTE | 2018-05-05 08:34 | PDOC PROGRESS REPORT ---
Subjective Progress Note for:: 05/05/18 Subjective:: No acute events noted overnight Reason For Visit: STATUS POST MEDULLARY NAILING OF LEFT HIP FRACTURE Physical Exam Vital Signs: Temp Pulse Resp BP Pulse Ox 98.6 F 85 13 106/52 L 95 05/05/18 05:48 05/05/18 05:48 05/05/18 05:48 05/05/18 05:48 05/05/18 05:48 Intake & Output 05/04/18 05/05/18 05/06/18 06:59 06:59 06:59 Intake Total 500 5233 Output Total 0 1615 Balance 500 3618 Weight 123.7 kg 118.6 kg General appearance: PRESENT: no acute distress, well-developed, well-nourished Head exam: PRESENT: atraumatic, normocephalic Eye exam: PRESENT: conjunctiva pink, EOMI, PERRLA. ABSENT: scleral icterus Ear exam: PRESENT: normal external ear exam Mouth exam: PRESENT: moist, tongue midline Neck exam: ABSENT: carotid bruit, JVD, lymphadenopathy, thyromegaly Respiratory exam: PRESENT: clear to auscultation romelia. ABSENT: rales, rhonchi, wheezes Cardiovascular exam: PRESENT: RRR. ABSENT: diastolic murmur, rubs, systolic murmur Pulses: PRESENT: normal dorsalis pedis pul Vascular exam: PRESENT: normal capillary refill GI/Abdominal exam: PRESENT: normal bowel sounds, soft. ABSENT: distended, guarding, mass, organolmegaly, rebound, tenderness Rectal exam: PRESENT: deferred Extremities exam: PRESENT: full ROM. ABSENT: calf tenderness, clubbing, pedal edema Neurological exam: PRESENT: alert, awake, oriented to person, oriented to place , oriented to time, oriented to situation, CN II-XII grossly intact. ABSENT: motor sensory deficit Psychiatric exam: PRESENT: appropriate affect, normal mood. ABSENT: homicidal ideation, suicidal ideation Skin exam: PRESENT: dry, intact, warm. ABSENT: cyanosis, rash Results Laboratory Results: 05/05/18 06:00 05/05/18 06:00 05/01/18 05/04/18 05/04/18 22:06 13:55 20:33 WBC 8.1 7.0 RBC 3.76 L 3.96 L Hgb 10.6 L 11.0 L Hct 32.1 L 33.6 L MCV 85 85 MCH 28.2 27.9 MCHC 33.1 32.9 RDW 21.5 H 21.1 H Plt Count 169 156 Seg Neutrophils % 85.3 H Lymphocytes % 5.3 L Monocytes % 8.4 Eosinophils % 0.7 Basophils % 0.3 Absolute Neutrophils 6.9 Absolute Lymphocytes 0.4 L Absolute Monocytes 0.7 Absolute Eosinophils 0.1 Absolute Basophils 0.0 Sodium Potassium Chloride Carbon Dioxide Anion Gap BUN Creatinine Est GFR ( Amer) Est GFR (Non-Af Amer) Glucose Calcium Magnesium Urine Color Urine Appearance Urine pH Ur Specific [place] Urine Protein Urine Glucose (UA) Urine Ketones Urine Blood Urine Nitrite Ur Leukocyte Esterase Urine WBC (Auto) Urine RBC (Auto) Blood Type O POSITIVE Antibody Screen NEGATIVE 05/05/18 05/05/18 05/05/18 05:55 06:00 06:00 WBC 6.1 RBC 3.40 L Hgb 9.6 L Hct 29.1 L MCV 86 MCH 28.3 MCHC 33.1 RDW 21.1 H Plt Count 139 L Seg Neutrophils % Lymphocytes % Monocytes % Eosinophils % Basophils % Absolute Neutrophils Absolute Lymphocytes Absolute Monocytes Absolute Eosinophils Absolute Basophils Sodium 138.3 Potassium 4.5 Chloride 102 Carbon Dioxide 25 Anion Gap 11 BUN 25 H Creatinine 1.15 Est GFR ( Amer) > 60 Est GFR (Non-Af Amer) > 60 Glucose 131 H Calcium 7.2 L Magnesium 2.3 Urine Color DARK YELLOW Urine Appearance CLOUDY Urine pH 5.0 Ur Specific [place] 1.030 Urine Protein 30 H Urine Glucose (UA) NEGATIVE Urine Ketones NEGATIVE Urine Blood MODERATE H Urine Nitrite NEGATIVE Ur Leukocyte Esterase NEGATIVE Urine WBC (Auto) 10 Urine RBC (Auto) 63 Blood Type Antibody Screen 05/01/18 14:40 Blood Blood Culture - Final Staphylococcus Epidermidis 05/01/18 05/01/18 05/01/18 08:55 08:55 16:10 Creatine Kinase 285 H 237 H CK-MB (CK-2) 1.50 Troponin I 0.017 05/01/18 16:10 Creatine Kinase CK-MB (CK-2) 1.57 Troponin I < 0.012 Impressions: Head CT 05/01/18 00:24 IMPRESSION: No acute intracranial abnormality TECHNICAL DOCUMENTATION: Quality ID # [id number]: Final reports with documentation of one or more dose reduction techniques (e.g., Automated exposure control, adjustment of the mA and/or kV according to patient size, use of iterative reconstruction technique) 2010 [employer]- All Rights Reserved Knee X-Ray 05/01/18 00:24 IMPRESSION: Incomplete exam. Lower Extremity CT 05/02/18 00:00 IMPRESSION: Pathologic left proximal femoral intertrochanteric fracture with varus angulation Multiple subcentimeter lytic lesions visualized in the left hemipelvis Chest X-Ray 05/03/18 06:00 IMPRESSION: Resolution of the pulmonary vascular congestion. Fluoroscopy 05/04/18 08:15 IMPRESSION: IMAGE(S) OBTAINED DURING PROCEDURE. Hip X-Ray 05/04/18 08:15 IMPRESSION: IMAGE(S) OBTAINED DURING PROCEDURE. Assessment & Plan - Diagnosis (1) Hip fracture Qualifiers: Encounter type: subsequent encounter Fracture type: closed Laterality: left Is this a current diagnosis for this admission?: Yes Plan: S/p repair, pain seems controlled will cont and help w/ management, today had long discussion w/ pt and family spent >35 m in discussion. (2) Multiple myeloma Qualifiers: Multiple myeloma remission status: not in remission Qualified Code(s): C90.00 - Multiple myeloma not having achieved remission Is this a current diagnosis for this admission?: Yes Plan: Further rx planned as outpt - Time Time Spent with patient: 35 or more minutes - Inpatient Certification Based on my medical assessment, after consideration of the patient's comorbidities, presenting symptoms, or acuity I expect that the services needed warrant INPATIENT care.: Yes I certify that my determination is in accordance with my understanding of Medicare's requirements for reasonable and necessary INPATIENT services [42 CFR 412.3e].: Yes Medical Necessity: Need For Continuous Telemetry Monitoring, Need for Pain Control, Risk of Complication if Not Cared For in Hospital
[2018-05-05] MEDS: KETOROLAC TROMETHAMINE INJ/PF 30 MG/1 ML SDV IV PRN ×2 (08:48→13:36)
[2018-05-05] MEDS: ACETAMINOPHEN 325 MG TABLET PO PRN ×2 (08:48→13:39)
[2018-05-05] MEDS: DILTIAZEM HCL 180 MG CAPSULE.CR PO SCH (08:50)
[2018-05-05] MEDS ORDERED: ALBUTEROL SULFATE HFA (90 MCG/PUFF) 200 PUFF/8.5 GM MDI IH PRN (08:53)
[2018-05-05] MEDS: OXYCODONE HCL SR 40 MG TABLET PO SCH ×2 (09:00→22:03)
[2018-05-05] MEDS: GABAPENTIN 300 MG CAPSULE PO SCH ×2 (09:00→22:04)
[2018-05-05] MEDS: SENNOSIDES/DOCUSATE 8.6-50 MG 1 EACH TABLET PO SCH ×2 (09:00→17:32)
[2018-05-05] MEDS: PRENATAL VITAMIN W DHA CAPSULE PO SCH (09:00)
[2018-05-05] MEDS: CITALOPRAM HYDROBROMIDE 20 MG TABLET PO SCH (09:01)
[2018-05-05] MEDS: POTASSIUM CHLORIDE 10 MEQ CAPSULE.ER PO SCH ×2 (09:01→22:02)
[2018-05-05] MEDS: LACTOBACILLUS ACIDOPHILUS 250 MG TAB PO SCH (09:01)
[2018-05-05] MEDS: DOCUSATE SODIUM 100 MG CAPSULE PO SCH (09:01)
[2018-05-05] MEDS: FUROSEMIDE INJ/PF 40 MG/4 ML SDV IV SCH (09:01)
[2018-05-05] MEDS: CALCIUM CARBONATE 500 MG TABLET PO SCH (09:02)
[2018-05-05] MEDS: VALACYCLOVIR HCL 500 MG TABLET PO SCH (09:02)
[2018-05-05] MEDS ORDERED: LIDOCAINE 1% INJ-PF (10 MG/ML) 30 ML SDV ONE (09:59)
--- NOTE | 2018-05-05 11:04 | PDOC CONSULTATION ---
Consultation Consult Date: 05/05/18 Attending physician:: ANETTE NAILS Consult reason:: Port removal History of Present Illness Admission Date/PCP: 05/01/18 02:21 FANNIE GAN MD History of Present Illness: NINI ZHENG is a 73 year old male The long history of multiple myeloma who presents to the emergency department with syncopal episode, fall, and fractured hip. Patient is admitted last week to the hospital service, and successfully underwent of fractured hip by Dr. Gomes. According to patient prior to admission he was having fevers up to 101 5 of unknown clear cause. Patient was worked up for sepsis at time of this admission and over a 48 hour period, had a blood culture draws, several through his left subclavian Soxtvn-f-Zmrc catheter, 6 of which have grown Staphylococcus epidermidis. The patient is been on intravenous antibiotics including vancomycin, and is continuing to spike high fevers. No obvious source for infection has been identified. Urine analysis was grossly unremarkable although no urine culture on record; chest x-ray shows vascular congestion. He has no other indwelling central line; he has a right upper extremity peripheral IV access. The duration of the left subclavian port is unknown; the patient had multiple ports on the right side placed and removed due to infection. Past Medical History Cardiac Medical History: Reports: Atrial Fibrillation, Congestive Heart Failure , Hypertension Denies: Coronary Artery Disease, Myocardial Infarction Pulmonary Medical History: Reports: Sleep Apnea Denies: Asthma, Bronchitis, Chronic Obstructive Pulmonary Disease (COPD), Pneumonia, Tuberculosis Neurological Medical History: Denies: Seizures Endocrine Medical History: Reports: Diabetes Mellitus Type 2 Malignancy Medical History: Reports: Bone Cancer - Multiple myeloma Musculoskeltal Medical History: Reports: Arthritis - back Psychiatric Medical History: Denies: Depression Hematology: Reports: Anemia Past Surgical History Past Surgical History: Reports: Vascular Surgery - Port placement, Other - ORIF ;cataracts bilaterally Social History Lives with: Spouse/Significant other Smoking Status: Never Smoker Frequency of Alcohol Use: None Hx Recreational Drug Use: No Drugs: None Hx Prescription Drug Abuse: No - Advance Directive Resuscitation Status: Full Code Family History Family History: Hypertension Parental Family History Reviewed: Yes Children Family History Reviewed: Yes Sibling(s) Family History Reviewed.: Yes Medication/Allergy Home Medications: Albuterol Sulfate [Proair Respiclick] 2 puff IH Q6HP PRN 05/01/18 Calcium Carbonate [Calcium] 600 mg PO DAILY 05/01/18 Citalopram Hydrobromide [Celexa 10 mg Tablet] 10 mg PO DAILY 05/01/18 Diltiazem HCl [Cardizem Cd 180 mg Capsule] 180 mg PO QAM 05/01/18 Fluticasone Propionate [Flonase Nasal [place] 50 Mcg/[place] 16 gm] 1 spray NASL DAILYP PRN 05/01/18 Furosemide [Lasix 40 mg Tablet] 40 mg PO BID@0800,1200 05/01/18 Insulin Glargine,Hum.rec.anlog [Lantus Solostar] 40 units SQ QPM 05/01/18 L.acidoph,Paracasei, B.lactis [Probiotic] 1 cap PO DAILY 05/01/18 Levothyroxine Sodium [Synthroid] 25 mcg PO Q6AM 05/01/18 Meclizine HCl [Antivert 25 mg Tablet] 25 mg PO DAILYP PRN 05/01/18 Omeprazole 20 mg PO DAILY 05/01/18 Ondansetron HCl [Zofran 8 mg Tablet] 8 mg PO Q4HP PRN 05/01/18 Oxycodone HCl 15 mg PO Q4HP PRN 05/01/18 Oxycodone HCl [Oxycontin] 40 mg PO Q12 05/01/18 Rosuvastatin Calcium [Crestor 10 mg Tablet] 10 mg PO QPM 05/01/18 Sildenafil Citrate [Sildenafil] 20 mg PO TID 05/01/18 Valacyclovir HCl [Valtrex 500 mg Tablet] 500 mg PO DAILY 05/01/18 Warfarin Sodium [Coumadin] 5 mg PO TUTH 05/01/18 Warfarin Sodium [Coumadin] 10 mg PO SUMOWEFRSA 05/01/18 Allergies/Adverse Reactions: lorazepam [From Ativan] Allergy (Mild, Verified 05/31/15 10:52) Hallucinations promethazine HCl [From Phenergan] Allergy (Mild, Verified 05/31/15 10:52) Hallucinations Review of Systems Constitutional: PRESENT: as per HPI Eyes: ABSENT: visual disturbances Ears: ABSENT: hearing changes Cardiovascular: ABSENT: chest pain, dyspnea on exertion, edema, orthropnea, palpitations Respiratory: PRESENT: cough Musculoskeletal: ABSENT: joint swelling Physical Exam Vital Signs: Temp Pulse Resp BP Pulse Ox 101.3 F H 85 21 H 105/56 L 93 05/05/18 10:04 05/05/18 05:48 05/05/18 10:04 05/05/18 10:04 05/05/18 10:04 Intake & Output 05/04/18 05/05/18 05/06/18 06:59 06:59 06:59 Intake Total 500 5233 50 Output Total 0 1615 125 Balance 500 3618 -75 Weight 123.7 kg 118.6 kg General appearance: PRESENT: no acute distress Eye exam: PRESENT: EOMI Mouth exam: PRESENT: dry mucosa Neck exam: PRESENT: full ROM Cardiovascular exam: PRESENT: RRR Pulses: PRESENT: normal carotid pulses GI/Abdominal exam: PRESENT: soft Rectal exam: PRESENT: deferred Psychiatric exam: PRESENT: anxious Skin exam: PRESENT: other - Scattered ecchymosis, bruising throughout the torso and upper extremities. Results Laboratory Results: 05/05/18 06:00 05/05/18 06:00 05/01/18 05/04/18 05/04/18 22:06 13:55 20:33 WBC 8.1 7.0 RBC 3.76 L 3.96 L Hgb 10.6 L 11.0 L Hct 32.1 L 33.6 L MCV 85 85 MCH 28.2 27.9 MCHC 33.1 32.9 RDW 21.5 H 21.1 H Plt Count 169 156 Seg Neutrophils % 85.3 H Lymphocytes % 5.3 L Monocytes % 8.4 Eosinophils % 0.7 Basophils % 0.3 Absolute Neutrophils 6.9 Absolute Lymphocytes 0.4 L Absolute Monocytes 0.7 Absolute Eosinophils 0.1 Absolute Basophils 0.0 Sodium Potassium Chloride Carbon Dioxide Anion Gap BUN Creatinine Est GFR ( Amer) Est GFR (Non-Af Amer) Glucose Calcium Magnesium Urine Color Urine Appearance Urine pH Ur Specific [place] Urine Protein Urine Glucose (UA) Urine Ketones Urine Blood Urine Nitrite Ur Leukocyte Esterase Urine WBC (Auto) Urine RBC (Auto) Blood Type O POSITIVE Antibody Screen NEGATIVE 05/05/18 05/05/18 05/05/18 05:55 06:00 06:00 WBC 6.1 RBC 3.40 L Hgb 9.6 L Hct 29.1 L MCV 86 MCH 28.3 MCHC 33.1 RDW 21.1 H Plt Count 139 L Seg Neutrophils % Lymphocytes % Monocytes % Eosinophils % Basophils % Absolute Neutrophils Absolute Lymphocytes Absolute Monocytes Absolute Eosinophils Absolute Basophils Sodium 138.3 Potassium 4.5 Chloride 102 Carbon Dioxide 25 Anion Gap 11 BUN 25 H Creatinine 1.15 Est GFR ( Amer) > 60 Est GFR (Non-Af Amer) > 60 Glucose 131 H Calcium 7.2 L Magnesium 2.3 Urine Color DARK YELLOW Urine Appearance CLOUDY Urine pH 5.0 Ur Specific [place] 1.030 Urine Protein 30 H Urine Glucose (UA) NEGATIVE Urine Ketones NEGATIVE Urine Blood MODERATE H Urine Nitrite NEGATIVE Ur Leukocyte Esterase NEGATIVE Urine WBC (Auto) 10 Urine RBC (Auto) 63 Blood Type Antibody Screen 05/01/18 14:40 Blood Blood Culture - Final Staphylococcus Epidermidis 05/01/18 05/01/18 05/01/18 08:55 08:55 16:10 Creatine Kinase 285 H 237 H CK-MB (CK-2) 1.50 Troponin I 0.017 05/01/18 16:10 Creatine Kinase CK-MB (CK-2) 1.57 Troponin I < 0.012 Impressions: Head CT 05/01/18 00:24 IMPRESSION: No acute intracranial abnormality TECHNICAL DOCUMENTATION: Quality ID # [id number]: Final reports with documentation of one or more dose reduction techniques (e.g., Automated exposure control, adjustment of the mA and/or kV according to patient size, use of iterative reconstruction technique) 2010 [employer]- All Rights Reserved Knee X-Ray 05/01/18 00:24 IMPRESSION: Incomplete exam. Lower Extremity CT 05/02/18 00:00 IMPRESSION: Pathologic left proximal femoral intertrochanteric fracture with varus angulation Multiple subcentimeter lytic lesions visualized in the left hemipelvis Chest X-Ray 05/03/18 06:00 IMPRESSION: Resolution of the pulmonary vascular congestion. Fluoroscopy 05/04/18 08:15 IMPRESSION: IMAGE(S) OBTAINED DURING PROCEDURE. Hip X-Ray 05/04/18 08:15 IMPRESSION: IMAGE(S) OBTAINED DURING PROCEDURE. Assessment & Plan - Diagnosis (1) Sepsis Is this a current diagnosis for this admission?: Yes Plan: Impression: Patient appears to have developed sepsis syndrome prior to admission to [facility] based on his history; he has grown out staph epidermidis in 6 out of 8 blood culture samples from April 30 and May 01, several drawn through the left subclavian Egpyzs-t-[id number]; cultures from May 03 are negative so far however the patient has been on intravenous vancomycin. My clinical impression is that the patient has a septic source responsible for his ongoing bacteremia and fevers, and the left subclavian [id number]-g-[id number] very well be infected I have discussed the above with Dr. Rubin Melvin, and we agreed to proceed with port removal Recommendations: 1. Proceed with port removal under local anesthesia at bedside. 2. Patient may require additional peripheral access in the interim. (2) Atrial fibrillation Qualifiers: Atrial fibrillation type: paroxysmal Qualified Code(s): I48.0 - Paroxysmal atrial fibrillation Is this a current diagnosis for this admission?: Yes (3) Chronic anticoagulation Is this a current diagnosis for this admission?: Yes (4) Hip fracture Qualifiers: Encounter type: subsequent encounter Fracture type: closed Laterality: left Is this a current diagnosis for this admission?: Yes (6) Multiple myeloma Qualifiers: Multiple myeloma remission status: not in remission Qualified Code(s): C90.00 - Multiple myeloma not having achieved remission Is this a current diagnosis for this admission?: Yes - Time Time Spent: 30 to 50 Minutes Smoking Cessation Education: over 10 minutes Medications reviewed and adjusted accordingly: Yes Anticipated discharge: Home - Inpatient Certification Based on my medical assessment, after consideration of the patient's comorbidities, presenting symptoms, or acuity I expect that the services needed warrant INPATIENT care.: Yes I certify that my determination is in accordance with my understanding of Medicare's requirements for reasonable and necessary INPATIENT services [42 CFR 412.3e].: Yes Medical Necessity: Need For IV Fluids, Need for Pain Control, Need for IV Antibiotics, Need for Surgery
--- NOTE | 2018-05-05 11:54 | Operative Report ---
Nonrecallable Operative Report DATE OF SURGERY: 05/05/18 PREOPERATIVE DIAGNOSIS: Sepsis; multiple myeloma; bacteremia POSTOPERATIVE DIAGNOSIS: Same OPERATION: Complete removal of left subclavian dual-chamber Cuzygw-m-Frtn and catheter SURGEON: RICHY CAAL ANESTHESIA: Local TISSUE REMOVED OR ALTERED: Ovuqdl-m-Febq catheter COMPLICATIONS: None ESTIMATED BLOOD LOSS: Scant INTRAOPERATIVE FINDINGS: See below PROCEDURE: Consent provided; Left neck and chest wall prepped and draped with chlorhexidine. Surgical timeout conducted. We anesthetized the previous scar overlying the Fdaezu-v-Yzxv catheter with 1% plain lidocaine. Approximately 3-1/2 cm incision was made exposing the sub- cutaneous port. The pseudocapsule was opened, and the port removed bluntly from its associated pocket. There was no evidence of pus, hematoma or foul smell. With gentle traction, I removed a portion of the catheter but then the catheter would not lease completely. Therefore a counterincision was made at the side of the left IJ insertion after anesthetizing the skin with 1% plain lidocaine. A small 1/2 cm incision was made with a knife, and using hemostat, the underlying catheter was mobilized and then grasped and extracted from the left internal jugular vein uneventfully. The entire port and catheter were then removed intact from the original incision. The specimen was placed in a container sent to pathology for microbiologic analysis. Wounds closed with 3-0 Ethilon running in the sub-clavicular area, and 3-0 Vicryl in the left neck. 4 x 4's and compression dressing applied. Patient tolerated procedure well.
--- NOTE | 2018-05-05 12:46 | CONSULTATION REPORT E ---
Consultation Report NAME: NINI ZHENG : 1945 AGE: 73Y DATE: 610 A TO: DEEPALI JIMENEZ M.D. FROM: MARILIA PHELAN M.D. Requesting Physician CONSULTING PHYSICIAN: Dr. Rivero. REASON FOR CONSULTATION: Patient with history of multiple myeloma and now new femoral neck fracture and uncontrolled pain. HISTORY OF PRESENT ILLNESS: The patient is a 73-year-old male with a past medical history of DVT, atrial fibrillation on Coumadin, chronic pain, multiple myeloma and obstructive sleep apnea. Currently getting chemotherapy 3 times a week who unfortunately sustained a fall on 05/01/2018. He was found to have left-sided hip fracture and was admitted as such. The patient is currently waiting for ORIF of the hip, however, his INR is elevated due to chronic Coumadin use and currently Orthopedics is awaiting INR correction prior to proceeding with surgery. In the meantime, the patient has been having extreme and severe pain. The patient has a history of chronic pain and he is on OxyContin SR 40 mg p.o. b.i.d. and also reports that he takes oxycodone IR up to 15 mg as needed for severe pain. He is currently followed by Dr. Banda for his multiple myeloma and treatment of this. Since he has been in the hospital, he has been given his regular home medications but also has been given oxycodone IR, Fentanyl IV and morphine IV with worsening pain and no improvement in current pain. The patient states that he is in excruciating pain right now. He has never experienced 10 out of 10 pain before but now he can barely even move secondary to this severe pain in his hip and now numbness in his buttocks from being stuck sitting in the same position for an extended period of time. Pain Management has been consulted to determine the best course for pain management for this patient. PAST MEDICAL HISTORY: 1. Atrial fibrillation. 2. Congestive heart failure. 3. Hypertension. 4. Obstructive sleep apnea. 5. Type 2 diabetes. 6. Multiple myeloma. 7. Lumbar disk degeneration. 8. Anemia. PAST SURGICAL HISTORY: 1. History of port placement. 2. Bilateral cataract surgery. SOCIAL HISTORY: He is here with his . States he has never smoked. No use of any illicit substances. He does not drink. CODE STATUS: He is a FULL CODE. FAMILY HISTORY: Remarkable for hypertension. HOME MEDICATIONS: 1. Patient is getting chemotherapy with Dr. Banda including dexamethasone. 2. . 3. Insulin Novolog. 4. Humalog 5. Oxycodone 15 mg p.o. q.4 hours p.r.n. pain. 6. Coumadin 10 mg daily. 7. Tylenol 500 mg p.o. q.4 p.r.n. 8. Pepto-Bismol. 9. Diltiazem. 10. OxyContin 40 mg p.o. b.i.d. 11. Citalopram. 12. Zofran. 13. Calcium supplementation. 14. Lasix. 15. Bevespi inhaler. 16. Singulair. 17. p.r.n. ALLERGIES: 1. LORAZEPAM. 2. PHENERGAN. REVIEW OF SYSTEMS: The patient endorses substantial pain in his left hip, severe pain with movement, mild nausea. Denies any sedation. He has had a recent cough that has been productive and endorses that he has bronchitis. Denies any shortness of breath. PHYSICAL EXAMINATION: GENERAL: The patient is a morbidly obese male who is lying in bed. He is in moderate distress from pain and is sweating at current. He states that he does not want to speak right now because of his pain. HEENT: The patient is hard of hearing. Head normocephalic, atraumatic. EYES: EOMI. CARDIOVASCULAR: Pulses regular. The patient does have marked bilateral lower extremity edema pitting to the nunez. RESPIRATORY: The patient has a productive cough but even unlabored work of breathing. EXTREMITIES: As previously noted, edema. Normal capillary refill. MUSCULOSKELETAL: Exam deferred secondary to pain. NEUROLOGIC: No gross deficits appreciated. DIAGNOSTIC STUDIES: Lower extremity CT performed 05/02/2018 demonstrated pathologic left proximal femur intertrochanteric fracture with varus angulation and multiple subcentimeter lytic lesions and hemipelvis, mild hematoma of the left buttock. IMPRESSION: 1. Pathologic left hip fracture. 2. History of multiple myeloma. 3. Chronic pain syndrome. 4. Acute on chronic due to trauma. PLAN: The patient is an unfortunate 73-year-old male with complicated past medical history now uncontrolled pain secondary to a recent femoral neck fracture following a fall. The patient has been restarted on his home medications including OxyContin 40 mg p.o. b.i.d. IV morphine and IV Fentanyl have been unhelpful. I have recommended in the interim time that we increase the OxyContin to 3 times daily dosing for better continuous coverage of pain in the operative time frame. The patient is also recommended for hydromorphone 2 mg IV q.3 hours p.r.n. pain. I also recommend that postoperatively he be considered for TRUCK BRACER therapy which will be discussed at that time. We will increase oxycodone to 20 mg p.o. q.4 hours p.r.n. moderate pain and hydromorphone 2 mg IV q.3 hours p.r.n. for severe pain. I have also added gabapentin in the interim time period and not intended for use long-term. However, this may provide some additional pain control perioperatively. We will continue to follow along with this patient. Thank you very much for this interesting consultation. DICTATING PHYSICIAN: DEEPALI JIMENEZ M.D. [id number] PHY#: [id number] ID: [id number] JOB#: [id number] ACCT: [id number] cc:DEEPALI JIMENEZ M.D. > MTDD
[2018-05-05] MEDS: HEPARIN SODIUM,PORCINE/D5W 25,000 UNIT/250 ML RTUINJ IV PRN (13:13)
[2018-05-05] MEDS: HYDROMORPHONE HCL INJ/PF 2 MG/ML AMPULE IV PRN (14:38)
--- NOTE | 2018-05-05 17:33 | PDOC PROGRESS REPORT ---
Subjective Progress Note for:: 05/05/18 Subjective:: No acute event overnight. Pain is fairly controlled. Patient does have opioid dependence. Patient underwent intramedullary nailing for his hip fracture om 05/04/18. Patient was successfully extubated after the procedure. Patient has been running fever overnight. He had temperature 101 this morning. Patient denies any shortness of breath or chest pain. No cough or lower urinary tract symptoms. Patient will be downgraded from ICU today. Reason For Visit: STATUS POST MEDULLARY NAILING OF LEFT HIP FRACTURE Physical Exam Vital Signs: Temp Pulse Resp BP Pulse Ox 99.7 F 103 H 13 116/55 L 99 05/05/18 12:35 05/05/18 11:47 05/05/18 12:00 05/05/18 12:35 05/05/18 12:35 Intake & Output 05/04/18 05/05/18 05/06/18 06:59 06:59 06:59 Intake Total 500 5233 596 Output Total 0 1615 500 Balance 500 3618 96 Weight 272 lb 11.389 oz 261 lb 7.492 oz 261 lb 7.492 oz General appearance: PRESENT: no acute distress, well-developed, well-nourished Eye exam: PRESENT: conjunctiva pink, EOMI, PERRLA. ABSENT: scleral icterus Mouth exam: PRESENT: moist, tongue midline Neck exam: ABSENT: carotid bruit, JVD, lymphadenopathy, thyromegaly Respiratory exam: PRESENT: clear to auscultation romelia. ABSENT: rales, rhonchi, wheezes Cardiovascular exam: PRESENT: RRR. ABSENT: diastolic murmur, rubs, systolic murmur Pulses: PRESENT: normal dorsalis pedis pul GI/Abdominal exam: PRESENT: normal bowel sounds, soft. ABSENT: distended, guarding, mass, organolmegaly, rebound, tenderness Rectal exam: PRESENT: deferred Neurological exam: PRESENT: alert, awake, oriented to person, oriented to place , oriented to time, oriented to situation, CN II-XII grossly intact. ABSENT: motor sensory deficit Results Laboratory Results: 05/05/18 06:00 05/05/18 06:00 05/01/18 05/04/18 05/05/18 22:06 20:33 05:55 WBC 7.0 RBC 3.96 L Hgb 11.0 L Hct 33.6 L MCV 85 MCH 27.9 MCHC 32.9 RDW 21.1 H Plt Count 156 Sodium Potassium Chloride Carbon Dioxide Anion Gap BUN Creatinine Est GFR ( Amer) Est GFR (Non-Af Amer) Glucose Calcium Magnesium Urine Color DARK YELLOW Urine Appearance CLOUDY Urine pH 5.0 Ur Specific [place] 1.030 Urine Protein 30 H Urine Glucose (UA) NEGATIVE Urine Ketones NEGATIVE Urine Blood MODERATE H Urine Nitrite NEGATIVE Ur Leukocyte Esterase NEGATIVE Urine WBC (Auto) 10 Urine RBC (Auto) 63 Blood Type O POSITIVE Antibody Screen NEGATIVE 05/05/18 05/05/18 06:00 06:00 WBC 6.1 RBC 3.40 L Hgb 9.6 L Hct 29.1 L MCV 86 MCH 28.3 MCHC 33.1 RDW 21.1 H Plt Count 139 L Sodium 138.3 Potassium 4.5 Chloride 102 Carbon Dioxide 25 Anion Gap 11 BUN 25 H Creatinine 1.15 Est GFR ( Amer) > 60 Est GFR (Non-Af Amer) > 60 Glucose 131 H Calcium 7.2 L Magnesium 2.3 Urine Color Urine Appearance Urine pH Ur Specific [place] Urine Protein Urine Glucose (UA) Urine Ketones Urine Blood Urine Nitrite Ur Leukocyte Esterase Urine WBC (Auto) Urine RBC (Auto) Blood Type Antibody Screen 05/01/18 14:40 Blood Blood Culture - Final Staphylococcus Epidermidis 05/01/18 05/01/18 05/01/18 08:55 08:55 16:10 Creatine Kinase 285 H 237 H CK-MB (CK-2) 1.50 Troponin I 0.017 05/01/18 16:10 Creatine Kinase CK-MB (CK-2) 1.57 Troponin I < 0.012 Impressions: Head CT 05/01/18 00:24 IMPRESSION: No acute intracranial abnormality TECHNICAL DOCUMENTATION: Quality ID # 436: Final reports with documentation of one or more dose reduction techniques (e.g., Automated exposure control, adjustment of the mA and/or kV according to patient size, use of iterative reconstruction technique) 2010 [employer]- All Rights Reserved Knee X-Ray 05/01/18 00:24 IMPRESSION: Incomplete exam. Lower Extremity CT 05/02/18 00:00 IMPRESSION: Pathologic left proximal femoral intertrochanteric fracture with varus angulation Multiple subcentimeter lytic lesions visualized in the left hemipelvis Chest X-Ray 05/03/18 06:00 IMPRESSION: Resolution of the pulmonary vascular congestion. Fluoroscopy 05/04/18 08:15 IMPRESSION: IMAGE(S) OBTAINED DURING PROCEDURE. Hip X-Ray 05/04/18 08:15 IMPRESSION: IMAGE(S) OBTAINED DURING PROCEDURE. Assessment & Plan - Diagnosis (1) Sepsis Is this a current diagnosis for this admission?: Yes Plan: Sepsis suspected to be from an infected Mediport. Patient developed fever overnight. He did have tachycardia early this morning. Initial blood culture grew gram-positive cocci in clusters 2/2 bottles. Continue vancomycin for now. Discussed with oncology and we decided to consult surgery for MediPort replacement. Dr. Mathis did remove the port and recommended resuming heparin drip at midnight. Mediport will be replaced and when patient's sepsis/ bacteremia has cleared up. (2) Hip fracture Qualifiers: Encounter type: subsequent encounter Fracture type: closed Laterality: left Is this a current diagnosis for this admission?: Yes Plan: Status post intramedullary nailing of the left hip. Orthopedics following. Pain is fairly controlled. On questioning, patient does complain of pain although he appears comfortable. He does have opiate dependence as he has been on chronic opiates. Pain specialist following. Decrease Dilaudid to 2 mg every 6 from every 3. (3) Atrial fibrillation Qualifiers: Atrial fibrillation type: paroxysmal Qualified Code(s): I48.0 - Paroxysmal atrial fibrillation Is this a current diagnosis for this admission?: Yes Plan: Rate controlled. Continue oral Cardizem. Resume Coumadin tomorrow evening. (4) Multiple myeloma Qualifiers: Multiple myeloma remission status: not in remission Qualified Code(s): C90.00 - Multiple myeloma not having achieved remission Is this a current diagnosis for this admission?: Yes Plan: Oncology following. Noted recommendations. Further plan will be pursued as outpatient. (5) Gram-positive bacteremia Is this a current diagnosis for this admission?: Yes Plan: Continue vancomycin. Will repeat another set of blood cultures.. (6) Chronic diastolic (congestive) heart failure Is this a current diagnosis for this admission?: Yes Plan: Stable. Chest x-ray shows significant improvement of pulmonary congestion. Creatinine stable. Continue lasix. (7) History of pulmonary embolism Is this a current diagnosis for this admission?: Yes Plan: Hold Coumadin for tonight. Resume Coumadin tomorrow evening. Heparin drip will be resumed tonight 14-16 hours after port removal. (8) Pathologic fracture Is this a current diagnosis for this admission?: Yes Plan: Patient has a pathologic fracture in the setting of multiple myeloma. Status post IM nailing of the left hip. - Time Time Spent with patient: 25-34 minutes
--- NOTE | 2018-05-05 18:11 | PDOC PROGRESS REPORT ---
Subjective Progress Note for:: 05/05/18 Subjective:: Patient is extubated and awake and alert and having a normal conversation with me. He spiked a fever 104 and had his Port-A-Cath removed for concern for sepsis with positive blood cultures. Since removal of Port-A-Cath patient has not spiked any other fevers. Reason For Visit: STATUS POST MEDULLARY NAILING OF LEFT HIP FRACTURE Physical Exam Vital Signs: Temp Pulse Resp BP Pulse Ox 36.9 C 103 H 15 108/61 98 05/05/18 17:00 05/05/18 11:47 05/05/18 17:00 05/05/18 15:00 05/05/18 17:00 Intake & Output 05/04/18 05/05/18 05/06/18 06:59 06:59 06:59 Intake Total 500 5233 596 Output Total 0 1615 875 Balance 500 9749 -638 Weight 123.7 kg 118.6 kg 118.6 kg Adult Front & Back Image: 1 - Incisions are intact with mild bloody drainage. Swelling is expected postoperatively. He is neurovascular intact distally. Negative Homans sign Results Laboratory Results: 05/05/18 06:00 05/05/18 06:00 05/01/18 05/04/18 05/05/18 22:06 20:33 05:55 WBC 7.0 RBC 3.96 L Hgb 11.0 L Hct 33.6 L MCV 85 MCH 27.9 MCHC 32.9 RDW 21.1 H Plt Count 156 Sodium Potassium Chloride Carbon Dioxide Anion Gap BUN Creatinine Est GFR ( Amer) Est GFR (Non-Af Amer) Glucose Calcium Magnesium Urine Color DARK YELLOW Urine Appearance CLOUDY Urine pH 5.0 Ur Specific [place] 1.030 Urine Protein 30 H Urine Glucose (UA) NEGATIVE Urine Ketones NEGATIVE Urine Blood MODERATE H Urine Nitrite NEGATIVE Ur Leukocyte Esterase NEGATIVE Urine WBC (Auto) 10 Urine RBC (Auto) 63 Blood Type O POSITIVE Antibody Screen NEGATIVE 05/05/18 05/05/18 06:00 06:00 WBC 6.1 RBC 3.40 L Hgb 9.6 L Hct 29.1 L MCV 86 MCH 28.3 MCHC 33.1 RDW 21.1 H Plt Count 139 L Sodium 138.3 Potassium 4.5 Chloride 102 Carbon Dioxide 25 Anion Gap 11 BUN 25 H Creatinine 1.15 Est GFR ( Amer) > 60 Est GFR (Non-Af Amer) > 60 Glucose 131 H Calcium 7.2 L Magnesium 2.3 Urine Color Urine Appearance Urine pH Ur Specific [place] Urine Protein Urine Glucose (UA) Urine Ketones Urine Blood Urine Nitrite Ur Leukocyte Esterase Urine WBC (Auto) Urine RBC (Auto) Blood Type Antibody Screen 05/01/18 16:35 Blood Blood Culture - Final Staphylococcus Epidermidis 05/01/18 14:40 Blood Blood Culture - Final Staphylococcus Epidermidis 05/01/18 05/01/18 05/01/18 08:55 08:55 16:10 Creatine Kinase 285 H 237 H CK-MB (CK-2) 1.50 Troponin I 0.017 05/01/18 16:10 Creatine Kinase CK-MB (CK-2) 1.57 Troponin I < 0.012 Impressions: Head CT 05/01/18 00:24 IMPRESSION: No acute intracranial abnormality TECHNICAL DOCUMENTATION: Quality ID # 436: Final reports with documentation of one or more dose reduction techniques (e.g., Automated exposure control, adjustment of the mA and/or kV according to patient size, use of iterative reconstruction technique) 2010 [employer]- All Rights Reserved Knee X-Ray 05/01/18 00:24 IMPRESSION: Incomplete exam. Lower Extremity CT 05/02/18 00:00 IMPRESSION: Pathologic left proximal femoral intertrochanteric fracture with varus angulation Multiple subcentimeter lytic lesions visualized in the left hemipelvis Chest X-Ray 05/03/18 06:00 IMPRESSION: Resolution of the pulmonary vascular congestion. Fluoroscopy 05/04/18 08:15 IMPRESSION: IMAGE(S) OBTAINED DURING PROCEDURE. Hip X-Ray 05/04/18 08:15 IMPRESSION: IMAGE(S) OBTAINED DURING PROCEDURE. Assessment & Plan - Diagnosis (1) Hip fracture Qualifiers: Encounter type: subsequent encounter Fracture type: closed Laterality: left Is this a current diagnosis for this admission?: Yes - Plan Summary Plan Summary: Patient is 73-year-old gentleman POD #1 from nailing of his left hip fracture. Continue physical therapy We will continue to monitor his temperature but since procedure removing his Port-A-Cath placement is been afebrile. Currently continue with IV antibiotics per primary team. Continue pain control Continue DVT prophylaxis Awaiting [facility] facility placement
[2018-05-05 19:27] LABS: INTERNATIONAL RATION (INR) 1.34; PROTHROMBIN TIME 17.3 SEC (11.4-15.4)
[2018-05-05 19:28] LABS: PARTIAL THROMBOPLASTIN TIME 42.6 SEC (23.5-35.8)
[2018-05-05] MEDS: ATORVASTATIN CALCIUM 20 MG TABLET PO SCH (22:03)
[2018-05-05] MEDS: INSULIN GLARGINE,HUM.REC.ANLOG 1,000 UNIT/10 ML UNIT SUBCUT SCH (22:38)
[2018-05-06] MEDS: HYDROMORPHONE HCL INJ/PF 2 MG/ML AMPULE IV PRN (01:25)
[2018-05-06] MEDS: HEPARIN SODIUM,PORCINE/D5W 25,000 UNIT/250 ML RTUINJ IV PRN ×2 (01:28→21:59)
[2018-05-06] MEDS: ACETAMINOPHEN 325 MG TABLET PO PRN ×2 (02:44→18:04)
[2018-05-06] MEDS: CEFAZOLIN 2 GM/D5W RTU 2 GM/50 ML RTUPB IV SCH ×4 (02:45→21:56)
[2018-05-06 04:12] LABS: HEMATOCRIT 26.9 % (37.9-51.0); HEMOGLOBIN 8.9 g/dL (13.5-17.0); MEAN CORPUSCULAR HEMOGLOBIN 28.2 pg (27.0-33.4); MEAN CORPUSCULAR HGB CONC 33.1 g/dL (32.0-36.0); MEAN CORPUSCULAR VOLUME 85 fl (80-97); PLATELET COUNT 149 10^3/uL (150-450); RED BLOOD COUNT 3.16 10^6/uL (4.35-5.55); RED CELL DISTRIBUTION WIDTH 21.8 % (11.5-14.0); WHITE BLOOD COUNT 5.5 10^3/uL (4.0-10.5)
[2018-05-06] MEDS: OXYCODONE HCL IR 5 MG TABLET PO PRN ×3 (04:40→20:15)
[2018-05-06] MEDS: SILDENAFIL CITRATE 20 MG TABLET PO SCH ×3 (05:57→21:57)
[2018-05-06] MEDS: LEVOTHYROXINE SODIUM 0.025 MG TABLET PO SCH (05:57)
[2018-05-06] MEDS: LANSOPRAZOLE 15 MG TAB.RAP.DR PO SCH (05:57)
--- NOTE | 2018-05-06 08:00 | PDOC PROGRESS REPORT ---
Subjective Progress Note for:: 05/06/18 Subjective:: No issues overnight. Patient transferred from ICU to the third floor. Will participate with therapy today. Reason For Visit: STATUS POST MEDULLARY NAILING OF LEFT HIP FRACTURE Physical Exam Vital Signs: Temp Pulse Resp BP Pulse Ox 37.8 C 127 H 17 118/43 L 92 05/06/18 05:04 05/06/18 05:04 05/06/18 05:04 05/06/18 05:04 05/06/18 05:04 Intake & Output 05/05/18 05/06/18 05/07/18 06:59 06:59 06:59 Intake Total 5233 696 Output Total 7985 1525 Balance 3618 -829 Weight 118.6 kg 122.8 kg Adult Front & Back Image: 1 - Proximal dressing is saturated and the other 2 dressings are dry clean and intact. He is neurovascular intact distally. Negative Homans sign. Results Laboratory Results: 05/06/18 03:55 05/05/18 06:00 05/05/18 05/06/18 18:28 03:55 WBC 5.5 RBC 3.16 L Hgb 8.9 L Hct 26.9 L MCV 85 MCH 28.2 MCHC 33.1 RDW 21.8 H Plt Count 149 L Lactic Acid 1.4 05/01/18 16:35 Blood Blood Culture - Final Staphylococcus Epidermidis 05/01/18 14:40 Blood Blood Culture - Final Staphylococcus Epidermidis 05/01/18 05/01/18 05/01/18 08:55 08:55 16:10 Creatine Kinase 285 H 237 H CK-MB (CK-2) 1.50 Troponin I 0.017 05/01/18 16:10 Creatine Kinase CK-MB (CK-2) 1.57 Troponin I < 0.012 Impressions: Head CT 05/01/18 00:24 IMPRESSION: No acute intracranial abnormality TECHNICAL DOCUMENTATION: Quality ID # 436: Final reports with documentation of one or more dose reduction techniques (e.g., Automated exposure control, adjustment of the mA and/or kV according to patient size, use of iterative reconstruction technique) 2010 [employer]- All Rights Reserved Knee X-Ray 05/01/18 00:24 IMPRESSION: Incomplete exam. Lower Extremity CT 05/02/18 00:00 IMPRESSION: Pathologic left proximal femoral intertrochanteric fracture with varus angulation Multiple subcentimeter lytic lesions visualized in the left hemipelvis Chest X-Ray 05/03/18 06:00 IMPRESSION: Resolution of the pulmonary vascular congestion. Fluoroscopy 05/04/18 08:15 IMPRESSION: IMAGE(S) OBTAINED DURING PROCEDURE. Hip X-Ray 05/04/18 08:15 IMPRESSION: IMAGE(S) OBTAINED DURING PROCEDURE. Status: Image reviewed by me Assessment & Plan - Diagnosis (1) Hip fracture Qualifiers: Encounter type: subsequent encounter Fracture type: closed Laterality: left Is this a current diagnosis for this admission?: Yes - Plan Summary Plan Summary: Patient is 73-year-old gentleman POD #2 from nailing of his left pelvic fracture. Dressing will be changed today by nursing staff. Continue physical therapy Continue pain control Continue DVT prophylaxis Awaiting [facility] facility placement
[2018-05-06] MEDS: DILTIAZEM HCL 180 MG CAPSULE.CR PO SCH (08:17)
[2018-05-06] MEDS ORDERED: WARFARIN SODIUM 5 MG PO SCH (09:03)
[2018-05-06 09:36] LABS: INTERNATIONAL RATION (INR) 1.24; PROTHROMBIN TIME 16.2 SEC (11.4-15.4)
[2018-05-06] MEDS: HEPARIN SOD (PORCINE) 1,000 UNIT/ML 10 ML VIAL IV PRN ×2 (10:37→18:06)
[2018-05-06] MEDS: LACTOBACILLUS ACIDOPHILUS 250 MG TAB PO SCH (10:54)
[2018-05-06] MEDS: DOCUSATE SODIUM 100 MG CAPSULE PO SCH (10:55)
[2018-05-06] MEDS: CITALOPRAM HYDROBROMIDE 20 MG TABLET PO SCH (10:55)
[2018-05-06] MEDS: POTASSIUM CHLORIDE 10 MEQ CAPSULE.ER PO SCH ×2 (10:56→21:57)
[2018-05-06] MEDS: GABAPENTIN 300 MG CAPSULE PO SCH ×2 (10:57→21:57)
[2018-05-06] MEDS: FUROSEMIDE INJ/PF 40 MG/4 ML SDV IV SCH (10:57)
[2018-05-06] MEDS: CALCIUM CARBONATE 500 MG TABLET PO SCH (10:57)
[2018-05-06] MEDS: OXYCODONE HCL SR 40 MG TABLET PO SCH ×2 (10:58→21:57)
[2018-05-06] MEDS: PRENATAL VITAMIN W DHA CAPSULE PO SCH (10:59)
[2018-05-06] MEDS: SENNOSIDES/DOCUSATE 8.6-50 MG 1 EACH TABLET PO SCH ×2 (11:00→18:04)
[2018-05-06] MEDS: VALACYCLOVIR HCL 500 MG TABLET PO SCH (11:00)
--- NOTE | 2018-05-06 11:01 | PDOC PROGRESS REPORT ---
Subjective Progress Note for:: 05/06/18 Subjective:: No complaints. Reason For Visit: STATUS POST MEDULLARY NAILING OF LEFT HIP FRACTURE Physical Exam Vital Signs: Temp Pulse Resp BP Pulse Ox 99.0 F 96 17 130/47 H 91 L 05/06/18 07:51 05/06/18 08:00 05/06/18 07:51 05/06/18 07:51 05/06/18 07:51 Intake & Output 05/05/18 05/06/18 05/07/18 06:59 06:59 06:59 Intake Total 5274 696 87 Output Total 1612 1521 Balance 5408 -509 87 Weight 118.6 kg 122.8 kg Respiratory exam: PRESENT: other - Port-A-Cath removal site appears clean with no bleeding. sutures in place. No erythema. Results Laboratory Results: 05/06/18 03:55 05/05/18 06:00 05/05/18 05/06/18 18:28 03:55 WBC 5.5 RBC 3.16 L Hgb 8.9 L Hct 26.9 L MCV 85 MCH 28.2 MCHC 33.1 RDW 21.8 H Plt Count 149 L Lactic Acid 1.4 05/01/18 16:35 Blood Blood Culture - Final Staphylococcus Epidermidis 05/01/18 14:40 Blood Blood Culture - Final Staphylococcus Epidermidis 05/01/18 05/01/18 05/01/18 08:55 08:55 16:10 Creatine Kinase 285 H 237 H CK-MB (CK-2) 1.50 Troponin I 0.017 05/01/18 16:10 Creatine Kinase CK-MB (CK-2) 1.57 Troponin I < 0.012 Impressions: Head CT 05/01/18 00:24 IMPRESSION: No acute intracranial abnormality TECHNICAL DOCUMENTATION: Quality ID # 436: Final reports with documentation of one or more dose reduction techniques (e.g., Automated exposure control, adjustment of the mA and/or kV according to patient size, use of iterative reconstruction technique) 2010 [employer]- All Rights Reserved Knee X-Ray 05/01/18 00:24 IMPRESSION: Incomplete exam. Lower Extremity CT 05/02/18 00:00 IMPRESSION: Pathologic left proximal femoral intertrochanteric fracture with varus angulation Multiple subcentimeter lytic lesions visualized in the left hemipelvis Chest X-Ray 05/03/18 06:00 IMPRESSION: Resolution of the pulmonary vascular congestion. Fluoroscopy 05/04/18 08:15 IMPRESSION: IMAGE(S) OBTAINED DURING PROCEDURE. Hip X-Ray 05/04/18 08:15 IMPRESSION: IMAGE(S) OBTAINED DURING PROCEDURE. Assessment & Plan - Diagnosis (1) Infection due to Port-A-Cath Is this a current diagnosis for this admission?: Yes Plan: Status post removal. Site looks good. Please have patient follow-up at [facility] when he is discharged for suture removal and to schedule him for another Port-A-Cath placement. If he requires IV access beyond peripheral IV access during this hospitalization, recommend PICC line by radiology.
--- NOTE | 2018-05-06 17:48 | PDOC PROGRESS REPORT ---
Subjective Progress Note for:: 05/06/18 Subjective:: Feeling better today, yesterday his port was removed, he did walk yesterday also Reason For Visit: STATUS POST MEDULLARY NAILING OF LEFT HIP FRACTURE Physical Exam Vital Signs: Temp Pulse Resp BP Pulse Ox 100.7 F H 101 H 17 113/57 L 97 05/06/18 16:03 05/06/18 16:03 05/06/18 16:03 05/06/18 16:03 05/06/18 16:03 Intake & Output 05/05/18 05/06/18 05/07/18 06:59 06:59 06:59 Intake Total 5233 696 620 Output Total 1612 5675 1400 Balance 9547 -829 -763 Weight 118.6 kg 122.8 kg General appearance: PRESENT: no acute distress, well-developed, well-nourished Head exam: PRESENT: atraumatic, normocephalic Eye exam: PRESENT: conjunctiva pink, EOMI, PERRLA. ABSENT: scleral icterus Ear exam: PRESENT: normal external ear exam Mouth exam: PRESENT: moist, tongue midline Neck exam: ABSENT: carotid bruit, JVD, lymphadenopathy, thyromegaly Respiratory exam: PRESENT: clear to auscultation romelia. ABSENT: rales, rhonchi, wheezes Cardiovascular exam: PRESENT: RRR. ABSENT: diastolic murmur, rubs, systolic murmur Pulses: PRESENT: normal dorsalis pedis pul Vascular exam: PRESENT: normal capillary refill GI/Abdominal exam: PRESENT: normal bowel sounds, soft. ABSENT: distended, guarding, mass, organolmegaly, rebound, tenderness Rectal exam: PRESENT: deferred Extremities exam: PRESENT: full ROM. ABSENT: calf tenderness, clubbing, pedal edema Neurological exam: PRESENT: alert, awake, oriented to person, oriented to place , oriented to time, oriented to situation, CN II-XII grossly intact. ABSENT: motor sensory deficit Psychiatric exam: PRESENT: appropriate affect, normal mood. ABSENT: homicidal ideation, suicidal ideation Skin exam: PRESENT: dry, intact, warm. ABSENT: cyanosis, rash Results Laboratory Results: 05/06/18 03:55 05/05/18 06:00 05/05/18 05/06/18 18:28 03:55 WBC 5.5 RBC 3.16 L Hgb 8.9 L Hct 26.9 L MCV 85 MCH 28.2 MCHC 33.1 RDW 21.8 H Plt Count 149 L Lactic Acid 1.4 05/01/18 16:35 Blood Blood Culture - Final Staphylococcus Epidermidis 05/01/18 14:40 Blood Blood Culture - Final Staphylococcus Epidermidis 05/01/18 05/01/18 05/01/18 08:55 08:55 16:10 Creatine Kinase 285 H 237 H CK-MB (CK-2) 1.50 Troponin I 0.017 05/01/18 16:10 Creatine Kinase CK-MB (CK-2) 1.57 Troponin I < 0.012 Impressions: Head CT 05/01/18 00:24 IMPRESSION: No acute intracranial abnormality TECHNICAL DOCUMENTATION: Quality ID # 436: Final reports with documentation of one or more dose reduction techniques (e.g., Automated exposure control, adjustment of the mA and/or kV according to patient size, use of iterative reconstruction technique) 2010 [employer]- All Rights Reserved Knee X-Ray 05/01/18 00:24 IMPRESSION: Incomplete exam. Lower Extremity CT 05/02/18 00:00 IMPRESSION: Pathologic left proximal femoral intertrochanteric fracture with varus angulation Multiple subcentimeter lytic lesions visualized in the left hemipelvis Chest X-Ray 05/03/18 06:00 IMPRESSION: Resolution of the pulmonary vascular congestion. Fluoroscopy 05/04/18 08:15 IMPRESSION: IMAGE(S) OBTAINED DURING PROCEDURE. Hip X-Ray 05/04/18 08:15 IMPRESSION: IMAGE(S) OBTAINED DURING PROCEDURE. Assessment & Plan - Diagnosis (1) Hip fracture Qualifiers: Encounter type: subsequent encounter Fracture type: closed Laterality: left Is this a current diagnosis for this admission?: Yes Plan: Cont w/ PT, pt seems to be doing well (2) Multiple myeloma Qualifiers: Multiple myeloma remission status: not in remission Qualified Code(s): C90.00 - Multiple myeloma not having achieved remission Is this a current diagnosis for this admission?: Yes Plan: Pt doing better today, will resume rx as outpt once pt healed from surgery
--- NOTE | 2018-05-06 20:01 | PDOC PROGRESS REPORT ---
Subjective Progress Note for:: 05/06/18 Subjective:: No acute event overnight patient is still complaining of left lower extremity pain otherwise patient. His p.o. tolerant, He is receiving pain management physical therapy and wound care. Reason For Visit: STATUS POST MEDULLARY NAILING OF LEFT HIP FRACTURE Physical Exam Vital Signs: Temp Pulse Resp BP Pulse Ox 100.7 F H 101 H 17 113/57 L 97 05/06/18 16:03 05/06/18 16:03 05/06/18 16:03 05/06/18 16:03 05/06/18 16:03 Intake & Output 05/05/18 05/06/18 05/07/18 06:59 06:59 06:59 Intake Total 5233 696 1001 Output Total 1616 1525 2400 Balance 2898 829 -1399 Weight 118.6 kg 122.8 kg General appearance: PRESENT: no acute distress, well-developed, well-nourished Head exam: PRESENT: atraumatic, normocephalic Eye exam: PRESENT: conjunctiva pink, EOMI, PERRLA. ABSENT: scleral icterus Ear exam: PRESENT: normal external ear exam Mouth exam: PRESENT: moist, tongue midline Neck exam: ABSENT: carotid bruit, JVD, lymphadenopathy, thyromegaly Respiratory exam: PRESENT: clear to auscultation romelia. ABSENT: rales, rhonchi, wheezes Cardiovascular exam: PRESENT: RRR. ABSENT: diastolic murmur, rubs, systolic murmur Pulses: PRESENT: normal dorsalis pedis pul Vascular exam: PRESENT: normal capillary refill GI/Abdominal exam: PRESENT: normal bowel sounds, soft. ABSENT: distended, guarding, mass, organolmegaly, rebound, tenderness Rectal exam: PRESENT: deferred Extremities exam: PRESENT: full ROM, tenderness - mild TTP over the right hip joint. Wound is clean and no sign of active infection.. ABSENT: calf tenderness , clubbing, pedal edema Neurological exam: PRESENT: alert, awake, oriented to person, oriented to place , oriented to time, oriented to situation, CN II-XII grossly intact. ABSENT: motor sensory deficit Psychiatric exam: PRESENT: appropriate affect, normal mood. ABSENT: homicidal ideation, suicidal ideation Skin exam: PRESENT: dry, intact, warm. ABSENT: cyanosis, rash Results Laboratory Results: 05/06/18 03:55 05/05/18 06:00 05/06/18 03:55 WBC 5.5 RBC 3.16 L Hgb 8.9 L Hct 26.9 L MCV 85 MCH 28.2 MCHC 33.1 RDW 21.8 H Plt Count 149 L 05/01/18 16:35 Blood Blood Culture - Final Staphylococcus Epidermidis 05/01/18 14:40 Blood Blood Culture - Final Staphylococcus Epidermidis 05/01/18 05/01/18 05/01/18 08:55 08:55 16:10 Creatine Kinase 285 H 237 H CK-MB (CK-2) 1.50 Troponin I 0.017 05/01/18 16:10 Creatine Kinase CK-MB (CK-2) 1.57 Troponin I < 0.012 Impressions: Head CT 05/01/18 00:24 IMPRESSION: No acute intracranial abnormality TECHNICAL DOCUMENTATION: Quality ID # 436: Final reports with documentation of one or more dose reduction techniques (e.g., Automated exposure control, adjustment of the mA and/or kV according to patient size, use of iterative reconstruction technique) 2010 [employer]- All Rights Reserved Knee X-Ray 05/01/18 00:24 IMPRESSION: Incomplete exam. Lower Extremity CT 05/02/18 00:00 IMPRESSION: Pathologic left proximal femoral intertrochanteric fracture with varus angulation Multiple subcentimeter lytic lesions visualized in the left hemipelvis Chest X-Ray 05/03/18 06:00 IMPRESSION: Resolution of the pulmonary vascular congestion. Fluoroscopy 05/04/18 08:15 IMPRESSION: IMAGE(S) OBTAINED DURING PROCEDURE. Hip X-Ray 05/04/18 08:15 IMPRESSION: IMAGE(S) OBTAINED DURING PROCEDURE. Assessment & Plan - Diagnosis (1) Atrial fibrillation Qualifiers: Atrial fibrillation type: paroxysmal Qualified Code(s): I48.0 - Paroxysmal atrial fibrillation Is this a current diagnosis for this admission?: Yes Plan: Paroxysmal A. fib patient is rate controlled we will continue oral Cardizem will resume Coumadin tomorrow. (2) Chronic diastolic (congestive) heart failure Is this a current diagnosis for this admission?: Yes Plan: Continue Lasix monitor volume status (3) Gram-positive bacteremia Is this a current diagnosis for this admission?: Yes Plan: Continue vancomycin (4) Hip fracture Qualifiers: Encounter type: subsequent encounter Fracture type: closed Laterality: left Is this a current diagnosis for this admission?: Yes Plan: Status post intramedullary nailing of the left hip orthopedic following will continue pain management and wound care (5) Multiple myeloma Qualifiers: Multiple myeloma remission status: not in remission Qualified Code(s): C90.00 - Multiple myeloma not having achieved remission Is this a current diagnosis for this admission?: Yes Plan: Oncology on board for further recommendations will be followed.
[2018-05-06] MEDS: ATORVASTATIN CALCIUM 20 MG TABLET PO SCH (21:57)
[2018-05-06] MEDS: INSULIN GLARGINE,HUM.REC.ANLOG 1,000 UNIT/10 ML UNIT SUBCUT SCH (21:58)
[2018-05-06] MEDS: INSULIN LISPRO 100 UNIT/ML 3 ML VIAL SUBCUT PRN (21:58)
[2018-05-06] MEDS ORDERED: WARFARIN SODIUM 5 MG TABLET PO SCH (22:00)
[2018-05-07] MEDS: CEFAZOLIN 2 GM/D5W RTU 2 GM/50 ML RTUPB IV SCH ×4 (03:36→21:03)
[2018-05-07 04:13] LABS: APPEARANCE,URINE CLEAR; BILIRUBIN,URINE NEGATIVE (NEGATIVE); COLOR,URINE YELLOW; GLUCOSE, URINE NEGATIVE (NEGATIVE); KETONES,URINE NEGATIVE (NEGATIVE); LEUKOCYTE ESTERASE,URINE TRACE (NEGATIVE); NITRITE,URINE NEGATIVE (NEGATIVE); PROTEIN,URINE NEGATIVE (NEGATIVE); URINE SPECIFIC GRAVITY 1.023
[2018-05-07] MEDS: OXYCODONE HCL IR 5 MG TABLET PO PRN ×2 (04:28→09:56)
[2018-05-07] MEDS: SILDENAFIL CITRATE 20 MG TABLET PO SCH ×3 (05:31→22:05)
[2018-05-07] MEDS: LANSOPRAZOLE 15 MG TAB.RAP.DR PO SCH (05:31)
[2018-05-07] MEDS: LEVOTHYROXINE SODIUM 0.025 MG TABLET PO SCH (05:31)
[2018-05-07] MEDS: HYDROMORPHONE HCL INJ/PF 2 MG/ML AMPULE IV PRN ×2 (05:34→11:36)
[2018-05-07 07:15] LABS: HEMATOCRIT 25.1 % (37.9-51.0); HEMOGLOBIN 8.4 g/dL (13.5-17.0); MEAN CORPUSCULAR HEMOGLOBIN 28.5 pg (27.0-33.4); MEAN CORPUSCULAR HGB CONC 33.4 g/dL (32.0-36.0); MEAN CORPUSCULAR VOLUME 85 fl (80-97); PLATELET COUNT 167 10^3/uL (150-450); RED BLOOD COUNT 2.94 10^6/uL (4.35-5.55); RED CELL DISTRIBUTION WIDTH 21.3 % (11.5-14.0); WHITE BLOOD COUNT 4.6 10^3/uL (4.0-10.5)
[2018-05-07 07:20] LABS: INTERNATIONAL RATION (INR) 1.24; PROTHROMBIN TIME 16.2 SEC (11.4-15.4)
[2018-05-07 07:21] LABS: PARTIAL THROMBOPLASTIN TIME 67.7 SEC (23.5-35.8)
[2018-05-07 07:51] LABS: ANION GAP 9 (5-19); BLOOD UREA NITROGEN 20 mg/dL (7-20); CALCIUM 7.7 mg/dL (8.4-10.2); CARBON DIOXIDE 27 mmol/L (22-30); CHLORIDE 98 mmol/L (98-107); GLUCOSE 109 mg/dL (75-110); POTASSIUM 4.3 mmol/L (3.6-5.0); SODIUM 134.3 mmol/L (137-145)
[2018-05-07] MEDS: DILTIAZEM HCL 180 MG CAPSULE.CR PO SCH (09:07)
[2018-05-07] MEDS: DOCUSATE SODIUM 100 MG CAPSULE PO SCH (09:08)
[2018-05-07] MEDS: SENNOSIDES/DOCUSATE 8.6-50 MG 1 EACH TABLET PO SCH ×2 (09:08→17:33)
[2018-05-07] MEDS: PRENATAL VITAMIN W DHA CAPSULE PO SCH (09:08)
[2018-05-07] MEDS: OXYCODONE HCL SR 40 MG TABLET PO SCH ×2 (09:08→21:49)
[2018-05-07] MEDS: GABAPENTIN 300 MG CAPSULE PO SCH ×2 (09:08→21:50)
[2018-05-07] MEDS: POTASSIUM CHLORIDE 10 MEQ CAPSULE.ER PO SCH ×2 (09:08→21:50)
[2018-05-07] MEDS: CITALOPRAM HYDROBROMIDE 20 MG TABLET PO SCH (09:08)
[2018-05-07] MEDS: LACTOBACILLUS ACIDOPHILUS 250 MG TAB PO SCH (09:08)
[2018-05-07] MEDS: VALACYCLOVIR HCL 500 MG TABLET PO SCH (09:09)
[2018-05-07] MEDS: FUROSEMIDE INJ/PF 40 MG/4 ML SDV IV SCH (09:09)
[2018-05-07] MEDS: CALCIUM CARBONATE 500 MG TABLET PO SCH (09:09)
[2018-05-07] MEDS: HEPARIN SODIUM,PORCINE/D5W 25,000 UNIT/250 ML RTUINJ IV PRN (09:57)
[2018-05-07] MEDS ORDERED: VANCOMYCIN HCL 0 MG in DEXTROSE 5%-WATER 250 ML IV NR (10:00)
[2018-05-07] MEDS: VANCOMYCIN HCL 1,500 MG in DEXTROSE 5%-WATER 250 ML IV SCH ×2 (13:32→21:47)
[2018-05-07] MEDS: ACETAMINOPHEN 325 MG TABLET PO PRN (13:32)
--- NOTE | 2018-05-07 15:43 | PROGRESS NOTE E ---
Progress Note NAME: NINI ZHENG : 1945 AGE: 73Y DATE: 05/05/2018 ROOM: 334 SUBJECTIVE: The patient states his pain is much better controlled. He has his port removed due to suspicion of sepsis and infection. The patient denies any chest pain or discomfort. There is no shortness of breath. There is no PND, orthopnea. His leg edema is only trace. There is no TIA or CVA symptoms. There is no bleeding on heparin. OBJECTIVE: GENERAL: On examination, the patient is moderately obese, in no acute distress. VITAL SIGNS: He is afebrile, with a temperature of 99.7 degrees Fahrenheit, his pulse is 95 beats per minute, blood pressure 116/55, respirations are 18 per minute, O2 sats are 99% on 2 L nasal cannula. HEAD: Atraumatic, normocephalic. EYES: Pupils are equal, round, regular, reactive to light and accommodation. Extraocular movements are normal. There is no conjunctival pallor. There is no scleral icterus. EARS, NOSE, AND THROAT: Negative. NECK: Supple. There is no JVD. Carotids are equal. There is no bruit. There is no lymphadenopathy. There is no goiter. Trachea is central. LUNGS: Clear to auscultation and percussion. HEART: S1, S2 is heard. There is no S3 gallop. There is no S4 gallop. There is a systolic murmur at the left sternal border at the apex. There is no rub. ABDOMEN: Soft, nontender. There is no hepatosplenomegaly. Bowel sounds are well heard. There are no tender areas or masses. EXTREMITIES: Tremors are diminished. There are no femoral bruits. Pulses are diminished. There is trace pedal edema. There is no cellulitis or DVT. There is no calf tenderness. There is no cyanosis or clubbing. CENTRAL NERVOUS SYSTEM: The patient is conscious, awake, alert, oriented x3, with no focal deficit. PSYCHIATRIC: The patient's judgment and insight are intact. His affect is normal. The patient's blood culture was done twice, shows . The patient's white count is 6.1, hemoglobin 9.6, hematocrit is 29.1, platelet count is 139,000. The patient's sodium is 138.3, potassium 4.5, chloride 102, CO2 is 25, the patient's BUN is 25, creatinine is 1.15, GFR is greater than 20. His glucose is 131 and his calcium is 7.2. Magnesium is 2.3. The patient's . INAUDIBLE AT THIS POINT DICTATING PHYSICIAN: MARYLOU JOHNSON M.D. [id number] PHY#: [id number] ID: [id number] JOB#: [id number] ACCT: [id number] cc: >
[2018-05-07] MEDS ORDERED: WARFARIN SODIUM 5 MG TABLET PO ONE (17:00)
--- NOTE | 2018-05-07 18:01 | PDOC PROGRESS REPORT ---
Subjective Progress Note for:: 05/07/18 Subjective:: No issues overnight. Pain is better controlled today. Reason For Visit: STATUS POST MEDULLARY NAILING OF LEFT HIP FRACTURE Physical Exam Vital Signs: Temp Pulse Resp BP Pulse Ox 37.3 C 89 17 110/48 L 94 05/07/18 15:34 05/07/18 15:34 05/07/18 15:34 05/07/18 15:34 05/07/18 15:34 Intake & Output 05/06/18 05/07/18 05/08/18 06:59 06:59 06:59 Intake Total 696 2551 842 Output Total 1520 6260 1800 Balance -992 -232 -882 Weight 122.8 kg 125.1 kg Adult Front & Back Image: 1 - Dressings are dry clean and intact with mild bloody drainage. He is neurovascular intact distally with negative Homans sign and soft compartments Results Laboratory Results: 05/07/18 06:41 05/07/18 06:41 05/07/18 05/07/18 05/07/18 03:50 06:41 06:41 WBC 4.6 RBC 2.94 L Hgb 8.4 L Hct 25.1 L MCV 85 MCH 28.5 MCHC 33.4 RDW 21.3 H Plt Count 167 Sodium 134.3 L Potassium 4.3 Chloride 98 Carbon Dioxide 27 Anion Gap 9 BUN 20 Creatinine 0.94 Est GFR ( Amer) > 60 Est GFR (Non-Af Amer) > 60 Glucose 109 Calcium 7.7 L Urine Color YELLOW Urine Appearance CLEAR Urine pH 5.0 Ur Specific [place] 1.023 Urine Protein NEGATIVE Urine Glucose (UA) NEGATIVE Urine Ketones NEGATIVE Urine Blood SMALL H Urine Nitrite NEGATIVE Ur Leukocyte Esterase TRACE H Urine WBC (Auto) 3 Urine RBC (Auto) 5 05/05/18 12:15 Catheter Tip - Port A Cath Line Catheter Tip Culture - Final Staphylococcus Epidermidis 05/01/18 05/01/18 05/01/18 08:55 08:55 16:10 Creatine Kinase 285 H 237 H CK-MB (CK-2) 1.50 Troponin I 0.017 05/01/18 16:10 Creatine Kinase CK-MB (CK-2) 1.57 Troponin I < 0.012 Impressions: Head CT 05/01/18 00:24 IMPRESSION: No acute intracranial abnormality TECHNICAL DOCUMENTATION: Quality ID # 436: Final reports with documentation of one or more dose reduction techniques (e.g., Automated exposure control, adjustment of the mA and/or kV according to patient size, use of iterative reconstruction technique) 2010 [employer]- All Rights Reserved Knee X-Ray 05/01/18 00:24 IMPRESSION: Incomplete exam. Lower Extremity CT 05/02/18 00:00 IMPRESSION: Pathologic left proximal femoral intertrochanteric fracture with varus angulation Multiple subcentimeter lytic lesions visualized in the left hemipelvis Chest X-Ray 05/03/18 06:00 IMPRESSION: Resolution of the pulmonary vascular congestion. Fluoroscopy 05/04/18 08:15 IMPRESSION: IMAGE(S) OBTAINED DURING PROCEDURE. Hip X-Ray 05/04/18 08:15 IMPRESSION: IMAGE(S) OBTAINED DURING PROCEDURE. Status: Image reviewed by me Assessment & Plan - Diagnosis (1) Hip fracture Qualifiers: Encounter type: subsequent encounter Fracture type: closed Laterality: left Is this a current diagnosis for this admission?: Yes - Plan Summary Plan Summary: Patient is 73-year-old gentleman POD #2 from cephalo-medullary nailing of his left intertrochanteric hip fracture. Continue physical therapy Continue pain control Continue DVT prophylaxis Awaiting penitentiary facility placement
--- NOTE | 2018-05-07 19:46 | PDOC PROGRESS REPORT ---
Subjective Progress Note for:: 05/07/18 Subjective:: No acute overnight. Patient states that her pain is fairly controlled. Patient recently underwent intramedullary nailing of the left hip. Surgery on board patient also has history of multiple myeloma hematology oncology is also on board. Reason For Visit: STATUS POST MEDULLARY NAILING OF LEFT HIP FRACTURE Physical Exam Vital Signs: Temp Pulse Resp BP Pulse Ox 99.1 F 89 17 110/48 L 94 05/07/18 15:34 05/07/18 15:34 05/07/18 15:34 05/07/18 15:34 05/07/18 15:34 Intake & Output 05/06/18 05/07/18 05/08/18 06:59 06:59 06:59 Intake Total 696 2551 1286 Output Total 1525 3250 2300 Balance -829 -699 -1014 Weight 122.8 kg 125.1 kg General appearance: PRESENT: no acute distress, well-developed, well-nourished Head exam: PRESENT: atraumatic, normocephalic Eye exam: PRESENT: conjunctiva pink, EOMI, PERRLA. ABSENT: scleral icterus Ear exam: PRESENT: normal external ear exam Mouth exam: PRESENT: moist, tongue midline Neck exam: ABSENT: carotid bruit, JVD, lymphadenopathy, thyromegaly Respiratory exam: PRESENT: clear to auscultation romelia. ABSENT: rales, rhonchi, wheezes Cardiovascular exam: PRESENT: RRR. ABSENT: diastolic murmur, rubs, systolic murmur Pulses: PRESENT: normal dorsalis pedis pul Vascular exam: PRESENT: normal capillary refill GI/Abdominal exam: PRESENT: normal bowel sounds, soft. ABSENT: distended, guarding, mass, organolmegaly, rebound, tenderness Rectal exam: PRESENT: deferred Extremities exam: PRESENT: full ROM. ABSENT: calf tenderness, clubbing, pedal edema Musculoskeletal exam: PRESENT: full ROM, tenderness - Rt hip. Neurological exam: PRESENT: alert, awake, oriented to person, oriented to place , oriented to time, oriented to situation, CN II-XII grossly intact. ABSENT: motor sensory deficit Psychiatric exam: PRESENT: appropriate affect, normal mood. ABSENT: homicidal ideation, suicidal ideation Skin exam: PRESENT: dry, intact, warm. ABSENT: cyanosis, rash Results Laboratory Results: 05/07/18 06:41 05/07/18 06:41 05/07/18 05/07/18 05/07/18 03:50 06:41 06:41 WBC 4.6 RBC 2.94 L Hgb 8.4 L Hct 25.1 L MCV 85 MCH 28.5 MCHC 33.4 RDW 21.3 H Plt Count 167 Sodium 134.3 L Potassium 4.3 Chloride 98 Carbon Dioxide 27 Anion Gap 9 BUN 20 Creatinine 0.94 Est GFR ( Amer) > 60 Est GFR (Non-Af Amer) > 60 Glucose 109 Calcium 7.7 L Urine Color YELLOW Urine Appearance CLEAR Urine pH 5.0 Ur Specific [place] 1.023 Urine Protein NEGATIVE Urine Glucose (UA) NEGATIVE Urine Ketones NEGATIVE Urine Blood SMALL H Urine Nitrite NEGATIVE Ur Leukocyte Esterase TRACE H Urine WBC (Auto) 3 Urine RBC (Auto) 5 05/05/18 12:15 Catheter Tip - Port A Cath Line Catheter Tip Culture - Final Staphylococcus Epidermidis 05/01/18 05/01/18 05/01/18 08:55 08:55 16:10 Creatine Kinase 285 H 237 H CK-MB (CK-2) 1.50 Troponin I 0.017 05/01/18 16:10 Creatine Kinase CK-MB (CK-2) 1.57 Troponin I < 0.012 Impressions: Head CT 05/01/18 00:24 IMPRESSION: No acute intracranial abnormality TECHNICAL DOCUMENTATION: Quality ID # 436: Final reports with documentation of one or more dose reduction techniques (e.g., Automated exposure control, adjustment of the mA and/or kV according to patient size, use of iterative reconstruction technique) 2010 [employer]- All Rights Reserved Knee X-Ray 05/01/18 00:24 IMPRESSION: Incomplete exam. Lower Extremity CT 05/02/18 00:00 IMPRESSION: Pathologic left proximal femoral intertrochanteric fracture with varus angulation Multiple subcentimeter lytic lesions visualized in the left hemipelvis Chest X-Ray 05/03/18 06:00 IMPRESSION: Resolution of the pulmonary vascular congestion. Fluoroscopy 05/04/18 08:15 IMPRESSION: IMAGE(S) OBTAINED DURING PROCEDURE. Hip X-Ray 05/04/18 08:15 IMPRESSION: IMAGE(S) OBTAINED DURING PROCEDURE. Assessment & Plan - Diagnosis (1) Atrial fibrillation Qualifiers: Atrial fibrillation type: paroxysmal Qualified Code(s): I48.0 - Paroxysmal atrial fibrillation Is this a current diagnosis for this admission?: Yes Plan: Rate control continue oral Cardizem patient switch to Coumadin will get INR tomorrow and adjust dosages with INR goal of 2-2.5 (2) Chronic diastolic (congestive) heart failure Is this a current diagnosis for this admission?: Yes Plan: Monitor volume status, continue Lasix. (3) Gram-positive bacteremia Is this a current diagnosis for this admission?: Yes Plan: Staph epidermidis bacteremia source of infection Port-A-Cath tip Port-A-Cath was removed ID consulted recommendation is pending. Repeat blood cultures are negative we will continue vancomycin (4) Hip fracture Qualifiers: Encounter type: subsequent encounter Fracture type: closed Laterality: left Is this a current diagnosis for this admission?: Yes Plan: . Status post intramedullary nailing of the left hip. Continue PT and pain management. (5) Multiple myeloma Qualifiers: Multiple myeloma remission status: not in remission Qualified Code(s): C90.00 - Multiple myeloma not having achieved remission Is this a current diagnosis for this admission?: Yes Plan: Oncology on board for further recommendations will be followed.
[2018-05-07] MEDS: INSULIN GLARGINE,HUM.REC.ANLOG 1,000 UNIT/10 ML UNIT SUBCUT SCH (21:50)
[2018-05-07] MEDS: ATORVASTATIN CALCIUM 20 MG TABLET PO SCH (21:50)
[2018-05-08] MEDS: HYDROMORPHONE HCL INJ/PF 2 MG/ML AMPULE IV PRN ×3 (00:36→21:34)
[2018-05-08] MEDS: ACETAMINOPHEN 325 MG TABLET PO PRN ×2 (00:37→19:40)
[2018-05-08] MEDS: CEFAZOLIN 2 GM/D5W RTU 2 GM/50 ML RTUPB IV SCH ×4 (03:48→15:15)
[2018-05-08 05:54] LABS: INTERNATIONAL RATION (INR) 1.19; PROTHROMBIN TIME 15.7 SEC (11.4-15.4)
[2018-05-08 05:55] LABS: PARTIAL THROMBOPLASTIN TIME 39.3 SEC (23.5-35.8)
[2018-05-08] MEDS: SILDENAFIL CITRATE 20 MG TABLET PO SCH ×4 (06:12→21:41)
[2018-05-08] MEDS: LEVOTHYROXINE SODIUM 0.025 MG TABLET PO SCH (06:12)
[2018-05-08] MEDS: LANSOPRAZOLE 15 MG TAB.RAP.DR PO SCH (06:12)
[2018-05-08 06:34] LABS: ALANINE AMINOTRANSFERASE 26 U/L (21-72); ALBUMIN 2.7 g/dL (3.5-5.0); ALKALINE PHOSPHATASE 69 U/L (38-126); ANION GAP 11 (5-19); ASPARTATE AMINO TRANSFERASE 58 U/L (17-59); BILIRUBIN,DIRECT 0.4 mg/dL (0.0-0.4); BILIRUBIN,TOTAL 0.6 mg/dL (0.2-1.3); BLOOD UREA NITROGEN 18 mg/dL (7-20); CALCIUM 8.4 mg/dL (8.4-10.2); CARBON DIOXIDE 28 mmol/L (22-30); CHLORIDE 99 mmol/L (98-107); GLUCOSE 115 mg/dL (75-110); POTASSIUM 4.7 mmol/L (3.6-5.0); SODIUM 137.7 mmol/L (137-145); TOTAL PROTEIN 5.9 g/dL (6.3-8.2)
[2018-05-08 06:36] LABS: ABSOLUTE EOSINOPHILS # (AUTO) 0.1 10^3/uL (0.0-0.6); ABSOLUTE LYMPHOCYTES (AUTO) 0.4 10^3/uL (0.5-4.7); ABSOLUTE MONOCYTES (AUTO) 0.5 10^3/uL (0.1-1.4); ABSOLUTE NEUT (AUTO) 3.1 10^3/uL (1.7-8.2); BASOPHILS % (AUTO) 0.7 % (0-2); EOSINOPHILS % (AUTO) 2.7 % (0-6); HEMATOCRIT 24.9 % (37.9-51.0); HEMOGLOBIN 8.3 g/dL (13.5-17.0); LYMPHOCYTES % (AUTO) 10.3 % (13-45); MEAN CORPUSCULAR HEMOGLOBIN 28.7 pg (27.0-33.4); MEAN CORPUSCULAR HGB CONC 33.3 g/dL (32.0-36.0); MEAN CORPUSCULAR VOLUME 86 fl (80-97); MONOCYTES % (AUTO) 11.3 % (3-13); PLATELET COUNT 168 10^3/uL (150-450); RED BLOOD COUNT 2.88 10^6/uL (4.35-5.55); RED CELL DISTRIBUTION WIDTH 21.4 % (11.5-14.0); TOTAL CELLS COUNTED % (AUTO) 100 %; WHITE BLOOD COUNT 4.2 10^3/uL (4.0-10.5)
[2018-05-08] MEDS ORDERED: ONDANSETRON HCL INJ/PF 4 MG/2 ML SDV IV PRN (08:00)
--- NOTE | 2018-05-08 08:42 | Progress Note ---
Provider Note Provider Note: ID Consult Note Asked to review patient's chart. Pt not seen or examined. Mr Earl is a 73 year old man with multiple myeloma who sustained a fall and L hip intertrochanteric fx at home, causing him to present to [facility] on 05/01/18. Pt day of presentation had Tmax 100.3 F. He had blood cultures drawn from a peripheral stick and also from his port, both of which grew Staphylcococcus epidermidis (oxacillin and vancomycin sensitive, bactrim resistant). Vancomycin was ordered on 05/01. Repeat blood cultures were drawn on 05/03, which continued to show growth from the port of a Gram positive coccus in clusters (identification pending) and no growth from the peripherally drawn cultures. Pt underwent fixation of his hip fracture on 05/04/18. Pt had fever post-operatively, and with continued growth from the port, it was removed on 05/05 and the tip sent for culture, which grew Staphylococcus epidermidis with a different susceptibility pattern (oxacillin resistant, vancomycin and Bactrim sensitive). At this point, the patient is receiving both cefazolin and vancomycin. Per notes, pt has no murmur, has surgical site wounds that are clean and free of signs of active infection. Impression/Recommendations Port-associated coagulase negative staphylococcus bloodstream infection - Demonstrated to have same isolate in peripheral blood and from port in setting of sx/signs c/w infection; s/p port removal on 05/05 - Normally in this situation 5-7 days of treatment would be all that is required following the port removal. Although peripheral blood culture was negative prior to hardware placement, considering the temporal proximity of hardware implantation to the bacteremia, it may be prudent to give a slightly longer course of therapy and with an agent that will address both Staphylococcus epidermidis isolates. - Recommend discontinuing cefazolin - Continue IV vancomycin; suggest treating for 10-14 days after port removal ( until 05/19/18). Gerhard Ag MD [facility] Infectious Diseases pager [phone]
--- NOTE | 2018-05-08 08:52 | PDOC PROGRESS REPORT ---
Subjective Progress Note for:: 05/08/18 Subjective:: Unfortunately patient spiked fever again yesterday, antibiotics were rotated and hospitalist will contact the ID team today. Reason For Visit: STATUS POST MEDULLARY NAILING OF LEFT HIP FRACTURE Physical Exam Vital Signs: Temp Pulse Resp BP Pulse Ox 98.2 F 76 17 109/42 L 100 05/08/18 08:00 05/08/18 08:00 05/08/18 08:00 05/08/18 08:00 05/08/18 08:00 Intake & Output 05/07/18 05/08/18 05/09/18 06:59 06:59 06:59 Intake Total 2551 2402 Output Total 3250 1900 Balance -699 -1543 Weight 125.1 kg 118.7 kg General appearance: PRESENT: no acute distress, well-developed, well-nourished Head exam: PRESENT: atraumatic, normocephalic Eye exam: PRESENT: conjunctiva pink, EOMI, PERRLA. ABSENT: scleral icterus Ear exam: PRESENT: normal external ear exam Mouth exam: PRESENT: moist, tongue midline Neck exam: ABSENT: carotid bruit, JVD, lymphadenopathy, thyromegaly Respiratory exam: PRESENT: clear to auscultation romelia. ABSENT: rales, rhonchi, wheezes Cardiovascular exam: PRESENT: RRR. ABSENT: diastolic murmur, rubs, systolic murmur Pulses: PRESENT: normal dorsalis pedis pul Vascular exam: PRESENT: normal capillary refill GI/Abdominal exam: PRESENT: normal bowel sounds, soft. ABSENT: distended, guarding, mass, organolmegaly, rebound, tenderness Rectal exam: PRESENT: deferred Extremities exam: PRESENT: full ROM. ABSENT: calf tenderness, clubbing, pedal edema Neurological exam: PRESENT: alert, awake, oriented to person, oriented to place , oriented to time, oriented to situation, CN II-XII grossly intact. ABSENT: motor sensory deficit Psychiatric exam: PRESENT: appropriate affect, normal mood. ABSENT: homicidal ideation, suicidal ideation Skin exam: PRESENT: dry, intact, warm. ABSENT: cyanosis, rash Results Laboratory Results: 05/08/18 05:26 05/08/18 05:26 05/08/18 05/08/18 05:26 05:26 WBC 4.2 RBC 2.88 L Hgb 8.3 L Hct 24.9 L MCV 86 MCH 28.7 MCHC 33.3 RDW 21.4 H Plt Count 168 Seg Neutrophils % 75.0 Lymphocytes % 10.3 L Monocytes % 11.3 Eosinophils % 2.7 Basophils % 0.7 Absolute Neutrophils 3.1 Absolute Lymphocytes 0.4 L Absolute Monocytes 0.5 Absolute Eosinophils 0.1 Absolute Basophils 0.0 Sodium 137.7 Potassium 4.7 Chloride 99 Carbon Dioxide 28 Anion Gap 11 BUN 18 Creatinine 1.03 Est GFR ( Amer) > 60 Est GFR (Non-Af Amer) > 60 Glucose 115 H Calcium 8.4 Total Bilirubin 0.6 AST 58 ALT 26 Alkaline Phosphatase 69 Total Protein 5.9 L Albumin 2.7 L 05/05/18 12:15 Catheter Tip - Port A Cath Line Catheter Tip Culture - Final Staphylococcus Epidermidis 05/01/18 05/01/18 05/01/18 08:55 08:55 16:10 Creatine Kinase 285 H 237 H CK-MB (CK-2) 1.50 Troponin I 0.017 05/01/18 16:10 Creatine Kinase CK-MB (CK-2) 1.57 Troponin I < 0.012 Impressions: Head CT 05/01/18 00:24 IMPRESSION: No acute intracranial abnormality TECHNICAL DOCUMENTATION: Quality ID # 436: Final reports with documentation of one or more dose reduction techniques (e.g., Automated exposure control, adjustment of the mA and/or kV according to patient size, use of iterative reconstruction technique) 2010 [employer]- All Rights Reserved Knee X-Ray 05/01/18 00:24 IMPRESSION: Incomplete exam. Lower Extremity CT 05/02/18 00:00 IMPRESSION: Pathologic left proximal femoral intertrochanteric fracture with varus angulation Multiple subcentimeter lytic lesions visualized in the left hemipelvis Chest X-Ray 05/03/18 06:00 IMPRESSION: Resolution of the pulmonary vascular congestion. Fluoroscopy 05/04/18 08:15 IMPRESSION: IMAGE(S) OBTAINED DURING PROCEDURE. Hip X-Ray 05/04/18 08:15 IMPRESSION: IMAGE(S) OBTAINED DURING PROCEDURE. Assessment & Plan - Diagnosis (1) Hip fracture Qualifiers: Encounter type: subsequent encounter Fracture type: closed Laterality: left Is this a current diagnosis for this admission?: Yes Plan: Continue with physical therapy hopeful transition to acute rehab once infection is controlled (2) Multiple myeloma Qualifiers: Multiple myeloma remission status: not in remission Qualified Code(s): C90.00 - Multiple myeloma not having achieved remission Is this a current diagnosis for this admission?: Yes Plan: Hope to continue treatment as an outpatient but would await complete resolution of rehab and discharge home from that before we started any treatment (3) Staphylococcal septicemia Is this a current diagnosis for this admission?: Yes Plan: Unfortunately still spiking fevers cultures repeated yesterday appreciate hospitalist and ID involvement - Time Time Spent with patient: 35 or more minutes - Inpatient Certification Based on my medical assessment, after consideration of the patient's comorbidities, presenting symptoms, or acuity I expect that the services needed warrant INPATIENT care.: Yes I certify that my determination is in accordance with my understanding of Medicare's requirements for reasonable and necessary INPATIENT services [42 CFR 412.3e].: Yes Medical Necessity: Need for IV Antibiotics
[2018-05-08] MEDS: PRENATAL VITAMIN W DHA CAPSULE PO SCH (09:54)
[2018-05-08] MEDS: GABAPENTIN 300 MG CAPSULE PO SCH ×2 (09:54→21:34)
[2018-05-08] MEDS: VANCOMYCIN HCL 1,500 MG in DEXTROSE 5%-WATER 250 ML IV SCH ×2 (09:54→21:35)
[2018-05-08] MEDS: POTASSIUM CHLORIDE 10 MEQ CAPSULE.ER PO SCH ×2 (09:54→21:34)
[2018-05-08] MEDS: OXYCODONE HCL SR 40 MG TABLET PO SCH ×2 (09:54→21:34)
[2018-05-08] MEDS: SENNOSIDES/DOCUSATE 8.6-50 MG 1 EACH TABLET PO SCH ×2 (09:54→18:21)
[2018-05-08] MEDS: DOCUSATE SODIUM 100 MG CAPSULE PO SCH (09:54)
[2018-05-08] MEDS: DILTIAZEM HCL 180 MG CAPSULE.CR PO SCH (09:55)
[2018-05-08] MEDS: FUROSEMIDE INJ/PF 40 MG/4 ML SDV IV SCH (09:55)
[2018-05-08] MEDS: VALACYCLOVIR HCL 500 MG TABLET PO SCH (09:56)
[2018-05-08] MEDS: CITALOPRAM HYDROBROMIDE 20 MG TABLET PO SCH (09:57)
[2018-05-08] MEDS: CALCIUM CARBONATE 500 MG TABLET PO SCH (09:58)
[2018-05-08] MEDS: LACTOBACILLUS ACIDOPHILUS 250 MG TAB PO SCH (09:58)
[2018-05-08] MEDS ORDERED: CEFAZOLIN 2 GM/D5W RTU 2 GM/50 ML RTUPB IV SCH (10:00)
[2018-05-08] MEDS: OXYCODONE HCL IR 5 MG TABLET PO PRN ×2 (11:27→19:40)
--- NOTE | 2018-05-08 14:25 | PDOC PROGRESS REPORT ---
Subjective Progress Note for:: 05/08/18 Subjective:: Patient was participating in therapy when I came by today. Reason For Visit: STATUS POST MEDULLARY NAILING OF LEFT HIP FRACTURE Physical Exam Vital Signs: Temp Pulse Resp BP Pulse Ox 37.6 C 88 17 85/53 L 95 05/08/18 12:00 05/08/18 12:00 05/08/18 12:00 05/08/18 12:00 05/08/18 12:00 Intake & Output 05/07/18 05/08/18 05/09/18 06:59 06:59 06:59 Intake Total 2551 2402 522 Output Total 3250 3950 300 Balance -149 -5222 222 Weight 125.1 kg 118.7 kg Adult Front & Back Image: 1 - Negative Homans sign with soft calf. Neurovascular intact distally. Incisions only show serosanguineous drainage Results Laboratory Results: 05/08/18 05:26 05/08/18 05:26 05/08/18 05/08/18 05:26 05:26 WBC 4.2 RBC 2.88 L Hgb 8.3 L Hct 24.9 L MCV 86 MCH 28.7 MCHC 33.3 RDW 21.4 H Plt Count 168 Seg Neutrophils % 75.0 Lymphocytes % 10.3 L Monocytes % 11.3 Eosinophils % 2.7 Basophils % 0.7 Absolute Neutrophils 3.1 Absolute Lymphocytes 0.4 L Absolute Monocytes 0.5 Absolute Eosinophils 0.1 Absolute Basophils 0.0 Sodium 137.7 Potassium 4.7 Chloride 99 Carbon Dioxide 28 Anion Gap 11 BUN 18 Creatinine 1.03 Est GFR ( Amer) > 60 Est GFR (Non-Af Amer) > 60 Glucose 115 H Calcium 8.4 Total Bilirubin 0.6 AST 58 ALT 26 Alkaline Phosphatase 69 Total Protein 5.9 L Albumin 2.7 L 05/03/18 13:38 Blood Blood Culture - Final NO GROWTH IN 5 DAYS 05/03/18 15:20 Blood Blood Culture - Final Staphylococcus Epidermidis 05/01/18 05/01/18 05/01/18 08:55 08:55 16:10 Creatine Kinase 285 H 237 H CK-MB (CK-2) 1.50 Troponin I 0.017 05/01/18 16:10 Creatine Kinase CK-MB (CK-2) 1.57 Troponin I < 0.012 Impressions: Head CT 05/01/18 00:24 IMPRESSION: No acute intracranial abnormality TECHNICAL DOCUMENTATION: Quality ID # 436: Final reports with documentation of one or more dose reduction techniques (e.g., Automated exposure control, adjustment of the mA and/or kV according to patient size, use of iterative reconstruction technique) 2010 [employer]- All Rights Reserved Knee X-Ray 05/01/18 00:24 IMPRESSION: Incomplete exam. Lower Extremity CT 05/02/18 00:00 IMPRESSION: Pathologic left proximal femoral intertrochanteric fracture with varus angulation Multiple subcentimeter lytic lesions visualized in the left hemipelvis Chest X-Ray 05/03/18 06:00 IMPRESSION: Resolution of the pulmonary vascular congestion. Fluoroscopy 05/04/18 08:15 IMPRESSION: IMAGE(S) OBTAINED DURING PROCEDURE. Hip X-Ray 05/04/18 08:15 IMPRESSION: IMAGE(S) OBTAINED DURING PROCEDURE. Status: Image reviewed by me Assessment & Plan - Diagnosis (1) Hip fracture Qualifiers: Encounter type: subsequent encounter Fracture type: closed Laterality: left Is this a current diagnosis for this admission?: Yes - Plan Summary Plan Summary: Patient is postop day 4 from nailing of her left hip fracture. Patient being treated with antibiotics currently for spike fevers and infected Port-A-Cath Continue physical therapy and Coumadin.
[2018-05-08] MEDS ORDERED: WARFARIN SODIUM 7.5 MG TABLET PO ONE (17:00)
--- NOTE | 2018-05-08 17:21 | PDOC PROGRESS REPORT ---
Subjective Progress Note for:: 05/08/18 Subjective:: No acute overnight. Patient states that her pain is fairly controlled. Patient recently underwent intramedullary nailing of the left hip. Surgery on board patient also has history of multiple myeloma hematology oncology is also on board. Reason For Visit: STATUS POST MEDULLARY NAILING OF LEFT HIP FRACTURE Physical Exam Vital Signs: Temp Pulse Resp BP Pulse Ox 100 F 90 16 117/59 L 94 05/08/18 16:00 05/08/18 16:00 05/08/18 16:00 05/08/18 16:00 05/08/18 16:00 Intake & Output 05/07/18 05/08/18 05/09/18 06:59 06:59 06:59 Intake Total 2551 2402 522 Output Total 3250 3950 300 Balance -699 -1548 222 Weight 125.1 kg 118.7 kg General appearance: PRESENT: no acute distress, well-developed, well-nourished Head exam: PRESENT: atraumatic, normocephalic Eye exam: PRESENT: conjunctiva pink, EOMI, PERRLA. ABSENT: scleral icterus Ear exam: PRESENT: normal external ear exam Mouth exam: PRESENT: moist, tongue midline Neck exam: ABSENT: carotid bruit, JVD, lymphadenopathy, thyromegaly Respiratory exam: PRESENT: clear to auscultation romelia. ABSENT: rales, rhonchi, wheezes Cardiovascular exam: PRESENT: RRR. ABSENT: diastolic murmur, rubs, systolic murmur Pulses: PRESENT: normal dorsalis pedis pul Vascular exam: PRESENT: normal capillary refill GI/Abdominal exam: PRESENT: normal bowel sounds, soft. ABSENT: distended, guarding, mass, organolmegaly, rebound, tenderness Rectal exam: PRESENT: deferred Extremities exam: PRESENT: full ROM. ABSENT: calf tenderness, clubbing, pedal edema Neurological exam: PRESENT: alert, awake, oriented to person, oriented to place , oriented to time, oriented to situation, CN II-XII grossly intact. ABSENT: motor sensory deficit Psychiatric exam: PRESENT: appropriate affect, normal mood. ABSENT: homicidal ideation, suicidal ideation Skin exam: PRESENT: dry, intact, warm. ABSENT: cyanosis, rash Results Laboratory Results: 05/08/18 05:26 05/08/18 05:26 05/08/18 05/08/18 05:26 05:26 WBC 4.2 RBC 2.88 L Hgb 8.3 L Hct 24.9 L MCV 86 MCH 28.7 MCHC 33.3 RDW 21.4 H Plt Count 168 Seg Neutrophils % 75.0 Lymphocytes % 10.3 L Monocytes % 11.3 Eosinophils % 2.7 Basophils % 0.7 Absolute Neutrophils 3.1 Absolute Lymphocytes 0.4 L Absolute Monocytes 0.5 Absolute Eosinophils 0.1 Absolute Basophils 0.0 Sodium 137.7 Potassium 4.7 Chloride 99 Carbon Dioxide 28 Anion Gap 11 BUN 18 Creatinine 1.03 Est GFR ( Amer) > 60 Est GFR (Non-Af Amer) > 60 Glucose 115 H Calcium 8.4 Total Bilirubin 0.6 AST 58 ALT 26 Alkaline Phosphatase 69 Total Protein 5.9 L Albumin 2.7 L 05/05/18 12:15 Catheter Tip - Port A Cath Line Catheter Tip Culture - Final Staphylococcus Epidermidis 05/03/18 13:38 Blood Blood Culture - Final NO GROWTH IN 5 DAYS 05/03/18 15:20 Blood Blood Culture - Final Staphylococcus Epidermidis 05/01/18 05/01/18 05/01/18 08:55 08:55 16:10 Creatine Kinase 285 H 237 H CK-MB (CK-2) 1.50 Troponin I 0.017 05/01/18 16:10 Creatine Kinase CK-MB (CK-2) 1.57 Troponin I < 0.012 Impressions: Head CT 05/01/18 00:24 IMPRESSION: No acute intracranial abnormality TECHNICAL DOCUMENTATION: Quality ID # 436: Final reports with documentation of one or more dose reduction techniques (e.g., Automated exposure control, adjustment of the mA and/or kV according to patient size, use of iterative reconstruction technique) 2010 [employer]- All Rights Reserved Knee X-Ray 05/01/18 00:24 IMPRESSION: Incomplete exam. Lower Extremity CT 05/02/18 00:00 IMPRESSION: Pathologic left proximal femoral intertrochanteric fracture with varus angulation Multiple subcentimeter lytic lesions visualized in the left hemipelvis Chest X-Ray 05/03/18 06:00 IMPRESSION: Resolution of the pulmonary vascular congestion. Fluoroscopy 05/04/18 08:15 IMPRESSION: IMAGE(S) OBTAINED DURING PROCEDURE. Hip X-Ray 05/04/18 08:15 IMPRESSION: IMAGE(S) OBTAINED DURING PROCEDURE. Assessment & Plan - Diagnosis (1) Atrial fibrillation Qualifiers: Atrial fibrillation type: paroxysmal Qualified Code(s): I48.0 - Paroxysmal atrial fibrillation Is this a current diagnosis for this admission?: Yes Plan: Rate control continue oral Cardizem patient switch to Coumadin will get INR tomorrow and adjust dosages with INR goal of 2-2.5 (2) Chronic diastolic (congestive) heart failure Is this a current diagnosis for this admission?: Yes Plan: Monitor volume status, continue Lasix. (3) Gram-positive bacteremia Is this a current diagnosis for this admission?: Yes Plan: Blood cultures from 05/05/2008 are positive for staph epidermidis. We will continue empiric antibiotics, until infectious diseases recommendations are available. Susan was DC'd, urine was sent for culture, sputum culture obtained. (4) Hip fracture Qualifiers: Encounter type: subsequent encounter Fracture type: closed Laterality: left Is this a current diagnosis for this admission?: Yes Plan: . Status post intramedullary nailing of the left hip. Continue PT and pain management. (5) Multiple myeloma Qualifiers: Multiple myeloma remission status: not in remission Qualified Code(s): C90.00 - Multiple myeloma not having achieved remission Is this a current diagnosis for this admission?: Yes Plan: Oncology on board.
[2018-05-08] MEDS: INSULIN GLARGINE,HUM.REC.ANLOG 1,000 UNIT/10 ML UNIT SUBCUT SCH (21:34)
[2018-05-08] MEDS: ATORVASTATIN CALCIUM 20 MG TABLET PO SCH (21:34)
[2018-05-09] MEDS: LANSOPRAZOLE 15 MG TAB.RAP.DR PO SCH (05:20)
[2018-05-09] MEDS: SILDENAFIL CITRATE 20 MG TABLET PO SCH ×3 (05:20→21:19)
[2018-05-09] MEDS: LEVOTHYROXINE SODIUM 0.025 MG TABLET PO SCH (05:20)
[2018-05-09 06:27] LABS: PROTHROMBIN TIME 15.8 SEC (11.4-15.4)
[2018-05-09 06:35] LABS: ALANINE AMINOTRANSFERASE 24 U/L (21-72); ALBUMIN 2.9 g/dL (3.5-5.0); ALKALINE PHOSPHATASE 75 U/L (38-126); ANION GAP 12 (5-19); ASPARTATE AMINO TRANSFERASE 38 U/L (17-59); BILIRUBIN,DIRECT 0.4 mg/dL (0.0-0.4); BILIRUBIN,TOTAL 0.8 mg/dL (0.2-1.3); BLOOD UREA NITROGEN 19 mg/dL (7-20); CALCIUM 8.6 mg/dL (8.4-10.2); CARBON DIOXIDE 26 mmol/L (22-30); CHLORIDE 98 mmol/L (98-107); GLUCOSE 120 mg/dL (75-110); PHOSPHORUS 3.6 mg/dL (2.5-4.5); POTASSIUM 4.7 mmol/L (3.6-5.0); TOTAL PROTEIN 6.1 g/dL (6.3-8.2)
[2018-05-09 06:41] LABS: APPEARANCE,URINE SLIGHTLY-CLOUDY; BILIRUBIN,URINE NEGATIVE (NEGATIVE); GLUCOSE, URINE NEGATIVE (NEGATIVE); KETONES,URINE NEGATIVE (NEGATIVE); LEUKOCYTE ESTERASE,URINE NEGATIVE (NEGATIVE); NITRITE,URINE NEGATIVE (NEGATIVE); PROTEIN,URINE NEGATIVE (NEGATIVE); URINE SPECIFIC GRAVITY 1.019
[2018-05-09 06:42] LABS: COLOR,URINE DARK YELLOW
[2018-05-09 08:37] LABS: HEMATOCRIT 25.8 % (37.9-51.0); HEMOGLOBIN 8.7 g/dL (13.5-17.0); MEAN CORPUSCULAR HEMOGLOBIN 28.2 pg (27.0-33.4); MEAN CORPUSCULAR HGB CONC 33.6 g/dL (32.0-36.0); MEAN CORPUSCULAR VOLUME 84 fl (80-97); PLATELET COUNT 190 10^3/uL (150-450); RED BLOOD COUNT 3.07 10^6/uL (4.35-5.55); RED CELL DISTRIBUTION WIDTH 21.5 % (11.5-14.0); WHITE BLOOD COUNT 5.3 10^3/uL (4.0-10.5)
--- NOTE | 2018-05-09 08:55 | PDOC PROGRESS REPORT ---
Subjective Progress Note for:: 05/09/18 Subjective:: Still with fever yesterday, ID on board, continuing current antibiotics Reason For Visit: STATUS POST MEDULLARY NAILING OF LEFT HIP FRACTURE Physical Exam Vital Signs: Temp Pulse Resp BP Pulse Ox 99.0 F 96 20 130/54 H 90 L 05/09/18 07:51 05/09/18 07:51 05/09/18 07:51 05/09/18 07:51 05/09/18 07:51 Intake & Output 05/08/18 05/09/18 05/10/18 06:59 06:59 06:59 Intake Total 2402 1159 Output Total 3950 600 Balance -1548 559 Weight 118.7 kg 118.7 kg General appearance: PRESENT: no acute distress, well-developed, well-nourished Head exam: PRESENT: atraumatic, normocephalic Eye exam: PRESENT: conjunctiva pink, EOMI, PERRLA. ABSENT: scleral icterus Ear exam: PRESENT: normal external ear exam Mouth exam: PRESENT: moist, tongue midline Neck exam: ABSENT: carotid bruit, JVD, lymphadenopathy, thyromegaly Respiratory exam: PRESENT: clear to auscultation romelia. ABSENT: rales, rhonchi, wheezes Cardiovascular exam: PRESENT: RRR. ABSENT: diastolic murmur, rubs, systolic murmur Pulses: PRESENT: normal dorsalis pedis pul Vascular exam: PRESENT: normal capillary refill GI/Abdominal exam: PRESENT: normal bowel sounds, soft. ABSENT: distended, guarding, mass, organolmegaly, rebound, tenderness Rectal exam: PRESENT: deferred Extremities exam: PRESENT: full ROM. ABSENT: calf tenderness, clubbing, pedal edema Neurological exam: PRESENT: alert, awake, oriented to person, oriented to place , oriented to time, oriented to situation, CN II-XII grossly intact. ABSENT: motor sensory deficit Psychiatric exam: PRESENT: appropriate affect, normal mood. ABSENT: homicidal ideation, suicidal ideation Skin exam: PRESENT: dry, intact, warm. ABSENT: cyanosis, rash Results Laboratory Results: 05/09/18 05:48 05/09/18 05/09/18 05:48 06:10 Sodium 136.0 L Potassium 4.7 Chloride 98 Carbon Dioxide 26 Anion Gap 12 BUN 19 Creatinine 0.88 Est GFR ( Amer) > 60 Est GFR (Non-Af Amer) > 60 Glucose 120 H Calcium 8.6 Phosphorus 3.6 Magnesium 2.1 Total Bilirubin 0.8 AST 38 ALT 24 Alkaline Phosphatase 75 Total Protein 6.1 L Albumin 2.9 L Urine Color DARK YELLOW Urine Appearance SLIGHTLY-CLOUDY Urine pH 5.0 Ur Specific [place] 1.019 Urine Protein NEGATIVE Urine Glucose (UA) NEGATIVE Urine Ketones NEGATIVE Urine Blood SMALL H Urine Nitrite NEGATIVE Ur Leukocyte Esterase NEGATIVE Urine WBC (Auto) 1 Urine RBC (Auto) 5 05/05/18 12:15 Catheter Tip - Port A Cath Line Catheter Tip Culture - Final Staphylococcus Epidermidis 05/03/18 13:38 Blood Blood Culture - Final NO GROWTH IN 5 DAYS 05/03/18 15:20 Blood Blood Culture - Final Staphylococcus Epidermidis 05/01/18 05/01/18 05/01/18 08:55 08:55 16:10 Creatine Kinase 285 H 237 H CK-MB (CK-2) 1.50 Troponin I 0.017 05/01/18 16:10 Creatine Kinase CK-MB (CK-2) 1.57 Troponin I < 0.012 Impressions: Head CT 05/01/18 00:24 IMPRESSION: No acute intracranial abnormality TECHNICAL DOCUMENTATION: Quality ID # 436: Final reports with documentation of one or more dose reduction techniques (e.g., Automated exposure control, adjustment of the mA and/or kV according to patient size, use of iterative reconstruction technique) 2010 [email or web address]- All Rights Reserved Knee X-Ray 05/01/18 00:24 IMPRESSION: Incomplete exam. Lower Extremity CT 05/02/18 00:00 IMPRESSION: Pathologic left proximal femoral intertrochanteric fracture with varus angulation Multiple subcentimeter lytic lesions visualized in the left hemipelvis Chest X-Ray 05/03/18 06:00 IMPRESSION: Resolution of the pulmonary vascular congestion. Fluoroscopy 05/04/18 08:15 IMPRESSION: IMAGE(S) OBTAINED DURING PROCEDURE. Hip X-Ray 05/04/18 08:15 IMPRESSION: IMAGE(S) OBTAINED DURING PROCEDURE. Assessment & Plan - Diagnosis (1) Hip fracture Qualifiers: Encounter type: subsequent encounter Fracture type: closed Laterality: left Is this a current diagnosis for this admission?: Yes Plan: Continue with inpatient rehab (2) Multiple myeloma Qualifiers: Multiple myeloma remission status: not in remission Qualified Code(s): C90.00 - Multiple myeloma not having achieved remission Is this a current diagnosis for this admission?: Yes Plan: Other treatment as an outpatient, but await completion of rehab before that happens (3) Staphylococcal septicemia Is this a current diagnosis for this admission?: Yes Plan: Continue with current therapy per hospitalist and ID team
[2018-05-09] MEDS: DOCUSATE SODIUM 100 MG CAPSULE PO SCH (09:14)
[2018-05-09] MEDS: DILTIAZEM HCL 180 MG CAPSULE.CR PO SCH (09:14)
[2018-05-09] MEDS: POTASSIUM CHLORIDE 10 MEQ CAPSULE.ER PO SCH ×2 (09:14→21:17)
[2018-05-09] MEDS: OXYCODONE HCL SR 40 MG TABLET PO SCH ×2 (09:14→21:17)
[2018-05-09] MEDS: SENNOSIDES/DOCUSATE 8.6-50 MG 1 EACH TABLET PO SCH ×2 (09:14→18:06)
[2018-05-09] MEDS: PRENATAL VITAMIN W DHA CAPSULE PO SCH (09:14)
[2018-05-09] MEDS: FUROSEMIDE INJ/PF 40 MG/4 ML SDV IV SCH (09:14)
[2018-05-09] MEDS: GABAPENTIN 300 MG CAPSULE PO SCH ×2 (09:14→21:17)
[2018-05-09] MEDS: LACTOBACILLUS ACIDOPHILUS 250 MG TAB PO SCH (09:16)
[2018-05-09] MEDS: CITALOPRAM HYDROBROMIDE 20 MG TABLET PO SCH (09:16)
[2018-05-09] MEDS: VALACYCLOVIR HCL 500 MG TABLET PO SCH (09:16)
[2018-05-09] MEDS: CALCIUM CARBONATE 500 MG TABLET PO SCH (09:17)
[2018-05-09 10:31] LABS: VANCOMYCIN,TROUGH 16.7 ug/mL (5.0-20.0)
[2018-05-09] MEDS: VANCOMYCIN HCL 1,500 MG in DEXTROSE 5%-WATER 250 ML IV SCH ×2 (10:40→21:21)
[2018-05-09] MEDS: HYDROMORPHONE HCL INJ/PF 2 MG/ML AMPULE IV PRN (12:02)
--- NOTE | 2018-05-09 14:10 | PDOC PROGRESS REPORT ---
Subjective Progress Note for:: 05/09/18 Subjective:: Patient complaining of popping of the left hip. Participate with physical therapy. Still spiking fevers. Reason For Visit: STATUS POST MEDULLARY NAILING OF LEFT HIP FRACTURE Physical Exam Vital Signs: Temp Pulse Resp BP Pulse Ox 37.4 C 91 18 131/57 H 89 L 05/09/18 11:30 05/09/18 11:30 05/09/18 11:30 05/09/18 11:30 05/09/18 11:30 Intake & Output 05/08/18 05/09/18 05/10/18 06:59 06:59 06:59 Intake Total 2402 1159 1054 Output Total 3950 600 Balance -7772 611 5270 Weight 118.7 kg 118.7 kg Adult Front & Back Image: 1 - Dressings are dry clean and intact with mild bloody drainage. Negative Homans sign with soft cast. Neurovascular intact distally. Results Laboratory Results: 05/09/18 05:48 05/09/18 09:36 05/09/18 05/09/18 05/09/18 05:48 05:48 06:10 WBC 5.3 RBC 3.07 L Hgb 8.7 L Hct 25.8 L MCV 84 MCH 28.2 MCHC 33.6 RDW 21.5 H Plt Count 190 Sodium 136.0 L Potassium 4.7 Chloride 98 Carbon Dioxide 26 Anion Gap 12 BUN 19 Creatinine 0.88 Est GFR ( Amer) > 60 Est GFR (Non-Af Amer) > 60 Glucose 120 H Calcium 8.6 Phosphorus 3.6 Magnesium 2.1 Total Bilirubin 0.8 AST 38 ALT 24 Alkaline Phosphatase 75 Total Protein 6.1 L Albumin 2.9 L Urine Color DARK YELLOW Urine Appearance SLIGHTLY-CLOUDY Urine pH 5.0 Ur Specific [place] 1.019 Urine Protein NEGATIVE Urine Glucose (UA) NEGATIVE Urine Ketones NEGATIVE Urine Blood SMALL H Urine Nitrite NEGATIVE Ur Leukocyte Esterase NEGATIVE Urine WBC (Auto) 1 Urine RBC (Auto) 5 05/09/18 09:36 WBC RBC Hgb Hct MCV MCH MCHC RDW Plt Count Sodium Potassium Chloride Carbon Dioxide Anion Gap BUN Creatinine 0.89 Est GFR ( Amer) > 60 Est GFR (Non-Af Amer) > 60 Glucose Calcium Phosphorus Magnesium Total Bilirubin AST ALT Alkaline Phosphatase Total Protein Albumin Urine Color Urine Appearance Urine pH Ur Specific [place] Urine Protein Urine Glucose (UA) Urine Ketones Urine Blood Urine Nitrite Ur Leukocyte Esterase Urine WBC (Auto) Urine RBC (Auto) 05/05/18 12:15 Catheter Tip - Port A Cath Line Catheter Tip Culture - Final Staphylococcus Epidermidis 05/03/18 13:38 Blood Blood Culture - Final NO GROWTH IN 5 DAYS 05/03/18 15:20 Blood Blood Culture - Final Staphylococcus Epidermidis 05/01/18 05/01/18 05/01/18 08:55 08:55 16:10 Creatine Kinase 285 H 237 H CK-MB (CK-2) 1.50 Troponin I 0.017 05/01/18 16:10 Creatine Kinase CK-MB (CK-2) 1.57 Troponin I < 0.012 Impressions: Head CT 05/01/18 00:24 IMPRESSION: No acute intracranial abnormality TECHNICAL DOCUMENTATION: Quality ID # [id number]: Final reports with documentation of one or more dose reduction techniques (e.g., Automated exposure control, adjustment of the mA and/or kV according to patient size, use of iterative reconstruction technique) 2010 [employer]- All Rights Reserved Knee X-Ray 05/01/18 00:24 IMPRESSION: Incomplete exam. Lower Extremity CT 05/02/18 00:00 IMPRESSION: Pathologic left proximal femoral intertrochanteric fracture with varus angulation Multiple subcentimeter lytic lesions visualized in the left hemipelvis Chest X-Ray 05/03/18 06:00 IMPRESSION: Resolution of the pulmonary vascular congestion. Fluoroscopy 05/04/18 08:15 IMPRESSION: IMAGE(S) OBTAINED DURING PROCEDURE. Hip X-Ray 05/04/18 08:15 IMPRESSION: IMAGE(S) OBTAINED DURING PROCEDURE. Assessment & Plan - Diagnosis (1) Hip fracture Qualifiers: Encounter type: subsequent encounter Fracture type: closed Laterality: left Is this a current diagnosis for this admission?: Yes - Plan Summary Plan Summary: Patient is 73-year-old male POD #5 from left hip fracture nailing. Continue physical therapy Patient spiking fevers are being addressed by primary service. Wound looks intact and cleaned and I believe not the source Continue pain control Continue DVT prophylaxis Awaiting detention facility placement
--- NOTE | 2018-05-09 15:39 | RADIOLOGY REPORT (SQ) ---
EXAM DESCRIPTION: FEMUR LEFT COMPLETED DATE/TIME: 05/09/2018 3:23 pm REASON FOR STUDY: Status post nailing of left pathological hip fx COMPARISON: None. NUMBER OF VIEWS: Two views. TECHNIQUE: Two radiographic images acquired of the left femur to include hip and knee in at least on e projection. LIMITATIONS: None. FINDINGS: Postoperative study status post intramedullary binh and dynamic hip compression screw fixat ion of pathologic intertrochanteric femoral neck fracture. Alignment is anatomic. IMPRESSION: Satisfactory postop hip. TECHNICAL DOCUMENTATION: JOB ID: [id number] [employer]- All Rights Reserved Reading location - IP/workstation name: [email or web address]
[2018-05-09] MEDS: OXYCODONE HCL IR 5 MG TABLET PO PRN (18:08)
[2018-05-09] MEDS ORDERED: WARFARIN SODIUM 7.5 MG TABLET PO ONE (19:30)
--- NOTE | 2018-05-09 21:09 | PDOC PROGRESS REPORT ---
Subjective Progress Note for:: 05/09/18 Subjective:: c/o of constipation o/w no complaints. Reason For Visit: STATUS POST MEDULLARY NAILING OF LEFT HIP FRACTURE Physical Exam Vital Signs: Temp Pulse Resp BP Pulse Ox 98.8 F 92 16 130/41 H 99 05/09/18 19:48 05/09/18 19:48 05/09/18 19:48 05/09/18 19:48 05/09/18 19:48 Intake & Output 05/08/18 05/09/18 05/10/18 06:59 06:59 06:59 Intake Total 2402 1159 1294 Output Total 3950 600 1 Balance -6423 298 8614 Weight 118.7 kg 118.7 kg General appearance: PRESENT: no acute distress, well-developed, well-nourished Head exam: PRESENT: atraumatic, normocephalic Eye exam: PRESENT: conjunctiva pink, EOMI, PERRLA. ABSENT: scleral icterus Ear exam: PRESENT: normal external ear exam Mouth exam: PRESENT: moist, tongue midline Neck exam: ABSENT: carotid bruit, JVD, lymphadenopathy, thyromegaly Respiratory exam: PRESENT: clear to auscultation romelia. ABSENT: rales, rhonchi, wheezes Cardiovascular exam: PRESENT: RRR. ABSENT: diastolic murmur, rubs, systolic murmur Pulses: PRESENT: normal dorsalis pedis pul Vascular exam: PRESENT: normal capillary refill GI/Abdominal exam: PRESENT: normal bowel sounds, soft. ABSENT: distended, guarding, mass, organolmegaly, rebound, tenderness Rectal exam: PRESENT: deferred Extremities exam: PRESENT: full ROM. ABSENT: calf tenderness, clubbing, pedal edema Neurological exam: PRESENT: alert, awake, oriented to person, oriented to place , oriented to time, oriented to situation, CN II-XII grossly intact. ABSENT: motor sensory deficit Psychiatric exam: PRESENT: appropriate affect, normal mood. ABSENT: homicidal ideation, suicidal ideation Skin exam: PRESENT: dry, intact, warm. ABSENT: cyanosis, rash Results Laboratory Results: 05/09/18 05:48 05/09/18 09:36 05/09/18 05/09/18 05/09/18 05:48 05:48 06:10 WBC 5.3 RBC 3.07 L Hgb 8.7 L Hct 25.8 L MCV 84 MCH 28.2 MCHC 33.6 RDW 21.5 H Plt Count 190 Sodium 136.0 L Potassium 4.7 Chloride 98 Carbon Dioxide 26 Anion Gap 12 BUN 19 Creatinine 0.88 Est GFR ( Amer) > 60 Est GFR (Non-Af Amer) > 60 Glucose 120 H Calcium 8.6 Phosphorus 3.6 Magnesium 2.1 Total Bilirubin 0.8 AST 38 ALT 24 Alkaline Phosphatase 75 Total Protein 6.1 L Albumin 2.9 L Urine Color DARK YELLOW Urine Appearance SLIGHTLY-CLOUDY Urine pH 5.0 Ur Specific [place] 1.019 Urine Protein NEGATIVE Urine Glucose (UA) NEGATIVE Urine Ketones NEGATIVE Urine Blood SMALL H Urine Nitrite NEGATIVE Ur Leukocyte Esterase NEGATIVE Urine WBC (Auto) 1 Urine RBC (Auto) 5 05/09/18 09:36 WBC RBC Hgb Hct MCV MCH MCHC RDW Plt Count Sodium Potassium Chloride Carbon Dioxide Anion Gap BUN Creatinine 0.89 Est GFR ( Amer) > 60 Est GFR (Non-Af Amer) > 60 Glucose Calcium Phosphorus Magnesium Total Bilirubin AST ALT Alkaline Phosphatase Total Protein Albumin Urine Color Urine Appearance Urine pH Ur Specific [place] Urine Protein Urine Glucose (UA) Urine Ketones Urine Blood Urine Nitrite Ur Leukocyte Esterase Urine WBC (Auto) Urine RBC (Auto) 05/05/18 12:15 Catheter Tip - Port A Cath Line Catheter Tip Culture - Final Staphylococcus Epidermidis Staphylococcus Epidermidis#2 05/01/18 05/01/18 05/01/18 08:55 08:55 16:10 Creatine Kinase 285 H 237 H CK-MB (CK-2) 1.50 Troponin I 0.017 05/01/18 16:10 Creatine Kinase CK-MB (CK-2) 1.57 Troponin I < 0.012 Impressions: Head CT 05/01/18 00:24 IMPRESSION: No acute intracranial abnormality TECHNICAL DOCUMENTATION: Quality ID # 436: Final reports with documentation of one or more dose reduction techniques (e.g., Automated exposure control, adjustment of the mA and/or kV according to patient size, use of iterative reconstruction technique) 2010 [id number]- All Rights Reserved Knee X-Ray 05/01/18 00:24 IMPRESSION: Incomplete exam. Lower Extremity CT 05/02/18 00:00 IMPRESSION: Pathologic left proximal femoral intertrochanteric fracture with varus angulation Multiple subcentimeter lytic lesions visualized in the left hemipelvis Chest X-Ray 05/03/18 06:00 IMPRESSION: Resolution of the pulmonary vascular congestion. Fluoroscopy 05/04/18 08:15 IMPRESSION: IMAGE(S) OBTAINED DURING PROCEDURE. Hip X-Ray 05/04/18 08:15 IMPRESSION: IMAGE(S) OBTAINED DURING PROCEDURE. Femur X-Ray 05/09/18 00:00 IMPRESSION: Satisfactory postop hip. Assessment & Plan - Diagnosis (1) Atrial fibrillation Qualifiers: Atrial fibrillation type: paroxysmal Qualified Code(s): I48.0 - Paroxysmal atrial fibrillation Is this a current diagnosis for this admission?: Yes Plan: Rate control continue oral Cardizem patient switch to Coumadin will get INR tomorrow and adjust dosages with INR goal of 2-2.5 (2) Chronic diastolic (congestive) heart failure Is this a current diagnosis for this admission?: Yes Plan: Monitor volume status, continue Lasix. (3) Gram-positive bacteremia Is this a current diagnosis for this admission?: Yes Plan: Blood cultures from 05/05/2008 are positive for staph epidermidis. We will continue empiric antibiotics, until infectious diseases recommendations are available. Susan was TALA'kemal, urine was sent for culture, sputum culture obtained. (4) Hip fracture Qualifiers: Encounter type: subsequent encounter Fracture type: closed Laterality: left Is this a current diagnosis for this admission?: Yes Plan: . Status post intramedullary nailing of the left hip. Continue PT, wound care and pain management.
[2018-05-09] MEDS: ATORVASTATIN CALCIUM 20 MG TABLET PO SCH (21:18)
[2018-05-09] MEDS: ACETAMINOPHEN 325 MG TABLET PO PRN (21:18)
[2018-05-09] MEDS: INSULIN GLARGINE,HUM.REC.ANLOG 1,000 UNIT/10 ML UNIT SUBCUT SCH (21:18)
[2018-05-10] MEDS: LANSOPRAZOLE 15 MG TAB.RAP.DR PO SCH (05:18)
[2018-05-10] MEDS: SILDENAFIL CITRATE 20 MG TABLET PO SCH ×3 (05:18→23:29)
[2018-05-10] MEDS: LEVOTHYROXINE SODIUM 0.025 MG TABLET PO SCH (05:18)
[2018-05-10 07:31] LABS: INTERNATIONAL RATION (INR) 1.22
[2018-05-10] MEDS: POTASSIUM CHLORIDE 10 MEQ CAPSULE.ER PO SCH ×2 (09:06→21:38)
[2018-05-10] MEDS: DOCUSATE SODIUM 100 MG CAPSULE PO SCH (09:06)
[2018-05-10] MEDS: LACTOBACILLUS ACIDOPHILUS 250 MG TAB PO SCH (09:06)
[2018-05-10] MEDS: VALACYCLOVIR HCL 500 MG TABLET PO SCH (09:07)
[2018-05-10] MEDS: CALCIUM CARBONATE 500 MG TABLET PO SCH (09:07)
[2018-05-10] MEDS: CITALOPRAM HYDROBROMIDE 20 MG TABLET PO SCH (09:07)
[2018-05-10] MEDS: PRENATAL VITAMIN W DHA CAPSULE PO SCH (09:07)
[2018-05-10] MEDS: GABAPENTIN 300 MG CAPSULE PO SCH ×2 (09:07→21:38)
[2018-05-10] MEDS: SENNOSIDES/DOCUSATE 8.6-50 MG 1 EACH TABLET PO SCH ×2 (09:07→19:34)
[2018-05-10] MEDS: DILTIAZEM HCL 180 MG CAPSULE.CR PO SCH (09:07)
[2018-05-10] MEDS: OXYCODONE HCL SR 40 MG TABLET PO SCH ×2 (09:07→21:37)
[2018-05-10] MEDS: FUROSEMIDE INJ/PF 40 MG/4 ML SDV IV SCH (09:07)
[2018-05-10] MEDS: VANCOMYCIN HCL 1,500 MG in DEXTROSE 5%-WATER 250 ML IV SCH ×2 (09:15→21:37)
--- NOTE | 2018-05-10 12:57 | Progress Note ---
Provider Note Provider Note: ID Consult Note Review labs, imaging results, VS and recent provider notes and spoke with Dr. Ghotra briefly via telephone yesterday 05/09/18. Pt not seen or examined. See my prior note filed on 05/08 if needed for details regarding pt's course up this point. Since then, pt continued to have fever up to 101-102F on 05/06, 05/07, and 05/08 ( POD#4 from intertrochanteric hip fixation). No fever thus far. Pt has been ambulating, working with PT. No diarrhea or other focal complaints. On exam, noted to have clear lungs, no murmur, nontender abdomen. Site of port removal was previously described as clean, without erythema. Hip wound described as clean, with some mild serosanguinous drainage, but also uninfected appearing. Davis was discontinued and sputum sent along with urine in workup for common causes of fever. Blood culture drawn from the port on 05/03 was finalized as showing what appears to be the same oxacillin-sensitive, Bactrim-resistant Staphylococcus epidermidis that the patient had isolated from peripheral blood and fom the L chest port on admission. The only difference in susceptibility profile is levofloxacin now reported as "I" with MARKUS of 4 instead of <2. Blood that was drawn peripherally on 05/03, one day prior to hip fixation, was finalized as negative. The catheter tip culture from the patient's port was updated to reflect growth of two Staphylococcus epidermidis isolates with different susceptibility patterns than the isolate that had caused the patient be bacteremic on admission. Repeat BCx from 05/07 has no growth x 2 days in either set. Sputum gram stain from 05/07 with 1+ PMN, rare epithelial cells, few yeast, rare GPCs in pairs. Sputum culture grew 1+ Muna albicans/C dublinensis and greatly reduced normal graciela. UCx 05/08 no growth. U/A from 05/09 with no pyuria. Most recent imaging 05/09/18 femur left 2 view, in anatomic alignment. Impression/Recommendations 1. port-related bacteremia from Staphylococcus epidermidis - s/p removal of the port on 05/05/18. As stated previously, typically 5-7 days following port removal with Staph epi ought to be sufficient. - Recommended continuing for slightly longer, however, until 05/19/18 or approximately 2 weeks as long as the patient continues to tolerate vancomycin IV without difficulty. I favor extending the course and using vancomycin to try to address both the resistant isolates and the more sensitive ones. 2. Suspected post-operative fever, related to infammation and cytokine release from surgery, given pt's clinical stability, the fact that it is still within the first 4 days post-op, no suggestive lab derangements, and nothing remarkable with U/A, urine culture, blood culture, sputum. Not much to add at this time. I applaud discontinuing Davis if not needed to reduce risk for nosocomial infections. If fever recurs, resume workup as guided by physical exam and symptoms. If pt looks well when having a fever, it points toward a noninfectious cause. Continue to monitor patient and provide supportive care. Gerhard Ag MD [facility], pager [phone]
--- NOTE | 2018-05-10 13:28 | PDOC PROGRESS REPORT ---
Subjective Progress Note for:: 05/10/18 Subjective:: Patient states that he is doing well today. Not able to get much sleep due to activity on the floor. He is eating well and finally had a large bowel movement. His pain is currently controlled. ROS: no dyspnea, No nausea. Pain in his knee and buttocks. Reason For Visit: STATUS POST MEDULLARY NAILING OF LEFT HIP FRACTURE Physical Exam Vital Signs: Temp Pulse Resp BP Pulse Ox 98.1 F 76 20 118/50 L 95 05/10/18 07:24 05/10/18 07:24 05/10/18 07:24 05/10/18 07:24 05/10/18 07:24 Intake & Output 05/09/18 05/10/18 05/11/18 06:59 06:59 06:59 Intake Total 1159 2088 250 Output Total 600 1 Balance 559 2087 250 Weight 118.7 kg 121 kg General appearance: PRESENT: no acute distress, obese Head exam: PRESENT: normocephalic Mouth exam: PRESENT: moist Respiratory exam: PRESENT: clear to auscultation romelia, unlabored Cardiovascular exam: PRESENT: RRR GI/Abdominal exam: PRESENT: soft. ABSENT: tenderness Extremities exam: ABSENT: pedal edema Neurological exam: PRESENT: alert, awake Psychiatric exam: PRESENT: appropriate affect Skin exam: PRESENT: normal color Results Laboratory Results: 05/09/18 05:48 05/09/18 09:36 05/08/18 11:56 Clean Catch Midstream Urine Culture - Final NO GROWTH 2 DAYS 05/05/18 09:34 Blood Blood Culture - Final NO GROWTH IN 5 DAYS 05/05/18 09:30 Blood Blood Culture - Final NO GROWTH IN 5 DAYS 05/05/18 12:15 Catheter Tip - Port A Cath Line Catheter Tip Culture - Final Staphylococcus Epidermidis Staphylococcus Epidermidis#2 05/01/18 05/01/18 05/01/18 08:55 08:55 16:10 Creatine Kinase 285 H 237 H CK-MB (CK-2) 1.50 Troponin I 0.017 05/01/18 16:10 Creatine Kinase CK-MB (CK-2) 1.57 Troponin I < 0.012 Impressions: Head CT 05/01/18 00:24 IMPRESSION: No acute intracranial abnormality TECHNICAL DOCUMENTATION: Quality ID # 436: Final reports with documentation of one or more dose reduction techniques (e.g., Automated exposure control, adjustment of the mA and/or kV according to patient size, use of iterative reconstruction technique) 2010 [employer]- All Rights Reserved Knee X-Ray 05/01/18 00:24 IMPRESSION: Incomplete exam. Lower Extremity CT 05/02/18 00:00 IMPRESSION: Pathologic left proximal femoral intertrochanteric fracture with varus angulation Multiple subcentimeter lytic lesions visualized in the left hemipelvis Chest X-Ray 05/03/18 06:00 IMPRESSION: Resolution of the pulmonary vascular congestion. Fluoroscopy 05/04/18 08:15 IMPRESSION: IMAGE(S) OBTAINED DURING PROCEDURE. Hip X-Ray 05/04/18 08:15 IMPRESSION: IMAGE(S) OBTAINED DURING PROCEDURE. Femur X-Ray 05/09/18 00:00 IMPRESSION: Satisfactory postop hip. Assessment & Plan - Diagnosis (1) Hip fracture Qualifiers: Encounter type: subsequent encounter Fracture type: closed Laterality: left Is this a current diagnosis for this admission?: Yes Plan: Continue current management. pain is currently controlled. (2) Gram-positive bacteremia Is this a current diagnosis for this admission?: Yes Plan: Remains on appropriate antibiotics. (3) Multiple myeloma Is this a current diagnosis for this admission?: Yes Plan: Family asked if his tumor markers have been checked. I explained that this has not been checked during this hospitalization. They understand that no further treatment can be given for this until infection has resolved. They are hopeful that he will be transferred to rehab on Saturday. If so, after infection cleared , he may return to office for other treatments at that time.
--- NOTE | 2018-05-10 13:50 | PDOC PROGRESS REPORT ---
Subjective Progress Note for:: 05/10/18 Subjective:: No acute events overnight. Patient states that he still has left lower hip pain but pain is tolerable. Patient denies any fevers or chills. Patient is p.o. tolerant cooperative with physical therapy. Denies any fever, chills, nausea, vomiting, shortness of breath, chest pain, diarrhea, constipation or any urinary symptoms. Reason For Visit: STATUS POST MEDULLARY NAILING OF LEFT HIP FRACTURE Physical Exam Vital Signs: Temp Pulse Resp BP Pulse Ox 98.1 F 96 22 H 138/53 H 94 05/10/18 11:57 05/10/18 11:57 05/10/18 11:57 05/10/18 11:57 05/10/18 11:57 Intake & Output 05/09/18 05/10/18 05/11/18 06:59 06:59 06:59 Intake Total 1159 2088 694 Output Total 600 1 Balance 559 2087 694 Weight 118.7 kg 121 kg General appearance: PRESENT: no acute distress, well-developed, well-nourished Head exam: PRESENT: atraumatic, normocephalic Eye exam: PRESENT: conjunctiva pink, EOMI, PERRLA. ABSENT: scleral icterus Ear exam: PRESENT: normal external ear exam Mouth exam: PRESENT: moist, tongue midline Neck exam: ABSENT: carotid bruit, JVD, lymphadenopathy, thyromegaly Respiratory exam: PRESENT: clear to auscultation romelia. ABSENT: rales, rhonchi, wheezes Cardiovascular exam: PRESENT: RRR. ABSENT: diastolic murmur, rubs, systolic murmur Pulses: PRESENT: normal dorsalis pedis pul Vascular exam: PRESENT: normal capillary refill GI/Abdominal exam: PRESENT: normal bowel sounds, soft. ABSENT: distended, guarding, mass, organolmegaly, rebound, tenderness Rectal exam: PRESENT: deferred Extremities exam: PRESENT: full ROM. ABSENT: calf tenderness, clubbing, pedal edema Musculoskeletal exam: PRESENT: tenderness - Mild tenderness at the site of left hip surgery. Neurological exam: PRESENT: alert, awake, oriented to person, oriented to place , oriented to time, oriented to situation, CN II-XII grossly intact. ABSENT: motor sensory deficit Psychiatric exam: PRESENT: appropriate affect, normal mood. ABSENT: homicidal ideation, suicidal ideation Skin exam: PRESENT: dry, intact, warm. ABSENT: cyanosis, rash Results Laboratory Results: 05/09/18 05:48 05/09/18 09:36 05/08/18 11:56 Clean Catch Midstream Urine Culture - Final NO GROWTH 2 DAYS 05/05/18 09:34 Blood Blood Culture - Final NO GROWTH IN 5 DAYS 05/05/18 09:30 Blood Blood Culture - Final NO GROWTH IN 5 DAYS 05/05/18 12:15 Catheter Tip - Port A Cath Line Catheter Tip Culture - Final Staphylococcus Epidermidis Staphylococcus Epidermidis#2 05/01/18 05/01/18 05/01/18 08:55 08:55 16:10 Creatine Kinase 285 H 237 H CK-MB (CK-2) 1.50 Troponin I 0.017 05/01/18 16:10 Creatine Kinase CK-MB (CK-2) 1.57 Troponin I < 0.012 Impressions: Head CT 05/01/18 00:24 IMPRESSION: No acute intracranial abnormality TECHNICAL DOCUMENTATION: Quality ID # 436: Final reports with documentation of one or more dose reduction techniques (e.g., Automated exposure control, adjustment of the mA and/or kV according to patient size, use of iterative reconstruction technique) 2010 [employer]- All Rights Reserved Knee X-Ray 05/01/18 00:24 IMPRESSION: Incomplete exam. Lower Extremity CT 05/02/18 00:00 IMPRESSION: Pathologic left proximal femoral intertrochanteric fracture with varus angulation Multiple subcentimeter lytic lesions visualized in the left hemipelvis Chest X-Ray 05/03/18 06:00 IMPRESSION: Resolution of the pulmonary vascular congestion. Fluoroscopy 05/04/18 08:15 IMPRESSION: IMAGE(S) OBTAINED DURING PROCEDURE. Hip X-Ray 05/04/18 08:15 IMPRESSION: IMAGE(S) OBTAINED DURING PROCEDURE. Femur X-Ray 05/09/18 00:00 IMPRESSION: Satisfactory postop hip. Assessment & Plan - Diagnosis (1) Atrial fibrillation Qualifiers: Atrial fibrillation type: paroxysmal Qualified Code(s): I48.0 - Paroxysmal atrial fibrillation Is this a current diagnosis for this admission?: Yes Plan: Rate control continue oral Cardizem patient switch to Coumadin will get INR tomorrow and adjust dosages with INR goal of 2-2.5 (2) Chronic diastolic (congestive) heart failure Is this a current diagnosis for this admission?: Yes Plan: Monitor volume status, continue Lasix. (3) Gram-positive bacteremia Is this a current diagnosis for this admission?: Yes Plan: Blood cultures from 05/05/2008 are positive for staph epidermidis. Continue vancomycin. Will plan placement of a PICC line to continue antibiotics until 05/19/2018. Last positive culture 05/05/2018 other cultures have been negative. Patient will be transferred to rehab on Saturday if medically remained stable. (4) Hip fracture Qualifiers: Encounter type: subsequent encounter Fracture type: closed Laterality: left Is this a current diagnosis for this admission?: Yes Plan: Status post intramedullary nailing of the left hip. Continue PT, wound care and pain management.
[2018-05-10 16:12] LABS: ABSOLUTE EOSINOPHILS # (AUTO) 0.2 10^3/uL (0.0-0.6); ABSOLUTE LYMPHOCYTES (AUTO) 0.6 10^3/uL (0.5-4.7); ABSOLUTE MONOCYTES (AUTO) 0.7 10^3/uL (0.1-1.4); ABSOLUTE NEUT (AUTO) 4.3 10^3/uL (1.7-8.2); BASOPHILS % (AUTO) 0.7 % (0-2); EOSINOPHILS % (AUTO) 3.2 % (0-6); HEMATOCRIT 25.8 % (37.9-51.0); HEMOGLOBIN 8.5 g/dL (13.5-17.0); LYMPHOCYTES % (AUTO) 10.2 % (13-45); MEAN CORPUSCULAR HGB CONC 32.7 g/dL (32.0-36.0); MEAN CORPUSCULAR VOLUME 86 fl (80-97); MONOCYTES % (AUTO) 11.6 % (3-13); PLATELET COUNT 198 10^3/uL (150-450); RED BLOOD COUNT 3.02 10^6/uL (4.35-5.55); RED CELL DISTRIBUTION WIDTH 21.7 % (11.5-14.0); SEGMENTED NEUTROPHILS % (AUTO) 74.3 % (42-78); TOTAL CELLS COUNTED % (AUTO) 100 %; WHITE BLOOD COUNT 5.8 10^3/uL (4.0-10.5)
[2018-05-10 16:34] LABS: ALANINE AMINOTRANSFERASE 25 U/L (21-72); ALBUMIN 2.9 g/dL (3.5-5.0); ALKALINE PHOSPHATASE 79 U/L (38-126); ANION GAP 11 (5-19); ASPARTATE AMINO TRANSFERASE 32 U/L (17-59); BILIRUBIN,DIRECT 0.3 mg/dL (0.0-0.4); BILIRUBIN,TOTAL 0.8 mg/dL (0.2-1.3); BLOOD UREA NITROGEN 20 mg/dL (7-20); CALCIUM 8.2 mg/dL (8.4-10.2); CARBON DIOXIDE 29 mmol/L (22-30); CHLORIDE 96 mmol/L (98-107); GLUCOSE 103 mg/dL (75-110); POTASSIUM 4.9 mmol/L (3.6-5.0); SODIUM 135.9 mmol/L (137-145); TOTAL PROTEIN 6.2 g/dL (6.3-8.2)
[2018-05-10 16:39] LABS: ANISOCYTOSIS 3+; OVALOCYTES SLIGHT; PLATELET COMMENT ADEQUATE; POIKILOCYTOSIS 1+; POLYCHROMASIA 1+; TARGET CELLS SLIGHT
[2018-05-10 16:40] LABS: PLATELET LARGE PRESENT
[2018-05-10] MEDS ORDERED: WARFARIN SODIUM 7.5 MG TABLET PO ONE ×2 (17:00→19:30)
[2018-05-10] MEDS ORDERED: WARFARIN SODIUM 2.5 MG TABLET ONE (19:33)
[2018-05-10] MEDS ORDERED: WARFARIN SODIUM 5 MG TABLET ONE (19:33)
[2018-05-10] MEDS: ATORVASTATIN CALCIUM 20 MG TABLET PO SCH (21:38)
[2018-05-10] MEDS: INSULIN GLARGINE,HUM.REC.ANLOG 1,000 UNIT/10 ML UNIT SUBCUT SCH (21:38)
[2018-05-11] MEDS: LANSOPRAZOLE 15 MG TAB.RAP.DR PO SCH (06:17)
[2018-05-11] MEDS: LEVOTHYROXINE SODIUM 0.025 MG TABLET PO SCH (06:17)
[2018-05-11 07:18] LABS: INTERNATIONAL RATION (INR) 1.29; PROTHROMBIN TIME 16.8 SEC (11.4-15.4)
[2018-05-11] MEDS: DILTIAZEM HCL 180 MG CAPSULE.CR PO SCH (09:15)
[2018-05-11] MEDS: SILDENAFIL CITRATE 20 MG TABLET PO SCH ×3 (09:33→22:33)
[2018-05-11] MEDS: CITALOPRAM HYDROBROMIDE 20 MG TABLET PO SCH (09:34)
[2018-05-11] MEDS: GABAPENTIN 300 MG CAPSULE PO SCH ×2 (09:36→22:32)
[2018-05-11] MEDS: SENNOSIDES/DOCUSATE 8.6-50 MG 1 EACH TABLET PO SCH ×2 (09:36→18:35)
[2018-05-11] MEDS: LACTOBACILLUS ACIDOPHILUS 250 MG TAB PO SCH (09:36)
[2018-05-11] MEDS: OXYCODONE HCL SR 40 MG TABLET PO SCH ×2 (09:37→22:33)
[2018-05-11] MEDS: DOCUSATE SODIUM 100 MG CAPSULE PO SCH ×2 (09:37→18:35)
[2018-05-11] MEDS: POTASSIUM CHLORIDE 10 MEQ CAPSULE.ER PO SCH ×2 (09:37→22:32)
[2018-05-11] MEDS: CALCIUM CARBONATE 500 MG TABLET PO SCH (09:37)
[2018-05-11] MEDS: FUROSEMIDE INJ/PF 40 MG/4 ML SDV IV SCH (09:37)
[2018-05-11] MEDS: HYDROMORPHONE HCL INJ/PF 2 MG/ML AMPULE IV PRN ×3 (09:38→20:36)
[2018-05-11] MEDS: VALACYCLOVIR HCL 500 MG TABLET PO SCH (09:49)
[2018-05-11 09:56] LABS: ABSOLUTE EOSINOPHILS # (AUTO) 0.2 10^3/uL (0.0-0.6); ABSOLUTE LYMPHOCYTES (AUTO) 0.6 10^3/uL (0.5-4.7); ABSOLUTE MONOCYTES (AUTO) 0.7 10^3/uL (0.1-1.4); ABSOLUTE NEUT (AUTO) 3.9 10^3/uL (1.7-8.2); BASOPHILS % (AUTO) 0.6 % (0-2); EOSINOPHILS % (AUTO) 2.9 % (0-6); HEMATOCRIT 25.4 % (37.9-51.0); HEMOGLOBIN 8.3 g/dL (13.5-17.0); LYMPHOCYTES % (AUTO) 11.9 % (13-45); MEAN CORPUSCULAR HEMOGLOBIN 27.9 pg (27.0-33.4); MEAN CORPUSCULAR HGB CONC 32.5 g/dL (32.0-36.0); MEAN CORPUSCULAR VOLUME 86 fl (80-97); MONOCYTES % (AUTO) 12.6 % (3-13); PLATELET COUNT 186 10^3/uL (150-450); RED BLOOD COUNT 2.96 10^6/uL (4.35-5.55); RED CELL DISTRIBUTION WIDTH 21.7 % (11.5-14.0); TOTAL CELLS COUNTED % (AUTO) 100 %; WHITE BLOOD COUNT 5.4 10^3/uL (4.0-10.5)
[2018-05-11] MEDS: VANCOMYCIN HCL 1,500 MG in DEXTROSE 5%-WATER 250 ML IV SCH ×2 (09:57→22:32)
[2018-05-11 10:40] LABS: ALANINE AMINOTRANSFERASE 33 U/L (21-72); ALBUMIN 2.8 g/dL (3.5-5.0); ALKALINE PHOSPHATASE 75 U/L (38-126); ANION GAP 8 (5-19); ASPARTATE AMINO TRANSFERASE 27 U/L (17-59); BILIRUBIN,DIRECT 0.3 mg/dL (0.0-0.4); BILIRUBIN,TOTAL 0.7 mg/dL (0.2-1.3); BLOOD UREA NITROGEN 18 mg/dL (7-20); CALCIUM 8.1 mg/dL (8.4-10.2); CARBON DIOXIDE 29 mmol/L (22-30); CHLORIDE 100 mmol/L (98-107); GLUCOSE 84 mg/dL (75-110); POTASSIUM 4.2 mmol/L (3.6-5.0); SODIUM 136.9 mmol/L (137-145); TOTAL PROTEIN 6.1 g/dL (6.3-8.2)
[2018-05-11] MEDS: OXYCODONE HCL IR 5 MG TABLET PO PRN (14:33)
--- NOTE | 2018-05-11 16:37 | PDOC PROGRESS REPORT ---
Subjective Progress Note for:: 05/11/18 Subjective:: No acute events overnight. Patient states that he still has left lower hip pain but pain is tolerable. Patient denies any fevers or chills. Patient is p.o. tolerant cooperative with physical therapy. Denies any fever, chills, nausea, vomiting, shortness of breath, chest pain, diarrhea, constipation or any urinary symptoms. Reason For Visit: STATUS POST MEDULLARY NAILING OF LEFT HIP FRACTURE Physical Exam Vital Signs: Temp Pulse Resp BP Pulse Ox 98.8 F 78 18 118/54 L 99 05/11/18 07:39 05/11/18 07:39 05/11/18 07:39 05/11/18 07:39 05/11/18 07:39 Intake & Output 05/10/18 05/11/18 05/12/18 06:59 06:59 06:59 Intake Total 2088 1144 248 Output Total 1 150 Balance 2087 994 248 Weight 121 kg 119.9 kg General appearance: PRESENT: no acute distress, well-developed, well-nourished Head exam: PRESENT: atraumatic, normocephalic Eye exam: PRESENT: conjunctiva pink, EOMI, PERRLA. ABSENT: scleral icterus Ear exam: PRESENT: normal external ear exam Mouth exam: PRESENT: moist, tongue midline Neck exam: ABSENT: carotid bruit, JVD, lymphadenopathy, thyromegaly Respiratory exam: PRESENT: clear to auscultation romelia. ABSENT: rales, rhonchi, wheezes Cardiovascular exam: PRESENT: RRR. ABSENT: diastolic murmur, rubs, systolic murmur Pulses: PRESENT: normal dorsalis pedis pul Vascular exam: PRESENT: normal capillary refill GI/Abdominal exam: PRESENT: normal bowel sounds, soft. ABSENT: distended, guarding, mass, organolmegaly, rebound, tenderness Rectal exam: PRESENT: deferred Extremities exam: PRESENT: full ROM. ABSENT: calf tenderness, clubbing, pedal edema Musculoskeletal exam: PRESENT: normal inspection, tenderness Neurological exam: PRESENT: alert, awake, oriented to person, oriented to place , oriented to time, oriented to situation, CN II-XII grossly intact. ABSENT: motor sensory deficit Psychiatric exam: PRESENT: appropriate affect, normal mood. ABSENT: homicidal ideation, suicidal ideation Skin exam: PRESENT: dry, intact, warm. ABSENT: cyanosis, rash Results Laboratory Results: 05/11/18 06:10 05/11/18 06:10 05/10/18 05/10/18 05/11/18 15:30 15:30 06:10 WBC 5.8 5.4 RBC 3.02 L 2.96 L Hgb 8.5 L 8.3 L Hct 25.8 L 25.4 L MCV 86 86 MCH 28.0 27.9 MCHC 32.7 32.5 RDW 21.7 H 21.7 H Plt Count 198 186 Seg Neutrophils % 74.3 72.0 Lymphocytes % 10.2 L 11.9 L Monocytes % 11.6 12.6 Eosinophils % 3.2 2.9 Basophils % 0.7 0.6 Absolute Neutrophils 4.3 3.9 Absolute Lymphocytes 0.6 0.6 Absolute Monocytes 0.7 0.7 Absolute Eosinophils 0.2 0.2 Absolute Basophils 0.0 0.0 Sodium 135.9 L Potassium 4.9 Chloride 96 L Carbon Dioxide 29 Anion Gap 11 BUN 20 Creatinine 1.10 Est GFR ( Amer) > 60 Est GFR (Non-Af Amer) > 60 Glucose 103 Calcium 8.2 L Magnesium 2.0 Total Bilirubin 0.8 AST 32 ALT 25 Alkaline Phosphatase 79 Total Protein 6.2 L Albumin 2.9 L 05/11/18 06:10 WBC RBC Hgb Hct MCV MCH MCHC RDW Plt Count Seg Neutrophils % Lymphocytes % Monocytes % Eosinophils % Basophils % Absolute Neutrophils Absolute Lymphocytes Absolute Monocytes Absolute Eosinophils Absolute Basophils Sodium 136.9 L Potassium 4.2 Chloride 100 Carbon Dioxide 29 Anion Gap 8 BUN 18 Creatinine 0.96 Est GFR ( Amer) > 60 Est GFR (Non-Af Amer) > 60 Glucose 84 Calcium 8.1 L Magnesium Total Bilirubin 0.7 AST 27 ALT 33 Alkaline Phosphatase 75 Total Protein 6.1 L Albumin 2.8 L 05/07/18 16:00 Sputum Gram Stain - Final 05/07/18 16:00 Sputum Sputum Culture - Final C.albicans/C.dubliniensis Greatly Reduced Normal Jackie 05/01/18 05/01/18 05/01/18 08:55 08:55 16:10 Creatine Kinase 285 H 237 H CK-MB (CK-2) 1.50 Troponin I 0.017 05/01/18 16:10 Creatine Kinase CK-MB (CK-2) 1.57 Troponin I < 0.012 Impressions: Head CT 05/01/18 00:24 IMPRESSION: No acute intracranial abnormality TECHNICAL DOCUMENTATION: Quality ID # 436: Final reports with documentation of one or more dose reduction techniques (e.g., Automated exposure control, adjustment of the mA and/or kV according to patient size, use of iterative reconstruction technique) 2010 [employer]- All Rights Reserved Knee X-Ray 05/01/18 00:24 IMPRESSION: Incomplete exam. Lower Extremity CT 05/02/18 00:00 IMPRESSION: Pathologic left proximal femoral intertrochanteric fracture with varus angulation Multiple subcentimeter lytic lesions visualized in the left hemipelvis Chest X-Ray 05/03/18 06:00 IMPRESSION: Resolution of the pulmonary vascular congestion. Fluoroscopy 05/04/18 08:15 IMPRESSION: IMAGE(S) OBTAINED DURING PROCEDURE. Hip X-Ray 05/04/18 08:15 IMPRESSION: IMAGE(S) OBTAINED DURING PROCEDURE. Femur X-Ray 05/09/18 00:00 IMPRESSION: Satisfactory postop hip. Assessment & Plan - Diagnosis (1) Atrial fibrillation Qualifiers: Atrial fibrillation type: paroxysmal Qualified Code(s): I48.0 - Paroxysmal atrial fibrillation Is this a current diagnosis for this admission?: Yes Plan: Rate control continue oral Cardizem patient switch to Coumadin will get INR tomorrow and adjust dosages with INR goal of 2-2.5 (2) Chronic diastolic (congestive) heart failure Is this a current diagnosis for this admission?: Yes Plan: Monitor volume status, continue Lasix and BB (3) Gram-positive bacteremia Is this a current diagnosis for this admission?: Yes Plan: Blood cultures from 05/05/2008 are positive for staph epidermidis. Continue vancomycin. Will plan placement of a PICC line to continue antibiotics until 05/19/2018. Last positive culture 05/05/2018 other cultures have been negative. Patient will be transferred to rehab on Saturday if medically remained stable. (4) Hip fracture Qualifiers: Encounter type: subsequent encounter Fracture type: closed Laterality: left Is this a current diagnosis for this admission?: Yes Plan: Status post intramedullary nailing of the left hip. Continue PT, wound care and pain management.
[2018-05-11] MEDS ORDERED: WARFARIN SODIUM 5 MG TABLET PO ONE (17:00)
[2018-05-11] MEDS: ATORVASTATIN CALCIUM 20 MG TABLET PO SCH (22:32)
[2018-05-11] MEDS: INSULIN GLARGINE,HUM.REC.ANLOG 1,000 UNIT/10 ML UNIT SUBCUT SCH (22:32)
[2018-05-12] MEDS: LANSOPRAZOLE 15 MG TAB.RAP.DR PO SCH (06:29)
[2018-05-12] MEDS: SILDENAFIL CITRATE 20 MG TABLET PO SCH ×3 (06:29→22:10)
[2018-05-12] MEDS: LEVOTHYROXINE SODIUM 0.025 MG TABLET PO SCH (06:29)
[2018-05-12 07:30] LABS: HEMATOCRIT 25.4 % (37.9-51.0); HEMOGLOBIN 8.4 g/dL (13.5-17.0); INTERNATIONAL RATION (INR) 1.42; MEAN CORPUSCULAR HGB CONC 32.9 g/dL (32.0-36.0); MEAN CORPUSCULAR VOLUME 85 fl (80-97); PLATELET COUNT 193 10^3/uL (150-450); PROTHROMBIN TIME 18.1 SEC (11.4-15.4); RED BLOOD COUNT 2.98 10^6/uL (4.35-5.55); WHITE BLOOD COUNT 5.2 10^3/uL (4.0-10.5)
[2018-05-12 07:49] LABS: ALANINE AMINOTRANSFERASE 28 U/L (21-72); ALBUMIN 2.9 g/dL (3.5-5.0); ALKALINE PHOSPHATASE 87 U/L (38-126); ANION GAP 9 (5-19); ASPARTATE AMINO TRANSFERASE 30 U/L (17-59); BILIRUBIN,DIRECT 0.3 mg/dL (0.0-0.4); BILIRUBIN,TOTAL 0.8 mg/dL (0.2-1.3); BLOOD UREA NITROGEN 18 mg/dL (7-20); CALCIUM 8.1 mg/dL (8.4-10.2); CARBON DIOXIDE 28 mmol/L (22-30); CHLORIDE 100 mmol/L (98-107); GLUCOSE 102 mg/dL (75-110); POTASSIUM 4.5 mmol/L (3.6-5.0); SODIUM 136.7 mmol/L (137-145); TOTAL PROTEIN 6.2 g/dL (6.3-8.2)
[2018-05-12] MEDS: DILTIAZEM HCL 180 MG CAPSULE.CR PO SCH (08:46)
--- NOTE | 2018-05-12 08:50 | PDOC PROGRESS REPORT ---
Subjective Progress Note for:: 05/12/18 Subjective:: He was getting up with physical therapy over the weekend, walked up to the door and back but still has considerable pain. Reason For Visit: STATUS POST MEDULLARY NAILING OF LEFT HIP FRACTURE Physical Exam Vital Signs: Temp Pulse Resp BP Pulse Ox 98.9 F 84 18 104/50 L 97 05/12/18 07:36 05/12/18 07:36 05/12/18 07:36 05/12/18 07:36 05/12/18 07:36 Intake & Output 05/11/18 05/12/18 05/13/18 06:59 06:59 06:59 Intake Total 1144 848 Output Total 150 500 Balance 994 348 Weight 119.9 kg 120.4 kg General appearance: PRESENT: no acute distress, well-developed, well-nourished Head exam: PRESENT: atraumatic, normocephalic Eye exam: PRESENT: conjunctiva pink, EOMI, PERRLA. ABSENT: scleral icterus Ear exam: PRESENT: normal external ear exam Mouth exam: PRESENT: moist, tongue midline Neck exam: ABSENT: carotid bruit, JVD, lymphadenopathy, thyromegaly Respiratory exam: PRESENT: clear to auscultation romelia. ABSENT: rales, rhonchi, wheezes Cardiovascular exam: PRESENT: RRR. ABSENT: diastolic murmur, rubs, systolic murmur Pulses: PRESENT: normal dorsalis pedis pul Vascular exam: PRESENT: normal capillary refill GI/Abdominal exam: PRESENT: normal bowel sounds, soft. ABSENT: distended, guarding, mass, organolmegaly, rebound, tenderness Rectal exam: PRESENT: deferred Extremities exam: PRESENT: full ROM. ABSENT: calf tenderness, clubbing, pedal edema Neurological exam: PRESENT: alert, awake, oriented to person, oriented to place , oriented to time, oriented to situation, CN II-XII grossly intact. ABSENT: motor sensory deficit Psychiatric exam: PRESENT: appropriate affect, normal mood. ABSENT: homicidal ideation, suicidal ideation Skin exam: PRESENT: dry, intact, warm. ABSENT: cyanosis, rash Results Laboratory Results: 05/12/18 07:07 05/12/18 07:07 05/11/18 05/11/18 05/12/18 06:10 06:10 07:07 WBC 5.4 5.2 RBC 2.96 L 2.98 L Hgb 8.3 L 8.4 L Hct 25.4 L 25.4 L MCV 86 85 MCH 27.9 28.0 MCHC 32.5 32.9 RDW 21.7 H 22.0 H Plt Count 186 193 Seg Neutrophils % 72.0 Lymphocytes % 11.9 L Monocytes % 12.6 Eosinophils % 2.9 Basophils % 0.6 Absolute Neutrophils 3.9 Absolute Lymphocytes 0.6 Absolute Monocytes 0.7 Absolute Eosinophils 0.2 Absolute Basophils 0.0 Sodium 136.9 L Potassium 4.2 Chloride 100 Carbon Dioxide 29 Anion Gap 8 BUN 18 Creatinine 0.96 Est GFR ( Amer) > 60 Est GFR (Non-Af Amer) > 60 Glucose 84 Calcium 8.1 L Total Bilirubin 0.7 AST 27 ALT 33 Alkaline Phosphatase 75 Total Protein 6.1 L Albumin 2.8 L 05/12/18 07:07 WBC RBC Hgb Hct MCV MCH MCHC RDW Plt Count Seg Neutrophils % Lymphocytes % Monocytes % Eosinophils % Basophils % Absolute Neutrophils Absolute Lymphocytes Absolute Monocytes Absolute Eosinophils Absolute Basophils Sodium 136.7 L Potassium 4.5 Chloride 100 Carbon Dioxide 28 Anion Gap 9 BUN 18 Creatinine 1.00 Est GFR ( Amer) > 60 Est GFR (Non-Af Amer) > 60 Glucose 102 Calcium 8.1 L Total Bilirubin 0.8 AST 30 ALT 28 Alkaline Phosphatase 87 Total Protein 6.2 L Albumin 2.9 L 05/01/18 05/01/18 05/01/18 08:55 08:55 16:10 Creatine Kinase 285 H 237 H CK-MB (CK-2) 1.50 Troponin I 0.017 05/01/18 16:10 Creatine Kinase CK-MB (CK-2) 1.57 Troponin I < 0.012 Impressions: Head CT 05/01/18 00:24 IMPRESSION: No acute intracranial abnormality TECHNICAL DOCUMENTATION: Quality ID # 436: Final reports with documentation of one or more dose reduction techniques (e.g., Automated exposure control, adjustment of the mA and/or kV according to patient size, use of iterative reconstruction technique) 2010 [employer]- All Rights Reserved Knee X-Ray 05/01/18 00:24 IMPRESSION: Incomplete exam. Lower Extremity CT 05/02/18 00:00 IMPRESSION: Pathologic left proximal femoral intertrochanteric fracture with varus angulation Multiple subcentimeter lytic lesions visualized in the left hemipelvis Chest X-Ray 05/03/18 06:00 IMPRESSION: Resolution of the pulmonary vascular congestion. Fluoroscopy 05/04/18 08:15 IMPRESSION: IMAGE(S) OBTAINED DURING PROCEDURE. Hip X-Ray 05/04/18 08:15 IMPRESSION: IMAGE(S) OBTAINED DURING PROCEDURE. Femur X-Ray 05/09/18 00:00 IMPRESSION: Satisfactory postop hip. Assessment & Plan - Diagnosis (1) Hip fracture Qualifiers: Encounter type: subsequent encounter Fracture type: closed Laterality: left Is this a current diagnosis for this admission?: Yes Plan: Pathologic, continue with supportive care as well as rehab care. Ultimately will need rehab placement. (2) Multiple myeloma Qualifiers: Multiple myeloma remission status: not in remission Qualified Code(s): C90.00 - Multiple myeloma not having achieved remission Is this a current diagnosis for this admission?: Yes Plan: Hold on therapy until patient is healed fully, and out of rehab. (3) Staphylococcal septicemia Is this a current diagnosis for this admission?: Yes Plan: Continue with vancomycin per ID guidelines, they recommend treatment until 2017. - Time Time Spent with patient: 35 or more minutes - Inpatient Certification Based on my medical assessment, after consideration of the patient's comorbidities, presenting symptoms, or acuity I expect that the services needed warrant INPATIENT care.: Yes I certify that my determination is in accordance with my understanding of Medicare's requirements for reasonable and necessary INPATIENT services [42 CFR 412.3e].: Yes Medical Necessity: Need for IV Antibiotics
[2018-05-12] MEDS: POTASSIUM CHLORIDE 10 MEQ CAPSULE.ER PO SCH ×2 (09:47→22:09)
[2018-05-12] MEDS: DOCUSATE SODIUM 100 MG CAPSULE PO SCH ×3 (09:47→17:32)
[2018-05-12] MEDS: GABAPENTIN 300 MG CAPSULE PO SCH ×2 (09:47→22:09)
[2018-05-12] MEDS: OXYCODONE HCL SR 40 MG TABLET PO SCH ×2 (09:48→22:13)
[2018-05-12] MEDS: CITALOPRAM HYDROBROMIDE 20 MG TABLET PO SCH (09:48)
[2018-05-12] MEDS: FUROSEMIDE INJ/PF 40 MG/4 ML SDV IV SCH (09:49)
[2018-05-12] MEDS: VALACYCLOVIR HCL 500 MG TABLET PO SCH (09:49)
[2018-05-12] MEDS: SENNOSIDES/DOCUSATE 8.6-50 MG 1 EACH TABLET PO SCH ×2 (09:49→17:32)
[2018-05-12] MEDS: CALCIUM CARBONATE 500 MG TABLET PO SCH (09:50)
[2018-05-12] MEDS: LACTOBACILLUS ACIDOPHILUS 250 MG TAB PO SCH (09:50)
[2018-05-12] MEDS: VANCOMYCIN HCL 1,500 MG in DEXTROSE 5%-WATER 250 ML IV SCH (09:51)
[2018-05-12] MEDS: OXYCODONE HCL IR 5 MG TABLET PO PRN ×2 (10:16→20:51)
[2018-05-12 10:56] LABS: APPEARANCE,URINE SLIGHTLY-CLOUDY; BILIRUBIN,URINE NEGATIVE (NEGATIVE); COLOR,URINE YELLOW; GLUCOSE, URINE NEGATIVE (NEGATIVE); KETONES,URINE NEGATIVE (NEGATIVE); LEUKOCYTE ESTERASE,URINE NEGATIVE (NEGATIVE); NITRITE,URINE NEGATIVE (NEGATIVE); PROTEIN,URINE NEGATIVE (NEGATIVE); URINE SPECIFIC GRAVITY 1.015
--- NOTE | 2018-05-12 11:13 | PDOC PROGRESS REPORT ---
Subjective Subjective:: No acute events overnight. Patient states that he still has left lower hip pain but pain is tolerable. Patient denies any fevers or chills. Patient is p.o. tolerant cooperative with physical therapy. Denies any fever, chills, nausea, vomiting, shortness of breath, chest pain, diarrhea, constipation or any urinary symptoms. Reason For Visit: STATUS POST MEDULLARY NAILING OF LEFT HIP FRACTURE Physical Exam Vital Signs: Temp Pulse Resp BP Pulse Ox 98.9 F 84 18 104/50 L 97 05/12/18 07:36 05/12/18 07:36 05/12/18 07:36 05/12/18 07:36 05/12/18 07:36 Intake & Output 05/11/18 05/12/18 05/13/18 06:59 06:59 06:59 Intake Total 1144 848 Output Total 150 500 Balance 994 348 Weight 119.9 kg 120.4 kg General appearance: PRESENT: no acute distress, well-developed, well-nourished Head exam: PRESENT: atraumatic, normocephalic Eye exam: PRESENT: conjunctiva pink, EOMI, PERRLA. ABSENT: scleral icterus Ear exam: PRESENT: normal external ear exam Mouth exam: PRESENT: moist, tongue midline Neck exam: ABSENT: carotid bruit, JVD, lymphadenopathy, thyromegaly Respiratory exam: PRESENT: clear to auscultation romelia. ABSENT: rales, rhonchi, wheezes Cardiovascular exam: PRESENT: RRR. ABSENT: diastolic murmur, rubs, systolic murmur Pulses: PRESENT: normal dorsalis pedis pul Vascular exam: PRESENT: normal capillary refill GI/Abdominal exam: PRESENT: normal bowel sounds, soft. ABSENT: distended, guarding, mass, organolmegaly, rebound, tenderness Rectal exam: PRESENT: deferred Extremities exam: PRESENT: full ROM. ABSENT: calf tenderness, clubbing, pedal edema Musculoskeletal exam: PRESENT: normal inspection, tenderness, other - Left upper extremity mild tenderness over the surgical area otherwise no sign of erythema discharge or active infection. Normal range of motion. Neurological exam: PRESENT: alert, awake, oriented to person, oriented to place , oriented to time, oriented to situation, CN II-XII grossly intact. ABSENT: motor sensory deficit Psychiatric exam: PRESENT: appropriate affect, normal mood. ABSENT: homicidal ideation, suicidal ideation Skin exam: PRESENT: dry, intact, warm. ABSENT: cyanosis, rash Results Laboratory Results: 05/12/18 07:07 05/12/18 07:07 05/12/18 05/12/18 05/12/18 07:07 07:07 10:15 WBC 5.2 RBC 2.98 L Hgb 8.4 L Hct 25.4 L MCV 85 MCH 28.0 MCHC 32.9 RDW 22.0 H Plt Count 193 Sodium 136.7 L Potassium 4.5 Chloride 100 Carbon Dioxide 28 Anion Gap 9 BUN 18 Creatinine 1.00 Est GFR ( Amer) > 60 Est GFR (Non-Af Amer) > 60 Glucose 102 Calcium 8.1 L Total Bilirubin 0.8 AST 30 ALT 28 Alkaline Phosphatase 87 Total Protein 6.2 L Albumin 2.9 L Urine Color YELLOW Urine Appearance SLIGHTLY-CLOUDY Urine pH 6.0 Ur Specific [place] 1.015 Urine Protein NEGATIVE Urine Glucose (UA) NEGATIVE Urine Ketones NEGATIVE Urine Blood NEGATIVE Urine Nitrite NEGATIVE Ur Leukocyte Esterase NEGATIVE Urine WBC (Auto) 1 Urine RBC (Auto) 0 05/01/18 05/01/18 05/01/18 08:55 08:55 16:10 Creatine Kinase 285 H 237 H CK-MB (CK-2) 1.50 Troponin I 0.017 05/01/18 16:10 Creatine Kinase CK-MB (CK-2) 1.57 Troponin I < 0.012 Impressions: Head CT 05/01/18 00:24 IMPRESSION: No acute intracranial abnormality TECHNICAL DOCUMENTATION: Quality ID # 436: Final reports with documentation of one or more dose reduction techniques (e.g., Automated exposure control, adjustment of the mA and/or kV according to patient size, use of iterative reconstruction technique) 2010 [employer]- All Rights Reserved Knee X-Ray 05/01/18 00:24 IMPRESSION: Incomplete exam. Lower Extremity CT 05/02/18 00:00 IMPRESSION: Pathologic left proximal femoral intertrochanteric fracture with varus angulation Multiple subcentimeter lytic lesions visualized in the left hemipelvis Chest X-Ray 05/03/18 06:00 IMPRESSION: Resolution of the pulmonary vascular congestion. Fluoroscopy 05/04/18 08:15 IMPRESSION: IMAGE(S) OBTAINED DURING PROCEDURE. Hip X-Ray 05/04/18 08:15 IMPRESSION: IMAGE(S) OBTAINED DURING PROCEDURE. Femur X-Ray 05/09/18 00:00 IMPRESSION: Satisfactory postop hip. Assessment & Plan - Diagnosis (1) Atrial fibrillation Qualifiers: Atrial fibrillation type: paroxysmal Qualified Code(s): I48.0 - Paroxysmal atrial fibrillation Is this a current diagnosis for this admission?: Yes Plan: Rate control continue oral Cardizem patient switch to Coumadin will get INR tomorrow and adjust dosages with INR goal of 2-2.5 Patient has been on Coumadin 10 mg for the last 3 days unfortunately hir INR is still not therapeutic. Patient was informed about his INR and agreed to stay until his INR is therapeutic. (2) Chronic diastolic (congestive) heart failure Is this a current diagnosis for this admission?: Yes Plan: Monitor volume status, continue Lasix and BB (3) Gram-positive bacteremia Is this a current diagnosis for this admission?: Yes Plan: Blood cultures from 05/05/2008 are positive for staph epidermidis. Cultures from the tip of Port-A-Cath positive for gram gram-positive staph. Status post Port-A-Cath removal 05/05/2018. Continue vancomycin until 05/19/2018 as per ID recommendation. PICC line placed today. (4) Hip fracture Qualifiers: Encounter type: subsequent encounter Fracture type: closed Laterality: left Is this a current diagnosis for this admission?: Yes Plan: Status post intramedullary nailing of the left hip. Continue PT, wound care and pain management. Plan is to transfer patient to rehab however his INR is not therapeutic. Once INR is therapeutic patient will be transferred to rehab (5) Multiple myeloma Is this a current diagnosis for this admission?: Yes Plan: Therapy held as per oncology recommendation. Please refer to oncology note.
[2018-05-12] MEDS ORDERED: NORMAL SALINE INJ/PF 0.9% 10 ML SDV IV PRN (12:53)
--- NOTE | 2018-05-12 12:57 | Operative Report ---
Nonrecallable Operative Report PREOPERATIVE DIAGNOSIS: Sepsis POSTOPERATIVE DIAGNOSIS: Same OPERATION: 1. Focused ultrasound of the right upper extremity. 2. Ultrasound directed insertion of 5 [place] dual-lumen PICC line catheter. 3. Interpretation of intraoperative fluoroscopy SURGEON: RICHY CAAL ANESTHESIA: Moderate Sedation TISSUE REMOVED OR ALTERED: None COMPLICATIONS: None ESTIMATED BLOOD LOSS: Scant INTRAOPERATIVE FINDINGS: See below PROCEDURE: Patient taken from the floor to the cardiac catheterization lab was placed supine position on the operating gurney. The right arm was abducted, and scanned with a variable frequency linear transducer. Findings are significant for patent, compressible suitable caliber basilic vein. Surgical plan surgical timeout conducted. The right arm was prepped and draped in a sterile fashion with chlorhexidine. Skin was anesthetized with 1% lidocaine. Cole was made in the skin with 11 blade, and using the ultrasound transducer real-time as a guide, the microneedle and wire threaded into the right basilic vein. Fluoroscopic imaging showed the wire to be in the deep venous system. A dual lumen 5 [place] PICC line was then trimmed to the length of approximately 45 cm. The micro dilator introducer sheath was threaded over the wire the dilator and wire removed, and the catheter threaded into the strip away sheath all the way to the hub. A strip away sheath was removed uneventfully, leaving the catheter in excellent position. The tip of the catheter by fluoroscopic guidance was in superior vena cava. Both lumens were aspirated and flushed with heparinized saline. Caps adhesive is applied and a sterile dressing applied. Patient tolerated procedure well, taken back to the floor in stable condition. Plan: May use PICC line
--- NOTE | 2018-05-12 13:14 | RADIOLOGY REPORT (SQ) ---
EXAM DESCRIPTION: PICC INSERTION COMPLETED DATE/TIME: 05/12/2018 12:49 pm REASON FOR STUDY: NEED FOR VASCULAR ACCESS COMPARISON: None. FLUOROSCOPY TIME: 0.1 minute 1 images saved to PACS. TECHNIQUE: Intra-operative images acquired during surgical procedure to evaluate progress. NUMBER OF IMAGES: 1 LIMITATIONS: None. FINDINGS: Fluoroscopic image from PICC line placement performed by Dr. Mathis. Tip overlies SVC. IMPRESSION: IMAGE(S) OBTAINED DURING PROCEDURE. COMMENT: Quality ID [id number]: Final reports for procedures using fluoroscopy that document radiation exp osure indices, or exposure time and number of fluorographic images (if radiation exposure indices are not available) Please consult full operative report of the attending physician for description of the procedure. TECHNICAL DOCUMENTATION: JOB ID: [id number] [facility]- All Rights Reserved Reading location - IP/workstation name: [facility]
[2018-05-12] MEDS ORDERED: WARFARIN SODIUM 5 MG TABLET PO ONE (17:00)
[2018-05-12] MEDS: INSULIN LISPRO 100 UNIT/ML 3 ML VIAL SUBCUT PRN (17:41)
[2018-05-12] MEDS: ATORVASTATIN CALCIUM 20 MG TABLET PO SCH (22:10)
[2018-05-12] MEDS: INSULIN GLARGINE,HUM.REC.ANLOG 1,000 UNIT/10 ML UNIT SUBCUT SCH (22:26)
[2018-05-13] MEDS: VANCOMYCIN HCL 1,500 MG in DEXTROSE 5%-WATER 250 ML IV SCH ×3 (00:47→23:05)
[2018-05-13] MEDS: SILDENAFIL CITRATE 20 MG TABLET PO SCH ×3 (05:06→23:02)
[2018-05-13] MEDS: LANSOPRAZOLE 15 MG TAB.RAP.DR PO SCH (05:06)
[2018-05-13] MEDS: LEVOTHYROXINE SODIUM 0.025 MG TABLET PO SCH (05:06)
[2018-05-13 05:18] LABS: ABSOLUTE EOSINOPHILS # (AUTO) 0.2 10^3/uL (0.0-0.6); ABSOLUTE LYMPHOCYTES (AUTO) 0.7 10^3/uL (0.5-4.7); ABSOLUTE MONOCYTES (AUTO) 0.7 10^3/uL (0.1-1.4); BASOPHILS % (AUTO) 0.7 % (0-2); EOSINOPHILS % (AUTO) 2.9 % (0-6); HEMATOCRIT 24.6 % (37.9-51.0); HEMOGLOBIN 8.2 g/dL (13.5-17.0); LYMPHOCYTES % (AUTO) 11.9 % (13-45); MEAN CORPUSCULAR HEMOGLOBIN 28.2 pg (27.0-33.4); MEAN CORPUSCULAR HGB CONC 33.2 g/dL (32.0-36.0); MEAN CORPUSCULAR VOLUME 85 fl (80-97); MONOCYTES % (AUTO) 12.4 % (3-13); PLATELET COUNT 214 10^3/uL (150-450); SEGMENTED NEUTROPHILS % (AUTO) 72.1 % (42-78); TOTAL CELLS COUNTED % (AUTO) 100 %; WHITE BLOOD COUNT 5.5 10^3/uL (4.0-10.5)
[2018-05-13 05:42] LABS: ANISOCYTOSIS 3+; PLATELET COMMENT ADEQUATE; PLATELET LARGE PRESENT; POIKILOCYTOSIS 1+; POLYCHROMASIA SLIGHT; SCHISTOCYTES 1+; TOXIC GRANULATION 1+
[2018-05-13 05:48] LABS: ALANINE AMINOTRANSFERASE 15 U/L (21-72); ALBUMIN 3.2 g/dL (3.5-5.0); ALKALINE PHOSPHATASE 96 U/L (38-126); ANION GAP 8 (5-19); ASPARTATE AMINO TRANSFERASE 28 U/L (17-59); BILIRUBIN,DIRECT 0.3 mg/dL (0.0-0.4); BILIRUBIN,TOTAL 0.8 mg/dL (0.2-1.3); BLOOD UREA NITROGEN 18 mg/dL (7-20); CARBON DIOXIDE 30 mmol/L (22-30); CHLORIDE 100 mmol/L (98-107); GLUCOSE 104 mg/dL (75-110); POTASSIUM 4.3 mmol/L (3.6-5.0); SODIUM 137.6 mmol/L (137-145); TOTAL PROTEIN 6.9 g/dL (6.3-8.2)
--- NOTE | 2018-05-13 09:11 | PDOC PROGRESS REPORT ---
Subjective Progress Note for:: 05/13/18 Subjective:: No acute events overnight, still w/ considerable pain in hip Reason For Visit: STATUS POST MEDULLARY NAILING OF LEFT HIP FRACTURE Physical Exam Vital Signs: Temp Pulse Resp BP Pulse Ox 99.0 F 84 13 112/49 L 94 05/13/18 07:31 05/13/18 07:31 05/13/18 07:31 05/13/18 07:31 05/13/18 07:31 Intake & Output 05/12/18 05/13/18 05/14/18 06:59 06:59 06:59 Intake Total 848 1829 Output Total 500 0 Balance 348 1829 Weight 120.4 kg 118 kg General appearance: PRESENT: no acute distress, well-developed, well-nourished Head exam: PRESENT: atraumatic, normocephalic Eye exam: PRESENT: conjunctiva pink, EOMI, PERRLA. ABSENT: scleral icterus Ear exam: PRESENT: normal external ear exam Mouth exam: PRESENT: moist, tongue midline Neck exam: ABSENT: carotid bruit, JVD, lymphadenopathy, thyromegaly Respiratory exam: PRESENT: clear to auscultation romelia. ABSENT: rales, rhonchi, wheezes Cardiovascular exam: PRESENT: RRR. ABSENT: diastolic murmur, rubs, systolic murmur Pulses: PRESENT: normal dorsalis pedis pul Vascular exam: PRESENT: normal capillary refill GI/Abdominal exam: PRESENT: normal bowel sounds, soft. ABSENT: distended, guarding, mass, organolmegaly, rebound, tenderness Rectal exam: PRESENT: deferred Extremities exam: PRESENT: full ROM. ABSENT: calf tenderness, clubbing, pedal edema Neurological exam: PRESENT: alert, awake, oriented to person, oriented to place , oriented to time, oriented to situation, CN II-XII grossly intact. ABSENT: motor sensory deficit Psychiatric exam: PRESENT: appropriate affect, normal mood. ABSENT: homicidal ideation, suicidal ideation Skin exam: PRESENT: dry, intact, warm. ABSENT: cyanosis, rash Results Laboratory Results: 05/13/18 04:55 05/13/18 04:55 05/12/18 05/13/18 05/13/18 10:15 04:55 04:55 WBC 5.5 RBC 2.90 L Hgb 8.2 L Hct 24.6 L MCV 85 MCH 28.2 MCHC 33.2 RDW 22.0 H Plt Count 214 Seg Neutrophils % 72.1 Lymphocytes % 11.9 L Monocytes % 12.4 Eosinophils % 2.9 Basophils % 0.7 Absolute Neutrophils 4.0 Absolute Lymphocytes 0.7 Absolute Monocytes 0.7 Absolute Eosinophils 0.2 Absolute Basophils 0.0 Sodium 137.6 Potassium 4.3 Chloride 100 Carbon Dioxide 30 Anion Gap 8 BUN 18 Creatinine 1.09 Est GFR ( Amer) > 60 Est GFR (Non-Af Amer) > 60 Glucose 104 Calcium 8.0 L Total Bilirubin 0.8 AST 28 ALT 15 L Alkaline Phosphatase 96 Total Protein 6.9 Albumin 3.2 L Urine Color YELLOW Urine Appearance SLIGHTLY-CLOUDY Urine pH 6.0 Ur Specific [place] 1.015 Urine Protein NEGATIVE Urine Glucose (UA) NEGATIVE Urine Ketones NEGATIVE Urine Blood NEGATIVE Urine Nitrite NEGATIVE Ur Leukocyte Esterase NEGATIVE Urine WBC (Auto) 1 Urine RBC (Auto) 0 05/07/18 17:15 Blood Blood Culture - Final NO GROWTH IN 5 DAYS 05/07/18 14:40 Blood Blood Culture - Final NO GROWTH IN 5 DAYS 05/01/18 05/01/18 05/01/18 08:55 08:55 16:10 Creatine Kinase 285 H 237 H CK-MB (CK-2) 1.50 Troponin I 0.017 05/01/18 16:10 Creatine Kinase CK-MB (CK-2) 1.57 Troponin I < 0.012 Impressions: Head CT 05/01/18 00:24 IMPRESSION: No acute intracranial abnormality TECHNICAL DOCUMENTATION: Quality ID # 436: Final reports with documentation of one or more dose reduction techniques (e.g., Automated exposure control, adjustment of the mA and/or kV according to patient size, use of iterative reconstruction technique) 2010 [employer]- All Rights Reserved Knee X-Ray 05/01/18 00:24 IMPRESSION: Incomplete exam. Lower Extremity CT 05/02/18 00:00 IMPRESSION: Pathologic left proximal femoral intertrochanteric fracture with varus angulation Multiple subcentimeter lytic lesions visualized in the left hemipelvis Chest X-Ray 05/03/18 06:00 IMPRESSION: Resolution of the pulmonary vascular congestion. Fluoroscopy 05/04/18 08:15 IMPRESSION: IMAGE(S) OBTAINED DURING PROCEDURE. Hip X-Ray 05/04/18 08:15 IMPRESSION: IMAGE(S) OBTAINED DURING PROCEDURE. Femur X-Ray 05/09/18 00:00 IMPRESSION: Satisfactory postop hip. PICC Line Insertion 05/12/18 00:00 IMPRESSION: IMAGE(S) OBTAINED DURING PROCEDURE. Assessment & Plan - Diagnosis (1) Hip fracture Qualifiers: Encounter type: subsequent encounter Fracture type: closed Laterality: left Is this a current diagnosis for this admission?: Yes Plan: Plan for rehab care, continue per hospitalist and surgical team. (2) Multiple myeloma Qualifiers: Multiple myeloma remission status: not in remission Qualified Code(s): C90.00 - Multiple myeloma not having achieved remission Is this a current diagnosis for this admission?: Yes Plan: Hold on therapy until outpatient (3) Staphylococcal septicemia Is this a current diagnosis for this admission?: Yes Plan: Continue with IV antibiotics until 05/19/2018.
[2018-05-13 11:29] LABS: INTERNATIONAL RATION (INR) 1.68; PROTHROMBIN TIME 20.6 SEC (11.4-15.4)
[2018-05-13] MEDS: POTASSIUM CHLORIDE 10 MEQ CAPSULE.ER PO SCH ×2 (11:29→21:42)
[2018-05-13] MEDS: SENNOSIDES/DOCUSATE 8.6-50 MG 1 EACH TABLET PO SCH ×2 (11:29→17:03)
[2018-05-13] MEDS: DILTIAZEM HCL 180 MG CAPSULE.CR PO SCH (11:29)
[2018-05-13] MEDS: GABAPENTIN 300 MG CAPSULE PO SCH ×2 (11:29→21:42)
[2018-05-13] MEDS: DOCUSATE SODIUM 100 MG CAPSULE PO SCH ×2 (11:30→17:04)
[2018-05-13] MEDS: CITALOPRAM HYDROBROMIDE 20 MG TABLET PO SCH (11:33)
[2018-05-13] MEDS: LACTOBACILLUS ACIDOPHILUS 250 MG TAB PO SCH (11:34)
[2018-05-13] MEDS: OXYCODONE HCL SR 40 MG TABLET PO SCH ×2 (11:35→21:42)
[2018-05-13] MEDS: FUROSEMIDE INJ/PF 40 MG/4 ML SDV IV SCH (11:35)
[2018-05-13] MEDS: CALCIUM CARBONATE 500 MG TABLET PO SCH (11:40)
[2018-05-13] MEDS: VALACYCLOVIR HCL 500 MG TABLET PO SCH (11:40)
[2018-05-13] MEDS: ENOXAPARIN SODIUM INJ 120 MG/0.8 ML DISP.SYRIN SUBCUT SCH ×2 (13:18→21:43)
--- NOTE | 2018-05-13 17:25 | PDOC PROGRESS REPORT ---
Subjective Progress Note for:: 05/13/18 Subjective:: No acute event overnight. Patient underwent intramedullary nailing for his hip fracture om 05/04/18. Pain is well controlled. No recurrence of fever or chills. Patient is tolerating diet well. Reason For Visit: STATUS POST MEDULLARY NAILING OF LEFT HIP FRACTURE Physical Exam Vital Signs: Temp Pulse Resp BP Pulse Ox 98.9 F 85 14 112/46 L 94 05/13/18 15:18 05/13/18 15:18 05/13/18 15:18 05/13/18 15:18 05/13/18 15:18 Intake & Output 05/12/18 05/13/18 05/14/18 06:59 06:59 06:59 Intake Total 848 1829 100 Output Total 500 0 Balance 348 1829 100 Weight 265 lb 6.985 oz 260 lb 2.327 oz General appearance: PRESENT: no acute distress, well-developed, well-nourished Head exam: PRESENT: atraumatic, normocephalic Eye exam: PRESENT: conjunctiva pink, EOMI, PERRLA. ABSENT: scleral icterus Mouth exam: PRESENT: moist, tongue midline Neck exam: ABSENT: carotid bruit, JVD, lymphadenopathy, thyromegaly Respiratory exam: PRESENT: clear to auscultation romelia. ABSENT: rales, rhonchi, wheezes Cardiovascular exam: PRESENT: RRR. ABSENT: diastolic murmur, rubs, systolic murmur GI/Abdominal exam: PRESENT: normal bowel sounds, soft. ABSENT: distended, guarding, mass, organolmegaly, rebound, tenderness Rectal exam: PRESENT: deferred Musculoskeletal exam: PRESENT: other - No tenderness on surgical site Neurological exam: PRESENT: alert, awake, oriented to person, oriented to place , oriented to time, oriented to situation, CN II-XII grossly intact. ABSENT: motor sensory deficit Results Laboratory Results: 05/13/18 04:55 05/13/18 04:55 05/13/18 05/13/18 04:55 04:55 WBC 5.5 RBC 2.90 L Hgb 8.2 L Hct 24.6 L MCV 85 MCH 28.2 MCHC 33.2 RDW 22.0 H Plt Count 214 Seg Neutrophils % 72.1 Lymphocytes % 11.9 L Monocytes % 12.4 Eosinophils % 2.9 Basophils % 0.7 Absolute Neutrophils 4.0 Absolute Lymphocytes 0.7 Absolute Monocytes 0.7 Absolute Eosinophils 0.2 Absolute Basophils 0.0 Sodium 137.6 Potassium 4.3 Chloride 100 Carbon Dioxide 30 Anion Gap 8 BUN 18 Creatinine 1.09 Est GFR ( Amer) > 60 Est GFR (Non-Af Amer) > 60 Glucose 104 Calcium 8.0 L Total Bilirubin 0.8 AST 28 ALT 15 L Alkaline Phosphatase 96 Total Protein 6.9 Albumin 3.2 L 05/07/18 17:15 Blood Blood Culture - Final NO GROWTH IN 5 DAYS 05/07/18 14:40 Blood Blood Culture - Final NO GROWTH IN 5 DAYS 05/01/18 05/01/18 05/01/18 08:55 08:55 16:10 Creatine Kinase 285 H 237 H CK-MB (CK-2) 1.50 Troponin I 0.017 05/01/18 16:10 Creatine Kinase CK-MB (CK-2) 1.57 Troponin I < 0.012 Impressions: Head CT 05/01/18 00:24 IMPRESSION: No acute intracranial abnormality TECHNICAL DOCUMENTATION: Quality ID # 436: Final reports with documentation of one or more dose reduction techniques (e.g., Automated exposure control, adjustment of the mA and/or kV according to patient size, use of iterative reconstruction technique) 2010 [employer]- All Rights Reserved Knee X-Ray 05/01/18 00:24 IMPRESSION: Incomplete exam. Lower Extremity CT 05/02/18 00:00 IMPRESSION: Pathologic left proximal femoral intertrochanteric fracture with varus angulation Multiple subcentimeter lytic lesions visualized in the left hemipelvis Chest X-Ray 05/03/18 06:00 IMPRESSION: Resolution of the pulmonary vascular congestion. Fluoroscopy 05/04/18 08:15 IMPRESSION: IMAGE(S) OBTAINED DURING PROCEDURE. Hip X-Ray 05/04/18 08:15 IMPRESSION: IMAGE(S) OBTAINED DURING PROCEDURE. Femur X-Ray 05/09/18 00:00 IMPRESSION: Satisfactory postop hip. PICC Line Insertion 05/12/18 00:00 IMPRESSION: IMAGE(S) OBTAINED DURING PROCEDURE. Assessment & Plan - Diagnosis (1) Sepsis Is this a current diagnosis for this admission?: Yes Plan: Resolved. Sepsis from infected Mediport. Cultures from the port tip grew staph epidermidis with some cultures being resistant to penicillins. Repeat blood cultures have been negative. Noted ID recommendations. Continue vancomycin for now until 05/19/18. Patient had a recent PICC line placed. Discussed with oncology, patient will have replacement of a new MediPort on patient follow-up with oncology. (2) Hip fracture Qualifiers: Encounter type: subsequent encounter Fracture type: closed Laterality: left Is this a current diagnosis for this admission?: Yes Plan: Status post intramedullary nailing of the left hip. Orthopedics following. Pain is well-controlled. (3) Atrial fibrillation Qualifiers: Atrial fibrillation type: paroxysmal Qualified Code(s): I48.0 - Paroxysmal atrial fibrillation Is this a current diagnosis for this admission?: Yes Plan: Rate controlled. Continue oral Cardizem. Continue Coumadin. Patient will be bridged with Lovenox. Discussed with oncology. Surgery updated. (4) Multiple myeloma Qualifiers: Multiple myeloma remission status: not in remission Qualified Code(s): C90.00 - Multiple myeloma not having achieved remission Is this a current diagnosis for this admission?: Yes Plan: Oncology following. Noted recommendations. Further plan will be pursued as outpatient. (5) Chronic diastolic (congestive) heart failure Is this a current diagnosis for this admission?: Yes Plan: Stable. Continue lasix. (6) History of pulmonary embolism Is this a current diagnosis for this admission?: Yes Plan: Continue Coumadin with Lovenox bridging. (7) Pathologic fracture Is this a current diagnosis for this admission?: Yes Plan: Patient has a pathologic fracture in the setting of multiple myeloma. Status post IM nailing of the left hip. - Time Time Spent with patient: 15-24 minutes
[2018-05-13] MEDS: ATORVASTATIN CALCIUM 20 MG TABLET PO SCH (21:42)
[2018-05-13] MEDS: INSULIN GLARGINE,HUM.REC.ANLOG 1,000 UNIT/10 ML UNIT SUBCUT SCH (21:46)
[2018-05-14] MEDS: LEVOTHYROXINE SODIUM 0.025 MG TABLET PO SCH (06:00)
[2018-05-14] MEDS: LANSOPRAZOLE 15 MG TAB.RAP.DR PO SCH (06:00)
[2018-05-14] MEDS: SILDENAFIL CITRATE 20 MG TABLET PO SCH ×2 (06:00→15:14)
[2018-05-14 06:27] LABS: HEMATOCRIT 25.2 % (37.9-51.0); HEMOGLOBIN 8.2 g/dL (13.5-17.0); MEAN CORPUSCULAR HEMOGLOBIN 27.9 pg (27.0-33.4); MEAN CORPUSCULAR HGB CONC 32.7 g/dL (32.0-36.0); MEAN CORPUSCULAR VOLUME 85 fl (80-97); PLATELET COUNT 204 10^3/uL (150-450); RED BLOOD COUNT 2.95 10^6/uL (4.35-5.55); RED CELL DISTRIBUTION WIDTH 21.7 % (11.5-14.0)
--- NOTE | 2018-05-14 08:42 | PDOC PROGRESS REPORT ---
Subjective Progress Note for:: 05/14/18 Subjective:: Probable DC home today, did get up and walk a little further yesterday Reason For Visit: STATUS POST MEDULLARY NAILING OF LEFT HIP FRACTURE Physical Exam Vital Signs: Temp Pulse Resp BP Pulse Ox 98.1 F 80 16 119/45 L 95 05/14/18 07:46 05/14/18 07:46 05/14/18 07:46 05/14/18 07:46 05/14/18 07:46 Intake & Output 05/13/18 05/14/18 05/15/18 06:59 06:59 06:59 Intake Total 1829 1022 Output Total 0 550 Balance 1829 472 Weight 118 kg 115.2 kg General appearance: PRESENT: no acute distress, well-developed, well-nourished Head exam: PRESENT: atraumatic, normocephalic Eye exam: PRESENT: conjunctiva pink, EOMI, PERRLA. ABSENT: scleral icterus Ear exam: PRESENT: normal external ear exam Mouth exam: PRESENT: moist, tongue midline Neck exam: ABSENT: carotid bruit, JVD, lymphadenopathy, thyromegaly Respiratory exam: PRESENT: clear to auscultation romelia. ABSENT: rales, rhonchi, wheezes Cardiovascular exam: PRESENT: RRR. ABSENT: diastolic murmur, rubs, systolic murmur Pulses: PRESENT: normal dorsalis pedis pul Vascular exam: PRESENT: normal capillary refill GI/Abdominal exam: PRESENT: normal bowel sounds, soft. ABSENT: distended, guarding, mass, organolmegaly, rebound, tenderness Rectal exam: PRESENT: deferred Extremities exam: PRESENT: full ROM. ABSENT: calf tenderness, clubbing, pedal edema Neurological exam: PRESENT: alert, awake, oriented to person, oriented to place , oriented to time, oriented to situation, CN II-XII grossly intact. ABSENT: motor sensory deficit Psychiatric exam: PRESENT: appropriate affect, normal mood. ABSENT: homicidal ideation, suicidal ideation Skin exam: PRESENT: dry, intact, warm. ABSENT: cyanosis, rash Results Laboratory Results: 05/14/18 06:04 05/13/18 04:55 05/14/18 06:04 WBC 5.0 RBC 2.95 L Hgb 8.2 L Hct 25.2 L MCV 85 MCH 27.9 MCHC 32.7 RDW 21.7 H Plt Count 204 05/01/18 05/01/18 05/01/18 08:55 08:55 16:10 Creatine Kinase 285 H 237 H CK-MB (CK-2) 1.50 Troponin I 0.017 05/01/18 16:10 Creatine Kinase CK-MB (CK-2) 1.57 Troponin I < 0.012 Impressions: Head CT 05/01/18 00:24 IMPRESSION: No acute intracranial abnormality TECHNICAL DOCUMENTATION: Quality ID # [id number]: Final reports with documentation of one or more dose reduction techniques (e.g., Automated exposure control, adjustment of the mA and/or kV according to patient size, use of iterative reconstruction technique) 2010 [employer]- All Rights Reserved Knee X-Ray 05/01/18 00:24 IMPRESSION: Incomplete exam. Lower Extremity CT 05/02/18 00:00 IMPRESSION: Pathologic left proximal femoral intertrochanteric fracture with varus angulation Multiple subcentimeter lytic lesions visualized in the left hemipelvis Chest X-Ray 05/03/18 06:00 IMPRESSION: Resolution of the pulmonary vascular congestion. Fluoroscopy 05/04/18 08:15 IMPRESSION: IMAGE(S) OBTAINED DURING PROCEDURE. Hip X-Ray 05/04/18 08:15 IMPRESSION: IMAGE(S) OBTAINED DURING PROCEDURE. Femur X-Ray 05/09/18 00:00 IMPRESSION: Satisfactory postop hip. PICC Line Insertion 05/12/18 00:00 IMPRESSION: IMAGE(S) OBTAINED DURING PROCEDURE. Assessment & Plan - Diagnosis (1) Hip fracture Qualifiers: Encounter type: subsequent encounter Fracture type: closed Laterality: left Is this a current diagnosis for this admission?: Yes Plan: DC to rehab today (2) Multiple myeloma Qualifiers: Multiple myeloma remission status: not in remission Qualified Code(s): C90.00 - Multiple myeloma not having achieved remission Is this a current diagnosis for this admission?: Yes Plan: We will see patient after discharge from rehab for consideration of further therapy (3) Staphylococcal septicemia Is this a current diagnosis for this admission?: Yes Plan: Antibiotics continued until 05/19/2018. - Time Time Spent with patient: 25-34 minutes
[2018-05-14] MEDS: DILTIAZEM HCL 180 MG CAPSULE.CR PO SCH (08:59)
[2018-05-14] MEDS: POTASSIUM CHLORIDE 10 MEQ CAPSULE.ER PO SCH (09:56)
[2018-05-14] MEDS: GABAPENTIN 300 MG CAPSULE PO SCH (09:56)
[2018-05-14] MEDS: FUROSEMIDE INJ/PF 40 MG/4 ML SDV IV SCH (09:56)
[2018-05-14] MEDS: DOCUSATE SODIUM 100 MG CAPSULE PO SCH (09:56)
[2018-05-14] MEDS: SENNOSIDES/DOCUSATE 8.6-50 MG 1 EACH TABLET PO SCH (09:56)
[2018-05-14] MEDS: OXYCODONE HCL SR 40 MG TABLET PO SCH (09:56)
[2018-05-14] MEDS: ENOXAPARIN SODIUM INJ 120 MG/0.8 ML DISP.SYRIN SUBCUT SCH (09:58)
[2018-05-14] MEDS: VANCOMYCIN HCL 1,500 MG in DEXTROSE 5%-WATER 250 ML IV SCH (10:14)
[2018-05-14] MEDS: VALACYCLOVIR HCL 500 MG TABLET PO SCH (10:14)
[2018-05-14] MEDS: CITALOPRAM HYDROBROMIDE 20 MG TABLET PO SCH (10:15)
[2018-05-14] MEDS: CALCIUM CARBONATE 500 MG TABLET PO SCH (10:15)
[2018-05-14] MEDS: LACTOBACILLUS ACIDOPHILUS 250 MG TAB PO SCH (10:18)
--- NOTE | 2018-05-14 11:11 | PDOC TRANSFER SUMMARY ---
General - Admit/Disc Date/PCP Admission Date/Primary Care Provider: 05/01/18 02:21 FANNIE GAN MD Discharge Date: 05/14/18 - Discharge Diagnosis (1) Sepsis Is this a current diagnosis for this admission?: Yes (2) Hip fracture Is this a current diagnosis for this admission?: Yes (3) Atrial fibrillation Is this a current diagnosis for this admission?: Yes (4) Multiple myeloma Is this a current diagnosis for this admission?: Yes (5) Chronic diastolic (congestive) heart failure Is this a current diagnosis for this admission?: Yes (6) History of pulmonary embolism Is this a current diagnosis for this admission?: Yes (7) Pathologic fracture Is this a current diagnosis for this admission?: Yes - Additional Information Resuscitation Status: Full Code Prescriptions: Acetaminophen [Tylenol 325 mg Tablet] 650 mg PO Q4HP PRN #30 tablet PRN Reason: For Pain Citalopram Hydrobromide [Celexa 10 mg Tablet] 10 mg PO DAILY #30 tablet Diltiazem HCl [Cardizem Cd 120 mg Capsule] 1 cap.sr PO DAILY #30 cap.sr Docusate Sodium [Colace 100 mg Capsule] 200 mg PO BID #60 capsule Enoxaparin Sodium [Lovenox Inj 120 mg/0.8 ml Disp.syrin] 110 mg SUBCUT Q12 4 Days #8 disp.syrin Furosemide [Lasix 40 mg Tablet] 20 mg PO BID@0800,1200 #60 tablet Gabapentin [Neurontin 300 mg Capsule] 300 mg PO Q12 #60 capsule Levofloxacin [Levaquin 750 mg Tablet] 750 mg PO DAILY 7 Days #7 tab Oxycodone HCl [Oxy-Ir 5 mg Tablet] 10 mg PO Q8HP PRN #30 tablet PRN Reason: For Pain scale 5 Oxycodone HCl [Oxycontin] 40 mg PO Q12 #30 tab.er.12h Sennosides/Docusate 8.6-50 mg [Senna Plus Tablet] 1 each PO DAILY PRN #30 tablet PRN Reason: For Constipation Vancomycin HCl [Vancocin Inj 1000 mg Vial] 1,500 mg IV Q12 5 Days #15 vial Home Medications: Albuterol Sulfate [Proair Respiclick] 2 puff IH Q6HP PRN 05/01/18 Calcium Carbonate [Calcium] 600 mg PO DAILY 05/01/18 Fluticasone Propionate [Flonase Nasal [place] 50 Mcg/[place] 16 gm] 1 spray NASL DAILYP PRN 05/01/18 Insulin Glargine,Hum.rec.anlog [Lantus Solostar] 40 units SQ QPM 05/01/18 L.acidoph,Paracasei, B.lactis [Probiotic] 1 cap PO DAILY 05/01/18 Levothyroxine Sodium [Synthroid] 25 mcg PO Q6AM 05/01/18 Meclizine HCl [Antivert 25 mg Tablet] 25 mg PO DAILYP PRN 05/01/18 Omeprazole 20 mg PO DAILY 05/01/18 Ondansetron HCl [Zofran 8 mg Tablet] 8 mg PO Q4HP PRN 05/01/18 Rosuvastatin Calcium [Crestor 10 mg Tablet] 10 mg PO QPM 05/01/18 Sildenafil Citrate [Sildenafil] 20 mg PO TID 05/01/18 Valacyclovir HCl [Valtrex 500 mg Tablet] 500 mg PO DAILY 05/01/18 Warfarin Sodium [Coumadin] 5 mg PO TUTH 05/01/18 Warfarin Sodium [Coumadin] 10 mg PO SUMOWEFRSA 05/01/18 Acetaminophen [Tylenol 325 mg Tablet] 650 mg PO Q4HP PRN #30 tablet 05/14/18 Citalopram Hydrobromide [Celexa 10 mg Tablet] 10 mg PO DAILY #30 tablet Diltiazem HCl [Cardizem Cd 120 mg Capsule] 1 cap.sr PO DAILY #30 cap.sr Docusate Sodium [Colace 100 mg Capsule] 200 mg PO BID #60 capsule 05/14/18 Enoxaparin Sodium [Lovenox Inj 120 mg/0.8 ml Disp.syrin] 110 mg SUBCUT Q12 4 Days #8 disp.syrin 05/14/18 Furosemide [Lasix 40 mg Tablet] 20 mg PO BID@0800,1200 #60 tablet 05/14/18 Gabapentin [Neurontin 300 mg Capsule] 300 mg PO Q12 #60 capsule 05/14/18 Insulin Lispro [Humalog Insulin (Lispro) 100 unit/mL] 0 - 12 unit SUBCUT Q6HP PRN unit 05/14/18 Levofloxacin [Levaquin 750 mg Tablet] 750 mg PO DAILY 7 Days #7 tab 05/14/18 Mag Hydrox/Al Hydrox/Simeth [Maalox Plus Susp 30 Udcup] 30 ml PO Q6HP PRN udc 05/14/18 Oxycodone HCl [Oxy-Ir 5 mg Tablet] 10 mg PO Q8HP PRN #30 tablet 05/14/18 Oxycodone HCl [Oxycontin] 40 mg PO Q12 #30 tab.er.12h 05/14/18 Potassium Chloride [Klor-Con 10 Meq Capsule ER] 20 meq PO Q12 capsule.er Sennosides/Docusate 8.6-50 mg [Senna Plus Tablet] 1 each PO DAILY PRN #30 tablet 05/14/18 Vancomycin HCl [Vancocin Inj 1000 mg Vial] 1,500 mg IV Q12 5 Days #15 vial 05/14 History of Present Illness Admission Date/PCP: 05/01/18 02:21 FANNIE GAN MD Patient complains of: fall History of Present Illness: NINI ZHENG is a 73 year old male with a comp gated past medical history of multiple myeloma on chemotherapy 3 times a week, morbid obesity, obstructive sleep apnea with noncompliance, opiate dependent chronic pain, pulmonary embolism on Coumadin, atrial fibrillation and congestive heart failure. Patient presents with left hip pain after a fall. Complicated by recurrent falls and opiate dependence. Seen in the emergency room for excessive fatigue 12 hours prior but discharged home without significant findings. Patient's heard a thud finding her on the floor with pain to the left side. In the emergency room is found to have a left-sided hip fracture, chronic anemia , uncontrolled pain and referred to the hospitalist for admission. Hospital Course Hospital Course: NINI ZHENG is a 73 year old male with a a past medical history of multiple myeloma on chemotherapy 3 times a week, morbid obesity, obstructive sleep apnea with noncompliance, opiate dependent, history of pulmonary embolism on Coumadin , atrial fibrillation and congestive heart failure. Patient presents with left hip pain after a fall. Patient was evaluated by orthopedics. Because of his cardiovascular comorbidities, cardiology was consulted. Patient was cleared by cardio for surgery and patient underwent intramedullary nailing of the left hip successfully. Patient's hospitalization was complicated by sepsis. He started developing fevers and had leukocytosis. Mediport infection was suspected. Surgery was consulted and Mediport was replaced. Culture of the port tips of were done and this came back positive for staph epidermidis 2/ with some cultures being resistant to penicillins. Blood cultures also grew staph epidermidis. Patient was started on vancomycin. Infectious disease recommended continuing vancomycin until May 19. Repeat blood cultures showed clearance of bacteremia. Patient had a recent PICC line placed by surgery. He will need a new MediPort placed when he follows up with his oncologist on outpatient basis. Patient did have acute pain after the surgery. He does have opiate dependence. Pain specialist was consulted and pain regimen was adjusted. Patient's Coumadin was resumed and patient is being bridged with Lovenox. Last INR was 1.68. He will continue Lovenox until INR is therapeutic between 2 and 3. Patient is on Cardizem p.o. for his hypertension and atrial fibrillation. He has been rate controlled throughout this hospitalization. Because his pressures are running in the low normal side , Cardizem was decreased from 180-120 mg daily. Patient had moderately productive cough and was started empirically on Levaquin which he will continue at the rehab. Oncology also is following the patient. Further treatment of his multiple myeloma will be pursued when he follows up with Dr. Banda. Patient also has chronic diastolic heart failure. He is not in exacerbation. Because of his low normal blood pressures, Lasix will be reduced to 20 mg twice daily from 40 mg twice daily. Physical Exam Vital Signs: Temp Pulse Resp BP Pulse Ox 98.1 F 80 16 119/45 L 95 05/14/18 07:46 05/14/18 07:46 05/14/18 07:46 05/14/18 07:46 05/14/18 07:46 Intake & Output 05/13/18 05/14/18 05/15/18 06:59 06:59 06:59 Intake Total 1829 1022 Output Total 0 550 Balance 1829 472 Weight 260 lb 2.327 oz 253 lb 15.56 oz General appearance: PRESENT: no acute distress, well-developed, well-nourished Head exam: PRESENT: atraumatic, normocephalic Eye exam: PRESENT: conjunctiva pink, EOMI, PERRLA. ABSENT: scleral icterus Ear exam: PRESENT: normal external ear exam Respiratory exam: PRESENT: clear to auscultation romelia. ABSENT: rales, rhonchi, wheezes Cardiovascular exam: PRESENT: irregular rhythm Pulses: PRESENT: normal dorsalis pedis pul GI/Abdominal exam: PRESENT: normal bowel sounds, soft. ABSENT: distended, guarding, mass, organolmegaly, rebound, tenderness Rectal exam: PRESENT: deferred Neurological exam: PRESENT: alert, awake, oriented to person, oriented to place , oriented to time, oriented to situation, CN II-XII grossly intact. ABSENT: motor sensory deficit Results Laboratory Results: 05/14/18 06:04 05/13/18 04:55 05/14/18 06:04 WBC 5.0 RBC 2.95 L Hgb 8.2 L Hct 25.2 L MCV 85 MCH 27.9 MCHC 32.7 RDW 21.7 H Plt Count 204 05/01/18 05/01/18 05/01/18 08:55 08:55 16:10 Creatine Kinase 285 H 237 H CK-MB (CK-2) 1.50 Troponin I 0.017 05/01/18 16:10 Creatine Kinase CK-MB (CK-2) 1.57 Troponin I < 0.012 Impressions: Head CT 05/01/18 00:24 IMPRESSION: No acute intracranial abnormality TECHNICAL DOCUMENTATION: Quality ID # 436: Final reports with documentation of one or more dose reduction techniques (e.g., Automated exposure control, adjustment of the mA and/or kV according to patient size, use of iterative reconstruction technique) 2010 [employer]- All Rights Reserved Knee X-Ray 05/01/18 00:24 IMPRESSION: Incomplete exam. Lower Extremity CT 05/02/18 00:00 IMPRESSION: Pathologic left proximal femoral intertrochanteric fracture with varus angulation Multiple subcentimeter lytic lesions visualized in the left hemipelvis Chest X-Ray 05/03/18 06:00 IMPRESSION: Resolution of the pulmonary vascular congestion. Fluoroscopy 05/04/18 08:15 IMPRESSION: IMAGE(S) OBTAINED DURING PROCEDURE. Hip X-Ray 05/04/18 08:15 IMPRESSION: IMAGE(S) OBTAINED DURING PROCEDURE. Femur X-Ray 05/09/18 00:00 IMPRESSION: Satisfactory postop hip. PICC Line Insertion 05/12/18 00:00 IMPRESSION: IMAGE(S) OBTAINED DURING PROCEDURE. Qualifiers - * PATIENT BEING DISCHARGED WITH ANY OF THE FOLLOWING DIAGNOSIS: VTE (PE or DVT) VTE patient discharged on overlapping Therapy?: Yes Reason(s) for not prescribing Anti-thrombolytic therapy:: Tx not tolerated
[2018-05-14 11:18] LABS: VANCOMYCIN,TROUGH 23.5 ug/mL (5.0-20.0)
[2018-05-14 11:33] LABS: INTERNATIONAL RATION (INR) 2.28; PROTHROMBIN TIME 26.2 SEC (11.4-15.4)
[2018-05-14] MEDS: OXYCODONE HCL IR 5 MG TABLET PO PRN (15:14)
[2018-05-14 16:08] VITALS: BP 115/46
[2018-05-14] MEDS ORDERED: VANCOMYCIN HCL 1,500 MG in DEXTROSE 5%-WATER 250 ML IV SCH (22:00)
[2018-05-15] MEDS ORDERED: VANCOMYCIN HCL 1,250 MG in DEXTROSE 5%-WATER 250 ML IV SCH (10:00)
== END 2018-05-14 16:15 | DRG 480 ==
LOC: ER 00:06 → EH 02:21 → 3S 17:47 → ICU 05-04 11:39 → 3S 05-06 04:57 → 3W 05-10 15:01
PROVIDERS: ADMIT Internal Medicine; ATTEND Internal Medicine
PROC: 5A09457 Assistance with Respiratory Ventilation, 24-96 Consecutive Hours, Continuous Positive Airway Pressure (ICD-10-PCS; 2018-05-01)
PROC: 30233N1 Transfusion of Nonautologous Red Blood Cells into Peripheral Vein, Percutaneous Approach (ICD-10-PCS; 2018-05-02)
PROC: 30233N1 Transfusion of Nonautologous Red Blood Cells into Peripheral Vein, Percutaneous Approach (ICD-10-PCS; 2018-05-04)
PROC: 30233L1 Transfusion of Nonautologous Fresh Plasma into Peripheral Vein, Percutaneous Approach (ICD-10-PCS; 2018-05-04)
PROC: 0QS736Z Reposition Left Upper Femur with Intramedullary Internal Fixation Device, Percutaneous Approach (ICD-10-PCS; principal; 2018-05-04 08:45)
PROC: 0JPT0WZ Removal of Totally Implantable Vascular Access Device from Trunk Subcutaneous Tissue and Fascia, Open Approach (ICD-10-PCS; 2018-05-05)
PROC: 02HV33Z Insertion of Infusion Device into Superior Vena Cava, Percutaneous Approach (ICD-10-PCS; 2018-05-12)
PROC: B548ZZA Ultrasonography of Superior Vena Cava, Guidance (ICD-10-PCS; 2018-05-12)
PROC: B518ZZA Fluoroscopy of Superior Vena Cava, Guidance (ICD-10-PCS; 2018-05-12)
DX: S72.142A Displaced intertrochanteric fracture of left femur, initial encounter for closed fracture (principal); A41.2 Sepsis due to unspecified staphylococcus; T80.211A Bloodstream infection due to central venous catheter, initial encounter; C90.00 Multiple myeloma not having achieved remission; I50.32 Chronic diastolic (congestive) heart failure; F11.20 Opioid dependence, uncomplicated; W01.0XXA Fall on same level from slipping, tripping and stumbling without subsequent striking against object, initial encounter; I48.0 Paroxysmal atrial fibrillation; G47.33 Obstructive sleep apnea (adult) (pediatric); D64.9 Anemia, unspecified; I11.0 Hypertensive heart disease with heart failure; G89.4 Chronic pain syndrome; M51.36 Other intervertebral disc degeneration, lumbar region; E11.9 Type 2 diabetes mellitus without complications; E86.0 Dehydration; Z16.11 Resistance to penicillins; E66.01 Morbid (severe) obesity due to excess calories; Z68.34 Body mass index [BMI] 34.0-34.9, adult; Z86.711 Personal history of pulmonary embolism; Z79.899 Other long term (current) drug therapy; Z79.01 Long term (current) use of anticoagulants; Z79.4 Long term (current) use of insulin; Z91.19 Patient's noncompliance with other medical treatment and regimen; Z86.718 Personal history of other venous thrombosis and embolism; Z98.42 Cataract extraction status, left eye; Z98.41 Cataract extraction status, right eye; Z88.8 Allergy status to other drugs, medicaments and biological substances; Z85.830 Personal history of malignant neoplasm of bone; Z82.49 Family history of ischemic heart disease and other diseases of the circulatory system
CPT/HCPCS: 01230; 36415; 36430; 36569; 36600; 70450; 71045; 76937; 77001; 80048; 80053; 80202; 81001; 82550; 82553; 82565; 82803; 82962; 83605; 83735; 83880; 84100; 84484; 85025; 85027; 85610; 85730; 86850; 86900; 86901; 86902; 86920; 86922; 87040; 87070; 87077; 87086; 87186; 87205; 93005; 93010; 93306; 94660; 94799; 96374; 96376; 99285; C1713; C1752; C1769; G8978-GP; G8979-GP; G8987-GO; G8988-GO; J0330; J0690; J1170; J1642; J1644; J1650; J1815; J1885; J1940; J2250; J2270; J2370; J2704; J3010; J3370; J3490; J7030; J7060; J7120; P9016; P9017

== ENCOUNTER 2018-06-18 13:28 | Day surgery (SDC) | payer MEDICARE, OTHER ==
[~2018-06-18 13:28] MED LIST changes: +CEFAZOLIN 1 GM/D5W RTU 1 GM/50 ML RTUPB IV ONE; +CEFAZOLIN 1 GM/D5W RTU 1 GM/50 ML RTUPB IV PRN; -DARATUMUMAB IV PRN; -DEXTROSE 5% IV PRN; -DIPHENHYDRAMINE HCL 50 MG in NORMAL SALINE 50 ML IV PRN; +LIDOCAINE 1%/EPINEPHRINE INJ 20 ML VIAL ONE; -METHYLPREDNISOLONE SOD SUCC IV PRN; -NORMAL SALINE 250 ML IV PRN; -NORMAL SALINE IV PRN; -WATER IV PRN
[2018-06-18 14:19] LABS: HEMATOCRIT 26.6 % (37.9-51.0); HEMOGLOBIN 8.5 g/dL (13.5-17.0); MEAN CORPUSCULAR HEMOGLOBIN 26.8 pg (27.0-33.4); MEAN CORPUSCULAR VOLUME 84 fl (80-97); PLATELET COUNT 197 10^3/uL (150-450); RED BLOOD COUNT 3.18 10^6/uL (4.35-5.55); RED CELL DISTRIBUTION WIDTH 22.9 % (11.5-14.0); WHITE BLOOD COUNT 5.5 10^3/uL (4.0-10.5)
[2018-06-18 14:25] LABS: PROTHROMBIN TIME 15.8 SEC (11.4-15.4)
[2018-06-18 14:26] LABS: PARTIAL THROMBOPLASTIN TIME 20.9 SEC (23.5-35.8)
[2018-06-18] MEDS ORDERED: MORPHINE SULFATE 10 MG/ML INJ ONE (17:20)
[2018-06-18] MEDS ORDERED: PROPOFOL INJ 200 MG/20 ML VIAL IV ONE (17:35)
[2018-06-18] MEDS ORDERED: FENTANYL CITRATE INJ/PF 100 MCG/2 ML AMPUL ONE (17:36)
[2018-06-18] MEDS ORDERED: MIDAZOLAM 2 MG/2 ML INJ ONE ×2 (17:36→18:59)
[2018-06-18] MEDS ORDERED: FENTANYL CITRATE INJ/PF 100 MCG/2 ML AMPUL IV PRN ×3 (19:04)
[2018-06-18] MEDS ORDERED: DIPHENHYDRAMINE HCL 50 MG/ML VIAL IV PRN (19:04)
--- NOTE | 2018-06-18 19:31 | Operative Report ---
Operative Report DATE OF SURGERY: 06/18/18 PREOPERATIVE DIAGNOSIS: Multiple myeloma; history of pulmonary embolus POSTOPERATIVE DIAGNOSIS: Same OPERATION: 1. Focused ultrasound of the neck. 2. Right internal jugular vein single lumen catheter with port placement in the right subclavian position. 3. Intraoperative fluoroscopy with interpretation thereof SURGEON: RICHY CAAL TISSUE REMOVED OR ALTERED: None COMPLICATIONS: None ESTIMATED BLOOD LOSS: Scant INTRAOPERATIVE FINDINGS: See below PROCEDURE: The patient was taken from to the preop holding area to the main operating room where he was placed in supine position, arms tucked, neck scan, then prepped and draped in sterile fashion. The patient was found to have a patent right internal jugular vein suitable for cannulation Surgical plan surgical timeout were conducted. The right neck was anesthetized with 1% plain lidocaine. Using ultrasound guidance, a micro needle and wire were threaded into the right internal jugular vein uneventfully. A suitable site for placement of port was chosen in the right subclavian position. Skin was anesthetized with 1% plain lidocaine, a 3 cm incision made with a knife, the subcutaneous pocket was developed with cautery and blunt dissection, and a port placed into position. The catheter was then trimmed to the appropriate length, tunnel between the 2 incisions, attached to the port with the plastic ring Under fluoroscopic guidance, real-time, the microwire was switched over to a conventional 0.030 inch guidewire. Dilator and sheath were threaded over the wire wire and dilator removed and catheter threaded into the strip away sheath. Strip away sheath removed under fluoroscopic guidance with the tip of the catheter remaining in the right atrium. There is no evidence of ectopy. There is no kinking of the catheter at the neck. There was excellent flush and aspiration and flushed again through the port with heparinized saline. Wounds closed with 3-0 Vicryl benzoin and Steri-Strips. Patient tolerated the procedure well. He was taken to recovery room in stable condition.
--- NOTE | 2018-06-18 19:32 | Discharge Summary ---
Discharge Summary (SDC) - Discharge Final Diagnosis: Multiple myeloma; history of pulmonary embolus Date of Surgery: 06/18/18 Discharge Date: 06/18/18 Condition: Good Treatment or Instructions: Routine postoperative care right subclavian port pocket; well-known to patient ; return to [facility] to see MAX Paiz 1-2 weeks. May use port at any time Referrals: FANNIE GAN MD [Primary Care Provider] - Discharge Diet: As Tolerated Discharge Activity: Activity As Tolerated Home Care Assistance: None Needed Report the Following to Your Physician Immediately: Shortness of Breath, Increase in Pain, Fever over 101 Degrees
[2018-06-18 21:38] VITALS: BP 135/49
--- NOTE | 2018-06-19 12:04 | RADIOLOGY REPORT (SQ) ---
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 FLUOROSCOPY TIME: 0.2 minutes 2 digital radiographic images saved to PACS. TECHNIQUE: Intra-operative images acquired during surgical procedure to evaluate progress. NUMBER OF IMAGES: Cine fluoroscopic images. LIMITATIONS: None. FINDINGS: 2 fluoroscopic images are submitted during right permanent central line placement with the tip in the superior vena cava. Please see the operative report for further details. IMPRESSION: Intra procedural imaging and fluoro COMMENT: Quality ID [id number]: Final reports for procedures using fluoroscopy that document radiation exp osure indices, or exposure time and number of fluorographic images (if radiation exposure indices are not available) Please consult full operative report of the attending physician for description of the procedure. TECHNICAL DOCUMENTATION: JOB ID: [id number] [employer]- All Rights Reserved Reading location - IP/workstation name: [facility]
== END 2018-06-18 21:00 | disposition home or self-care (01) ==
LOC: OROUT 13:28 → 4S 20:05 → OROUT 21:00
PROVIDERS: ATTEND Surgery
DX: C90.02 Multiple myeloma in relapse (principal); C90.00 Multiple myeloma not having achieved remission; K21.9 Gastro-esophageal reflux disease without esophagitis; E11.9 Type 2 diabetes mellitus without complications; I26.99 Other pulmonary embolism without acute cor pulmonale; Z88.8 Allergy status to other drugs, medicaments and biological substances; Z95.828 Presence of other vascular implants and grafts; Z87.891 Personal history of nicotine dependence; Z79.01 Long term (current) use of anticoagulants; Z79.899 Other long term (current) drug therapy; Z79.4 Long term (current) use of insulin; Z01.818 Encounter for other preprocedural examination
CPT/HCPCS: 36561; 36415; 82962; 84132; 85027; 85610; 85730; 77001; C1752; C1788; J2250; J0690; J3010; J3490; J2270; J2704; J1642; 532

== ENCOUNTER 2018-07-10 06:06 | Inpatient (IN) | payer MEDICARE, OTHER ==
--- NOTE | 2018-07-10 06:52 | ER Document Report ---
ED Fall - General Mode of Arrival: Ambulatory Information source: Patient TRAVEL OUTSIDE OF THE [place] IN LAST 30 DAYS: No <LAURA GIBSON - Last Filed: 07/10/18 06:52> <PAU GRAHAM - Last Filed: 07/10/18 08:46> - General Chief Complaint: Knee Pain Stated Complaint: FALL,BACK PAIN Time Seen by Provider: 07/10/18 06:32 Notes: 73-year-old male who presents to the emergency department today with complaints of left knee pain. Patient had a fall yesterday when was attempting to get out of his truck when he fell onto his knees, mainly on the left knee. Patient states he continued to have left knee pain yesterday and the pain was still present when he went to bed last night. Patient states that he gets up frequently during the night and switches back and forth between the bed and recliner and he was doing that this morning and he was unable to put weight on his left leg and he fell again. Patient again landed on his left knee which has caused more pain than he had been having with his initially injury. (LAURA GIBSON) - Related data Allergies/Adverse Reactions: lorazepam [From Ativan] Allergy (Mild, Verified 06/18/18 15:11) Hallucinations promethazine HCl [From Phenergan] Allergy (Mild, Verified 06/18/18 15:11) Hallucinations Past Medical History - General Information source: Patient - Social History Smoking Status: Never Smoker Cigarette use (# per day): No Frequency of alcohol use: None Drug Abuse: None Lives with: Family Family History: Reviewed & Not Pertinent, Hypertension Patient has suicidal ideation: No Patient has homicidal ideation: No - Past Medical History Cardiac Medical History: Reports: Hx Atrial Fibrillation, Hx Congestive Heart Failure, Hx Hypertension Pulmonary Medical History: Reports: Hx Sleep Apnea Endocrine Medical History: Reports: Hx Diabetes Mellitus Type 2 Malignancy Medical History: Reports Hx Bone Cancer - Multiple myeloma Musculoskeletal Medical History: Reports Hx Arthritis - back Past Surgical History: Reports: Hx Vascular Surgery - Port placement, Other - ORIF ;cataracts bilaterally - Immunizations Immunizations up to date: Yes Hx Diphtheria, Pertussis, Tetanus Vaccination: No Hx Pneumococcal Vaccination: 06/16/14 <LAURA GIBSON - Last Filed: 07/10/18 06:52> Review of Systems - Review of Systems Constitutional: No symptoms reported EENT: No symptoms reported Cardiovascular: No symptoms reported Respiratory: No symptoms reported Gastrointestinal: No symptoms reported Genitourinary: No symptoms reported Male Genitourinary: No symptoms reported Musculoskeletal: See HPI, Joint pain - left knee/upper leg pain Skin: No symptoms reported Hematologic/Lymphatic: No symptoms reported Neurological/Psychological: No symptoms reported -: Yes All other systems reviewed and negative <LAURA GIBSON - Last Filed: 07/10/18 06:52> Physical Exam <LAURA GIBSON - Last Filed: 07/10/18 06:52> <PAU GRAHAM - Last Filed: 07/10/18 08:46> - Vital signs Vitals: Temp Pulse Resp BP Pulse Ox 98.5 F 84 18 113/42 L 94 07/10/18 06:09 07/10/18 06:09 07/10/18 06:09 07/10/18 06:09 07/10/18 06:09 - Notes Notes: Physical Exam: General: Alert, appears well. Dry mucous membranes. HEENT: Normocephalic. Atraumatic. PERRL. Extraocular movements intact. Oropharynx clear. Neck: Supple. Non-tender. Respiratory: No respiratory distress. Clear and equal breath sounds bilaterally. Cardiovascular: Regular rate and rhythm. Abdominal: Obese. Non-tender. No distension. Normal Bowel Sounds. Back: Non-tender. No deformity or step off. Extremities: Moves all four extremities. Upper extremities: Normal inspection. Normal ROM. Lower extremities: Gross swelling over the left knee. Tenderness with palpation over the left proximal medial tibia with swelling medially. No tenderness with palpation of the patella or other knee structures. Neurological: Normal cognition. AAOx4. Normal speech. Psychological: Normal affect. Normal Mood. Skin: Warm. Dry. Normal color. (LAURA GIBSON) Course - Laboratory Result Diagrams: 07/10/18 07:02 07/10/18 07:02 - Diagnostic Test Radiology reviewed: Image reviewed, Reports reviewed - Pathological fracture of the proximal left tibia - Consults Dr. Finley Time consulted: 07:30 Consulted provider: will come to ER Dr. Rivero Consulted provider: other - Agreed to consult on the patient, refused to admit the patient to the hospitalists service. Dr. Mack Consulted provider: other - Came back to inquire about the patient situation, and I was told later that he agreed to admit the patient to the hospitalist service. <PAU GRAHAM - Last Filed: 07/10/18 08:46> - Vital Signs Vital signs: Temp Pulse Resp BP Pulse Ox 98.5 F 84 18 113/42 L 94 07/10/18 06:09 07/10/18 06:09 07/10/18 06:09 07/10/18 06:09 07/10/18 06:09 - Laboratory Laboratory results interpreted by me: 07/10/18 07/10/18 07/10/18 07:02 07:02 07:02 RBC 3.40 L Hgb 9.7 L Hct 28.8 L RDW 23.2 H Seg Neutrophils % 89.3 H Lymphocytes % 6.6 L Absolute Lymphocytes 0.4 L PT 37.5 H Carbon Dioxide 32 H BUN 21 H Creatinine 1.35 H Est GFR (Non-Af Amer) 52 L Calcium 10.7 H ALT 12 L Total Protein 9.4 H Discharge <LAURA GIBSON - Last Filed: 07/10/18 06:52> - Discharge Admitting Provider: Hospitalist <PAU GRAHAM - Last Filed: 07/10/18 08:46> - Discharge Clinical Impression: Pathological fracture, left tibia, initial encounter for fracture, Chronic anticoagulation Multiple myeloma Qualifiers: Multiple myeloma remission status: not in remission Qualified Code(s): C90.00 - Multiple myeloma not having achieved remission Condition: Stable Disposition: ADMITTED INPATIENT Referrals: FANNIE GAN MD [Primary Care Provider] - Follow up as needed Scribe Attestation: 07/10/18 07:48 I personally performed the services described in the documentation, reviewed and edited the documentation which was dictated to the scribe in my presence, and it accurately records my words and actions. (PAU GRHAAM) Scribe Documentation - Scribe Written by Leopoldo:: Leopoldo Mares, 07/10/656 acting as scribe for :: Ronald <LAURA GIBSON - Last Filed: 07/10/18 06:52>
--- NOTE | 2018-07-10 07:25 | RADIOLOGY REPORT (SQ) ---
EXAM DESCRIPTION: XR KNEE 1-2 VIEWS COMPLETED DATE/TME: 07/10/2018 06:49 CLINICAL HISTORY: 73 years, Male, fall, left knee pain COMPARISON: None. NUMBER OF VIEWS: Two view LIMITATIONS: None. FINDINGS: Comminuted fracture of the proximal diaphysis of the left tibia extends through a 3.9 cm ill-defined lytic lesion. Heterogeneous bony demineralization of the tibia. Atherosclerosis. Partially imaged femoral intramedullary binh. Patellar enthesophytes. Small left knee effusion. IMPRESSION: Pathologic fracture of the proximal left tibial shaft. Differential etiologies include underlying malignancy.
[2018-07-10 07:28] LABS: ABSOLUTE LYMPHOCYTES (AUTO) 0.4 10^3/uL (0.5-4.7); ABSOLUTE MONOCYTES (AUTO) 0.2 10^3/uL (0.1-1.4); ABSOLUTE NEUT (AUTO) 5.9 10^3/uL (1.7-8.2); BASOPHILS % (AUTO) 0.2 % (0-2); EOSINOPHILS % (AUTO) 0.7 % (0-6); HEMATOCRIT 28.8 % (37.9-51.0); HEMOGLOBIN 9.7 g/dL (13.5-17.0); LYMPHOCYTES % (AUTO) 6.6 % (13-45); MEAN CORPUSCULAR HEMOGLOBIN 28.5 pg (27.0-33.4); MEAN CORPUSCULAR HGB CONC 33.6 g/dL (32.0-36.0); MEAN CORPUSCULAR VOLUME 85 fl (80-97); MONOCYTES % (AUTO) 3.2 % (3-13); PLATELET COUNT 174 10^3/uL (150-450); RED CELL DISTRIBUTION WIDTH 23.2 % (11.5-14.0); SEGMENTED NEUTROPHILS % (AUTO) 89.3 % (42-78); TOTAL CELLS COUNTED % (AUTO) 100 %; WHITE BLOOD COUNT 6.6 10^3/uL (4.0-10.5)
[2018-07-10 07:34] LABS: INTERNATIONAL RATION (INR) 3.59; PROTHROMBIN TIME 37.5 SEC (11.4-15.4)
[2018-07-10 07:37] LABS: AMORPHOUS SEDIMENT,URINE 1+ /HPF; APPEARANCE,URINE CLOUDY; BILIRUBIN,URINE NEGATIVE (NEGATIVE); COLOR,URINE YELLOW; GLUCOSE, URINE NEGATIVE (NEGATIVE); KETONES,URINE NEGATIVE (NEGATIVE); LEUKOCYTE ESTERASE,URINE NEGATIVE (NEGATIVE); NITRITE,URINE NEGATIVE (NEGATIVE); PROTEIN,URINE NEGATIVE (NEGATIVE); URINE SPECIFIC GRAVITY 1.009; UROBILINOGEN,URINE NEGATIVE mg/dL (<2.0)
[2018-07-10 07:50] LABS: ALANINE AMINOTRANSFERASE 12 U/L (21-72); ALBUMIN 3.7 g/dL (3.5-5.0); ALKALINE PHOSPHATASE 75 U/L (38-126); ANION GAP 6 (5-19); ASPARTATE AMINO TRANSFERASE 21 U/L (17-59); BILIRUBIN,DIRECT 0.2 mg/dL (0.0-0.4); BILIRUBIN,TOTAL 0.8 mg/dL (0.2-1.3); BLOOD UREA NITROGEN 21 mg/dL (7-20); CALCIUM 10.7 mg/dL (8.4-10.2); CARBON DIOXIDE 32 mmol/L (22-30); CHLORIDE 101 mmol/L (98-107); GLUCOSE 91 mg/dL (75-110); POTASSIUM 3.6 mmol/L (3.6-5.0); SODIUM 138.9 mmol/L (137-145); TOTAL PROTEIN 9.4 g/dL (6.3-8.2)
--- NOTE | 2018-07-10 08:41 | PDOC CONSULTATION ---
Consultation Consult Date: 07/10/18 Attending physician:: JOSHUA ROSE Consult reason:: Asked by Dr. Rose to see patient with known history of multiple myeloma here with left tibial fracture, status post fall, also with chronic anticoagulation on Coumadin. History of Present Illness Admission Date/PCP: FANNIE GAN MD Patient complains of: Left lower extremity pain post fall History of Present Illness: NINI ZHENG is a 73 year old male with long-standing history of multiple myeloma, he has had about an 8-year history of this now status post multiple lines of therapy as well as transplant, most recently on Velcade/Cytoxan, and was maintaining a good response with this. He recently had a hip fracture and recovered from that, got out of rehab about 4 weeks ago and we restarted therapy thereafter. Over the last week has been a little bit weaker, but he was actually doing activities at home, got into his truck and went to check on his chicken coop, as he got out of his truck he slipped down and fell. Thereafter he was not able to put pressure on the left leg. Left knee x-ray indicated a left proximal tibial fracture, there was a 3 cm associated lytic lesion there. Of note he is on chronic anticoagulation with Coumadin because of both history of PE as well as A. fib. His INR is 3.59 this morning. Past Medical History Cardiac Medical History: Reports: Atrial Fibrillation, Congestive Heart Failure , Hypertension Denies: Myocardial Infarction Pulmonary Medical History: Reports: Sleep Apnea Denies: Asthma, Bronchitis, Chronic Obstructive Pulmonary Disease (COPD), Pneumonia Neurological Medical History: Denies: Seizures Endocrine Medical History: Reports: Diabetes Mellitus Type 2 Malignancy Medical History: Reports: Bone Cancer - Multiple myeloma Musculoskeltal Medical History: Reports: Arthritis - back Hematology: Reports: Anemia Past Surgical History Past Surgical History: Reports: Vascular Surgery - Port placement, Other - ORIF ;cataracts bilaterally Social History Information Source: Patient Lives with: Family Smoking Status: Never Smoker Frequency of Alcohol Use: None Hx Recreational Drug Use: No Drugs: None Hx Prescription Drug Abuse: No - Advance Directive Resuscitation Status: Full Code Family History Family History: Reviewed & Not Pertinent, Hypertension Parental Family History Reviewed: Yes Children Family History Reviewed: Yes Sibling(s) Family History Reviewed.: Yes Medication/Allergy Home Medications: Calcium Carbonate [Calcium] 600 mg PO DAILY 05/01/18 Fluticasone Propionate [Flonase Nasal [place] 50 Mcg/Emblem 16 gm] 1 spray NASL DAILYP PRN 05/01/18 Insulin Glargine,Hum.rec.anlog [Lantus Solostar] 40 units SQ QPM 05/01/18 L.acidoph,Paracasei, B.lactis [Probiotic] 1 cap PO DAILY 05/01/18 Levothyroxine Sodium [Synthroid] 25 mcg PO Q6AM 05/01/18 Omeprazole 20 mg PO DAILY 05/01/18 Rosuvastatin Calcium [Crestor 10 mg Tablet] 10 mg PO QPM 05/01/18 Sildenafil Citrate [Sildenafil] 20 mg PO TID 05/01/18 Valacyclovir HCl [Valtrex 500 mg Tablet] 500 mg PO DAILY 05/01/18 Warfarin Sodium [Coumadin] 5 mg PO TUTH 05/01/18 Warfarin Sodium [Coumadin] 10 mg PO SUMOWEFRSA 05/01/18 Acetaminophen [Tylenol 325 mg Tablet] 650 mg PO Q4HP PRN #30 tablet 05/14/18 Citalopram Hydrobromide [Celexa 10 mg Tablet] 10 mg PO DAILY #30 tablet Diltiazem HCl [Cardizem Cd 120 mg Capsule] 1 cap.sr PO DAILY #30 cap.sr Furosemide [Lasix 40 mg Tablet] 20 mg PO BID@0800,1200 #60 tablet 05/14/18 Insulin Lispro [Humalog Insulin (Lispro) 100 unit/mL] 0 - 12 unit SUBCUT Q6HP PRN unit 05/14/18 Mag Hydrox/Al Hydrox/Simeth [Maalox Plus Susp 30 Udcup] 30 ml PO Q6HP PRN udc 05/14/18 Oxycodone HCl [Oxy-Ir 5 mg Tablet] 10 mg PO Q8HP PRN #30 tablet 05/14/18 Oxycodone HCl [Oxycontin] 40 mg PO Q12 #30 tab.er.12h 05/14/18 Potassium Chloride [Klor-Con 10 Meq Capsule ER] 20 meq PO Q12 capsule.er Potassium Chloride [Klor-Con M20] 1 tab PO BID 06/18/18 Allergies/Adverse Reactions: lorazepam [From Ativan] Allergy (Mild, Verified 06/18/18 15:11) Hallucinations promethazine HCl [From Phenergan] Allergy (Mild, Verified 06/18/18 15:11) Hallucinations Review of Systems Constitutional: PRESENT: fatigue, weakness Cardiovascular: ABSENT: chest pain, dyspnea on exertion, edema, orthropnea, palpitations Gastrointestinal: ABSENT: abdominal pain, constipation, diarrhea, hematemesis, hematochezia, nausea, vomiting Physical Exam Vital Signs: Temp Pulse Resp BP Pulse Ox 98.5 F 84 18 113/42 L 94 07/10/18 06:09 07/10/18 06:09 07/10/18 06:09 07/10/18 06:09 07/10/18 06:09 General appearance: PRESENT: no acute distress, well-developed, well-nourished Head exam: PRESENT: atraumatic, normocephalic Eye exam: PRESENT: conjunctiva pink, EOMI, PERRLA. ABSENT: scleral icterus Ear exam: PRESENT: normal external ear exam Mouth exam: PRESENT: moist, tongue midline Neck exam: ABSENT: carotid bruit, JVD, lymphadenopathy, thyromegaly Respiratory exam: PRESENT: clear to auscultation romelia. ABSENT: rales, rhonchi, wheezes Cardiovascular exam: PRESENT: RRR. ABSENT: diastolic murmur, rubs, systolic murmur Pulses: PRESENT: normal dorsalis pedis pul Vascular exam: PRESENT: normal capillary refill GI/Abdominal exam: PRESENT: normal bowel sounds, soft. ABSENT: distended, guarding, mass, organolmegaly, rebound, tenderness Rectal exam: PRESENT: deferred Extremities exam: PRESENT: full ROM. ABSENT: calf tenderness, clubbing, pedal edema Musculoskeletal exam: PRESENT: other - L tibial swelling, can't bear weight on that leg Neurological exam: PRESENT: alert, awake, oriented to person, oriented to place , oriented to time, oriented to situation, CN II-XII grossly intact. ABSENT: motor sensory deficit Psychiatric exam: PRESENT: appropriate affect, normal mood. ABSENT: homicidal ideation, suicidal ideation Skin exam: PRESENT: dry, intact, warm. ABSENT: cyanosis, rash Results Laboratory Results: 07/10/18 07:02 07/10/18 07:02 07/10/18 07/10/18 07/10/18 07:02 07:02 07:02 WBC 6.6 RBC 3.40 L Hgb 9.7 L Hct 28.8 L MCV 85 MCH 28.5 MCHC 33.6 RDW 23.2 H Plt Count 174 Seg Neutrophils % 89.3 H Lymphocytes % 6.6 L Monocytes % 3.2 Eosinophils % 0.7 Basophils % 0.2 Absolute Neutrophils 5.9 Absolute Lymphocytes 0.4 L Absolute Monocytes 0.2 Absolute Eosinophils 0.0 Absolute Basophils 0.0 Sodium 138.9 Potassium 3.6 Chloride 101 Carbon Dioxide 32 H Anion Gap 6 BUN 21 H Creatinine 1.35 H Est GFR ( Amer) > 60 Est GFR (Non-Af Amer) 52 L Glucose 91 Calcium 10.7 H Total Bilirubin 0.8 AST 21 ALT 12 L Alkaline Phosphatase 75 Total Protein 9.4 H Albumin 3.7 Urine Color YELLOW Urine Appearance CLOUDY Urine pH 7.0 Ur Specific [place] 1.009 Urine Protein NEGATIVE Urine Glucose (UA) NEGATIVE Urine Ketones NEGATIVE Urine Blood NEGATIVE Urine Nitrite NEGATIVE Ur Leukocyte Esterase NEGATIVE Urine WBC (Auto) 0 Urine RBC (Auto) 0 Impressions: Knee X-Ray 07/10/18 06:49 IMPRESSION: Pathologic fracture of the proximal left tibial shaft. Differential etiologies include underlying malignancy. Status: Image reviewed by me Assessment & Plan - Diagnosis (1) Chronic anticoagulation Is this a current diagnosis for this admission?: Yes Plan: Anticoagulation has been held, gave vitamin K today, or though would like INR of less than 1.5, will continue vitamin K until we get that point. Probably will not be until Saturday before we get there. He will need to restart anticoagulation soon after surgery because he is at high risk for thrombosis postoperatively. (2) Pathological fracture, left tibia, initial encounter for fracture Is this a current diagnosis for this admission?: Yes Plan: Agree with approach to fix this area, his life expectancy is greater than 6 months, hopefully over a year at this point. If he still has considerable pain post surgery he may benefit from postoperative radiation to that area. (3) Multiple myeloma Qualifiers: Multiple myeloma remission status: not in remission Qualified Code(s): C90.00 - Multiple myeloma not having achieved remission Is this a current diagnosis for this admission?: Yes Plan: Because of lytic lesion and pathologic fracture, holding chemotherapy until he recovers from all this. We will need to adjust considerably. - Time Time Spent: Greater than 70 Minutes - Inpatient Certification Based on my medical assessment, after consideration of the patient's comorbidities, presenting symptoms, or acuity I expect that the services needed warrant INPATIENT care.: Yes I certify that my determination is in accordance with my understanding of Medicare's requirements for reasonable and necessary INPATIENT services [42 CFR 412.3e].: Yes Medical Necessity: Need for Pain Control, Need for Surgery, Risk of Complication if Not Cared For in Hospital
[2018-07-10] MEDS ORDERED: IPRATROPIUM/ALBUTEROL 0.5-2.5 MG/3 ML AMPUL NEB PRN (09:12)
[2018-07-10] MEDS ORDERED: MAG HYDROX/AL HYDROX/SIMETH SUSP 30 ML UDCUP PO PRN (09:12)
[2018-07-10] MEDS ORDERED: OXYCODONE HCL IR 5 MG TABLET PO PRN (09:18)
[2018-07-10] MEDS ORDERED: FLUTICASONE NASAL SPRAY 50 MCG/SPRY 120 SPRAY/16 GM NASL PRN (09:18)
[2018-07-10] MEDS ORDERED: GLUCAGON,HUMAN RECOMB 1 MG INJ IM PRN (09:20)
[2018-07-10] MEDS ORDERED: DEXTROSE 50%-WATER 25 GM/50 ML DISP.SYRIN IV PRN ×2 (09:20)
[2018-07-10] MEDS ORDERED: DEXTROSE 40% GEL 15 GM TUBE PO PRN ×2 (09:20)
[2018-07-10] MEDS ORDERED: (PENDING PHARMACY ID) (Calcium Carbonate [Calcium] 600 MG) PO SCH (10:00)
[2018-07-10] MEDS ORDERED: (PENDING PHARMACY ID) (Citalopram Hydrobromide [Celexa 10 Mg Tablet] 10 MG) PO SCH (10:00)
[2018-07-10] MEDS ORDERED: PHYTONADIONE INJ 10 MG/1 ML AMPULE SUBCUT ONE (10:05)
[2018-07-10 10:15] LABS: NT PRO BNP 593 pg/mL (5-900)
--- NOTE | 2018-07-10 10:15 | RADIOLOGY REPORT (SQ) ---
EXAM DESCRIPTION: CHEST SINGLE VIEW COMPLETED DATE/TIME: 07/10/2018 10:02 am REASON FOR STUDY: preop COMPARISON: Chest films 05/01/2018 EXAM PARAMETERS: NUMBER OF VIEWS: One view. TECHNIQUE: Single frontal radiographic view of the chest acquired. RADIATION DOSE: NA LIMITATIONS: None. FINDINGS: LUNGS AND PLEURA: No opacities, masses or pneumothorax. No pleural effusion. MEDIASTINUM AND HILAR STRUCTURES: Prominent central pulmonary arteries, question underlying pulmonary hypertension HEART AND VASCULAR STRUCTURES: Borderline cardiomegaly BONES: No acute findings. HARDWARE: Right jugular central line tip superior vena cava OTHER: No other significant finding. IMPRESSION: Prominent central pulmonary arteries, question underlying pulmonary hypertension TECHNICAL DOCUMENTATION: JOB ID: [id number] [employer]- All Rights Reserved Reading location - IP/workstation name: [email or web address], [email or web address]
[2018-07-10 10:19] LABS: TROPONIN I < 0.012 ng/mL
[2018-07-10] MEDS ORDERED: CEFAZOLIN 2 GM/D5W RTU 2 GM/50 ML RTUPB IV PRN (11:36)
[2018-07-10] MEDS: MORPHINE SULFATE 10 MG/ML INJ IV PRN ×2 (12:23→21:00)
[2018-07-10] MEDS: INSULIN LISPRO 100 UNIT/ML 3 ML VIAL SUBCUT PRN (17:02)
[2018-07-10] MEDS ORDERED: (PENDING PHARMACY ID) (Potassium Chloride [Klor-Con M20] 20 MEQ) PO SCH (18:00)
--- NOTE | 2018-07-10 18:04 | PDOC H&P ---
History of Present Illness Admission Date/PCP: 07/10/18 09:19 FANNIE GAN MD Patient complains of: Lt knee pain History of Present Illness: NINI ZHENG is a 73 year old male with a past medical history of multiple myeloma, CHF, pulmonary hypertension, hypertension, hyperlipidemia, A. fib ( chronically anticoagulated on Coumadin), COPD, and insulin-dependent diabetes mellitus who presents to the emergency department this morning with a complaint of left knee pain. The patient was getting out of his vehicle when his knee gave out and he slid to the ground. He is noted to have limited range of motion secondary to pain and mild edema and erythema of the knee. Patient reports that he has had several weeks to a month of aching discomfort in the same joint. Evaluation in the emergency department revealed a left proximal tibia shaft fracture extending through a ill-defined lytic lesion. Of note, the patient recently underwent a left hip replacement due to pathological fracture. Otherwise his workup revealed his baseline anemia, supratherapeutic INR (3.59), and CHIQUITA (creatinine 1.35 up from baseline of 1.00). The patient's established oncologist, Dr. Banda has been consulted, Dr. Finley is also on board. He is referred to the hospitalist service for admission and management of his multiple comorbid conditions while awaiting orthopedic repair. Past Medical History Cardiac Medical History: Reports: Atrial Fibrillation, Congestive Heart Failure , Hyperlipidema, Hypertension Denies: Myocardial Infarction Pulmonary Medical History: Reports: Chronic Obstructive Pulmonary Disease (COPD) , Sleep Apnea Denies: Asthma, Bronchitis, Pneumonia EENT Medical History: Reports: None Neurological Medical History: Denies: Ischemic CVA, Seizures Endocrine Medical History: Reports: Diabetes Mellitus Type 2 - Insulin-dependent Renal/ Medical History: Reports: None Malignancy Medical History: Reports: Bone Cancer - Multiple myeloma GI Medical History: Reports: None Musculoskeltal Medical History: Reports: Arthritis - back Skin Medical History: Reports: None Psychiatric Medical History: Reports: Depression Traumatic Medical History: Reports: None Hematology: Reports: Anemia Infectious Medical History: Reports: None Past Surgical History Past Surgical History: Reports: Hip Replacement, Vascular Surgery - Port placement, Other - cataracts bilaterally Social History Information Source: Patient, Relative Lives with: Family Smoking Status: Former Smoker Cigarettes Packs Per Day: 2 Number of Years Smokin Last Time Smoked: 1987 Frequency of Alcohol Use: None Hx Recreational Drug Use: No Drugs: None Hx Prescription Drug Abuse: No - Advance Directive Resuscitation Status: Full Code Surrogate healthcare decision maker:: The patient's . Family History Family History: Reviewed & Not Pertinent, Hypertension Parental Family History Reviewed: Yes Children Family History Reviewed: Yes Sibling(s) Family History Reviewed.: Yes Medication/Allergy Home Medications: Fluticasone Propionate [Flonase Nasal [place] 50 Mcg/[place] 16 gm] 1 spray NASL DAILYP PRN 05/01/18 Insulin Glargine,Hum.rec.anlog [Lantus Solostar] 40 units SQ QPM 05/01/18 Levothyroxine Sodium [Synthroid] 25 mcg PO Q6AM 05/01/18 Omeprazole 20 mg PO Q6AM 05/01/18 Rosuvastatin Calcium [Crestor 10 mg Tablet] 10 mg PO QPM 05/01/18 Sildenafil Citrate [Sildenafil] 20 mg PO TID 05/01/18 Valacyclovir HCl [Valtrex 500 mg Tablet] 500 mg PO DAILY 05/01/18 Warfarin Sodium [Coumadin] 10 mg PO SUMOWEFRSA@1000 05/01/18 Acetaminophen [Tylenol 325 mg Tablet] 650 mg PO Q4HP PRN #30 tablet 05/14/18 Citalopram Hydrobromide [Celexa 10 mg Tablet] 10 mg PO DAILY #30 tablet Furosemide [Lasix 40 mg Tablet] 20 mg PO BID@0800,1200 #60 tablet 05/14/18 Mag Hydrox/Al Hydrox/Simeth [Maalox Plus Susp 30 Udcup] 30 ml PO Q6HP PRN udc 05/14/18 Oxycodone HCl [Oxycontin] 40 mg PO Q12 #30 tab.er.12h 05/14/18 Potassium Chloride [Klor-Con M20] 20 meq PO BID 06/18/18 Calcium Carbonate/Vitamin D3 [Calcium 600-Vit D3 400 Tablet] 1 each PO DAILY Dexamethasone [Decadron 4 Mg Tablet] 20 mg PO TH@0600 07/10/18 Diltiazem HCl [Cardizem Cd 120 mg Capsule] 120 cap.sr PO DAILY 07/10/18 L. Rhamnosus GG/Inulin [Culturelle Capsule] 1 each PO QPM 10/25/18 Oxycodone HCl 15 mg PO Q6HP PRN 07/10/18 Warfarin Sodium 6 mg PO TUTHSA@1000 07/10/18 Allergies/Adverse Reactions: lorazepam [From Ativan] Allergy (Mild, Verified 06/18/18 15:11) Hallucinations promethazine HCl [From Phenergan] Allergy (Mild, Verified 06/18/18 15:11) Hallucinations Review of Systems Constitutional: ABSENT: chills, fever(s), headache(s), weight gain, weight loss Eyes: ABSENT: visual disturbances Ears: ABSENT: hearing changes Cardiovascular: ABSENT: chest pain, dyspnea on exertion, edema, orthropnea, palpitations Respiratory: ABSENT: cough, hemoptysis Gastrointestinal: ABSENT: abdominal pain, constipation, diarrhea, hematemesis, hematochezia, nausea, vomiting Genitourinary: ABSENT: dysuria, hematuria Musculoskeletal: PRESENT: as per HPI Integumentary: ABSENT: rash, wounds Neurological: ABSENT: abnormal gait, abnormal speech, confusion, dizziness, focal weakness, syncope Psychiatric: ABSENT: anxiety, depression, homidical ideation, suicidal ideation Endocrine: ABSENT: cold intolerance, heat intolerance, polydipsia, polyuria Hematologic/Lymphatic: ABSENT: easy bleeding, easy bruising Physical Exam Vital Signs: Temp Pulse Resp BP Pulse Ox 98.5 F 72 12 122/50 L 97 07/10/18 15:41 07/10/18 15:41 07/10/18 15:41 07/10/18 15:41 07/10/18 15:41 Intake & Output 07/09/18 07/10/18 07/11/18 06:59 06:59 06:59 Intake Total 222 Output Total 175 Balance 47 Weight 109.2 kg General appearance: PRESENT: no acute distress, cooperative, hard of hearing, well-developed, well-nourished - Overweight Head exam: PRESENT: atraumatic, normocephalic Eye exam: PRESENT: conjunctiva pink, EOMI, PERRLA. ABSENT: scleral icterus Ear exam: PRESENT: normal external ear exam Mouth exam: PRESENT: moist, tongue midline Neck exam: ABSENT: carotid bruit, JVD, lymphadenopathy, thyromegaly Respiratory exam: PRESENT: clear to auscultation romelia, symmetrical, unlabored. ABSENT: rales, rhonchi, wheezes Cardiovascular exam: PRESENT: RRR, +S1, +S2. ABSENT: diastolic murmur, rubs, systolic murmur Pulses: PRESENT: normal dorsalis pedis pul Vascular exam: PRESENT: normal capillary refill GI/Abdominal exam: PRESENT: normal bowel sounds, soft. ABSENT: distended, guarding, mass, organolmegaly, rebound, tenderness Rectal exam: PRESENT: deferred Extremities exam: PRESENT: joint swelling - Lt knee, tenderness - Lower LLE/ knee. ABSENT: calf tenderness, clubbing, pedal edema Neurological exam: PRESENT: alert, awake, oriented to person, oriented to place , oriented to time, oriented to situation, CN II-XII grossly intact. ABSENT: motor sensory deficit Psychiatric exam: PRESENT: appropriate affect, normal mood. ABSENT: homicidal ideation, suicidal ideation Skin exam: PRESENT: dry, intact, warm, other - scattered ecchymosis. ABSENT: cyanosis, rash Results Impressions: Chest X-Ray 07/10/18 00:00 IMPRESSION: Prominent central pulmonary arteries, question underlying pulmonary hypertension Knee X-Ray 07/10/18 06:49 IMPRESSION: Pathologic fracture of the proximal left tibial shaft. Differential etiologies include underlying malignancy. Assessment & Plan - Diagnosis (1) Pathological fracture, left tibia, initial encounter for fracture Is this a current diagnosis for this admission?: Yes Plan: The patient reports a slip and fall when his knee gave out resulting in left knee pain and inability to bear weight. Imaging reveals a left proximal tibial shaft fracture extending through a lytic lesion; pathological fracture. Dr. Finley has been consulted; primary plan per his expertise. Has requested INR goal of 1.5 for surgical repair. The patient's home pain medication regiment is continued: oxycontin 40 mg twice daily with oxycodone 15 mg q6 hours as needed. IV morphine as needed for breakthrough pain. EKG demonstrates normal sinus rhythm with nonspecific conduction delay; no acute findings. Chest x-ray revealed prominent central pulmonary arteries, no acute findings. ProBNP and troponin are reassuring. Echocardiogram from April 2018 revealed an ejection fraction of 65% with severe pulmonary hypertension. Cardiology consultation for surgical clearance April 2018 for left hip ORIF stated that the patient had a moderate, but not prohibitive, cardiac surgical risk with recommendations to resume anticoagulation as soon as possible following surgery with serial EKGs and cardiac enzymes postoperatively. The patient and family deny any acute changes since that time; do not feel that an additional cardiology consultation is required for preoperative clearance at this time. (2) Supratherapeutic INR Is this a current diagnosis for this admission?: Yes Plan: INR is 3.59. His Coumadin is held. He has been provided vitamin K 2.5 milligrams subcutaneously x1. We will monitor daily PT/INR. (3) Multiple myeloma Qualifiers: Multiple myeloma remission status: not in remission Qualified Code(s): C90.00 - Multiple myeloma not having achieved remission Is this a current diagnosis for this admission?: Yes Plan: Oncology has been consulted; appreciate Dr. Banda's assistance. The patient's home pain medication regiment is continued: oxycontin 40 mg twice daily with oxycodone 15 mg q6 hours as needed. (4) COPD (chronic obstructive pulmonary disease) Is this a current diagnosis for this admission?: Yes Plan: Stable and without exacerbation at this time. Chest x-ray revealed prominent central pulmonary arteries, no acute findings. The patient's Flonase is continued; he does not appear to be on any other maintenance therapies. Supplemental oxygen as needed nebulizer treatments are available to maintain oxygen saturations. (5) Chronic diastolic (congestive) heart failure Is this a current diagnosis for this admission?: Yes Plan: Stable and without exacerbation at this time. ProBNP and troponin are reassuring. Echocardiogram from April 2018 revealed an ejection fraction of 65% with severe pulmonary hypertension. The patient's home dose diltiazem, furosemide, potassium and statin therapy are continued. He is placed on a cardiac diet. Daily weights, strict I&Os (6) Pulmonary hypertension Is this a current diagnosis for this admission?: Yes Plan: The patient's home dose Sildenafil is continued. (7) Hypertension Is this a current diagnosis for this admission?: Yes Plan: Normotensive at present. Medications as above. (8) Hyperlipidemia Is this a current diagnosis for this admission?: Yes Plan: Cardiac diet. Continue his daily statin therapy. (9) Hypothyroidism Is this a current diagnosis for this admission?: Yes Plan: The patient's home dose levothyroxine is continued. (10) Atrial fibrillation Qualifiers: Atrial fibrillation type: paroxysmal Qualified Code(s): I48.0 - Paroxysmal atrial fibrillation Is this a current diagnosis for this admission?: Yes Plan: Currently in sinus rhythm. Medication management as above. Pt is admitted on continuous cardiac telemetry. - Time Time Spent: 50 to 70 Minutes Medications reviewed and adjusted accordingly: Yes - Inpatient Certification Based on my medical assessment, after consideration of the patient's comorbidities, presenting symptoms, or acuity I expect that the services needed warrant INPATIENT care.: Yes I certify that my determination is in accordance with my understanding of Medicare's requirements for reasonable and necessary INPATIENT services [42 CFR 412.3e].: Yes Medical Necessity: Significant Comorbidiites Make Outpatient Treatment Too Risky , Need Close Monitoring Due to Risk of Patient Decompensation, Need For Continuous Telemetry Monitoring, Need for Surgery
[2018-07-10] MEDS: ACETAMINOPHEN 325 MG TABLET PO PRN (20:52)
--- NOTE | 2018-07-10 21:47 | EKG REPORT ---
SEVERITY:- ABNORMAL ECG - SINUS RHYTHM ATRIAL PREMATURE COMPLEX NONSPECIFIC INTRAVENTRICULAR CONDUCTION DELAY : Confirmed by: Adarsh Chun 10-Jul-2018 21:47:23
[2018-07-10] MEDS: OXYCODONE HCL SR 40 MG TABLET PO SCH (22:41)
[2018-07-10] MEDS: ATORVASTATIN CALCIUM 20 MG TABLET PO SCH (22:44)
[2018-07-10] MEDS: INSULIN GLARGINE,HUM.REC.ANLOG 300 UNIT/3 ML INSULN.PEN SUBCUT SCH (22:46)
[2018-07-10] MEDS: NORMAL SALINE 1000 ML 1,000 ML IV PRN (22:51)
[2018-07-11] MEDS: LANSOPRAZOLE 15 MG TAB.RAP.DR PO SCH (07:02)
[2018-07-11] MEDS: LEVOTHYROXINE SODIUM 0.025 MG TABLET PO SCH (07:04)
--- NOTE | 2018-07-11 08:43 | PDOC PROGRESS REPORT ---
Subjective Progress Note for:: 07/11/18 Subjective:: Patient states that the pain has been bad, but pain meds did work last night. No constipation yet. Anxious to have surgery. ROS: good appetite. No chest pain. No dyspnea. Reason For Visit: LT TIBIAL FRACTURE,MULTIPLE MYELOMA,CHIQUITA Physical Exam Vital Signs: Temp Pulse Resp BP Pulse Ox 98.3 F 70 17 132/48 H 95 07/10/18 23:11 07/11/18 03:40 07/11/18 03:40 07/11/18 03:40 07/11/18 03:40 Intake & Output 07/10/18 07/11/18 07/12/18 06:59 06:59 06:59 Intake Total 877 Output Total 725 Balance 152 Weight 109.2 kg General appearance: PRESENT: no acute distress Respiratory exam: PRESENT: unlabored Extremities exam: PRESENT: other - Left leg in splint. Neurological exam: PRESENT: alert, awake Psychiatric exam: PRESENT: appropriate affect Skin exam: PRESENT: normal color Results Impressions: Chest X-Ray 07/10/18 00:00 IMPRESSION: Prominent central pulmonary arteries, question underlying pulmonary hypertension Knee X-Ray 07/10/18 06:49 IMPRESSION: Pathologic fracture of the proximal left tibial shaft. Differential etiologies include underlying malignancy. Assessment & Plan - Diagnosis (1) Chronic anticoagulation Is this a current diagnosis for this admission?: Yes Plan: Unsure why patient has not yet had labs drawn this morning. They have been ordered. Will follow INR daily. Received Vit K yesterday. Warfarin on hold. Await INR<1.5 in preparation for surgery. (2) Pathological fracture, left tibia, initial encounter for fracture Is this a current diagnosis for this admission?: Yes Plan: Discussed with Dr. Finley. He is planning surgery on Saturday. If needed, I will give FFP to make sure INR is OK. - Plan Summary Plan Summary: Patient will require adequate pain control until surgery can be done. We also discussed Laxatives PRN. He will have nurses call me if needed.
[2018-07-11] MEDS: FUROSEMIDE 20 MG TABLET PO SCH ×2 (09:00→12:52)
[2018-07-11] MEDS ORDERED: POTASSIUM CHLORIDE 10 MEQ CAPSULE.ER PO SCH (10:00)
[2018-07-11] MEDS ORDERED: (PENDING PHARMACY ID) (Calcium Carbonate/Vitamin D3 [Calcium 600-Vit D3 400 Tablet] 1 EACH PO SCH (10:00)
[2018-07-11] MEDS: CALCIUM CARBONATE 250 MG/VITAMIN D3 125 UNIT TABLET PO SCH (10:12)
[2018-07-11] MEDS: OXYCODONE HCL SR 40 MG TABLET PO SCH ×2 (10:12→22:09)
[2018-07-11] MEDS: DILTIAZEM HCL 120 MG CAP.SR.24H PO SCH (10:12)
[2018-07-11] MEDS: DOCUSATE SODIUM 100 MG CAPSULE PO SCH ×2 (10:13→17:14)
[2018-07-11] MEDS: CITALOPRAM HYDROBROMIDE 20 MG TABLET PO SCH (10:14)
[2018-07-11] MEDS: CALCIUM CARBONATE 500 MG TAB.CHEW PO SCH (10:16)
[2018-07-11] MEDS: SILDENAFIL CITRATE 20 MG TABLET PO SCH ×3 (10:30→17:11)
[2018-07-11 11:38] LABS: ABSOLUTE LYMPHOCYTES (AUTO) 0.8 10^3/uL (0.5-4.7); ABSOLUTE MONOCYTES (AUTO) 0.4 10^3/uL (0.1-1.4); ABSOLUTE NEUT (AUTO) 4.2 10^3/uL (1.7-8.2); BASOPHILS % (AUTO) 0.1 % (0-2); HEMATOCRIT 26.1 % (37.9-51.0); HEMOGLOBIN 8.6 g/dL (13.5-17.0); LYMPHOCYTES % (AUTO) 14.8 % (13-45); MEAN CORPUSCULAR HEMOGLOBIN 28.1 pg (27.0-33.4); MEAN CORPUSCULAR HGB CONC 33.1 g/dL (32.0-36.0); MEAN CORPUSCULAR VOLUME 85 fl (80-97); MONOCYTES % (AUTO) 6.6 % (3-13); PLATELET COUNT 175 10^3/uL (150-450); RED BLOOD COUNT 3.07 10^6/uL (4.35-5.55); RED CELL DISTRIBUTION WIDTH 23.4 % (11.5-14.0); SEGMENTED NEUTROPHILS % (AUTO) 78.5 % (42-78); TOTAL CELLS COUNTED % (AUTO) 100 %; WHITE BLOOD COUNT 5.4 10^3/uL (4.0-10.5)
[2018-07-11 11:40] LABS: INTERNATIONAL RATION (INR) 2.12; PROTHROMBIN TIME 24.8 SEC (11.4-15.4)
[2018-07-11 12:00] LABS: ANION GAP 9 (5-19); BLOOD UREA NITROGEN 26 mg/dL (7-20); CALCIUM 10.1 mg/dL (8.4-10.2); CARBON DIOXIDE 28 mmol/L (22-30); CHLORIDE 103 mmol/L (98-107); GLUCOSE 133 mg/dL (75-110); POTASSIUM 3.8 mmol/L (3.6-5.0); SODIUM 139.6 mmol/L (137-145)
[2018-07-11] MEDS: INSULIN LISPRO 100 UNIT/ML 3 ML VIAL SUBCUT PRN ×2 (12:51→17:19)
--- NOTE | 2018-07-11 13:03 | PDOC PROGRESS REPORT ---
Subjective Progress Note for:: 07/11/18 Subjective:: The patient is a 73 year old male with a past medical history of multiple myeloma, CHF, pulmonary hypertension, hypertension, hyperlipidemia, A. fib ( chronically anticoagulated on Coumadin), COPD, and insulin-dependent diabetes mellitus who was admitted 07/10/18 with the pathological fracture to his left tibia. The patient is seen on morning rounds with his present. He is found resting in bed comfortably on room air. He tells me that he slept overnight and that his pain was well controlled with the exception of yesterday evening when he had difficulty with nursing staff. He has requests that the frequency of medication availability be increased to prevent pain management delays in the future. Otherwise he has no new questions or concerns and denies fever, chills, chest pain, palpitations, dyspnea, orthopnea, cough, abdominal pain, nausea vomiting and diarrhea. No concerns per nursing. Reason For Visit: LT TIBIAL FRACTURE,MULTIPLE MYELOMA,CHIQUITA Physical Exam Vital Signs: Temp Pulse Resp BP Pulse Ox 97.7 F 84 12 126/49 H 95 07/11/18 07:26 07/11/18 08:42 07/11/18 08:42 07/11/18 07:26 07/11/18 08:42 Intake & Output 07/10/18 07/11/18 07/12/18 06:59 06:59 06:59 Intake Total 877 Output Total 725 Balance 152 Weight 109.2 kg General appearance: PRESENT: no acute distress, cooperative, hard of hearing, obese, well-developed, well-nourished Head exam: PRESENT: atraumatic, normocephalic Eye exam: PRESENT: conjunctiva pink, EOMI, PERRLA. ABSENT: scleral icterus Ear exam: PRESENT: normal external ear exam Mouth exam: PRESENT: moist, tongue midline Neck exam: ABSENT: carotid bruit, JVD, lymphadenopathy, thyromegaly Respiratory exam: PRESENT: clear to auscultation romelia, symmetrical, unlabored. ABSENT: rales, rhonchi, wheezes Cardiovascular exam: PRESENT: RRR, +S1, +S2. ABSENT: diastolic murmur, rubs, systolic murmur Pulses: PRESENT: normal dorsalis pedis pul Vascular exam: PRESENT: normal capillary refill GI/Abdominal exam: PRESENT: normal bowel sounds, soft. ABSENT: distended, guarding, mass, organolmegaly, rebound, tenderness Rectal exam: PRESENT: deferred Extremities exam: PRESENT: tenderness - Left knee, knee immobilizer in place. Distal PMS intact.. ABSENT: calf tenderness, clubbing, pedal edema Neurological exam: PRESENT: alert, awake, oriented to person, oriented to place , oriented to time, oriented to situation, CN II-XII grossly intact. ABSENT: motor sensory deficit Psychiatric exam: PRESENT: appropriate affect, normal mood. ABSENT: homicidal ideation, suicidal ideation Skin exam: PRESENT: dry, intact, warm, other - Scattered ecchymosis. ABSENT: cyanosis, rash Results Laboratory Results: 07/11/18 11:15 07/11/18 11:15 07/11/18 07/11/18 11:15 11:15 WBC 5.4 RBC 3.07 L Hgb 8.6 L Hct 26.1 L MCV 85 MCH 28.1 MCHC 33.1 RDW 23.4 H Plt Count 175 Seg Neutrophils % 78.5 H Lymphocytes % 14.8 Monocytes % 6.6 Eosinophils % 0.0 Basophils % 0.1 Absolute Neutrophils 4.2 Absolute Lymphocytes 0.8 Absolute Monocytes 0.4 Absolute Eosinophils 0.0 Absolute Basophils 0.0 Sodium 139.6 Potassium 3.8 Chloride 103 Carbon Dioxide 28 Anion Gap 9 BUN 26 H Creatinine 1.31 H Est GFR ( Amer) > 60 Est GFR (Non-Af Amer) 54 L Glucose 133 H Calcium 10.1 07/11/18 11:15 Creatine Kinase < 20 L Impressions: Chest X-Ray 07/10/18 00:00 IMPRESSION: Prominent central pulmonary arteries, question underlying pulmonary hypertension Knee X-Ray 07/10/18 06:49 IMPRESSION: Pathologic fracture of the proximal left tibial shaft. Differential etiologies include underlying malignancy. Assessment & Plan - Diagnosis (1) Pathological fracture, left tibia, initial encounter for fracture Is this a current diagnosis for this admission?: Yes Plan: The patient reports a slip and fall when his knee gave out resulting in left knee pain and inability to bear weight. Imaging reveals a left proximal tibial shaft fracture extending through a lytic lesion; pathological fracture. Dr. Finley has been consulted; primary plan per his expertise, possible surgical repair on Saturday. Has requested INR goal of 1.5 for surgical repair. The patient's home pain medication regiment is continued: oxycontin 40 mg twice daily with oxycodone 15 mg q6 hours as needed. IV morphine every 2 hours as needed for breakthrough pain. EKG demonstrates normal sinus rhythm with nonspecific conduction delay; no acute findings. Chest x-ray revealed prominent central pulmonary arteries, no acute findings. ProBNP and troponin are reassuring. Echocardiogram from April 2018 revealed an ejection fraction of 65% with severe pulmonary hypertension. Cardiology consultation for surgical clearance April 2018 for left hip ORIF stated that the patient had a moderate, but not prohibitive, cardiac surgical risk with recommendations to resume anticoagulation as soon as possible following surgery with serial EKGs and cardiac enzymes postoperatively. The patient and family deny any acute changes since that time; do not feel that an additional cardiology consultation is required for preoperative clearance at this time. (2) Supratherapeutic INR Is this a current diagnosis for this admission?: Yes Plan: INR is 3.59 on admission. Trending down; 2.12 today. His Coumadin is held. He was provided vitamin K 2.5 milligrams subcutaneously x1 yesterday. We will monitor daily PT/INR. (3) Multiple myeloma Qualifiers: Multiple myeloma remission status: not in remission Qualified Code(s): C90.00 - Multiple myeloma not having achieved remission Is this a current diagnosis for this admission?: Yes Plan: Oncology has been consulted; appreciate Dr. Banda's assistance. The patient's home pain medication regiment is continued: oxycontin 40 mg twice daily with oxycodone 15 mg q6 hours as needed. (4) COPD (chronic obstructive pulmonary disease) Is this a current diagnosis for this admission?: Yes Plan: Stable and without exacerbation at this time. Chest x-ray revealed prominent central pulmonary arteries, no acute findings. The patient's Flonase is continued; he does not appear to be on any other maintenance therapies. Supplemental oxygen as needed nebulizer treatments are available to maintain oxygen saturations. Incentive spirometer to bedside. (5) Chronic diastolic (congestive) heart failure Is this a current diagnosis for this admission?: Yes Plan: Stable and without exacerbation at this time. ProBNP and troponin are reassuring. Echocardiogram from April 2018 revealed an ejection fraction of 65% with severe pulmonary hypertension. The patient's home dose diltiazem and statin therapy are continued. Furosemide is placed on hold secondary to CHIQUITA. He is placed on a cardiac diet. Daily weights, strict I&Os (6) Pulmonary hypertension Is this a current diagnosis for this admission?: Yes Plan: The patient's home dose Sildenafil is continued. (7) Hypertension Is this a current diagnosis for this admission?: Yes Plan: Normotensive at present. Medications as above. (8) Hyperlipidemia Is this a current diagnosis for this admission?: Yes Plan: Cardiac diet. Continue his daily statin therapy. (9) Hypothyroidism Is this a current diagnosis for this admission?: Yes Plan: The patient's home dose levothyroxine is continued. (10) Atrial fibrillation Qualifiers: Atrial fibrillation type: paroxysmal Qualified Code(s): I48.0 - Paroxysmal atrial fibrillation Is this a current diagnosis for this admission?: Yes Plan: Currently in sinus rhythm. Medication management as above. Pt is admitted on continuous cardiac telemetry. (11) CHIQUITA (acute kidney injury) Is this a current diagnosis for this admission?: Yes Plan: Patient was admitted with acute kidney injury; creatinine was noted to be elevated to 1.35 from a baseline of 1.10. BUN was minimally elevated at 21. He was ordered maintenance IV fluids; however, did only receive 1 L yesterday. His creatinine is slightly improved today at 1.31, BUN is 26. CK today is less than 20. Urinalysis is benign. Will avoid nephrotoxic medications as able. We will continue gentle IV fluids; this is clarified with nursing. We will hold furosemide. Daily weights and strict I's and O's. Daily chemistries. - Time Time Spent with patient: 15-24 minutes Medications reviewed and adjusted accordingly: Yes Anticipated discharge: SNF - Short term rehab Within: Other - At Orthopedic's discretion.
[2018-07-11] MEDS: OXYCODONE HCL IR 5 MG TABLET PO PRN (17:18)
[2018-07-11] MEDS: INSULIN GLARGINE,HUM.REC.ANLOG 300 UNIT/3 ML INSULN.PEN SUBCUT SCH (22:08)
[2018-07-11] MEDS: ATORVASTATIN CALCIUM 20 MG TABLET PO SCH (22:10)
[2018-07-11] MEDS: NORMAL SALINE 1000 ML 1,000 ML IV PRN (22:14)
[2018-07-12] MEDS: OXYCODONE HCL IR 5 MG TABLET PO PRN (04:17)
[2018-07-12] MEDS: LANSOPRAZOLE 15 MG TAB.RAP.DR PO SCH (05:07)
[2018-07-12] MEDS: LEVOTHYROXINE SODIUM 0.025 MG TABLET PO SCH (05:13)
[2018-07-12 05:35] LABS: INTERNATIONAL RATION (INR) 1.67; PROTHROMBIN TIME 20.5 SEC (11.4-15.4)
[2018-07-12 05:48] LABS: MEAN CORPUSCULAR HEMOGLOBIN 28.2 pg (27.0-33.4); MEAN CORPUSCULAR HGB CONC 32.9 g/dL (32.0-36.0); MEAN CORPUSCULAR VOLUME 86 fl (80-97); PLATELET COUNT 135 10^3/uL (150-450); RED CELL DISTRIBUTION WIDTH 22.8 % (11.5-14.0); WHITE BLOOD COUNT 4.2 10^3/uL (4.0-10.5)
[2018-07-12 05:49] LABS: ANION GAP 7 (5-19); BLOOD UREA NITROGEN 27 mg/dL (7-20); CALCIUM 9.4 mg/dL (8.4-10.2); CARBON DIOXIDE 30 mmol/L (22-30); CHLORIDE 102 mmol/L (98-107); GLUCOSE 87 mg/dL (75-110); HEMOGLOBIN 7.9 g/dL (13.5-17.0); POTASSIUM 3.6 mmol/L (3.6-5.0); SODIUM 139.3 mmol/L (137-145)
[2018-07-12] MEDS ORDERED: ENOXAPARIN SODIUM INJ 120 MG/0.8 ML DISP.SYRIN SUBCUT ONE (06:45)
[2018-07-12] MEDS: NORMAL SALINE 1000 ML 1,000 ML IV PRN (07:01)
[2018-07-12] MEDS: MORPHINE SULFATE 10 MG/ML INJ IV PRN (07:32)
--- NOTE | 2018-07-12 07:50 | PDOC CONSULTATION ---
Consultation Consult Date: 07/12/18 Consult reason:: 73-year-old white male with a 8-year history of myeloma now with pathologic fracture of the left proximal tibia History of Present Illness Admission Date/PCP: 07/10/18 09:19 FANNIE GAN MD History of Present Illness: NINI ZHENG is a 73 year old male 73-year-old white male with a year history of myeloma receiving systemic therapy and now with acute onset pain in the left lower leg, a large lytic defect, and what appears to be minimally displaced proximal tibia fracture. Past Medical History Cardiac Medical History: Reports: Atrial Fibrillation, Congestive Heart Failure , Hyperlipidema, Hypertension Denies: Myocardial Infarction Pulmonary Medical History: Reports: Chronic Obstructive Pulmonary Disease (COPD) , Sleep Apnea Denies: Asthma, Bronchitis, Pneumonia EENT Medical History: Reports: None Neurological Medical History: Denies: Ischemic CVA, Seizures Endocrine Medical History: Reports: Diabetes Mellitus Type 2 - Insulin-dependent Renal/ Medical History: Reports: None Malignancy Medical History: Reports: Bone Cancer - Multiple myeloma GI Medical History: Reports: None Musculoskeltal Medical History: Reports: Arthritis - back Skin Medical History: Reports: None Psychiatric Medical History: Reports: Depression Traumatic Medical History: Reports: None Hematology: Reports: Anemia Infectious Medical History: Reports: None Past Surgical History Past Surgical History: Reports: Hip Replacement, Orthopedic Surgery - Left proximal femoral fracture status post ORIF, Vascular Surgery - Port placement, Other - cataracts bilaterally Social History Information Source: Patient, Relative, Dr. Duckworth, [facility] Records Lives with: Family Smoking Status: Former Smoker Cigarettes Packs Per Day: 2 Number of Years Smokin Last Time Smoked: 1987 Frequency of Alcohol Use: None Hx Recreational Drug Use: No Drugs: None Hx Prescription Drug Abuse: No - Advance Directive Resuscitation Status: Full Code Family History Family History: Reviewed & Not Pertinent, Hypertension Parental Family History Reviewed: No Children Family History Reviewed: No Sibling(s) Family History Reviewed.: No Medication/Allergy Home Medications: Fluticasone Propionate [Flonase Nasal [place] 50 Mcg/[place] 16 gm] 1 spray NASL DAILYP PRN 05/01/18 Insulin Glargine,Hum.rec.anlog [Lantus Solostar] 40 units SQ QPM 05/01/18 Levothyroxine Sodium [Synthroid] 25 mcg PO Q6AM 05/01/18 Omeprazole 20 mg PO Q6AM 05/01/18 Rosuvastatin Calcium [Crestor 10 mg Tablet] 10 mg PO QPM 05/01/18 Sildenafil Citrate [Sildenafil] 20 mg PO TID 05/01/18 Valacyclovir HCl [Valtrex 500 mg Tablet] 500 mg PO DAILY 05/01/18 Warfarin Sodium [Coumadin] 10 mg PO SUMOWEFRSA@1000 05/01/18 Acetaminophen [Tylenol 325 mg Tablet] 650 mg PO Q4HP PRN #30 tablet 05/14/18 Citalopram Hydrobromide [Celexa 10 mg Tablet] 10 mg PO DAILY #30 tablet Furosemide [Lasix 40 mg Tablet] 20 mg PO BID@0800,1200 #60 tablet 05/14/18 Mag Hydrox/Al Hydrox/Simeth [Maalox Plus Susp 30 Udcup] 30 ml PO Q6HP PRN udc 05/14/18 Oxycodone HCl [Oxycontin] 40 mg PO Q12 #30 tab.er.12h 05/14/18 Potassium Chloride [Klor-Con M20] 20 meq PO BID 06/18/18 Calcium Carbonate/Vitamin D3 [Calcium 600-Vit D3 400 Tablet] 1 each PO DAILY Dexamethasone [Decadron 4 Mg Tablet] 20 mg PO TH@0600 07/10/18 Diltiazem HCl [Cardizem Cd 120 mg Capsule] 120 cap.sr PO DAILY 07/10/18 L. Rhamnosus GG/Inulin [Culturelle Capsule] 1 each PO QPM 07/10/18 Oxycodone HCl 15 mg PO Q6HP PRN 07/10/18 Warfarin Sodium 6 mg PO TUTHSA@1000 07/10/18 Allergies/Adverse Reactions: lorazepam [From Ativan] Allergy (Mild, Verified 06/18/18 15:11) Hallucinations promethazine HCl [From Phenergan] Allergy (Mild, Verified 06/18/18 15:11) Hallucinations Review of Systems All systems: as per PMH Physical Exam Vital Signs: Temp Pulse Resp BP Pulse Ox 36.6 C 64 16 110/54 L 99 07/12/18 04:33 07/12/18 04:33 07/12/18 04:33 07/12/18 04:33 07/12/18 04:33 Intake & Output 07/11/18 07/12/18 07/13/18 06:59 06:59 06:59 Intake Total 877 8688 878 Output Total 725 950 Balance 152 1308 878 Weight 109.2 kg 112.8 kg Physical Exam: Middle-aged white male lying in a hospital bed, somewhat discouraged. Accompanied by his in the chair General appearance: PRESENT: no acute distress, mild distress Head exam: PRESENT: normocephalic Respiratory exam: PRESENT: unlabored Cardiovascular exam: PRESENT: RRR Pulses: PRESENT: +1 pedal pulses bilateral Vascular exam: PRESENT: normal capillary refill GI/Abdominal exam: PRESENT: soft Rectal exam: PRESENT: deferred Extremities exam: PRESENT: other - Left lower extremity swelling and tenderness in the proximal tibial metaphysis. There is some pedal edema and tenderness about the ankle as well. Distal neurovascular examination is intact. Neurological exam: PRESENT: alert, awake, oriented to person, oriented to place , oriented to time, oriented to situation. ABSENT: motor sensory deficit Psychiatric exam: PRESENT: appropriate affect, normal mood. ABSENT: homicidal ideation, suicidal ideation Skin exam: PRESENT: dry, intact, warm. ABSENT: cyanosis, rash Results Laboratory Results: 07/12/18 05:15 07/12/18 05:15 07/11/18 07/11/18 07/12/18 11:15 11:15 05:15 WBC 5.4 RBC 3.07 L Hgb 8.6 L Hct 26.1 L MCV 85 MCH 28.1 MCHC 33.1 RDW 23.4 H Plt Count 175 Seg Neutrophils % 78.5 H Lymphocytes % 14.8 Monocytes % 6.6 Eosinophils % 0.0 Basophils % 0.1 Absolute Neutrophils 4.2 Absolute Lymphocytes 0.8 Absolute Monocytes 0.4 Absolute Eosinophils 0.0 Absolute Basophils 0.0 Sodium 139.6 139.3 Potassium 3.8 3.6 Chloride 103 102 Carbon Dioxide 28 30 Anion Gap 9 7 BUN 26 H 27 H Creatinine 1.31 H 1.33 H Est GFR ( Amer) > 60 > 60 Est GFR (Non-Af Amer) 54 L 53 L Glucose 133 H 87 Calcium 10.1 9.4 07/12/18 05:15 WBC 4.2 RBC 2.80 L Hgb 7.9 L Hct 24.0 L MCV 86 MCH 28.2 MCHC 32.9 RDW 22.8 H Plt Count 135 L Seg Neutrophils % Lymphocytes % Monocytes % Eosinophils % Basophils % Absolute Neutrophils Absolute Lymphocytes Absolute Monocytes Absolute Eosinophils Absolute Basophils Sodium Potassium Chloride Carbon Dioxide Anion Gap BUN Creatinine Est GFR ( Amer) Est GFR (Non-Af Amer) Glucose Calcium 07/11/18 11:15 Creatine Kinase < 20 L Impressions: Chest X-Ray 07/10/18 00:00 IMPRESSION: Prominent central pulmonary arteries, question underlying pulmonary hypertension Knee X-Ray 07/10/18 06:49 IMPRESSION: Pathologic fracture of the proximal left tibial shaft. Differential etiologies include underlying malignancy. Status: Imported from PACS Assessment & Plan - Diagnosis (1) Pathological fracture, left tibia, initial encounter for fracture Is this a current diagnosis for this admission?: Yes Plan: 73-year-old white male with pathologic fracture of the left proximal tibia. Plan for an open reduction internal fixation on Saturday. - Time Time Spent: 50 to 70 Minutes Anticipated discharge: Home with Homehealth Within: Other
[2018-07-12] MEDS: ACETAMINOPHEN 325 MG TABLET PO PRN (08:37)
[2018-07-12] MEDS: CALCIUM CARBONATE 500 MG TAB.CHEW PO SCH (09:17)
[2018-07-12] MEDS: DOCUSATE SODIUM 100 MG CAPSULE PO SCH ×2 (09:17→17:20)
[2018-07-12] MEDS: CITALOPRAM HYDROBROMIDE 20 MG TABLET PO SCH (09:18)
[2018-07-12] MEDS: CALCIUM CARBONATE 250 MG/VITAMIN D3 125 UNIT TABLET PO SCH (09:18)
[2018-07-12] MEDS: DILTIAZEM HCL 120 MG CAP.SR.24H PO SCH (09:19)
[2018-07-12] MEDS: OXYCODONE HCL SR 40 MG TABLET PO SCH ×2 (09:19→21:45)
[2018-07-12] MEDS ORDERED: OXYCODONE HCL IR 5 MG TABLET PO PRN (09:31)
[2018-07-12] MEDS: SILDENAFIL CITRATE 20 MG TABLET PO SCH ×3 (13:30→17:20)
[2018-07-12] MEDS: OXYCODONE HCL IR 5 MG TABLET PO SCH ×3 (13:33→23:26)
[2018-07-12] MEDS: LIDOCAINE 5% (700 MG) TRANSDERMAL ADH..PATCH TP SCH (13:34)
[2018-07-12 14:19] LABS: APPEARANCE,URINE CLEAR; BILIRUBIN,URINE NEGATIVE (NEGATIVE); COLOR,URINE STRAW; GLUCOSE, URINE NEGATIVE (NEGATIVE); KETONES,URINE NEGATIVE (NEGATIVE); LEUKOCYTE ESTERASE,URINE NEGATIVE (NEGATIVE); NITRITE,URINE NEGATIVE (NEGATIVE); PROTEIN,URINE NEGATIVE (NEGATIVE); UROBILINOGEN,URINE NEGATIVE mg/dL (<2.0)
--- NOTE | 2018-07-12 15:46 | PDOC PROGRESS REPORT ---
Subjective Progress Note for:: 07/12/18 Subjective:: The patient is a 73 year old male with a past medical history of multiple myeloma, CHF, pulmonary hypertension, hypertension, hyperlipidemia, A. fib ( chronically anticoagulated on Coumadin), COPD, and insulin-dependent diabetes mellitus who was admitted 07/10/18 with the pathological fracture to his left tibia. The patient is seen on morning rounds with his present. He is found resting in bed comfortably on room air. He reports left knee and lower leg pain ; again reporting that his pain has not been well controlled due to not receiving his medications when he asks for them. However, review of charting shows that the patient has not requested his oxycodone to the frequency allowed (going 13 hours between doses when it is ordered every 6) and then requesting the oxycodone followed by multiple requests for morphine in quick succession. The patient and are educated on the importance of taking the oxycodone more regularly to prevent his pain from becoming out of control. Otherwise he has no new questions or concerns and denies fever, chills, chest pain, palpitations, dyspnea, orthopnea, cough, abdominal pain, nausea vomiting and diarrhea. Nursing also reports concerns regarding the patient's medication requests despite multiple education attempts. They also report borderline hypotension and concern for worsening with frequent morphine doses. Reason For Visit: LT TIBIAL FRACTURE,MULTIPLE MYELOMA,CHIQUITA Physical Exam Vital Signs: Temp Pulse Resp BP Pulse Ox 98.1 F 66 14 128/43 H 100 07/12/18 11:36 07/12/18 14:00 07/12/18 11:36 07/12/18 11:36 07/12/18 11:36 Intake & Output 07/11/18 07/12/18 07/13/18 06:59 06:59 06:59 Intake Total 877 2258 2454 Output Total 494 521 3883 Balance 152 1308 1129 Weight 109.2 kg 112.8 kg General appearance: PRESENT: no acute distress, hard of hearing, well-developed , well-nourished - Overweight Head exam: PRESENT: atraumatic, normocephalic Eye exam: PRESENT: conjunctiva pink, EOMI, PERRLA. ABSENT: scleral icterus Ear exam: PRESENT: normal external ear exam Mouth exam: PRESENT: moist, tongue midline Neck exam: ABSENT: carotid bruit, JVD, lymphadenopathy, thyromegaly Respiratory exam: PRESENT: decreased breath sounds - bibasilar, symmetrical, unlabored. ABSENT: rales, rhonchi, wheezes Cardiovascular exam: PRESENT: RRR. ABSENT: diastolic murmur, rubs, systolic murmur Pulses: PRESENT: normal dorsalis pedis pul Vascular exam: PRESENT: normal capillary refill GI/Abdominal exam: PRESENT: normal bowel sounds, soft. ABSENT: distended, guarding, mass, organolmegaly, rebound, tenderness Rectal exam: PRESENT: deferred Extremities exam: PRESENT: tenderness - LLE; knee immobilizer in place. ABSENT : calf tenderness, clubbing, pedal edema Neurological exam: PRESENT: alert, awake, oriented to person, oriented to place , oriented to time, oriented to situation, CN II-XII grossly intact. ABSENT: motor sensory deficit Psychiatric exam: PRESENT: agitated, appropriate affect, normal mood. ABSENT: homicidal ideation, suicidal ideation Skin exam: PRESENT: dry, intact, warm. ABSENT: cyanosis, rash Results Laboratory Results: 07/12/18 05:15 07/12/18 05:15 07/12/18 07/12/18 07/12/18 05:15 05:15 13:55 WBC 4.2 RBC 2.80 L Hgb 7.9 L Hct 24.0 L MCV 86 MCH 28.2 MCHC 32.9 RDW 22.8 H Plt Count 135 L Sodium 139.3 Potassium 3.6 Chloride 102 Carbon Dioxide 30 Anion Gap 7 BUN 27 H Creatinine 1.33 H Est GFR ( Amer) > 60 Est GFR (Non-Af Amer) 53 L Glucose 87 Calcium 9.4 Urine Color STRAW Urine Appearance CLEAR Urine pH 5.0 Ur Specific [place] 1.010 Urine Protein NEGATIVE Urine Glucose (UA) NEGATIVE Urine Ketones NEGATIVE Urine Blood SMALL H Urine Nitrite NEGATIVE Ur Leukocyte Esterase NEGATIVE Urine WBC (Auto) 13 Urine RBC (Auto) 0 07/11/18 11:15 Creatine Kinase < 20 L Impressions: Chest X-Ray 07/10/18 00:00 IMPRESSION: Prominent central pulmonary arteries, question underlying pulmonary hypertension Knee X-Ray 07/10/18 06:49 IMPRESSION: Pathologic fracture of the proximal left tibial shaft. Differential etiologies include underlying malignancy. Assessment & Plan - Diagnosis (1) Pathological fracture, left tibia, initial encounter for fracture Is this a current diagnosis for this admission?: Yes Plan: The patient reports a slip and fall when his knee gave out resulting in left knee pain and inability to bear weight. Imaging reveals a left proximal tibial shaft fracture extending through a lytic lesion; pathological fracture. Dr. Finley has been consulted; primary plan per his expertise, possible surgical repair on Saturday. Has requested INR goal of 1.5 for surgical repair. Continue oxycontin 40 mg twice daily Will scheduled oxycodone 10 mg every 6 hours to ensure consistent pain control. IV morphine every 2 hours as needed for breakthrough pain. Pain Management is consulted; appreciate their recommendations. EKG demonstrates normal sinus rhythm with nonspecific conduction delay; no acute findings. Chest x-ray revealed prominent central pulmonary arteries, no acute findings. ProBNP and troponin are reassuring. Echocardiogram from April 2018 revealed an ejection fraction of 65% with severe pulmonary hypertension. Cardiology consultation for surgical clearance April 2018 for left hip ORIF stated that the patient had a moderate, but not prohibitive, cardiac surgical risk with recommendations to resume anticoagulation as soon as possible following surgery with serial EKGs and cardiac enzymes postoperatively. The patient and family deny any acute changes since that time; do not feel that an additional cardiology consultation is required for preoperative clearance at this time. (2) Supratherapeutic INR Is this a current diagnosis for this admission?: Yes Plan: INR is 3.59 on admission. Trending down; 1.67 today. His Coumadin is held. He was provided vitamin K 2.5 milligrams subcutaneously x1 on admission. We will monitor daily PT/INR. (3) Multiple myeloma Qualifiers: Multiple myeloma remission status: not in remission Qualified Code(s): C90.00 - Multiple myeloma not having achieved remission Is this a current diagnosis for this admission?: Yes Plan: Oncology has been consulted; appreciate Dr. Banda's assistance. (4) COPD (chronic obstructive pulmonary disease) Is this a current diagnosis for this admission?: Yes Plan: Stable and without exacerbation at this time. Chest x-ray revealed prominent central pulmonary arteries, no acute findings. The patient's Flonase is continued; he does not appear to be on any other maintenance therapies. Supplemental oxygen as needed nebulizer treatments are available to maintain oxygen saturations. Incentive spirometer to bedside. (5) Chronic diastolic (congestive) heart failure Is this a current diagnosis for this admission?: Yes Plan: Stable and without exacerbation at this time. ProBNP and troponin are reassuring. Echocardiogram from April 2018 revealed an ejection fraction of 65% with severe pulmonary hypertension. The patient's home dose diltiazem and statin therapy are continued. Will resulve Furosemide at 10 mg p.o. twice daily to prevent overload. He is placed on a cardiac diet. Daily weights, strict I&Os (6) Pulmonary hypertension Is this a current diagnosis for this admission?: Yes Plan: The patient's home dose Sildenafil is continued. (7) Hypertension Is this a current diagnosis for this admission?: Yes Plan: Blood pressures are somewhat low today; will decrease furosemide dose. Medications as above. (8) Hyperlipidemia Is this a current diagnosis for this admission?: Yes Plan: Cardiac diet. Continue his daily statin therapy. (9) Hypothyroidism Is this a current diagnosis for this admission?: Yes Plan: The patient's home dose levothyroxine is continued. (10) Atrial fibrillation Qualifiers: Atrial fibrillation type: paroxysmal Qualified Code(s): I48.0 - Paroxysmal atrial fibrillation Is this a current diagnosis for this admission?: Yes Plan: Currently in sinus rhythm. Medication management as above. Pt is admitted on continuous cardiac telemetry. (11) CHIQUITA (acute kidney injury) Is this a current diagnosis for this admission?: Yes Plan: No improvement with IVF overnight. Some thought that this may represent his new baseline kidney function. Urinalysis is benign. Will avoid nephrotoxic medications as able. IVF discontinued. Low dose furosemide. Daily weights and strict I's and O's. Daily chemistries. - Time Time Spent with patient: 25-34 minutes Medications reviewed and adjusted accordingly: Yes Anticipated discharge: SNF - Short term rehab Within: Other - At orthopedic's discretion.
[2018-07-12] MEDS: FUROSEMIDE 20 MG TABLET PO SCH (17:14)
[2018-07-12] MEDS: ENOXAPARIN SODIUM INJ 120 MG/0.8 ML DISP.SYRIN SUBCUT SCH (17:21)
[2018-07-12] MEDS: INSULIN GLARGINE,HUM.REC.ANLOG 300 UNIT/3 ML INSULN.PEN SUBCUT SCH (21:44)
[2018-07-12] MEDS: ATORVASTATIN CALCIUM 20 MG TABLET PO SCH (21:45)
[2018-07-13] MEDS: OXYCODONE HCL IR 5 MG TABLET PO SCH ×3 (05:05→17:37)
[2018-07-13] MEDS: LEVOTHYROXINE SODIUM 0.025 MG TABLET PO SCH (05:06)
[2018-07-13] MEDS: LANSOPRAZOLE 15 MG TAB.RAP.DR PO SCH (05:06)
[2018-07-13] MEDS: ENOXAPARIN SODIUM INJ 120 MG/0.8 ML DISP.SYRIN SUBCUT SCH ×2 (05:06→17:32)
[2018-07-13 05:59] LABS: HEMATOCRIT 24.2 % (37.9-51.0); MEAN CORPUSCULAR HEMOGLOBIN 28.3 pg (27.0-33.4); MEAN CORPUSCULAR HGB CONC 32.9 g/dL (32.0-36.0); MEAN CORPUSCULAR VOLUME 86 fl (80-97); PLATELET COUNT 151 10^3/uL (150-450); RED BLOOD COUNT 2.82 10^6/uL (4.35-5.55); RED CELL DISTRIBUTION WIDTH 22.8 % (11.5-14.0); WHITE BLOOD COUNT 3.1 10^3/uL (4.0-10.5)
[2018-07-13 06:05] LABS: ANION GAP 7 (5-19); BLOOD UREA NITROGEN 22 mg/dL (7-20); CALCIUM 9.6 mg/dL (8.4-10.2); CARBON DIOXIDE 31 mmol/L (22-30); CHLORIDE 102 mmol/L (98-107); GLUCOSE 80 mg/dL (75-110); POTASSIUM 3.6 mmol/L (3.6-5.0)
[2018-07-13] MEDS: CALCIUM CARBONATE 500 MG TAB.CHEW PO SCH (09:29)
[2018-07-13] MEDS: CALCIUM CARBONATE 250 MG/VITAMIN D3 125 UNIT TABLET PO SCH (09:30)
[2018-07-13] MEDS: DOCUSATE SODIUM 100 MG CAPSULE PO SCH ×2 (09:31→17:37)
[2018-07-13] MEDS: FUROSEMIDE 20 MG TABLET PO SCH ×2 (09:31→15:16)
[2018-07-13] MEDS: CITALOPRAM HYDROBROMIDE 20 MG TABLET PO SCH (09:31)
[2018-07-13] MEDS: LIDOCAINE 5% (700 MG) TRANSDERMAL ADH..PATCH TP SCH (09:37)
[2018-07-13] MEDS: OXYCODONE HCL SR 40 MG TABLET PO SCH ×2 (09:38→22:17)
[2018-07-13] MEDS: SILDENAFIL CITRATE 20 MG TABLET PO SCH ×3 (11:50→17:37)
[2018-07-13 12:10] LABS: INTERNATIONAL RATION (INR) 1.28; PROTHROMBIN TIME 16.6 SEC (11.4-15.4)
--- NOTE | 2018-07-13 13:21 | PDOC PROGRESS REPORT ---
Subjective Progress Note for:: 07/13/18 Subjective:: The patient is a 73 year old male with a past medical history of multiple myeloma, CHF, pulmonary hypertension, hypertension, hyperlipidemia, A. fib ( chronically anticoagulated on Coumadin), COPD, and insulin-dependent diabetes mellitus who was admitted 07/10/18 with the pathological fracture to his left tibia. The patient is seen on morning rounds with his present. He is found resting in bed comfortably on room air. He reports left knee and lower leg pain ; however, states that his pain is much better controlled today with scheduled oxycodone. He denies fever, chills, chest pain, palpitations, dyspnea, orthopnea, cough, abdominal pain, nausea vomiting and diarrhea. They have no new questions or concerns. No concerns per nursing. Reason For Visit: LT TIBIAL FRACTURE,MULTIPLE MYELOMA,CHIQUITA Physical Exam Vital Signs: Temp Pulse Resp BP Pulse Ox 98.2 F 71 16 101/43 L 99 07/13/18 11:22 07/13/18 11:22 07/13/18 11:22 07/13/18 11:22 07/13/18 11:22 Intake & Output 07/12/18 07/13/18 07/14/18 06:59 06:59 06:59 Intake Total 2258 3212 Output Total 950 3010 Balance 1308 202 Weight 112.8 kg 113 kg General appearance: PRESENT: no acute distress, hard of hearing, well-developed , well-nourished - overweight Head exam: PRESENT: atraumatic, normocephalic Eye exam: PRESENT: conjunctiva pink, EOMI, PERRLA. ABSENT: scleral icterus Ear exam: PRESENT: normal external ear exam Mouth exam: PRESENT: moist, tongue midline Neck exam: ABSENT: carotid bruit, JVD, lymphadenopathy, thyromegaly Respiratory exam: PRESENT: clear to auscultation romelia, decreased breath sounds - bibasilar, symmetrical, unlabored. ABSENT: rales, rhonchi, wheezes Cardiovascular exam: PRESENT: RRR, +S1, +S2. ABSENT: diastolic murmur, rubs, systolic murmur Pulses: PRESENT: normal dorsalis pedis pul Vascular exam: PRESENT: normal capillary refill GI/Abdominal exam: PRESENT: normal bowel sounds, soft. ABSENT: distended, guarding, mass, organolmegaly, rebound, tenderness Rectal exam: PRESENT: deferred Extremities exam: PRESENT: tenderness - Lt knee; immobilizer in place. ABSENT: calf tenderness, clubbing, pedal edema Neurological exam: PRESENT: alert, awake, oriented to person, oriented to place , oriented to time, oriented to situation, CN II-XII grossly intact. ABSENT: motor sensory deficit Psychiatric exam: PRESENT: appropriate affect, normal mood. ABSENT: homicidal ideation, suicidal ideation Skin exam: PRESENT: dry, intact, warm. ABSENT: cyanosis, rash Results Laboratory Results: 07/13/18 05:05 07/13/18 05:05 07/12/18 07/13/18 07/13/18 13:55 05:05 05:05 WBC 3.1 L RBC 2.82 L Hgb 8.0 L Hct 24.2 L MCV 86 MCH 28.3 MCHC 32.9 RDW 22.8 H Plt Count 151 Sodium 140.0 Potassium 3.6 Chloride 102 Carbon Dioxide 31 H Anion Gap 7 BUN 22 H Creatinine 1.20 Est GFR ( Amer) > 60 Est GFR (Non-Af Amer) > 60 Glucose 80 Calcium 9.6 Urine Color STRAW Urine Appearance CLEAR Urine pH 5.0 Ur Specific [place] 1.010 Urine Protein NEGATIVE Urine Glucose (UA) NEGATIVE Urine Ketones NEGATIVE Urine Blood SMALL H Urine Nitrite NEGATIVE Ur Leukocyte Esterase NEGATIVE Urine WBC (Auto) 13 Urine RBC (Auto) 0 07/11/18 11:15 Creatine Kinase < 20 L Impressions: Chest X-Ray 07/10/18 00:00 IMPRESSION: Prominent central pulmonary arteries, question underlying pulmonary hypertension Knee X-Ray 07/10/18 06:49 IMPRESSION: Pathologic fracture of the proximal left tibial shaft. Differential etiologies include underlying malignancy. Assessment & Plan - Diagnosis (1) Pathological fracture, left tibia, initial encounter for fracture Is this a current diagnosis for this admission?: Yes Plan: The patient reports a slip and fall when his knee gave out resulting in left knee pain and inability to bear weight. Imaging reveals a left proximal tibial shaft fracture extending through a lytic lesion; pathological fracture. Dr. Finley has been consulted; primary plan per his expertise, possible surgical repair on Saturday. Has requested INR goal of 1.5 for surgical repair; currently 1.28 Continue oxycontin 40 mg twice daily Continue oxycodone 10 mg every 6 hours to ensure consistent pain control. IV morphine every 2 hours as needed for breakthrough pain. Pain Management is consulted; appreciate their recommendations. EKG demonstrates normal sinus rhythm with nonspecific conduction delay; no acute findings. Chest x-ray revealed prominent central pulmonary arteries, no acute findings. ProBNP and troponin are reassuring. Echocardiogram from April 2018 revealed an ejection fraction of 65% with severe pulmonary hypertension. Cardiology consultation for surgical clearance April 2018 for left hip ORIF stated that the patient had a moderate, but not prohibitive, cardiac surgical risk with recommendations to resume anticoagulation as soon as possible following surgery with serial EKGs and cardiac enzymes postoperatively. The patient and family deny any acute changes since that time; do not feel that an additional cardiology consultation is required for preoperative clearance at this time. (2) Supratherapeutic INR Is this a current diagnosis for this admission?: Yes Plan: INR is 3.59 on admission. Trending down; 1.28 today. His Coumadin is held. He was provided vitamin K 2.5 mg subcut x1 on admission. We will monitor daily PT/INR. (3) Multiple myeloma Qualifiers: Multiple myeloma remission status: not in remission Qualified Code(s): C90.00 - Multiple myeloma not having achieved remission Is this a current diagnosis for this admission?: Yes Plan: Oncology has been consulted; appreciate Dr. Banda's assistance. (4) COPD (chronic obstructive pulmonary disease) Is this a current diagnosis for this admission?: Yes Plan: Stable and without exacerbation at this time. Chest x-ray revealed prominent central pulmonary arteries, no acute findings. The patient's Flonase is continued; he does not appear to be on any other maintenance therapies. Supplemental oxygen as needed nebulizer treatments are available to maintain oxygen saturations. Incentive spirometer to bedside. (5) Chronic diastolic (congestive) heart failure Is this a current diagnosis for this admission?: Yes Plan: Stable and without exacerbation at this time. ProBNP and troponin are reassuring. Echocardiogram from April 2018 revealed an ejection fraction of 65% with severe pulmonary hypertension. Continue diltiazem, dose decreased today secondary to bradycardia (HR 40's) overnight. Will resulve Furosemide at 10 mg p.o. twice daily to prevent overload. He is placed on a cardiac diet. Daily weights, strict I&Os (6) Pulmonary hypertension Is this a current diagnosis for this admission?: Yes Plan: The patient's home dose Sildenafil is continued. (7) Hypertension Is this a current diagnosis for this admission?: Yes Plan: Blood pressures are somewhat low today. Now on decreased diltiazem and decrease furosemide dose. Medications as above. (8) Hyperlipidemia Is this a current diagnosis for this admission?: Yes Plan: Cardiac diet. Continue his daily statin therapy. (9) Hypothyroidism Is this a current diagnosis for this admission?: Yes Plan: The patient's home dose levothyroxine is continued. (10) Atrial fibrillation Qualifiers: Atrial fibrillation type: paroxysmal Qualified Code(s): I48.0 - Paroxysmal atrial fibrillation Is this a current diagnosis for this admission?: Yes Plan: Currently in sinus rhythm; bradycardia overnight (HR 40s). Medication management as above. Pt is admitted on continuous cardiac telemetry. (11) CHIQUITA (acute kidney injury) Is this a current diagnosis for this admission?: Yes Plan: Slight improvement today. Some thought that this may represent his new baseline kidney function. Urinalysis is benign. Will avoid nephrotoxic medications as able. Daily weights and strict I's and O's. Daily chemistries. - Time Time Spent with patient: Less than 15 minutes Medications reviewed and adjusted accordingly: Yes Anticipated discharge: SNF - Short term rehab Within: Other - Orthopedic's discretion
--- NOTE | 2018-07-13 14:36 | PDOC PROGRESS REPORT ---
Subjective Progress Note for:: 07/13/18 Subjective:: Patient states that he is feeling better. He is very anxious to have surgery completed. This is scheduled for tomorrow morning. His pain is better controlled. He denies any constipation or nausea. Reason For Visit: LT TIBIAL FRACTURE,MULTIPLE MYELOMA,CHIQUITA Physical Exam Vital Signs: Temp Pulse Resp BP Pulse Ox 98.2 F 71 16 101/43 L 99 07/13/18 11:22 07/13/18 14:00 07/13/18 11:22 07/13/18 11:22 07/13/18 11:22 Intake & Output 07/12/18 07/13/18 07/14/18 06:59 06:59 06:59 Intake Total 2258 3212 491 Output Total 950 3010 975 Balance 1308 202 -484 Weight 112.8 kg 113 kg General appearance: PRESENT: no acute distress, well-developed, well-nourished Respiratory exam: PRESENT: unlabored Neurological exam: PRESENT: alert, awake, oriented to person, oriented to place , oriented to time, oriented to situation Psychiatric exam: PRESENT: appropriate affect Skin exam: PRESENT: normal color Results Laboratory Results: 07/13/18 05:05 07/13/18 05:05 07/13/18 07/13/18 07/13/18 05:05 05:05 11:50 WBC 3.1 L RBC 2.82 L Hgb 8.0 L Hct 24.2 L MCV 86 MCH 28.3 MCHC 32.9 RDW 22.8 H Plt Count 151 Sodium 140.0 Potassium 3.6 Chloride 102 Carbon Dioxide 31 H Anion Gap 7 BUN 22 H Creatinine 1.20 Est GFR ( Amer) > 60 Est GFR (Non-Af Amer) > 60 Glucose 80 Calcium 9.6 Stool Occult Blood NEGATIVE 07/11/18 11:15 Creatine Kinase < 20 L Impressions: Chest X-Ray 07/10/18 00:00 IMPRESSION: Prominent central pulmonary arteries, question underlying pulmonary hypertension Knee X-Ray 07/10/18 06:49 IMPRESSION: Pathologic fracture of the proximal left tibial shaft. Differential etiologies include underlying malignancy. Assessment & Plan - Diagnosis (1) Chronic anticoagulation Is this a current diagnosis for this admission?: Yes Plan: His INR is now 1.28, so he should be OK for surgery tomorrow. He has been on Lovenox to bridge him until warfarin can be restarted after surgery. This will be held tomorrow morning. (2) Pathological fracture, left tibia, initial encounter for fracture Is this a current diagnosis for this admission?: Yes Plan: Dr. Finley to perform surgery tomorrow morning. Pain adequately controlled at present.
[2018-07-13] MEDS: DILTIAZEM HCL 30 MG TABLET PO SCH ×2 (15:00→22:15)
[2018-07-13] MEDS: ATORVASTATIN CALCIUM 20 MG TABLET PO SCH (22:17)
[2018-07-13] MEDS: INSULIN GLARGINE,HUM.REC.ANLOG 300 UNIT/3 ML INSULN.PEN SUBCUT SCH (23:20)
[2018-07-14] MEDS: OXYCODONE HCL IR 5 MG TABLET PO SCH ×4 (05:47→23:05)
[2018-07-14] MEDS: DILTIAZEM HCL 30 MG TABLET PO SCH ×3 (06:09→22:23)
[2018-07-14] MEDS: LANSOPRAZOLE 15 MG TAB.RAP.DR PO SCH (06:20)
[2018-07-14] MEDS: LEVOTHYROXINE SODIUM 0.025 MG TABLET PO SCH (06:21)
[2018-07-14 06:39] LABS: HEMATOCRIT 26.7 % (37.9-51.0); HEMOGLOBIN 9.1 g/dL (13.5-17.0); MEAN CORPUSCULAR HEMOGLOBIN 28.7 pg (27.0-33.4); MEAN CORPUSCULAR HGB CONC 34.1 g/dL (32.0-36.0); MEAN CORPUSCULAR VOLUME 84 fl (80-97); PLATELET COUNT 162 10^3/uL (150-450); RED BLOOD COUNT 3.17 10^6/uL (4.35-5.55); WHITE BLOOD COUNT 3.5 10^3/uL (4.0-10.5)
[2018-07-14 06:54] LABS: INTERNATIONAL RATION (INR) 1.16; PROTHROMBIN TIME 15.4 SEC (11.4-15.4)
[2018-07-14 07:08] LABS: ANION GAP 5 (5-19); BLOOD UREA NITROGEN 19 mg/dL (7-20); CALCIUM 10.6 mg/dL (8.4-10.2); CARBON DIOXIDE 31 mmol/L (22-30); CHLORIDE 103 mmol/L (98-107); GLUCOSE 97 mg/dL (75-110); POTASSIUM 4.1 mmol/L (3.6-5.0); SODIUM 139.2 mmol/L (137-145)
--- NOTE | 2018-07-14 07:55 | PDOC PROGRESS REPORT ---
Subjective Progress Note for:: 07/14/18 Subjective:: Doing ok this am, ready for surgery Reason For Visit: LT TIBIAL FRACTURE,MULTIPLE MYELOMA,CHIQUITA Physical Exam Vital Signs: Temp Pulse Resp BP Pulse Ox 98.8 F 80 16 109/41 L 97 07/14/18 06:00 07/14/18 06:00 07/14/18 06:00 07/14/18 03:28 07/14/18 06:00 Intake & Output 07/13/18 07/14/18 07/15/18 06:59 06:59 06:59 Intake Total 3212 951 Output Total 3010 3325 Balance 202 -2374 Weight 113 kg 109.3 kg General appearance: PRESENT: no acute distress, well-developed, well-nourished Head exam: PRESENT: atraumatic, normocephalic Eye exam: PRESENT: conjunctiva pink, EOMI, PERRLA. ABSENT: scleral icterus Ear exam: PRESENT: normal external ear exam Mouth exam: PRESENT: moist, tongue midline Neck exam: ABSENT: carotid bruit, JVD, lymphadenopathy, thyromegaly Respiratory exam: PRESENT: clear to auscultation romelia. ABSENT: rales, rhonchi, wheezes Cardiovascular exam: PRESENT: RRR. ABSENT: diastolic murmur, rubs, systolic murmur Pulses: PRESENT: normal dorsalis pedis pul Vascular exam: PRESENT: normal capillary refill GI/Abdominal exam: PRESENT: normal bowel sounds, soft. ABSENT: distended, guarding, mass, organolmegaly, rebound, tenderness Rectal exam: PRESENT: deferred Extremities exam: PRESENT: full ROM. ABSENT: calf tenderness, clubbing, pedal edema Neurological exam: PRESENT: alert, awake, oriented to person, oriented to place , oriented to time, oriented to situation, CN II-XII grossly intact. ABSENT: motor sensory deficit Psychiatric exam: PRESENT: appropriate affect, normal mood. ABSENT: homicidal ideation, suicidal ideation Skin exam: PRESENT: dry, intact, warm. ABSENT: cyanosis, rash Results Laboratory Results: 07/14/18 06:15 07/14/18 06:15 07/13/18 07/14/18 07/14/18 11:50 06:15 06:15 WBC 3.5 L RBC 3.17 L Hgb 9.1 L Hct 26.7 L MCV 84 MCH 28.7 MCHC 34.1 RDW 23.0 H Plt Count 162 Sodium 139.2 Potassium 4.1 Chloride 103 Carbon Dioxide 31 H Anion Gap 5 BUN 19 Creatinine 1.24 Est GFR ( Amer) > 60 Est GFR (Non-Af Amer) 57 L Glucose 97 Calcium 10.6 H Stool Occult Blood NEGATIVE 07/11/18 11:15 Creatine Kinase < 20 L Impressions: Chest X-Ray 07/10/18 00:00 IMPRESSION: Prominent central pulmonary arteries, question underlying pulmonary hypertension Knee X-Ray 07/10/18 06:49 IMPRESSION: Pathologic fracture of the proximal left tibial shaft. Differential etiologies include underlying malignancy. Assessment & Plan - Diagnosis (1) Chronic anticoagulation Is this a current diagnosis for this admission?: Yes Plan: INR approp for surgery, start anticoag w/ lovenox post surgery (2) Pathological fracture, left tibia, initial encounter for fracture Is this a current diagnosis for this admission?: Yes Plan: Surgery today, will follow (3) Multiple myeloma Qualifiers: Multiple myeloma remission status: not in remission Qualified Code(s): C90.00 - Multiple myeloma not having achieved remission Is this a current diagnosis for this admission?: Yes Plan: Will need to consider other rx as oupt - Time Time Spent with patient: 35 or more minutes - Inpatient Certification Based on my medical assessment, after consideration of the patient's comorbidities, presenting symptoms, or acuity I expect that the services needed warrant INPATIENT care.: Yes I certify that my determination is in accordance with my understanding of Medicare's requirements for reasonable and necessary INPATIENT services [42 CFR 412.3e].: Yes Medical Necessity: Need for Surgery
[2018-07-14] MEDS: DOCUSATE SODIUM 100 MG CAPSULE PO SCH (09:00)
[2018-07-14] MEDS: FUROSEMIDE 20 MG TABLET PO SCH ×2 (09:34→12:44)
[2018-07-14] MEDS: CALCIUM CARBONATE 250 MG/VITAMIN D3 125 UNIT TABLET PO SCH (09:35)
[2018-07-14] MEDS: CALCIUM CARBONATE 500 MG TAB.CHEW PO SCH (09:35)
[2018-07-14] MEDS: OXYCODONE HCL SR 40 MG TABLET PO SCH ×2 (09:35→22:23)
[2018-07-14] MEDS: LIDOCAINE 5% (700 MG) TRANSDERMAL ADH..PATCH TP SCH (09:35)
[2018-07-14] MEDS: CITALOPRAM HYDROBROMIDE 20 MG TABLET PO SCH (09:36)
[2018-07-14] MEDS: SILDENAFIL CITRATE 20 MG TABLET PO SCH ×2 (09:37→13:35)
[2018-07-14] MEDS: MORPHINE SULFATE 10 MG/ML INJ IV PRN ×2 (10:16→21:11)
--- NOTE | 2018-07-14 14:06 | PDOC PROGRESS REPORT ---
Subjective Progress Note for:: 07/14/18 Subjective:: The patient is a 73 year old male with a past medical history of multiple myeloma, CHF, pulmonary hypertension, hypertension, hyperlipidemia, A. fib ( chronically anticoagulated on Coumadin), COPD, and insulin-dependent diabetes mellitus who was admitted 07/10/18 with the pathological fracture to his left tibia. The patient is seen on morning rounds with his present. He is found resting in bed comfortably on room air. He reports continued left knee and lower leg pain; although is comfortable at present. He denies fever, chills, chest pain, palpitations, dyspnea, orthopnea, cough, abdominal pain, nausea vomiting and diarrhea. He is looking forward to his planned surgical procedure this afternoon. They have no new questions or concerns. No concerns per nursing. Reason For Visit: LT TIBIAL FRACTURE,MULTIPLE MYELOMA,CHIQUITA Physical Exam Vital Signs: Temp Pulse Resp BP Pulse Ox 98.2 F 77 18 127/38 H 92 07/14/18 13:42 07/14/18 13:42 07/14/18 13:42 07/14/18 13:42 07/14/18 13:42 Intake & Output 07/13/18 07/14/18 07/15/18 06:59 06:59 06:59 Intake Total 3212 951 Output Total 3010 3325 Balance 202 -2374 Weight 113 kg 109.3 kg General appearance: PRESENT: no acute distress, hard of hearing, obese, well- developed, well-nourished Head exam: PRESENT: atraumatic, normocephalic Eye exam: PRESENT: conjunctiva pink, EOMI, PERRLA. ABSENT: scleral icterus Ear exam: PRESENT: normal external ear exam Mouth exam: PRESENT: moist, tongue midline Neck exam: ABSENT: carotid bruit, JVD, lymphadenopathy, thyromegaly Respiratory exam: PRESENT: clear to auscultation romelia, decreased breath sounds, symmetrical, unlabored. ABSENT: rales, rhonchi, wheezes Cardiovascular exam: PRESENT: RRR, +S1, +S2. ABSENT: diastolic murmur, rubs, systolic murmur Pulses: PRESENT: normal dorsalis pedis pul Vascular exam: PRESENT: normal capillary refill GI/Abdominal exam: PRESENT: normal bowel sounds, soft. ABSENT: distended, guarding, mass, organolmegaly, rebound, tenderness Rectal exam: PRESENT: deferred Extremities exam: PRESENT: tenderness - LLE; knee immobilizer in place. ABSENT : calf tenderness, clubbing, pedal edema Neurological exam: PRESENT: alert, awake, oriented to person, oriented to place , oriented to time, oriented to situation, CN II-XII grossly intact. ABSENT: motor sensory deficit Psychiatric exam: PRESENT: appropriate affect, normal mood. ABSENT: homicidal ideation, suicidal ideation Skin exam: PRESENT: dry, intact, warm. ABSENT: cyanosis, rash Results Laboratory Results: 07/14/18 06:15 07/14/18 06:15 07/14/18 07/14/18 06:15 06:15 WBC 3.5 L RBC 3.17 L Hgb 9.1 L Hct 26.7 L MCV 84 MCH 28.7 MCHC 34.1 RDW 23.0 H Plt Count 162 Sodium 139.2 Potassium 4.1 Chloride 103 Carbon Dioxide 31 H Anion Gap 5 BUN 19 Creatinine 1.24 Est GFR ( Amer) > 60 Est GFR (Non-Af Amer) 57 L Glucose 97 Calcium 10.6 H 07/11/18 11:15 Creatine Kinase < 20 L Impressions: Chest X-Ray 07/10/18 00:00 IMPRESSION: Prominent central pulmonary arteries, question underlying pulmonary hypertension Knee X-Ray 07/10/18 06:49 IMPRESSION: Pathologic fracture of the proximal left tibial shaft. Differential etiologies include underlying malignancy. Assessment & Plan - Diagnosis (1) Pathological fracture, left tibia, initial encounter for fracture Is this a current diagnosis for this admission?: Yes Plan: The patient reports a slip and fall when his knee gave out resulting in left knee pain and inability to bear weight. Imaging reveals a left proximal tibial shaft fracture extending through a lytic lesion; pathological fracture. Dr. Finley has been consulted; primary plan per his expertise, planned surgical repair this afternoon. Has requested INR goal of 1.5 for surgical repair; currently 1.16 Continue oxycontin 40 mg twice daily Continue oxycodone 10 mg every 6 hours to ensure consistent pain control. IV morphine every 2 hours as needed for breakthrough pain. Pain Management is consulted; appreciate their recommendations. EKG demonstrates normal sinus rhythm with nonspecific conduction delay; no acute findings. Chest x-ray revealed prominent central pulmonary arteries, no acute findings. ProBNP and troponin are reassuring. Echocardiogram from April 2018 revealed an ejection fraction of 65% with severe pulmonary hypertension. Cardiology consultation for surgical clearance April 2018 for left hip ORIF stated that the patient had a moderate, but not prohibitive, cardiac surgical risk with recommendations to resume anticoagulation as soon as possible following surgery with serial EKGs and cardiac enzymes postoperatively. The patient and family deny any acute changes since that time; do not feel that an additional cardiology consultation is required for preoperative clearance at this time. (2) Supratherapeutic INR Is this a current diagnosis for this admission?: Yes Plan: INR is 3.59 on admission. Trending down; 1.16 today. His Coumadin is held. He was provided vitamin K 2.5 mg subcut x1 on admission. We will monitor daily PT/INR. Start Lovenox for DVT prophylaxis after surgery. (3) Multiple myeloma Qualifiers: Multiple myeloma remission status: not in remission Qualified Code(s): C90.00 - Multiple myeloma not having achieved remission Is this a current diagnosis for this admission?: Yes Plan: Oncology has been consulted; appreciate their expert assistance. (4) COPD (chronic obstructive pulmonary disease) Is this a current diagnosis for this admission?: Yes Plan: Stable and without exacerbation at this time. Chest x-ray revealed prominent central pulmonary arteries, no acute findings. The patient's Flonase is continued; he does not appear to be on any other maintenance therapies. Supplemental oxygen as needed nebulizer treatments are available to maintain oxygen saturations. Incentive spirometer to bedside. (5) Chronic diastolic (congestive) heart failure Is this a current diagnosis for this admission?: Yes Plan: Stable and without exacerbation at this time. ProBNP and troponin are reassuring. Echocardiogram from April 2018 revealed an ejection fraction of 65% with severe pulmonary hypertension. Continue diltiazem, dose decreased yesterday secondary to bradycardia (HR 40's) overnight; HR now improved (70s) Contine Furosemide at 10 mg p.o. twice daily. He is placed on a cardiac diet. Daily weights, strict I&Os (6) Pulmonary hypertension Is this a current diagnosis for this admission?: Yes Plan: The patient's home dose Sildenafil is continued. (7) Hypertension Is this a current diagnosis for this admission?: Yes Plan: Blood pressures improved following decreased diltiazem and furosemide dosing. Medications as above. (8) Hyperlipidemia Is this a current diagnosis for this admission?: Yes Plan: Cardiac diet. Continue his daily statin therapy. (9) Hypothyroidism Is this a current diagnosis for this admission?: Yes Plan: The patient's home dose levothyroxine is continued. (10) Atrial fibrillation Qualifiers: Atrial fibrillation type: paroxysmal Qualified Code(s): I48.0 - Paroxysmal atrial fibrillation Is this a current diagnosis for this admission?: Yes Plan: Currently in sinus rhythm; HR in the mid-70s. Medication management as above. Pt is admitted on continuous cardiac telemetry. (11) CHIQUITA (acute kidney injury) Is this a current diagnosis for this admission?: Yes Plan: Improvement today; Cr 1.24. This may represent his current baseline kidney function. Urinalysis is benign. Will avoid nephrotoxic medications as able. Daily weights and strict I's and O's. Daily chemistries. - Time Time Spent with patient: Less than 15 minutes Medications reviewed and adjusted accordingly: Yes Anticipated discharge: SNF - Short term rehab vs Home w/ PT Within: Other - Disposition per orthopedics discretion.
[2018-07-14] MEDS ORDERED: CEFAZOLIN 2 GM/D5W RTU 2 GM/50 ML RTUPB IV ONE (15:55)
[2018-07-14] MEDS ORDERED: DEXAMETHASONE SOD PHOSPHATE INJ 4 MG/1 ML VIAL ONE (16:38)
[2018-07-14] MEDS ORDERED: FENTANYL CITRATE INJ/PF 100 MCG/2 ML AMPUL ONE (16:38)
[2018-07-14] MEDS ORDERED: PROPOFOL INJ 200 MG/20 ML VIAL IV ONE (16:38)
[2018-07-14] MEDS ORDERED: LIDOCAINE 2% INJ-PF (20 MG/ML) 10 ML AMPUL ONE (16:38)
[2018-07-14] MEDS ORDERED: ONDANSETRON HCL INJ/PF 4 MG/2 ML SDV ONE (16:38)
[2018-07-14] MEDS ORDERED: MIDAZOLAM 2 MG/2 ML INJ ONE (16:38)
[2018-07-14] MEDS ORDERED: BUPIVACAINE HCL/DEX-WATER/PF 15 MG/2 ML AMPULE ONE (16:48)
[2018-07-14] MEDS ORDERED: FENTANYL CITRATE INJ/PF 100 MCG/2 ML AMPUL IV PRN ×2 (17:26)
[2018-07-14] MEDS ORDERED: DIPHENHYDRAMINE HCL 50 MG/ML VIAL IV PRN (17:26)
[2018-07-14] MEDS ORDERED: PROMETHAZINE HCL INJ 25 MG/1 ML VIAL IV PRN ×2 (17:26)
[2018-07-14] MEDS ORDERED: ONDANSETRON HCL INJ/PF 4 MG/2 ML SDV IV PRN (17:26)
[2018-07-14] MEDS ORDERED: MEPERIDINE HCL/PF INJ 25 MG/1 ML DISP.SYRIN IV PRN (17:26)
[2018-07-14] MEDS ORDERED: MORPHINE SULFATE 10 MG/ML INJ IV PRN ×2 (17:26→19:00)
--- NOTE | 2018-07-14 17:47 | Operative Report ---
Operative Report DATE OF SURGERY: 07/14/18 PREOPERATIVE DIAGNOSIS: Pathologic fracture left proximal tibia OPERATION: Evacuation of multiple myeloma. Open reduction internal fixation of fracture SURGEON: JOSHUA ROSE ANESTHESIA: Spinal TISSUE REMOVED OR ALTERED: Myeloma to pathology ESTIMATED BLOOD LOSS: 100 PROCEDURE: With the patient supine on the operating room table the left lower extremities prepped and draped in a sterile fashion. The limb is elevated for exsanguination tourniquet inflated to 280 torr. Longitudinal incisions made over the anteromedial aspect of the tibia and sharp dissection was carried incision through the periosteum. Underlying the periosteum is clear where the pathologic fracture is and that there is a large collection of tumor cells which were evacuated and measures possibly 75 cc total. Intralesionally the tumor bed is scraped. The pathologic fracture was easily identified as it comes lateral and posterior to the tibia. The bone defect is then filled with polymethylmethacrylate containing vancomycin. Subsequently a 8 hole Sean titanium proximal medial tibial plate is applied to the anteromedial aspect of the tibia and secured with 3 locking screws sub-cortical, 2 screws through the cement mantle, and 3 screws distal. This point the tourniquet is deflated. The wound is irrigated. Hemostasis obtained with electrocautery. The wound is closed in layers interrupted Vicryl followed by nylon. A sterile compressive dressing was applied and the patient's return to PACU in satisfactory condition.
[2018-07-14] MEDS ORDERED: TRANEXAMIC ACID INJ/PF 1,000 MG/10 ML SDV IV ONE ×2 (17:53→20:30)
[2018-07-14] MEDS ORDERED: RINGERS SOLUTION,LACTATED 1,000 ML IV PRN (18:14)
[2018-07-14] MEDS ORDERED: ACETAMINOPHEN 325 MG TABLET PO PRN (19:27)
[2018-07-14] MEDS ORDERED: MAG HYDROX/AL HYDROX/SIMETH SUSP 30 ML UDCUP PO PRN (19:27)
--- NOTE | 2018-07-14 19:56 | RADIOLOGY REPORT (SQ) ---
EXAM DESCRIPTION: NO CHG FLUORO; TIBIA FIBULA LEFT COMPLETED DATE/TIME: 07/14/2018 6:31 pm REASON FOR STUDY: ORIF LT PROXIMAL TIB/FIB COMPARISON: None. FLUOROSCOPY TIME: 0.2 minutes 3 Images saved to PACS LIMITATIONS: None. PROCEDURE: ORIF left proximal tibia fracture. FINDINGS: Images obtained from fluoro document placement of a long medial compression plate secured by multiple screws. IMPRESSION: ORIF tibial fracture. Refer to operative note for further information. COMMENT: PQRS 6045F: Fluoroscopy time of the procedure is documented in the report. TECHNICAL DOCUMENTATION: JOB ID: [id number] [employer]- All Rights Reserved Reading location - IP/workstation name: [email or web address]
--- NOTE | 2018-07-14 19:56 | RADIOLOGY REPORT (SQ) ---
EXAM DESCRIPTION: NO CHG FLUORO; TIBIA FIBULA LEFT COMPLETED DATE/TIME: 07/14/2018 6:31 pm REASON FOR STUDY: ORIF LT PROXIMAL TIB/FIB COMPARISON: None. FLUOROSCOPY TIME: 0.2 minutes 3 Images saved to PACS LIMITATIONS: None. PROCEDURE: ORIF left proximal tibia fracture. FINDINGS: Images obtained from fluoro document placement of a long medial compression plate secured by multiple screws. IMPRESSION: ORIF tibial fracture. Refer to operative note for further information. COMMENT: PQRS 6045F: Fluoroscopy time of the procedure is documented in the report. TECHNICAL DOCUMENTATION: JOB ID: [id number] [employer]- All Rights Reserved Reading location - IP/workstation name: [email or web address]
[2018-07-14] MEDS: CEFAZOLIN 2 GM/D5W RTU 2 GM/50 ML RTUPB IV SCH (22:22)
[2018-07-14] MEDS: ATORVASTATIN CALCIUM 20 MG TABLET PO SCH (22:23)
[2018-07-14] MEDS: INSULIN GLARGINE,HUM.REC.ANLOG 300 UNIT/3 ML INSULN.PEN SUBCUT SCH (22:24)
[2018-07-15] MEDS: MORPHINE SULFATE 10 MG/ML INJ IV PRN (02:04)
[2018-07-15] MEDS: DILTIAZEM HCL 30 MG TABLET PO SCH ×3 (06:10→21:34)
[2018-07-15] MEDS: LANSOPRAZOLE 15 MG TAB.RAP.DR PO SCH (06:10)
[2018-07-15] MEDS: LEVOTHYROXINE SODIUM 0.025 MG TABLET PO SCH (06:10)
[2018-07-15] MEDS: CEFAZOLIN 2 GM/D5W RTU 2 GM/50 ML RTUPB IV SCH (06:11)
[2018-07-15] MEDS: OXYCODONE HCL IR 5 MG TABLET PO SCH ×4 (06:11→18:32)
[2018-07-15 06:44] LABS: HEMATOCRIT 27.7 % (37.9-51.0); HEMOGLOBIN 9.1 g/dL (13.5-17.0); MEAN CORPUSCULAR HEMOGLOBIN 27.8 pg (27.0-33.4); MEAN CORPUSCULAR HGB CONC 32.7 g/dL (32.0-36.0); MEAN CORPUSCULAR VOLUME 85 fl (80-97); PLATELET COUNT 168 10^3/uL (150-450); RED BLOOD COUNT 3.26 10^6/uL (4.35-5.55); RED CELL DISTRIBUTION WIDTH 23.4 % (11.5-14.0); WHITE BLOOD COUNT 4.2 10^3/uL (4.0-10.5)
[2018-07-15 06:45] LABS: INTERNATIONAL RATION (INR) 1.19; PROTHROMBIN TIME 15.7 SEC (11.4-15.4)
[2018-07-15 07:01] LABS: ANION GAP 8 (5-19); BLOOD UREA NITROGEN 24 mg/dL (7-20); CALCIUM 10.5 mg/dL (8.4-10.2); CARBON DIOXIDE 26 mmol/L (22-30); CHLORIDE 106 mmol/L (98-107); GLUCOSE 117 mg/dL (75-110); POTASSIUM 4.3 mmol/L (3.6-5.0); SODIUM 140.4 mmol/L (137-145)
[2018-07-15 07:12] LABS: NT PRO BNP 865 pg/mL (5-900)
[2018-07-15 07:18] LABS: TROPONIN I < 0.012 ng/mL
[2018-07-15] MEDS: DOCUSATE SODIUM 100 MG CAPSULE PO SCH ×3 (07:19→18:32)
[2018-07-15] MEDS: SILDENAFIL CITRATE 20 MG TABLET PO SCH ×4 (07:20→18:32)
--- NOTE | 2018-07-15 07:30 | PDOC PROGRESS REPORT ---
Subjective Progress Note for:: 07/15/18 Reason For Visit: LT TIBIAL FRACTURE,MULTIPLE MYELOMA,CHIQUITA 73-year-old white male with pathologic fracture left proximal tibia postop day 1 status post open reduction internal fixation. Patient complaining of pain overnight. Physical Exam Vital Signs: Temp Pulse Resp BP Pulse Ox 37.3 C 77 17 145/54 H 95 07/15/18 00:00 07/15/18 02:00 07/15/18 00:00 07/15/18 00:00 07/15/18 00:00 Intake & Output 07/14/18 07/15/18 07/16/18 06:59 06:59 06:59 Intake Total 951 900 Output Total 3322 7160 Balance -2374 -3840 Weight 109.3 kg 106.8 kg General appearance: PRESENT: mild distress Head exam: PRESENT: normocephalic Respiratory exam: PRESENT: unlabored Cardiovascular exam: PRESENT: RRR Pulses: PRESENT: +1 pedal pulses bilateral Musculoskeletal exam: PRESENT: other - Left lower extremity dressing is removed. An OpSite is placed onto a clean dry wound. Distal neurovascular examination is intact. Neurological exam: PRESENT: alert, awake, oriented to person, oriented to place , oriented to time, oriented to situation. ABSENT: motor sensory deficit Psychiatric exam: PRESENT: appropriate affect, normal mood. ABSENT: homicidal ideation, suicidal ideation Skin exam: PRESENT: dry, intact, warm. ABSENT: cyanosis, rash Results Laboratory Results: 07/15/18 06:20 07/15/18 06:20 07/15/18 07/15/18 06:20 06:20 WBC 4.2 RBC 3.26 L Hgb 9.1 L Hct 27.7 L MCV 85 MCH 27.8 MCHC 32.7 RDW 23.4 H Plt Count 168 Sodium 140.4 Potassium 4.3 Chloride 106 Carbon Dioxide 26 Anion Gap 8 BUN 24 H Creatinine 1.30 H Est GFR ( Amer) > 60 Est GFR (Non-Af Amer) 54 L Glucose 117 H Calcium 10.5 H 07/11/18 07/15/18 11:15 06:20 Creatine Kinase < 20 L Troponin I < 0.012 NT-Pro-B Natriuret Pep 865 Impressions: Chest X-Ray 07/10/18 00:00 IMPRESSION: Prominent central pulmonary arteries, question underlying pulmonary hypertension Knee X-Ray 07/10/18 06:49 IMPRESSION: Pathologic fracture of the proximal left tibial shaft. Differential etiologies include underlying malignancy. Fluoroscopy 07/14/18 00:00 IMPRESSION: ORIF tibial fracture. Refer to operative note for further information. Tibia/Fibula X-Ray 07/14/18 00:00 IMPRESSION: ORIF tibial fracture. Refer to operative note for further information. Status: Imported from PACS Assessment & Plan - Diagnosis (1) Pathological fracture, left tibia, initial encounter for fracture Is this a current diagnosis for this admission?: Yes Plan: Patient be mobilized with physical therapy on touchdown weightbearing restriction on the left lower extremity. Anticipate discharge home when functional capacity permits - Time Time Spent with patient: 15-24 minutes Anticipated discharge: Home with Homehealth Within: Other
[2018-07-15] MEDS: FUROSEMIDE 20 MG TABLET PO SCH ×2 (07:36→11:40)
--- NOTE | 2018-07-15 08:46 | PDOC PROGRESS REPORT ---
Subjective Progress Note for:: 07/15/18 Subjective:: Patient feeling much better today after surgery yesterday. tells me that there was a large myeloma lytic lesion at the site. Pain was increased last night, but better today. Reason For Visit: LT TIBIAL FRACTURE,MULTIPLE MYELOMA,CHIQUITA Physical Exam Vital Signs: Temp Pulse Resp BP Pulse Ox 99.2 F 77 17 145/54 H 95 07/15/18 00:00 07/15/18 02:00 07/15/18 00:00 07/15/18 00:00 07/15/18 00:00 Intake & Output 07/14/18 07/15/18 07/16/18 06:59 06:59 06:59 Intake Total 951 900 Output Total 3320 7100 Balance -5424 -6280 Weight 109.3 kg 106.8 kg General appearance: PRESENT: no acute distress Respiratory exam: PRESENT: unlabored Neurological exam: PRESENT: alert, awake Psychiatric exam: PRESENT: appropriate affect Skin exam: PRESENT: normal color Results Laboratory Results: 07/15/18 06:20 07/15/18 06:20 07/15/18 07/15/18 06:20 06:20 WBC 4.2 RBC 3.26 L Hgb 9.1 L Hct 27.7 L MCV 85 MCH 27.8 MCHC 32.7 RDW 23.4 H Plt Count 168 Sodium 140.4 Potassium 4.3 Chloride 106 Carbon Dioxide 26 Anion Gap 8 BUN 24 H Creatinine 1.30 H Est GFR ( Amer) > 60 Est GFR (Non-Af Amer) 54 L Glucose 117 H Calcium 10.5 H 07/11/18 07/15/18 11:15 06:20 Creatine Kinase < 20 L Troponin I < 0.012 NT-Pro-B Natriuret Pep 865 Impressions: Chest X-Ray 07/10/18 00:00 IMPRESSION: Prominent central pulmonary arteries, question underlying pulmonary hypertension Knee X-Ray 07/10/18 06:49 IMPRESSION: Pathologic fracture of the proximal left tibial shaft. Differential etiologies include underlying malignancy. Fluoroscopy 07/14/18 00:00 IMPRESSION: ORIF tibial fracture. Refer to operative note for further information. Tibia/Fibula X-Ray 07/14/18 00:00 IMPRESSION: ORIF tibial fracture. Refer to operative note for further information. Assessment & Plan - Diagnosis (1) Chronic anticoagulation Is this a current diagnosis for this admission?: Yes Plan: Lovenox and warfarin have both been restarted. Continue until INR >2 then stop lovenox. (2) Pathological fracture, left tibia, initial encounter for fracture Is this a current diagnosis for this admission?: Yes Plan: s/p ORIF. Plans for myeloma to be determined after discharge.
[2018-07-15] MEDS ORDERED: WARFARIN SODIUM 6 MG PO SCH (10:00)
[2018-07-15] MEDS ORDERED: WARFARIN SODIUM 3 MG TABLET PO SCH (10:00)
--- NOTE | 2018-07-15 10:36 | EKG REPORT ---
SEVERITY:- NORMAL ECG - SINUS RHYTHM : Confirmed by: Rhiannon Enciso MD 15-Jul-2018 10:35:40
[2018-07-15] MEDS: CITALOPRAM HYDROBROMIDE 20 MG TABLET PO SCH (11:30)
[2018-07-15] MEDS: LIDOCAINE 5% (700 MG) TRANSDERMAL ADH..PATCH TP SCH (11:31)
[2018-07-15] MEDS: CALCIUM CARBONATE 500 MG TAB.CHEW PO SCH (11:32)
[2018-07-15] MEDS: CALCIUM CARBONATE 250 MG/VITAMIN D3 125 UNIT TABLET PO SCH (11:32)
[2018-07-15] MEDS: OXYCODONE HCL SR 40 MG TABLET PO SCH ×2 (11:33→21:35)
[2018-07-15] MEDS: VALACYCLOVIR HCL 500 MG TABLET PO SCH (11:36)
[2018-07-15] MEDS: ONDANSETRON HCL INJ/PF 4 MG/2 ML SDV IV PRN ×2 (12:20→21:35)
[2018-07-15] MEDS ORDERED: BISMUTH SUBSALICYLATE 262 MG TAB.CHEW PO PRN (14:18)
--- NOTE | 2018-07-15 15:04 | PDOC PROGRESS REPORT ---
Subjective Progress Note for:: 07/15/18 Subjective:: No adverse events overnight. said he went to surgery yesterday around 4 PM. He said he did not sleep very well last night. He still having some discomfort. His appetite was good and he ate most of his breakfast. He does not want to go to a rehab center because he said he was in one recently and just wants, but it sounds like all he could do with physical therapy this morning was stand up beside the bed. Reason For Visit: LT TIBIAL FRACTURE,MULTIPLE MYELOMA,CHIQUITA Physical Exam Vital Signs: Temp Pulse Resp BP Pulse Ox 98.3 F 68 15 149/55 H 98 07/15/18 12:04 07/15/18 12:04 07/15/18 12:04 07/15/18 12:04 07/15/18 12:04 Intake & Output 07/14/18 07/15/18 07/16/18 06:59 06:59 06:59 Intake Total 951 900 Output Total 3325 2750 Balance -2374 -1850 Weight 109.3 kg 106.8 kg General appearance: PRESENT: no acute distress, hard of hearing, obese, well- developed, well-nourished Respiratory exam: PRESENT: clear to auscultation romelia, decreased breath sounds, symmetrical, unlabored. ABSENT: rales, rhonchi, wheezes Cardiovascular exam: PRESENT: RRR, +S1, +S2. ABSENT: diastolic murmur, rubs, systolic murmur Pulses: PRESENT: normal dorsalis pedis pul Vascular exam: PRESENT: normal capillary refill GI/Abdominal exam: PRESENT: normal bowel sounds, soft. ABSENT: distended, guarding, mass, organolmegaly, rebound, tenderness Extremities exam: PRESENT: tenderness - LLE, surgical wound is cleanly dressed. ABSENT: calf tenderness, clubbing, pedal edema Neurological exam: PRESENT: alert, awake, oriented to person, oriented to place , oriented to time, oriented to situation Results Laboratory Results: 07/15/18 06:20 07/15/18 06:20 07/15/18 07/15/18 06:20 06:20 WBC 4.2 RBC 3.26 L Hgb 9.1 L Hct 27.7 L MCV 85 MCH 27.8 MCHC 32.7 RDW 23.4 H Plt Count 168 Sodium 140.4 Potassium 4.3 Chloride 106 Carbon Dioxide 26 Anion Gap 8 BUN 24 H Creatinine 1.30 H Est GFR ( Amer) > 60 Est GFR (Non-Af Amer) 54 L Glucose 117 H Calcium 10.5 H 07/11/18 07/15/18 11:15 06:20 Creatine Kinase < 20 L Troponin I < 0.012 NT-Pro-B Natriuret Pep 865 Impressions: Chest X-Ray 07/10/18 00:00 IMPRESSION: Prominent central pulmonary arteries, question underlying pulmonary hypertension Knee X-Ray 07/10/18 06:49 IMPRESSION: Pathologic fracture of the proximal left tibial shaft. Differential etiologies include underlying malignancy. Fluoroscopy 07/14/18 00:00 IMPRESSION: ORIF tibial fracture. Refer to operative note for further information. Tibia/Fibula X-Ray 07/14/18 00:00 IMPRESSION: ORIF tibial fracture. Refer to operative note for further information. Assessment & Plan - Diagnosis (1) Pathological fracture, left tibia, initial encounter for fracture Is this a current diagnosis for this admission?: Yes Plan: Weightbearing instructions per orthopedics. Work on acceptable pain control. We will follow up on physical therapy recommendations. (2) Multiple myeloma Qualifiers: Multiple myeloma remission status: not in remission Qualified Code(s): C90.00 - Multiple myeloma not having achieved remission Is this a current diagnosis for this admission?: Yes Plan: He will continue to follow-up with oncology as an outpatient. - Time Time Spent with patient: 25-34 minutes
[2018-07-15] MEDS ORDERED: INSULIN GLARGINE,HUM.REC.ANLOG 300 UNIT/3 ML INSULN.PEN SUBCUT SCH (18:00)
[2018-07-15] MEDS ORDERED: (PENDING PHARMACY ID) (L. Rhamnosus Gg/Inulin [Culturelle Capsule] 1 EACH) PO SCH (18:00)
[2018-07-15] MEDS: ATORVASTATIN CALCIUM 20 MG TABLET PO SCH (21:35)
[2018-07-15] MEDS: INSULIN GLARGINE,HUM.REC.ANLOG 300 UNIT/3 ML INSULN.PEN SUBCUT SCH (21:36)
[2018-07-16] MEDS: OXYCODONE HCL IR 5 MG TABLET PO SCH ×3 (02:41→14:58)
[2018-07-16] MEDS: ONDANSETRON HCL INJ/PF 4 MG/2 ML SDV IV PRN ×3 (03:24→19:14)
[2018-07-16] MEDS ORDERED: NORMAL SALINE 1000 ML 1,000 ML IV ONE (04:00)
[2018-07-16] MEDS: DILTIAZEM HCL 30 MG TABLET PO SCH (05:48)
[2018-07-16] MEDS: LANSOPRAZOLE 15 MG TAB.RAP.DR PO SCH (05:49)
[2018-07-16] MEDS: LEVOTHYROXINE SODIUM 0.025 MG TABLET PO SCH (05:49)
[2018-07-16 06:53] LABS: ABSOLUTE LYMPHOCYTES (AUTO) 1.1 10^3/uL (0.5-4.7); ABSOLUTE MONOCYTES (AUTO) 0.5 10^3/uL (0.1-1.4); ABSOLUTE NEUT (AUTO) 5.3 10^3/uL (1.7-8.2); BASOPHILS % (AUTO) 0.4 % (0-2); EOSINOPHILS % (AUTO) 0.4 % (0-6); HEMATOCRIT 29.3 % (37.9-51.0); HEMOGLOBIN 9.8 g/dL (13.5-17.0); LYMPHOCYTES % (AUTO) 15.3 % (13-45); MEAN CORPUSCULAR HEMOGLOBIN 27.7 pg (27.0-33.4); MEAN CORPUSCULAR HGB CONC 33.5 g/dL (32.0-36.0); MEAN CORPUSCULAR VOLUME 83 fl (80-97); MONOCYTES % (AUTO) 7.6 % (3-13); PLATELET COUNT 188 10^3/uL (150-450); RED BLOOD COUNT 3.54 10^6/uL (4.35-5.55); RED CELL DISTRIBUTION WIDTH 22.9 % (11.5-14.0); SEGMENTED NEUTROPHILS % (AUTO) 76.3 % (42-78); TOTAL CELLS COUNTED % (AUTO) 100 %; WHITE BLOOD COUNT 6.9 10^3/uL (4.0-10.5)
[2018-07-16 07:19] LABS: ANION GAP 9 (5-19); BLOOD UREA NITROGEN 33 mg/dL (7-20); CALCIUM 11.5 mg/dL (8.4-10.2); CARBON DIOXIDE 28 mmol/L (22-30); CHLORIDE 105 mmol/L (98-107); GLUCOSE 148 mg/dL (75-110); SODIUM 142.3 mmol/L (137-145)
--- NOTE | 2018-07-16 07:54 | PDOC PROGRESS REPORT ---
Subjective Progress Note for:: 07/16/18 Reason For Visit: LT TIBIAL FRACTURE,MULTIPLE MYELOMA,CHIQUITA 73-year-old white male now postop day 2 status post ORIF of a left tibial pathologic fracture. Patient's relatively non-interactive this morning and all communication is through his . There is issues of nausea and vomiting as well as overall malaise. Discussed with nursing staff. Zofran has been administered, Phenergan an allergy for the patient. Physical Exam Vital Signs: Temp Pulse Resp BP Pulse Ox 36.9 C 70 18 151/48 H 95 07/16/18 03:32 07/16/18 03:32 07/16/18 03:32 07/16/18 03:32 07/16/18 03:32 Intake & Output 07/15/18 07/16/18 07/17/18 06:59 06:59 06:59 Intake Total 900 1225 Output Total 2750 1700 Balance -1850 -475 Weight 106.8 kg 108.5 kg General appearance: PRESENT: mild distress, well-nourished Head exam: PRESENT: normocephalic Respiratory exam: PRESENT: unlabored Cardiovascular exam: PRESENT: RRR Pulses: PRESENT: +1 pedal pulses bilateral Vascular exam: PRESENT: normal capillary refill GI/Abdominal exam: PRESENT: soft Rectal exam: PRESENT: deferred Extremities exam: PRESENT: other - Left tibia dressing clean dry and intact. Minimal pedal edema. Capillary refill intact. Neurological exam: PRESENT: other - Patient is not really interactive this morning. There is no verbal communication. He hesitates to open his eyes. Skin exam: PRESENT: dry, intact, warm. ABSENT: cyanosis, rash Results Laboratory Results: 07/16/18 06:43 07/16/18 06:43 07/16/18 07/16/18 06:43 06:43 WBC 6.9 RBC 3.54 L Hgb 9.8 L Hct 29.3 L MCV 83 MCH 27.7 MCHC 33.5 RDW 22.9 H Plt Count 188 Seg Neutrophils % 76.3 Lymphocytes % 15.3 Monocytes % 7.6 Eosinophils % 0.4 Basophils % 0.4 Absolute Neutrophils 5.3 Absolute Lymphocytes 1.1 Absolute Monocytes 0.5 Absolute Eosinophils 0.0 Absolute Basophils 0.0 Sodium 142.3 Potassium 4.0 Chloride 105 Carbon Dioxide 28 Anion Gap 9 BUN 33 H Creatinine 1.45 H Est GFR ( Amer) 58 L Est GFR (Non-Af Amer) 48 L Glucose 148 H Calcium 11.5 H 07/11/18 07/15/18 11:15 06:20 Creatine Kinase < 20 L Troponin I < 0.012 NT-Pro-B Natriuret Pep 865 Impressions: Chest X-Ray 07/10/18 00:00 IMPRESSION: Prominent central pulmonary arteries, question underlying pulmonary hypertension Knee X-Ray 07/10/18 06:49 IMPRESSION: Pathologic fracture of the proximal left tibial shaft. Differential etiologies include underlying malignancy. Fluoroscopy 07/14/18 00:00 IMPRESSION: ORIF tibial fracture. Refer to operative note for further information. Tibia/Fibula X-Ray 07/14/18 00:00 IMPRESSION: ORIF tibial fracture. Refer to operative note for further information. Status: Imported from PACS Assessment & Plan - Diagnosis (1) Pathological fracture, left tibia, initial encounter for fracture Is this a current diagnosis for this admission?: Yes Plan: 73-year-old white male status post ORIF of a left tibial pathologic fracture secondary myeloma now with upper GI symptoms and overall malaise of uncertain etiology. The patient remains afebrile. The mentions that he behaved the same way during his last hospitalization when he had a vascular port infection. Currently he remains afebrile and his white count is at 6000 without a left shift suggesting that this is probably not an infectious process at this time. - Time Time Spent with patient: 15-24 minutes Anticipated discharge: Other Within: Other
--- NOTE | 2018-07-16 08:18 | EKG REPORT ---
SEVERITY:- ABNORMAL ECG - SINUS RHYTHM NONSPECIFIC INTRAVENTRICULAR CONDUCTION DELAY : Confirmed by: Rhiannon Enciso MD 16-Jul-2018 08:17:22
--- NOTE | 2018-07-16 08:40 | PDOC PROGRESS REPORT ---
Subjective Progress Note for:: 07/16/18 Subjective:: Patient has been weak over the last 24 hours, not eating or drinking much, having sore throat, his was concerned about his status, we had a long discussion about next steps of care. We discussed giving him another 24-48 hours with IV hydration to see if the sore throat improves, we discussed that it probably is related to the intubation for the surgery. In previous circumstances he has bounced back from seemingly insurmountable odds. If by the weekend he is still listless and not eating or drinking, we will need to discuss comfort care measures going forward. But if he improves, I would consider continued aggressive rehabilitation and getting him to rehab to do this. Reason For Visit: LT TIBIAL FRACTURE,MULTIPLE MYELOMA,CHIQUITA Physical Exam Vital Signs: Temp Pulse Resp BP Pulse Ox 98.6 F 73 20 175/57 H 98 07/16/18 07:51 07/16/18 07:51 07/16/18 07:51 07/16/18 07:51 07/16/18 07:51 Intake & Output 07/15/18 07/16/18 07/17/18 06:59 06:59 06:59 Intake Total 900 1225 Output Total 2750 1700 Balance -1850 -475 Weight 106.8 kg 108.5 kg General appearance: PRESENT: no acute distress, well-developed, well-nourished Head exam: PRESENT: atraumatic, normocephalic Eye exam: PRESENT: conjunctiva pink, EOMI, PERRLA. ABSENT: scleral icterus Ear exam: PRESENT: normal external ear exam Mouth exam: PRESENT: moist, tongue midline Neck exam: ABSENT: carotid bruit, JVD, lymphadenopathy, thyromegaly Respiratory exam: PRESENT: clear to auscultation romelia. ABSENT: rales, rhonchi, wheezes Cardiovascular exam: PRESENT: RRR. ABSENT: diastolic murmur, rubs, systolic murmur Pulses: PRESENT: normal dorsalis pedis pul Vascular exam: PRESENT: normal capillary refill GI/Abdominal exam: PRESENT: normal bowel sounds, soft. ABSENT: distended, guarding, mass, organolmegaly, rebound, tenderness Rectal exam: PRESENT: deferred Extremities exam: PRESENT: full ROM. ABSENT: calf tenderness, clubbing, pedal edema Neurological exam: PRESENT: alert, awake, oriented to person, oriented to place , oriented to time, oriented to situation, CN II-XII grossly intact. ABSENT: motor sensory deficit Psychiatric exam: PRESENT: appropriate affect, normal mood. ABSENT: homicidal ideation, suicidal ideation Skin exam: PRESENT: dry, intact, warm. ABSENT: cyanosis, rash Results Laboratory Results: 07/16/18 06:43 07/16/18 06:43 07/16/18 07/16/18 06:43 06:43 WBC 6.9 RBC 3.54 L Hgb 9.8 L Hct 29.3 L MCV 83 MCH 27.7 MCHC 33.5 RDW 22.9 H Plt Count 188 Seg Neutrophils % 76.3 Lymphocytes % 15.3 Monocytes % 7.6 Eosinophils % 0.4 Basophils % 0.4 Absolute Neutrophils 5.3 Absolute Lymphocytes 1.1 Absolute Monocytes 0.5 Absolute Eosinophils 0.0 Absolute Basophils 0.0 Sodium 142.3 Potassium 4.0 Chloride 105 Carbon Dioxide 28 Anion Gap 9 BUN 33 H Creatinine 1.45 H Est GFR ( Amer) 58 L Est GFR (Non-Af Amer) 48 L Glucose 148 H Calcium 11.5 H 07/11/18 07/15/18 11:15 06:20 Creatine Kinase < 20 L Troponin I < 0.012 NT-Pro-B Natriuret Pep 865 Impressions: Chest X-Ray 07/10/18 00:00 IMPRESSION: Prominent central pulmonary arteries, question underlying pulmonary hypertension Knee X-Ray 07/10/18 06:49 IMPRESSION: Pathologic fracture of the proximal left tibial shaft. Differential etiologies include underlying malignancy. Fluoroscopy 07/14/18 00:00 IMPRESSION: ORIF tibial fracture. Refer to operative note for further information. Tibia/Fibula X-Ray 07/14/18 00:00 IMPRESSION: ORIF tibial fracture. Refer to operative note for further information. Assessment & Plan - Diagnosis (1) Chronic anticoagulation Is this a current diagnosis for this admission?: Yes Plan: Continue current Lovenox as well as warfarin, once INR is between 2 and 3 we could DC the Lovenox. (2) Pathological fracture, left tibia, initial encounter for fracture Is this a current diagnosis for this admission?: Yes Plan: Continue current care per surgery (3) Multiple myeloma Qualifiers: Multiple myeloma remission status: not in remission Qualified Code(s): C90.00 - Multiple myeloma not having achieved remission Is this a current diagnosis for this admission?: Yes Plan: Continue to hold on therapy for now. Plan as above - Time Time Spent with patient: 35 or more minutes - Inpatient Certification Based on my medical assessment, after consideration of the patient's comorbidities, presenting symptoms, or acuity I expect that the services needed warrant INPATIENT care.: Yes I certify that my determination is in accordance with my understanding of Medicare's requirements for reasonable and necessary INPATIENT services [42 CFR 412.3e].: Yes Medical Necessity: Need For IV Fluids, Risk of Complication if Not Cared For in Hospital
[2018-07-16] MEDS ORDERED: (PENDING PHARMACY ID) (Warfarin Sodium [Coumadin] 10 MG) PO SCH (10:00)
[2018-07-16] MEDS ORDERED: WARFARIN SODIUM 5 MG TABLET PO SCH ×2 (10:00→17:00)
--- NOTE | 2018-07-16 10:46 | PROGRESS NOTE E ---
Progress Note NAME: NINI ZHENG : 1945 AGE: 73Y DATE: 07/16/2018 ROOM: 537 SUBJECTIVE: The patient is lying in bed. The patient will awaken, answer with simple one-word answers. The patient's is present at the bedside. The patient did have a difficult evening last night, and actually started vomiting postoperatively. There have been no reported episodes of diarrhea. The patient has been afebrile, but has been hypertensive, but he has not been taking his antihypertensive medications. The patient is unable to voice any specific concerns at this time. REVIEW OF SYSTEMS: The rest of the review of systems is unobtainable. MEDICATIONS: Medications have been reviewed. OBJECTIVE: GENERAL: The patient is a 73-year-old male who will awaken, but for the most part is groggy. Does not appear to be distressed. VITAL SIGNS: Temperature 98.6, pulse 73, respirations 20, blood pressure 175/57, oxygen saturation 98% on room air. SKIN: Warm and dry, no rash, not diaphoretic. HEENT: Pupils are equal, round, and reactive to light and accommodation. No evidence of JVP. CVS: Heart is regular, no rub. CHEST: Diminished, symmetrical, unlabored. ABDOMEN: Does have bowel sounds present. Soft, nontender. EXTREMITIES: No edema. All 4 extremities are appropriately warm to the touch. PSYCHIATRIC: The patient is quite sleepy. DIAGNOSTIC VALUES: From 07/16/2018: WBC 6.9, hemoglobin 9.8, hematocrit 29.3, platelet count 188,000. Chemistry obtained on 07/16/2018: Sodium 142, potassium 4.0, chloride 111, bicarbonate 28, BUN 33, creatinine 0.45. Glucose 148. Calcium is 11.5. ASSESSMENT AND PLAN: 1. LEFT FIBULA PATHOLOGICAL FRACTURE. The patient is status post operative repair postop day #1. Will continue to aid with pain control and follow. 2. VOMITING. Will image for possible ileus. Antiemetics as needed. 3. MULTIPLE MYELOMA. Do appreciate Oncology input with this. Will collaborate regarding the patient's anticoagulation. 4. CHRONIC OBSTRUCTIVE PULMONARY DISEASE. The patient appears to be at baseline. 5. CHRONIC DIASTOLIC CONGESTIVE HEART FAILURE. Continue the patient's home medications. Overall, the patient appears to be at baseline. Appears optivolemic at this point. 6. PULMONARY HYPERTENSION. Will continue sildenafil. 7. HYPERTENSION. Blood pressure has been in acceptable range. 8. HYPERLIPIDEMIA. Continue statin. 9. HYPOTHYROIDISM. Continue levothyroxine. 10. INTERMITTENT ATRIAL FIBRILLATION. The patient appears to be in sinus rhythm at this time. Continue to monitor. 11. ACUTE KIDNEY INJURY. The patient's creatinine appears to have a baseline of 1.3, which is consistent with this at this time. DISPOSITION: The patient is a FULL CODE. Pending the patient's symptomatology and diagnostic findings, will reevaluate in the a.m. Time spent on this followup including history and physical examination, patient education, review of records, as well as family meeting and specialty collaboration, is 25 minutes. DICTATING PHYSICIAN: EDMUNDO FLORES NP [id number] PHY#: [id number] ID: [id number] JOB#: [id number] ACCT: [id number] cc: > MTDD
--- NOTE | 2018-07-16 11:05 | RADIOLOGY REPORT (SQ) ---
EXAM DESCRIPTION: KUB/ABDOMEN (SINGLE VIEW) COMPLETED DATE/TIME: 07/16/2018 10:55 am REASON FOR STUDY: Post-op vomiting COMPARISON: None. NUMBER OF VIEWS: One view. TECHNIQUE: Supine radiographic image of the abdomen acquired. LIMITATIONS: None. FINDINGS: BOWEL GAS PATTERN: Prominent gaseous distention of the stomach. Normal bowel gas pattern. No dilated bowel loops. CALCIFICATIONS: No suspicious calcifications. SOFT TISSUES: No gross mass or suggestion of organomegaly. HARDWARE: None in the abdomen. Hardware in the left hip. BONES: No acute fracture. Degenerative changes in the spine. Hardware in the left hip. No worrisom e bone lesions. OTHER: No other significant finding. IMPRESSION: PROMINENT GASEOUS DISTENTION OF THE STOMACH. NO BOWEL DILATION. TECHNICAL DOCUMENTATION: JOB ID: [id number] [employer]- All Rights Reserved Reading location - IP/workstation name: [email or web address]
[2018-07-16] MEDS: DOCUSATE SODIUM 100 MG CAPSULE PO SCH (11:52)
[2018-07-16] MEDS: CALCIUM CARBONATE 500 MG TAB.CHEW PO SCH (11:52)
[2018-07-16] MEDS: CITALOPRAM HYDROBROMIDE 20 MG TABLET PO SCH (11:53)
[2018-07-16] MEDS: CALCIUM CARBONATE 250 MG/VITAMIN D3 125 UNIT TABLET PO SCH (11:54)
[2018-07-16] MEDS: LIDOCAINE 5% (700 MG) TRANSDERMAL ADH..PATCH TP SCH (11:55)
[2018-07-16] MEDS: FUROSEMIDE 20 MG TABLET PO SCH ×2 (12:01→12:02)
[2018-07-16] MEDS: OXYCODONE HCL SR 40 MG TABLET PO SCH (12:04)
[2018-07-16] MEDS: VALACYCLOVIR HCL 500 MG TABLET PO SCH (12:15)
[2018-07-16] MEDS: SILDENAFIL CITRATE 20 MG TABLET PO SCH (12:15)
[2018-07-16] MEDS ORDERED: BISACODYL 10 MG SUPP.RECT PR PRN (12:33)
[2018-07-16] MEDS ORDERED: BISACODYL 10 MG SUPP.RECT PR ONE (13:00)
[2018-07-16] MEDS ORDERED: PHARMACY COMMUNICATION ORDER MC NR (16:30)
[2018-07-16] MEDS ORDERED: ACETAMINOPHEN 325 MG TABLET NG PRN (18:00)
[2018-07-16] MEDS ORDERED: BISMUTH SUBSALICYLATE 262 MG TAB.CHEW NG PRN (18:00)
[2018-07-16] MEDS ORDERED: MAG HYDROX/AL HYDROX/SIMETH SUSP 30 ML UDCUP NG PRN (18:00)
[2018-07-16] MEDS ORDERED: OXYCODONE HCL IR 5 MG TABLET NG SCH (18:00)
--- NOTE | 2018-07-16 18:00 | RADIOLOGY REPORT (SQ) ---
EXAM DESCRIPTION: KUB/ABDOMEN (SINGLE VIEW) COMPLETED DATE/TIME: 07/16/2018 5:46 pm REASON FOR STUDY: Check Placement of NG Tube COMPARISON: 07/16/2018 1046 hours NUMBER OF VIEWS: One view. TECHNIQUE: Supine radiographic image of the abdomen acquired. LIMITATIONS: None. FINDINGS: BOWEL GAS PATTERN: Persistent marked gastric distention. There is an NG tube present the stomach. CALCIFICATIONS: No suspicious calcifications. SOFT TISSUES: No gross mass or suggestion of organomegaly. HARDWARE: None in the abdomen. BONES: No acute fracture. No worrisome bone lesions. OTHER: No other significant finding. IMPRESSION: NG tube present in the stomach. Persistent gastric dilatation. TECHNICAL DOCUMENTATION: JOB ID: [id number] [employer]- All Rights Reserved Reading location - IP/workstation name: [email or web address]
[2018-07-16] MEDS: POTASSIUM CHLORIDE 20 MEQ/15 ML UDCUP PO SCH (18:49)
[2018-07-16] MEDS: ENOXAPARIN SODIUM INJ 120 MG/0.8 ML DISP.SYRIN SUBCUT SCH (18:54)
[2018-07-16] MEDS: SILDENAFIL CITRATE 20 MG TABLET NG SCH (18:54)
[2018-07-16] MEDS ORDERED: DOCUSATE SODIUM 100 MG/10 ML UDC NG SCH (19:00)
[2018-07-16] MEDS ORDERED: NORMAL SALINE 1000 ML 1,000 ML IV PRN (19:25)
[2018-07-16] MEDS ORDERED: WARFARIN SODIUM 5 MG TABLET NG SCH (22:00)
[2018-07-16] MEDS: DOCUSATE SODIUM 100 MG/10 ML UDC NG SCH (22:05)
[2018-07-16] MEDS: INSULIN GLARGINE,HUM.REC.ANLOG 300 UNIT/3 ML INSULN.PEN SUBCUT SCH (22:06)
[2018-07-16] MEDS: ATORVASTATIN CALCIUM 20 MG TABLET NG SCH (22:07)
[2018-07-16] MEDS: DILTIAZEM HCL 30 MG TABLET NG SCH (22:07)
[2018-07-17] MEDS: OXYCODONE HCL IR 5 MG TABLET NG SCH ×5 (00:06→23:10)
[2018-07-17] MEDS: LANSOPRAZOLE 15 MG TAB.RAP.DR NG SCH (05:49)
[2018-07-17] MEDS: LEVOTHYROXINE SODIUM 0.025 MG TABLET NG SCH (05:49)
[2018-07-17] MEDS: DILTIAZEM HCL 30 MG TABLET NG SCH ×3 (05:50→22:13)
[2018-07-17] MEDS: ENOXAPARIN SODIUM INJ 120 MG/0.8 ML DISP.SYRIN SUBCUT SCH ×2 (05:52→18:29)
[2018-07-17] MEDS ORDERED: DEXAMETHASONE 4 MG TABLET NG SCH (06:00)
[2018-07-17 06:29] LABS: HEMATOCRIT 28.6 % (37.9-51.0); HEMOGLOBIN 9.5 g/dL (13.5-17.0); MEAN CORPUSCULAR HGB CONC 33.1 g/dL (32.0-36.0); MEAN CORPUSCULAR VOLUME 85 fl (80-97); PLATELET COUNT 192 10^3/uL (150-450); RED BLOOD COUNT 3.37 10^6/uL (4.35-5.55); RED CELL DISTRIBUTION WIDTH 22.5 % (11.5-14.0); WHITE BLOOD COUNT 5.9 10^3/uL (4.0-10.5)
[2018-07-17 06:40] LABS: ANION GAP 7 (5-19); BLOOD UREA NITROGEN 36 mg/dL (7-20); CALCIUM 11.6 mg/dL (8.4-10.2); CARBON DIOXIDE 32 mmol/L (22-30); CHLORIDE 109 mmol/L (98-107); GLUCOSE 121 mg/dL (75-110); POTASSIUM 3.4 mmol/L (3.6-5.0); SODIUM 147.6 mmol/L (137-145)
[2018-07-17] MEDS ORDERED: POTASSI CL 20 MEQ/1/2NS 1L 20 MEQ/1,000 ML RTUINJ IV PRN (06:51)
--- NOTE | 2018-07-17 07:03 | PDOC PROGRESS REPORT ---
Subjective Progress Note for:: 07/17/18 Reason For Visit: LT TIBIAL FRACTURE,MULTIPLE MYELOMA,CHIQUITA 73-year-old white male with multiple myeloma status post ORIF of a left tibial fracture Physical Exam Vital Signs: Temp Pulse Resp BP Pulse Ox 37.2 C 66 18 151/50 H 100 07/17/18 03:54 07/17/18 03:54 07/17/18 03:54 07/17/18 03:54 07/17/18 03:54 Intake & Output 07/16/18 07/17/18 07/18/18 06:59 06:59 06:59 Intake Total 1225 1000 Output Total 1700 1200 Balance -475 -200 Weight 108.5 kg 106.2 kg Physical Exam: Large middle-aged white male lying in bed with an NG tube in place relatively somnolent General appearance: PRESENT: no acute distress Head exam: PRESENT: normocephalic Musculoskeletal exam: PRESENT: other - Left tibial dressing is clean dry and intact. Distal neurovascular examination is notable for brisk capillary refill. Results Laboratory Results: 07/17/18 05:30 07/17/18 05:30 07/16/18 07/17/18 07/17/18 06:43 05:30 05:30 WBC 5.9 RBC 3.37 L Hgb 9.5 L Hct 28.6 L MCV 85 MCH 28.0 MCHC 33.1 RDW 22.5 H Plt Count 192 Sodium 142.3 147.6 H Potassium 4.0 3.4 L Chloride 105 109 H Carbon Dioxide 28 32 H Anion Gap 9 7 BUN 33 H 36 H Creatinine 1.45 H 1.62 H Est GFR ( Amer) 58 L 51 L Est GFR (Non-Af Amer) 48 L 42 L Glucose 148 H 121 H Calcium 11.5 H 11.6 H Magnesium 2.5 H 07/11/18 07/15/18 11:15 06:20 Creatine Kinase < 20 L Troponin I < 0.012 NT-Pro-B Natriuret Pep 865 Impressions: Chest X-Ray 07/10/18 00:00 IMPRESSION: Prominent central pulmonary arteries, question underlying pulmonary hypertension Knee X-Ray 07/10/18 06:49 IMPRESSION: Pathologic fracture of the proximal left tibial shaft. Differential etiologies include underlying malignancy. Fluoroscopy 07/14/18 00:00 IMPRESSION: ORIF tibial fracture. Refer to operative note for further information. Tibia/Fibula X-Ray 07/14/18 00:00 IMPRESSION: ORIF tibial fracture. Refer to operative note for further information. KUB X-Ray 07/16/18 16:30 IMPRESSION: NG tube present in the stomach. Persistent gastric dilatation. Status: Imported from PACS Assessment & Plan - Diagnosis (1) Pathological fracture, left tibia, initial encounter for fracture Is this a current diagnosis for this admission?: Yes Plan: Mobilize as medical condition permits
[2018-07-17] MEDS ORDERED: ACETAMINOPHEN SOLN 325 MG/10.15 ML UDCUP NG PRN (08:30)
--- NOTE | 2018-07-17 09:00 | PDOC PROGRESS REPORT ---
Subjective Progress Note for:: 07/17/18 Subjective:: Unfortunately patient noted with ileus on KUB, now has NG tube placed. But notes that he is a little bit more responsive over the last 24 hours. Reason For Visit: LT TIBIAL FRACTURE,MULTIPLE MYELOMA,CHIQUITA Physical Exam Vital Signs: Temp Pulse Resp BP Pulse Ox 98.0 F 68 16 154/52 H 98 07/17/18 07:54 07/17/18 07:54 07/17/18 07:54 07/17/18 07:54 07/17/18 07:54 Intake & Output 07/16/18 07/17/18 07/18/18 06:59 06:59 06:59 Intake Total 1225 1000 Output Total 1700 1200 Balance -475 -200 Weight 108.5 kg 106.2 kg General appearance: PRESENT: no acute distress, well-developed, well-nourished Head exam: PRESENT: atraumatic, normocephalic Eye exam: PRESENT: conjunctiva pink, EOMI, PERRLA. ABSENT: scleral icterus Ear exam: PRESENT: normal external ear exam Mouth exam: PRESENT: moist, tongue midline Neck exam: ABSENT: carotid bruit, JVD, lymphadenopathy, thyromegaly Respiratory exam: PRESENT: clear to auscultation romelia. ABSENT: rales, rhonchi, wheezes Cardiovascular exam: PRESENT: RRR. ABSENT: diastolic murmur, rubs, systolic murmur Pulses: PRESENT: normal dorsalis pedis pul Vascular exam: PRESENT: normal capillary refill GI/Abdominal exam: PRESENT: normal bowel sounds, soft. ABSENT: distended, guarding, mass, organolmegaly, rebound, tenderness Rectal exam: PRESENT: deferred Extremities exam: PRESENT: full ROM. ABSENT: calf tenderness, clubbing, pedal edema Neurological exam: PRESENT: alert, awake, oriented to person, oriented to place , oriented to time, oriented to situation, CN II-XII grossly intact. ABSENT: motor sensory deficit Psychiatric exam: PRESENT: appropriate affect, normal mood. ABSENT: homicidal ideation, suicidal ideation Skin exam: PRESENT: dry, intact, warm. ABSENT: cyanosis, rash Results Laboratory Results: 07/17/18 05:30 07/17/18 05:30 07/17/18 07/17/18 05:30 05:30 WBC 5.9 RBC 3.37 L Hgb 9.5 L Hct 28.6 L MCV 85 MCH 28.0 MCHC 33.1 RDW 22.5 H Plt Count 192 Sodium 147.6 H Potassium 3.4 L Chloride 109 H Carbon Dioxide 32 H Anion Gap 7 BUN 36 H Creatinine 1.62 H Est GFR ( Amer) 51 L Est GFR (Non-Af Amer) 42 L Glucose 121 H Calcium 11.6 H Magnesium 2.5 H 07/11/18 07/15/18 11:15 06:20 Creatine Kinase < 20 L Troponin I < 0.012 NT-Pro-B Natriuret Pep 865 Impressions: Chest X-Ray 07/10/18 00:00 IMPRESSION: Prominent central pulmonary arteries, question underlying pulmonary hypertension Knee X-Ray 07/10/18 06:49 IMPRESSION: Pathologic fracture of the proximal left tibial shaft. Differential etiologies include underlying malignancy. Fluoroscopy 07/14/18 00:00 IMPRESSION: ORIF tibial fracture. Refer to operative note for further information. Tibia/Fibula X-Ray 07/14/18 00:00 IMPRESSION: ORIF tibial fracture. Refer to operative note for further information. KUB X-Ray 07/16/18 16:30 IMPRESSION: NG tube present in the stomach. Persistent gastric dilatation. Assessment & Plan - Diagnosis (1) Chronic anticoagulation Is this a current diagnosis for this admission?: Yes Plan: Awaiting INR from today continue with Lovenox (2) Pathological fracture, left tibia, initial encounter for fracture Is this a current diagnosis for this admission?: Yes Plan: Continued follow-up (3) Multiple myeloma Qualifiers: Multiple myeloma remission status: not in remission Qualified Code(s): C90.00 - Multiple myeloma not having achieved remission Is this a current diagnosis for this admission?: Yes Plan: Rx on hold
[2018-07-17] MEDS: DOCUSATE SODIUM 100 MG/10 ML UDC NG SCH ×2 (10:20→22:07)
[2018-07-17] MEDS: LIDOCAINE 5% (700 MG) TRANSDERMAL ADH..PATCH TP SCH (10:20)
[2018-07-17] MEDS: CALCIUM CARBONATE 500 MG TAB.CHEW NG SCH (10:21)
[2018-07-17] MEDS: FUROSEMIDE 20 MG TABLET NG SCH ×2 (10:21→13:30)
--- NOTE | 2018-07-17 10:23 | RADIOLOGY REPORT (SQ) ---
EXAM DESCRIPTION: CT ABD/PELVIS NO ORAL OR IV COMPLETED DATE/TIME: 07/17/2018 10:00 am REASON FOR STUDY: Ileus, abd pain, MM COMPARISON: Radiograph 07/16/2018, CT 12/01/2013 TECHNIQUE: CT scan of the abdomen and pelvis performed without intravenous or oral contrast. Images reviewed with lung, soft tissue, and bone windows. Reconstructed coronal and sagittal MPR images revi ewed. All images stored on PACS. All CT scanners at this facility use dose modulation, iterative reconstruction, and/or weight based d osing when appropriate to reduce radiation dose to as low as reasonably achievable (ALARA). [facility]: Dose Right [facility]: CareDose [facility]: Dose Right [facility]: Teradose 4D [facility]: [employer] RADIATION DOSE: CT Rad equipment meets quality standard of care and radiation dose reduction techniq ues were employed. CTDIvol: 24.5 mGy. DLP: 1383 mGy-cm.mGy. LIMITATIONS: None. FINDINGS: LOWER CHEST: No significant findings. No nodules or infiltrates. NON-CONTRASTED LIVER, SPLEEN, ADRENALS: Evaluation limited by lack of IV contrast. No identified sign ificant masses. PANCREAS: No masses. No peripancreatic inflammatory changes. GALLBLADDER: A couple of small gallstones are present. RIGHT KIDNEY AND URETER: There is a hyperdense well-circumscribed area seen in the dorsal renal sandhya x, likely a hyperdense cyst. No significant calcifications. No hydronephrosis or hydroureter. LEFT KIDNEY AND URETER: No suspicious masses. Assessment limited by lack of IV contrast. No signifi cant calcifications. No hydronephrosis or hydroureter. AORTA AND RETROPERITONEUM: No aneurysm. No retroperitoneal masses or adenopathy. BOWEL AND PERITONEAL CAVITY: The stomach has been decompressed. An NG tube is present. There is foc al concentric thickening of the rectum seen on image 84. APPENDIX: Normal. PELVIS, BLADDER, AND ABDOMINAL WALL:No abnormal masses. No free fluid. Bladder normal. BONES: There is a somewhat moth-eaten appearance of the pelvis with multiple small lytic areas. Lyti c defects are present in the proximal right hip. There is heterogeneous mineralization of the spine. OTHER: No other significant finding. IMPRESSION: 1. Cholelithiasis. 2. Likely hyperdense cyst in the right kidney. 3. The stomach is no longer distended. There is an NG tube. 4. There is focal concentric thickening of the rectum, cannot exclude neoplasm. 5. There are multiple lytic osseous lesions concerning for metastases. COMMENT: Quality ID # [id number]: Final reports with documentation of one or more dose reduction techniques (e.g., Automated exposure control, adjustment of the mA and/or kV according to patient size, use of iterative reconstruction technique) TECHNICAL DOCUMENTATION: JOB ID: [id number] [employer]- All Rights Reserved Reading location - IP/workstation name: [email or web address]
[2018-07-17] MEDS: CITALOPRAM HYDROBROMIDE 20 MG TABLET NG SCH (10:24)
[2018-07-17] MEDS: POTASSIUM CHLORIDE 20 MEQ/15 ML UDCUP PO SCH ×2 (10:24→18:29)
[2018-07-17] MEDS: CALCIUM CARBONATE 250 MG/VITAMIN D3 125 UNIT TABLET NG SCH (10:25)
[2018-07-17] MEDS: SILDENAFIL CITRATE 20 MG TABLET NG SCH ×3 (10:25→18:29)
[2018-07-17] MEDS: VALACYCLOVIR HCL 500 MG TABLET NG SCH (10:26)
--- NOTE | 2018-07-17 16:51 | PROGRESS NOTE E ---
Progress Note NAME: NINI ZHENG : 1945 AGE: 73Y DATE: ROOM: 537 SUBJECTIVE: The patient is lying in bed. I have had a couple of different visits with the patient and the family throughout the day. The patient ended up requiring an NG tube yesterday and still continues to have high output from this. Family is agreeable to CT for further evaluation. The patient has remained afebrile. Blood pressure has been in acceptable range. The patient would wake up intermittently, however, he is not really contributory to any conversation. Patient is unable to voice any specific concerns at this time. REVIEW OF SYSTEMS: Unobtainable. MEDICATIONS: Medications have been reviewed. OBJECTIVE: GENERAL: The patient is a 73-year-old male who is somnolent. Does not appear to be distressed. VITAL SIGNS: Temperature 98.6, pulse 70, respirations 16, blood pressure 156/54, oxygen saturation 98% on room air. SKIN: Pale, no rash, he is not diaphoretic. HEENT: Patient's mucous membranes appear moist. NG tube is in place. CVS: Patient is sinus rhythm on the monitor. CHEST: Symmetrical, unlabored. ABDOMEN: Nondistended, soft. EXTREMITIES: The patient does have some dependent edema. PSYCHIATRIC: The patient is somnolent. DIAGNOSTIC VALUES: Hematology obtained on 07/17/2018: WBC 5.9, hemoglobin 9.5, hematocrit 28.6, platelet count 192,000. Chemistry obtained on 07/17/2018: Sodium 147, potassium 3.4, chloride 109, carbon dioxide 32, BUN 36, creatinine 0.6. Glucose 121. Calcium is 11.6, magnesium 2.5. ASSESSMENT AND PLAN: 1. POSTOPERATIVE ILEUS. We will continue NG tube with low wall suction at this time. CT of the abdomen and pelvis is consistent with ileus as well as chronic findings of his metastatic disease. We will continue supportive therapy and follow. 2. LEFT FIBULA PATHOLOGICAL FRACTURE. The patient is status post operative repair postop day #2. I do appreciate Dr. Finley's help with this. 3. MULTIPLE MYELOMA. Do appreciate Oncology's input with this. The patient has received aggressive treatment and the family has stated that he is at the end of his treatment options. Continue to follow. 4. CHRONIC OBSTRUCTIVE PULMONARY DISEASE. At baseline. 5. CHRONIC DIASTOLIC CONGESTIVE HEART FAILURE. Continue the patient's home medications. He appears to be at baseline and optivolemic. 6. PULMONARY HYPERTENSION. Continue to use sildenafil. 7. HYPERTENSION. Blood pressure has been in acceptable range. 8. HYPERLIPIDEMIA. Continue statin. 9. HYPOTHYROIDISM. Continue levothyroxine. 10. INTERMITTENT ATRIAL FIBRILLATION. The patient appears to be in sinus rhythm. Continue medications. 11. ACUTE KIDNEY INJURY. The patient has a baseline of 1.3 which is consistent at this time. 12. DEBILITY. I have discussed the case with Oncology and we will give the patient through the weekend to see how his symptoms go. At this time there is a consensus of the patient's who is his default decision maker, as well as the agreeance of oncology. DISPOSITION: The patient is a DO NOT RESUSCITATE/DO NOT INTUBATE. Pending the patient's symptomatology and diagnostic findings, will reevaluate as needed. Time spent on this followup including assessment and plan, history and physical examination, patient education, review of records, as well as family meeting is 60 minutes. DICTATING PHYSICIAN: EDMUNDO FLORES NP [id number] PHY#: [id number] ID: [id number] JOB#: [id number] ACCT: [id number] cc: >
[2018-07-17] MEDS ORDERED: WARFARIN SODIUM 3 MG TABLET NG SCH ×2 (17:00→22:00)
[2018-07-17] MEDS: PHARMACY COMMUNICATION ORDER MC SCH (22:13)
[2018-07-17] MEDS: ATORVASTATIN CALCIUM 20 MG TABLET NG SCH (22:13)
[2018-07-17] MEDS: INSULIN GLARGINE,HUM.REC.ANLOG 300 UNIT/3 ML INSULN.PEN SUBCUT SCH (22:14)
[2018-07-18] MEDS: MORPHINE SULFATE 10 MG/ML INJ IV PRN ×2 (01:16→05:11)
[2018-07-18] MEDS: LANSOPRAZOLE 15 MG TAB.RAP.DR NG SCH (05:10)
[2018-07-18] MEDS: OXYCODONE HCL IR 5 MG TABLET NG SCH ×2 (05:10→11:49)
[2018-07-18] MEDS: LEVOTHYROXINE SODIUM 0.025 MG TABLET NG SCH (05:10)
[2018-07-18] MEDS: DILTIAZEM HCL 30 MG TABLET NG SCH ×3 (05:11→22:22)
[2018-07-18] MEDS: ENOXAPARIN SODIUM INJ 120 MG/0.8 ML DISP.SYRIN SUBCUT SCH (05:12)
[2018-07-18] MEDS: FUROSEMIDE 20 MG TABLET NG SCH (08:33)
--- NOTE | 2018-07-18 08:39 | PDOC PROGRESS REPORT ---
Subjective Progress Note for:: 07/18/18 Reason For Visit: LT TIBIAL FRACTURE,MULTIPLE MYELOMA,CHIQUITA 73-year-old white male status post open reduction internal fixation of a left pathologic tibia fracture. Physical Exam Vital Signs: Temp Pulse Resp BP Pulse Ox 36.9 C 70 18 168/58 H 99 07/18/18 03:56 07/18/18 03:56 07/18/18 03:56 07/18/18 03:56 07/18/18 03:56 Intake & Output 07/17/18 07/18/18 07/19/18 06:59 06:59 06:59 Intake Total 1000 540 Output Total 1200 3450 Balance -200 -2910 Weight 106.2 kg 106.4 kg Physical Exam: Patient sitting up in a chair. He is alert interactive in the NG tube has been discontinued by the patient. He is currently sipping ice water. Extremities exam: PRESENT: other - Left tibial dressing remains clean dry and intact. There is minimal pedal edema. Distal neurovascular examination is intact. Results Laboratory Results: 07/17/18 05:30 07/17/18 05:30 07/11/18 07/15/18 11:15 06:20 Creatine Kinase < 20 L Troponin I < 0.012 NT-Pro-B Natriuret Pep 865 Impressions: Chest X-Ray 07/10/18 00:00 IMPRESSION: Prominent central pulmonary arteries, question underlying pulmonary hypertension Knee X-Ray 07/10/18 06:49 IMPRESSION: Pathologic fracture of the proximal left tibial shaft. Differential etiologies include underlying malignancy. Fluoroscopy 07/14/18 00:00 IMPRESSION: ORIF tibial fracture. Refer to operative note for further information. Tibia/Fibula X-Ray 07/14/18 00:00 IMPRESSION: ORIF tibial fracture. Refer to operative note for further information. KUB X-Ray 07/16/18 16:30 IMPRESSION: NG tube present in the stomach. Persistent gastric dilatation. Abdomen/Pelvis CT 07/17/18 00:00 IMPRESSION: 1. Cholelithiasis. 2. Likely hyperdense cyst in the right kidney. 3. The stomach is no longer distended. There is an NG tube. 4. There is focal concentric thickening of the rectum, cannot exclude neoplasm. 5. There are multiple lytic osseous lesions concerning for metastases. Status: Imported from PACS Assessment & Plan - Diagnosis (1) Pathological fracture, left tibia, initial encounter for fracture Is this a current diagnosis for this admission?: Yes Plan: Mobilized on a touchdown weightbearing restriction left lower extremity is medical condition permits
--- NOTE | 2018-07-18 08:43 | PDOC PROGRESS REPORT ---
Subjective Progress Note for:: 07/18/18 Subjective:: Had long discussion w/. pt and family, spent >40m in discussion, they agreed to speak w/ hospice, getting anthony, our hospice liason to see pt. Reason For Visit: LT TIBIAL FRACTURE,MULTIPLE MYELOMA,CHIQUITA Physical Exam Vital Signs: Temp Pulse Resp BP Pulse Ox 98.5 F 70 18 168/58 H 99 07/18/18 03:56 07/18/18 03:56 07/18/18 03:56 07/18/18 03:56 07/18/18 03:56 Intake & Output 07/17/18 07/18/18 07/19/18 06:59 06:59 06:59 Intake Total 1000 540 Output Total 1200 3450 Balance -200 -2910 Weight 106.2 kg 106.4 kg General appearance: PRESENT: no acute distress, well-developed, well-nourished Head exam: PRESENT: atraumatic, normocephalic Eye exam: PRESENT: conjunctiva pink, EOMI, PERRLA. ABSENT: scleral icterus Ear exam: PRESENT: normal external ear exam Mouth exam: PRESENT: moist, tongue midline Neck exam: ABSENT: carotid bruit, JVD, lymphadenopathy, thyromegaly Respiratory exam: PRESENT: clear to auscultation romelia. ABSENT: rales, rhonchi, wheezes Cardiovascular exam: PRESENT: RRR. ABSENT: diastolic murmur, rubs, systolic murmur Pulses: PRESENT: normal dorsalis pedis pul Vascular exam: PRESENT: normal capillary refill GI/Abdominal exam: PRESENT: normal bowel sounds, soft. ABSENT: distended, guarding, mass, organolmegaly, rebound, tenderness Rectal exam: PRESENT: deferred Extremities exam: PRESENT: full ROM. ABSENT: calf tenderness, clubbing, pedal edema Neurological exam: PRESENT: alert, awake, oriented to person, oriented to place , oriented to time, oriented to situation, CN II-XII grossly intact. ABSENT: motor sensory deficit Psychiatric exam: PRESENT: appropriate affect, normal mood. ABSENT: homicidal ideation, suicidal ideation Skin exam: PRESENT: dry, intact, warm. ABSENT: cyanosis, rash Results Laboratory Results: 07/17/18 05:30 07/17/18 05:30 07/11/18 07/15/18 11:15 06:20 Creatine Kinase < 20 L Troponin I < 0.012 NT-Pro-B Natriuret Pep 865 Impressions: Chest X-Ray 07/10/18 00:00 IMPRESSION: Prominent central pulmonary arteries, question underlying pulmonary hypertension Knee X-Ray 07/10/18 06:49 IMPRESSION: Pathologic fracture of the proximal left tibial shaft. Differential etiologies include underlying malignancy. Fluoroscopy 07/14/18 00:00 IMPRESSION: ORIF tibial fracture. Refer to operative note for further information. Tibia/Fibula X-Ray 07/14/18 00:00 IMPRESSION: ORIF tibial fracture. Refer to operative note for further information. KUB X-Ray 07/16/18 16:30 IMPRESSION: NG tube present in the stomach. Persistent gastric dilatation. Abdomen/Pelvis CT 07/17/18 00:00 IMPRESSION: 1. Cholelithiasis. 2. Likely hyperdense cyst in the right kidney. 3. The stomach is no longer distended. There is an NG tube. 4. There is focal concentric thickening of the rectum, cannot exclude neoplasm. 5. There are multiple lytic osseous lesions concerning for metastases. Assessment & Plan - Diagnosis (1) Chronic anticoagulation Is this a current diagnosis for this admission?: Yes Plan: We can consider d/cing this if pt and fam decide on going w/ home hospice. Cont lovenox for now (2) Pathological fracture, left tibia, initial encounter for fracture Is this a current diagnosis for this admission?: Yes Plan: Cont trying for pt to get up as tolerated (3) Multiple myeloma Qualifiers: Multiple myeloma remission status: not in remission Qualified Code(s): C90.00 - Multiple myeloma not having achieved remission Is this a current diagnosis for this admission?: Yes Plan: No further rx possible, will have hospice meet w/ family today - Time Time Spent with patient: 35 or more minutes
[2018-07-18] MEDS: CITALOPRAM HYDROBROMIDE 20 MG TABLET NG SCH (11:46)
[2018-07-18] MEDS: DOCUSATE SODIUM 100 MG/10 ML UDC NG SCH ×2 (11:47→22:22)
[2018-07-18] MEDS: POTASSIUM CHLORIDE 20 MEQ/15 ML UDCUP PO SCH ×2 (11:48→17:59)
[2018-07-18] MEDS: CALCIUM CARBONATE 250 MG/VITAMIN D3 125 UNIT TABLET NG SCH (11:48)
[2018-07-18] MEDS: LIDOCAINE 5% (700 MG) TRANSDERMAL ADH..PATCH TP SCH (11:48)
[2018-07-18] MEDS: VALACYCLOVIR HCL 500 MG TABLET NG SCH (11:49)
[2018-07-18] MEDS: SILDENAFIL CITRATE 20 MG TABLET NG SCH ×4 (11:49→18:08)
[2018-07-18] MEDS: CALCIUM CARBONATE 500 MG TAB.CHEW NG SCH (11:49)
[2018-07-18] MEDS ORDERED: WARFARIN SODIUM 5 MG TABLET NG SCH ×2 (17:00→22:00)
--- NOTE | 2018-07-18 21:31 | PROGRESS NOTE E ---
Progress Note NAME: NINI ZHENG : 1945 AGE: 73Y DATE: 07/18/2018 ROOM: 537 SUBJECTIVE: The patient was seen this morning on rounds. The patient is absolutely adamant that he be discharged, he wants to go home. Family is awaiting a conversation with hospice to arrange home hospice. The patient's oncologist is in agreeance to this plan. The patient removed his own NG tube and proceeded to drink some liquids. The patient is yet to have a bowel movement. He is not passing any gas, but he has not had any emesis since his NG tube has been removed. We will proceed with comfort measures and the patient does not voice any other concerns at this time. REVIEW OF SYSTEMS: A full review of systems cannot be appreciated given the patient's mentation. MEDICATIONS: Medications have been reviewed. OBJECTIVE: GENERAL: The patient is a 73-year-old male who is awake, alert. He is oriented, does not appear to be distressed. VITAL SIGNS: Temperature is 97.7, pulse 70, respirations 17, blood pressure is 152/51, oxygen saturation is 96% on room air. SKIN: Warm and dry. No rash. He is not diaphoretic, but he is quite pale. HEENT: No evidence of JVP. CARDIOVASCULAR: The patient is in A-fib on the monitor. CHEST: Symmetrical, unlabored. ABDOMEN: Nondistended. EXTREMITIES: No edema. Immobilizer in place. PSYCHIATRIC: The patient has an odd affect. DIAGNOSTICS: Lab values are as follows - Hematology obtained on 07/17/2018; WBC is 5.9, hemoglobin 9.5, hematocrit 28.6, platelet count 192,000. Chemistry obtained on 07/17/2018; sodium 147, potassium 3.4, chloride 109, carbon dioxide 32, BUN 36, creatinine 1.6, glucose 121, calcium is 11.6, magnesium is 2.5. IMPRESSION AND PLAN: 1. POSTOPERATIVE ILEUS. Will advance diet to clear liquids and monitor closely. The patient has been made aware of the complications associated with this. 2. LEFT FIBULAR PATHOLOGICAL FRACTURE. The patient is postop day #3. Do appreciate Dr. Finley's input on this. 3. MULTIPLE MYELOMA, END-STAGE. The patient is being followed by oncology. Do appreciate input on this. The patient has received aggressive treatment and the family and patient have elected to proceed with home hospice. 4. CHRONIC OBSTRUCTIVE PULMONARY DISEASE AT BASELINE. 5. CHRONIC DIASTOLIC CONGESTIVE HEART FAILURE. Continue home medications, he is optivolemic. 6. PULMONARY HYPERTENSION. Continue sidenafil. 7. HYPERTENSION. Blood pressure is in acceptable range. 8. HYPERLIPIDEMIA. Continue statin. 9. HYPOTHYROIDISM. Continue levothyroxine. 10. INTERMITTENT ATRIAL FIBRILLATION. 11. ACUTE KIDNEY INJURY. The patient is back to baseline. 12. DEBILITY. The patient is going to home with hospice. CODE STATUS: The patient is a do not resuscitate/do not intubate with palliative management only. DISPOSITION: Depending on the patient's symptomatology and diagnostic findings will reevaluate in the a.m. for possible discharge home with hospice once this is arranged. TIME SPENT: On this follow up, including assessment and plan, physical examination, patient education, review of records is 35 minutes. DICTATING PHYSICIAN: EDMUNDO FLORES NP [id number] PHY#: [id number] ID: [id number] JOB#: [id number] ACCT: [id number] cc: > MTDD
[2018-07-18] MEDS: PHARMACY COMMUNICATION ORDER MC SCH (22:23)
[2018-07-18] MEDS: HYDROMORPHONE HCL INJ/PF 2 MG/ML AMPULE IV PRN (22:34)
[2018-07-19] MEDS: HYDROMORPHONE HCL INJ/PF 2 MG/ML AMPULE IV PRN ×3 (03:46→09:27)
[2018-07-19] MEDS: LANSOPRAZOLE 15 MG TAB.RAP.DR NG SCH (05:58)
[2018-07-19] MEDS: LEVOTHYROXINE SODIUM 0.025 MG TABLET NG SCH (05:58)
[2018-07-19] MEDS: DILTIAZEM HCL 30 MG TABLET NG SCH (05:59)
[2018-07-19] MEDS: POTASSIUM CHLORIDE 20 MEQ/15 ML UDCUP PO SCH (09:26)
[2018-07-19] MEDS: CITALOPRAM HYDROBROMIDE 20 MG TABLET NG SCH (09:26)
[2018-07-19] MEDS: CALCIUM CARBONATE 500 MG TAB.CHEW NG SCH (09:26)
[2018-07-19] MEDS: VALACYCLOVIR HCL 500 MG TABLET NG SCH (09:37)
[2018-07-19] MEDS: SILDENAFIL CITRATE 20 MG TABLET NG SCH (09:37)
[2018-07-19] MEDS: DOCUSATE SODIUM 100 MG/10 ML UDC NG SCH (09:37)
[2018-07-19] MEDS: LIDOCAINE 5% (700 MG) TRANSDERMAL ADH..PATCH TP SCH (09:38)
[2018-07-19] MEDS: CALCIUM CARBONATE 250 MG/VITAMIN D3 125 UNIT TABLET NG SCH (09:40)
--- NOTE | 2018-07-19 11:15 | PDOC PROGRESS REPORT ---
Subjective Progress Note for:: 07/19/18 Subjective:: Spent about 45 minutes in discussion today. Today had a long conversation with the patient, Family, ready for discharge, spoke about hospice and how the coordination of care would be, Reason For Visit: LT TIBIAL FRACTURE,MULTIPLE MYELOMA,CHIQUITA Physical Exam Vital Signs: Temp Pulse Resp BP Pulse Ox 98.5 F 78 12 122/47 L 98 07/19/18 08:13 07/19/18 08:13 07/19/18 08:13 07/19/18 08:13 07/19/18 08:13 Intake & Output 07/18/18 07/19/18 07/20/18 06:59 06:59 05:59 Intake Total 540 2462 Output Total 3450 1260 Balance -2910 1202 Weight 106.4 kg 105.9 kg General appearance: PRESENT: no acute distress, well-developed, well-nourished Head exam: PRESENT: atraumatic, normocephalic Eye exam: PRESENT: conjunctiva pink, EOMI, PERRLA. ABSENT: scleral icterus Ear exam: PRESENT: normal external ear exam Mouth exam: PRESENT: moist, tongue midline Neck exam: ABSENT: carotid bruit, JVD, lymphadenopathy, thyromegaly Respiratory exam: PRESENT: clear to auscultation romelia. ABSENT: rales, rhonchi, wheezes Cardiovascular exam: PRESENT: RRR. ABSENT: diastolic murmur, rubs, systolic murmur Pulses: PRESENT: normal dorsalis pedis pul Vascular exam: PRESENT: normal capillary refill GI/Abdominal exam: PRESENT: normal bowel sounds, soft. ABSENT: distended, guarding, mass, organolmegaly, rebound, tenderness Rectal exam: PRESENT: deferred Extremities exam: PRESENT: full ROM. ABSENT: calf tenderness, clubbing, pedal edema Neurological exam: PRESENT: alert, awake, oriented to person, oriented to place , oriented to time, oriented to situation, CN II-XII grossly intact. ABSENT: motor sensory deficit Psychiatric exam: PRESENT: appropriate affect, normal mood. ABSENT: homicidal ideation, suicidal ideation Skin exam: PRESENT: dry, intact, warm. ABSENT: cyanosis, rash Results Laboratory Results: 07/17/18 05:30 07/17/18 05:30 07/11/18 07/15/18 11:15 06:20 Creatine Kinase < 20 L Troponin I < 0.012 NT-Pro-B Natriuret Pep 865 Impressions: Chest X-Ray 07/10/18 00:00 IMPRESSION: Prominent central pulmonary arteries, question underlying pulmonary hypertension Knee X-Ray 07/10/18 06:49 IMPRESSION: Pathologic fracture of the proximal left tibial shaft. Differential etiologies include underlying malignancy. Fluoroscopy 07/14/18 00:00 IMPRESSION: ORIF tibial fracture. Refer to operative note for further information. Tibia/Fibula X-Ray 07/14/18 00:00 IMPRESSION: ORIF tibial fracture. Refer to operative note for further information. KUB X-Ray 07/16/18 16:30 IMPRESSION: NG tube present in the stomach. Persistent gastric dilatation. Abdomen/Pelvis CT 07/17/18 00:00 IMPRESSION: 1. Cholelithiasis. 2. Likely hyperdense cyst in the right kidney. 3. The stomach is no longer distended. There is an NG tube. 4. There is focal concentric thickening of the rectum, cannot exclude neoplasm. 5. There are multiple lytic osseous lesions concerning for metastases. Assessment & Plan - Diagnosis (1) Chronic anticoagulation Is this a current diagnosis for this admission?: Yes Plan: DC anticoagulation on discharge (2) Pathological fracture, left tibia, initial encounter for fracture Is this a current diagnosis for this admission?: Yes Plan: No further workup or treatment (3) Multiple myeloma Qualifiers: Multiple myeloma remission status: not in remission Qualified Code(s): C90.00 - Multiple myeloma not having achieved remission Is this a current diagnosis for this admission?: Yes Plan: Home hospice - Time Time Spent with patient: 35 or more minutes
[2018-07-19 12:19] VITALS: BP 124/46
--- NOTE | 2018-07-20 20:11 | DISCHARGE SUMMARY E ---
Discharge Summary NAME: NINI ZHENG : 1945 AGE: 73Y ADMITTED: 07/10/2018 DISCHARGED: 07/19/2018 CODE STATUS: DO NOT RESUSCITATE, DO NOT INTUBATE, WITH COMFORT CARE MEASURES ONLY. PRIMARY CARE PROVIDER: Humberto Banda M.D. RECEIVING SERVICES: Home hospice. DISCHARGE DIAGNOSES: Include: 1. End stage multiple myeloma. 2. Left pathological fracture. 3. Postoperative ileus. 4. Chronic obstructive pulmonary disease. 5. Chronic diastolic congestive heart failure. 6. Pulmonary hypertension. 7. Hypertension. 8. Hyperlipidemia. 9. Hypothyroidism. 10. Intermittent atrial fibrillation. 11. Acute kidney injury. 12. Debility. DISCHARGE MEDICATIONS: Include: 1. Oxycodone 40 mg p.o. q. 12 hours. 2. Valacyclovir 500 mg p.o. daily. 3. Tylenol 650 mg p.o. q. 4 hours p.r.n. 4. Oxycodone 15 mg p.o. q. 6 hours p.r.n. 5. Omeprazole 20 mg p.o. q. a.m. DISCHARGE DIET: As tolerated. DISCHARGE ACTIVITY: As tolerated. DISCHARGE CONDITION: Poor. DIAGNOSTICS: Lab values are as follows: Hematology obtained on 07/17/2018: WBCs are 5.9, hemoglobin is 7.5, hematocrit is 38.6, platelet count is 192,000. Coagulation obtained on 07/15/2018: PT is 3.7, INR is 1.19. Chemistry obtained on 07/19/2018: Sodium is 147, potassium is 3.4, chloride is 109, carbon dioxide 32, BUN 36, creatinine is 0.62 glucose 121, calcium is 11.2, magnesium is 2.5. Troponin 0.012, BNP is 985. Bilirubin is 0.8, AST 21, ALT is 12, alk phos 75. Troponin is 0.1012. Total protein 9.4, albumin 3.7. Urinalysis obtained on 07/12/2018: Color straw, appearance clear. PH is 5.0, specific gravity is 1.010, protein negative, glucose negative, ketones negative, occult blood small, nitrate negative, bilirubin negative, urobilinogen is negative, leukocyte esterase is negative, WBCs are 13, RBCs 1, bacteria trace, urothelial squamous cells less than 1, mucous rare, ascorbic acid is negative. Other values obtained on 07/13/2018: Stool for occult blood is negative. CT of the abdomen and pelvis obtained on 07/17/2018 is consistent with an ileus and chronic findings associated with his multiple myeloma. Microbiology: MRSA surveillance obtained on reveals no MRSA recovered. PHYSICAL EXAMINATION: GENERAL: On examination, the patient is a frail, chronically ill-appearing 73-year-old male who is awake, alert, unable to fully assess orientation. He does not appear to be in any acute distress. VITAL SIGNS: Temperature is 98.5, pulse 78, respirations 12, blood pressure is 124/46, oxygen saturation is 98% on room air. SKIN: Pale No rash. He is not diaphoretic. CHEST: Clear, symmetrical, unlabored. ABDOMEN: Nondistended. HISTORY OF PRESENT ILLNESS: The patient is a 73-year-old male with a past medical history of multiple myeloma for 8 years as well as AFIB and chronic anticoagulation with Coumadin. The patient presented to the Emergency Department with a chief complaint of knee pain. The patient was getting out of his vehicle when his knee gave out and he slid to the ground. The patient was noted to have limited range of motion secondary to pain and mild edema. The patient reports having, several weeks ago, aching discomfort in the same joint. Evaluation in the Emergency Department revealed a left proximal shaft fracture extending through an ill-defined lytic lesion. Of note, the patient underwent a left hip replacement due to a pathological fracture as well. Otherwise, the patient's workup revealed a supratherapeutic INR of 3.59, CHIQUITA 1.35.KK The patient is followed on an outpatient basis by Dr. Banda as well as Dr. Finley and the patient was referred to the hospitalist for admission and management. HOSPITAL COURSE: The patient was admitted to continuous telemetry unit. The patient was seen and evaluated by the orthopedist and after much discussion, elected to proceed with surgical repair. The patient underwent ORIF on 07/14/2018 without issue. Postoperatively, the patient's course was complicated by ileus. The family is aware that the patient is out of options for management of his multiple myeloma, did have multiple discussions with the family as well as his oncologist, and the patient has elected to proceed with home hospice. This has been arranged through the hospice agency and the patient and the family would like to proceed with comfort care measures only. TIME SPENT: On this discharge including assessment, plan, physical examination, patient education, and review of records is 35 minutes. DICTATING PHYSICIAN: EDMUNDO FLORES NP [id number] PHY#: [id number] ID: [id number] JOB#: [id number] ACCT: [id number] cc:Harinder CASE NP >
== END 2018-07-19 14:00 | disposition hospice, home (50) | DRG 478 ==
LOC: ER 06:06 → EH 09:19 → 5 11:10
PROVIDERS: ADMIT Internal Medicine; ATTEND Internal Medicine
PROC: 0QSH04Z Reposition Left Tibia with Internal Fixation Device, Open Approach (ICD-10-PCS; 2018-07-14)
PROC: 0QBH0ZX Excision of Left Tibia, Open Approach, Diagnostic (ICD-10-PCS; principal; 2018-07-14 17:00)
DX: M84.662A Pathological fracture in other disease, left tibia, initial encounter for fracture (principal); C90.00 Multiple myeloma not having achieved remission; N17.9 Acute kidney failure, unspecified; Z66 Do not resuscitate; K56.7 Ileus, unspecified; K91.89 Other postprocedural complications and disorders of digestive system; I50.32 Chronic diastolic (congestive) heart failure; R53.81 Other malaise; M25.562 Pain in left knee; E03.9 Hypothyroidism, unspecified; I48.0 Paroxysmal atrial fibrillation; I11.0 Hypertensive heart disease with heart failure; I27.20 Pulmonary hypertension, unspecified; M89.9 Disorder of bone, unspecified; E11.8 Type 2 diabetes mellitus with unspecified complications; V58.4XXA Person boarding or alighting a pick-up truck or van injured in noncollision transport accident, initial encounter; Y93.89 Activity, other specified; Y92.89 Other specified places as the place of occurrence of the external cause; Z96.642 Presence of left artificial hip joint; Z79.01 Long term (current) use of anticoagulants; Z79.4 Long term (current) use of insulin; Z79.899 Other long term (current) drug therapy
CPT/HCPCS: 01392; 36415; 71045; 74018; 74176; 80048; 80053; 81001; 82272; 82550; 82962; 83735; 83880; 84484; 85025; 85027; 85610; 88305; 93005; 93010; 94660; 94799; 99285; C1713; G8978-GP; G8979-GP; J0690; J1100; J1170; J1642; J1650; J1815; J2250; J2270; J2405; J2704; J3010; J3430; J3490; J7030; L1830